=== PATIENT | male | born 1940 | race Caucasian/White ===

== ENCOUNTER 2016-12-14 15:34 | Inpatient (IN) | payer BC, OTHER ==
[~2016-12-14] VITALS: Ht 170.2 cm; Wt 107.0 kg
[~2016-12-14 15:34] MED LIST changes: -ADVIN10050 INH; -ALBINS/ INH; -ALBU18002 INH; -ALL100 PO; -CHOL100010 PO; -CPR500 PO; -DTR2 PO; -FERR324T PO; -FLUT0.15 NAE; -METO25TA3 PO; -METR-163 PO; -MULT-506 PO; -SNG10 PO; -SOLI5TAB2 PO; -VLT50 PO; -ZCR80 PO
[2016-12-14] MEDS ORDERED: SODIUM CHLORIDE 0.9% 1000ML 1,000 ML IV ONE (17:03)
[2016-12-14] MEDS ORDERED: KETOROLAC TROMETHAMINE 30 MG/ML VIAL IV STA (17:03)
--- NOTE | 2016-12-14 17:04 | EMERGENCY ROOM VISIT NOTE ---
History Report prepared by Ezekiel: Mark Hollingsworth Under the Supervision of: Dr. Flynn Salmon M.D. First contact with patient: 16:55 Chief Complaint: REFERRED BY DOCTOR Stated Complaint: PROBLEMS WITH BLADDER-NO CONTROL-SENT BY History of Present Illness The patient is a 75 year old male who presents to the Emergency Room with complaints of persistent chills that started 4 days ago. He associates the chills with loss of control of his bladder and groin pain. He says he has no history of prostate issues. The patient says he went to work last night, and he completely lost control of his bladder. He sees Dr. Cuellar of urology, as the patient has had problems with his bladder before. The patient denies any numbness or tingling in his legs, loss of control of his stools, or any abdominal pain. He has not taken any Tylenol or ibuprofen recently. Source of History: patient Onset: 4 days ago Position: other (global - chills) Timing: other (persistent) Associated Symptoms: + urinary symptoms (loss of control of bladder), No abdominal pain, No numbness (or tingling in legs) Note: Associated symptoms: Groin pain. Denies loss of control of stools. Review of Systems See HPI for pertinent positives & negatives. A total of 10 systems reviewed and were otherwise negative. Past Medical & Surgical Medical Problems: (1) Asthma (2) Bronchitis (3) HTN (hypertension) (4) Kidney disease Surgical Problems: (1) H/O kidney removal Family History Cancer Diabetes mellitus Heart disease Hypertension Kidney disease Social History Smoking Status: Never Smoker Smokeless Tobacco Use: No Alcohol Use: none Marital Status: Housing Status: lives with family Occupation Status: retired Current/Historical Medications Scheduled Allopurinol (Allopurinol), 100 MG PO QAM Cholecalciferol (Vitamin D), 1,000 UNIT PO QAM Diclofenac Sod (Diclofenac Sodium Dr), 50 MG PO BID Ferrous Gluconate (Iron Supplement), Unknown Dose PO QAM Fluticasone Prop/Salmeterol (Advair Diskus 100-50 Mcg/Dose), 1 PUFF INH DAILY Fluticasone Propionate (Nasal) (Flonase Allergy Relief), 1 SPRAY LASHELL BID Metoprolol Succ (Toprol Xl) (Toprol-Xl), 25 MG PO QAM Montelukast Sod (Montelukast Sodium), 10 MG PO QAM Multivitamin (Multivitamin), 1 TAB PO QAM Simvastatin (Simvastatin), 80 MG PO QAM Solifenacin Succinate (Vesicare), 5 MG PO QAM Allergies Coded Allergies: Iodinated Diagnostic Agents (Unverified Allergy, Unknown, UNKNOWN, 12/14/16 ) Iodine (Verified Allergy, Unknown, 12/14/16) Physical Exam Vital Signs Date Time Temp Pulse Resp B/P Pulse Ox O2 Delivery O2 Flow Rate FiO2 12/14/16 18:37 37.3 90 20 172/71 95 Room Air 12/14/16 17:13 95 Room Air 12/14/16 15:54 37.3 90 20 180/76 95 Room Air Physical Exam GENERAL: Patient is a healthy-appearing well-nourished HEAD: Normocephalic atraumatic EYES: Ocular movements intact pupils equal and react to light OROPHARYNX mucous membranes are moist no exudates present no erythema or edema present NECK: Supple no nuchal rigidity CHEST: Good equal expansion LUNGS: Clear and equal to auscultation CARDIAC: Normal S1 and S2 ABDOMEN: Soft nontender no guarding BACK: No CVA tenderness EXTREMITIES: No pain upon palpation normal muscle strength in all groups no clubbing cyanosis or edema NEURO: Patient is following commands is answering questions appropriately. Alert and oriented x3 Cranial Nerves 2-12 grossly intact Medical Decision & Procedures ER Provider Diagnostic Interpretation: X-ray results as stated below per my interpretation and radiologist interpretation. Other radiology results as stated below per my review and radiologist interpretation: CHEST ONE VIEW PORTABLE HISTORY: Sepsis COMPARISON: Chest 06/28/2015. FINDINGS: The heart is top normal in size. This remains unchanged. No pneumothorax. No pleural effusions. The lungs are clear. Left retrocardiac lobular density may be due to a small diaphragmatic hernia or eventration of the diaphragm. IMPRESSION: 1. No acute process within the chest. 2. Small left retrocardiac lobular density favors a small diaphragmatic hernia or eventration of the left hemidiaphragm. This will be assessed on the same day abdomen and pelvis CT. Electronically signed by: Abrahan Das M.D. 12/14/2016 5:37 PM Dictated Date/Time: 12/14/2016 5:35 PM ABDOMEN AND PELVIS CT WITHOUT CONTRAST CT DOSE: 1045.69 mGycm HISTORY: Lower abdominal pain. suspect prostatitis TECHNIQUE: Multiaxial CT images of the abdomen and pelvis were performed without contrast. COMPARISON STUDY: None. FINDINGS: Small fat-containing left-sided Bochdalek hernia. No fractures within the visualized osseous structures. Near complete fatty atrophy of the right lateral abdominal wall musculature. There are few surgical clips within the right lateral abdominal wall. Small to moderate fat-containing left inguinal hernia. The unenhanced liver, adrenal glands, gallbladder, and pancreas are unremarkable. The right kidney is surgically absent. A residual right ureter is identified. Multiple left peripelvic renal cysts. No left-sided hydronephrosis. No retroperitoneal lymphadenopathy. Moderate bladder wall thickening. The prostate gland is normal in size. Moderate to large amount of stool within the rectum. The rectal wall is mildly thickened for the degree of distention. Suboptimal evaluation for bowel pathology due to the lack of intravenous and oral contrast. However, there is no evidence for bowel obstruction. Submucosal fat deposition within the proximal colon. This is likely chronic. IMPRESSION: 1. Moderate bladder wall thickening. Recommend correlation with urinalysis to assess for a cystitis. 2. The prostate gland is normal in size. 3. Mild rectal wall thickening for the degree of distention. There is a moderate to large amount of well-formed stool within the rectum. There is no associated perirectal inflammatory change. Therefore, this could represent an early acute or chronic proctitis. Follow-up colonoscopy can be performed for further evaluation. 4. Small to moderate fat-containing left inguinal hernia. 5. No evidence for bowel obstruction. 6. The right kidney is surgically absent. Electronically signed by: Abrahan Das M.D. 12/14/2016 7:02 PM Dictated Date/Time: 12/14/2016 6:54 PM Laboratory Results 12/14/16 17:30 Red Blood Count 4.52, Mean Corpuscular Volume 86.7, Mean Corpuscular Hemoglobin 30.5, Mean Corpuscular Hemoglobin Concent 35.2, Mean Platelet Volume 10.8, Neutrophils (%) (Auto) 85.4, Lymphocytes (%) (Auto) 6.0, Monocytes (%) (Auto) 8.0, Eosinophils (%) (Auto) 0.1, Basophils (%) (Auto) 0.2, Neutrophils # (Auto) 13.64, Lymphocytes # (Auto) 0.96, Monocytes # (Auto) 1.27, Eosinophils # (Auto) 0.02, Basophils # (Auto) 0.03 12/14/16 17:30 Test 12/14/16 17:30 12/14/16 17:49 12/14/16 19:00 White Blood Count 15.96 K/uL (4.8-10.8) Red Blood Count 4.52 M/uL (4.7-6.1) Hemoglobin 13.8 g/dL (14.0-18.0) Hematocrit 39.2 % (42-52) Mean Corpuscular Volume 86.7 fL (80-100) Mean Corpuscular Hemoglobin 30.5 pg (25-34) Mean Corpuscular Hemoglobin Concent 35.2 g/dl (32-36) Platelet Count 242 K/uL (130-400) Mean Platelet Volume 10.8 fL (7.4-10.4) Neutrophils (%) (Auto) 85.4 % Lymphocytes (%) (Auto) 6.0 % Monocytes (%) (Auto) 8.0 % Eosinophils (%) (Auto) 0.1 % Basophils (%) (Auto) 0.2 % Neutrophils # (Auto) 13.64 K/uL (1.4-6.5) Lymphocytes # (Auto) 0.96 K/uL (1.2-3.4) Monocytes # (Auto) 1.27 K/uL (0.11-0.59) Eosinophils # (Auto) 0.02 K/uL (0-0.5) Basophils # (Auto) 0.03 K/uL (0-0.2) RDW Standard Deviation 40.9 fL (36.4-46.3) RDW Coefficient of Variation 12.8 % (11.5-14.5) Immature Granulocyte % (Auto) 0.3 % Immature Granulocyte # (Auto) 0.04 K/uL (0.00-0.02) Prothrombin Time 11.3 SECONDS (9.0-12.0) Prothromb Time International Ratio 1.1 (0.9-1.1) Activated Partial Thromboplast Time 32.0 SECONDS (21.0-31.0) Partial Thromboplastin Ratio 1.2 Anion Gap 11.0 mmol/L (3-11) Est Creatinine Clear Calc Drug Dose 59.0 ml/min Estimated GFR () 62.7 Estimated GFR (Non- 54.1 BUN/Creatinine Ratio 13.1 (10-20) Calcium Level 8.8 mg/dl (8.5-10.1) Total Bilirubin 1.6 mg/dl (0.2-1) Aspartate Amino Transf (AST/SGOT) 16 U/L (15-37) Alanine Aminotransferase (ALT/SGPT) 24 U/L (12-78) Alkaline Phosphatase 92 U/L (45-117) Total Protein 7.2 gm/dl (6.4-8.2) Albumin 3.6 gm/dl (3.4-5.0) Globulin 3.6 gm/dl (2.5-4.0) Albumin/Globulin Ratio 1.0 (0.9-2) Bedside Lactic Acid Venous 0.82 mmol/L (0.90-1.70) Urine Color YELLOW Urine Appearance CLEAR (CLEAR) Urine pH 5.0 (4.5-7.5) Urine Specific [place] 1.019 (1.000-1.030) Urine Protein 2+ (NEG) Urine Glucose (UA) NEG (NEG) Urine Ketones 2+ (NEG) Urine Occult Blood 3+ (NEG) Urine Nitrite POS (NEG) Urine Bilirubin NEG (NEG) Urine Urobilinogen NEG (NEG) Urine Leukocyte Esterase SMALL (NEG) Labs reviewed by ED physician. Medications Administered Medications (Trade) Dose Ordered Sig/Ava Route Start Time Stop Time Status Last Admin Dose Admin Sodium Chloride (Nss 1000ml) 1,000 ml @ 999 mls/hr Q1H1M ONCE IV 12/14/16 17:03 12/14/16 18:03 DC 12/14/16 17:52 999 MLS/HR Ketorolac Tromethamine (Toradol Inj) 30 mg NOW STAT IV 12/14/16 17:03 12/14/16 17:06 DC 12/14/16 17:53 30 MG Ciprofloxacin/ Dextrose (Cipro / D5w) 400 mg NOW STAT IV 12/14/16 17:33 12/14/16 17:34 DC 12/14/16 17:53 400 MG ECG Indication: other (chills) Rate (beats per minute): 88 Rhythm: normal sinus Findings: no acute ischemic change, no ectopy, other (normal EKG) ED Course 1656: Past medical records reviewed. The patient was evaluated in room B10. A complete history and physical examination was performed. 1702: Ordered Toradol Inj 30 mg IV, NSS 1000 ml @ 999 mls/hr IV. 1732: Ordered Cipro/D5w 400 mg IV. 1924: I reevaluated the patient and he is resting comfortably. The patient verbally expressed understanding and agreement of the treatment plan. The patient will be evaluated for further treatment. 1999: I discussed the patient with Dr. Cherry fitzgeraldist - he will evaluate the patient for further treatment. Medical Decision Differential diagnosis: Etiologies such as appendicitis, diverticulitis, PUD, biliary pathology, UTI, pancreatitis, obstruction, mesenteric ischemia, aortic pathology, infections, inflammatory bowel disease, renal colic, as well as others were entertained. This is a 75-year-old male who presents emergency Department with rigors. The patient reports he is incontinent of urine. For this reason a Chance catheter was placed. The patient has no other neurologic findings including leg weakness , saddle anesthesia or loss of bowel. Based on these findings and believe the patient's most likely suffering from prostatitis. His urine is consistent with an infection. For this reason blood cultures were taken. The patient does have an elevation in his white blood count 15. The patient was started on IV Rocephin as well as Cipro. I did discuss these findings with the patient. The patient was admitted to the hospitalist service. Consults Time Called: 1899 Consulting Physician: Dr. Cherry franks Returned Call: 1999 I discussed the patient with Dr. Cherry franks - he will evaluate the patient for further treatment. Impression Primary Impression: Prostatitis Scribe Attestation The scribe's documentation has been prepared under my direction and personally reviewed by me in its entirety. I confirm that the note above accurately reflects all work, treatment, procedures, and medical decision making performed by me. Departure Information Dispostion Being Evaluated By Hospitalist Referrals Jason Cuellar MD, Urology (PCP) Patient Instructions My [facility] Problem Qualifiers Primary Impression: Prostatitis Prostatitis type: acute Qualified Codes: N41.0 - Acute prostatitis
[2016-12-14] MEDS ORDERED: SNG10 PO (17:13)
[2016-12-14] MEDS ORDERED: CHOL100010 PO (17:13)
[2016-12-14] MEDS ORDERED: METO25TA3 PO (17:13)
[2016-12-14] MEDS ORDERED: FLUT0.15 NAE (17:13)
[2016-12-14] MEDS ORDERED: ZCR80 PO (17:13)
[2016-12-14] MEDS ORDERED: ADVIN10050 INH (17:13)
[2016-12-14] MEDS ORDERED: MULT-506 PO (17:13)
[2016-12-14] MEDS ORDERED: FERR324T PO (17:13)
[2016-12-14] MEDS ORDERED: ALL100 PO (17:14)
[2016-12-14] MEDS ORDERED: VLT50 PO (17:14)
[2016-12-14] MEDS ORDERED: SOLI5TAB2 PO (17:14)
[2016-12-14] MEDS ORDERED: CIPROFLOXACIN 400MG / 200ML D5W IV STA (17:33)
--- NOTE | 2016-12-14 17:38 | DIAGNOSTIC IMAGING REPORT ---
CHEST ONE VIEW PORTABLE HISTORY: Sepsis COMPARISON: Chest 06/28/2015. FINDINGS: The heart is top normal in size. This remains unchanged. No pneumothorax. No pleural effusions. The lungs are clear. Left retrocardiac lobular density may be due to a small diaphragmatic hernia or eventration of the diaphragm. IMPRESSION: 1. No acute process within the chest. 2. Small left retrocardiac lobular density favors a small diaphragmatic hernia or eventration of the left hemidiaphragm. This will be assessed on the same day abdomen and pelvis CT. Electronically signed by: Abrahan Das M.D. 12/14/2016 5:37 PM Dictated Date/Time: 12/14/2016 5:35 PM
[2016-12-14 18:33] LABS: BASO % 0.2 %; BASO ABS # 0.03 K/uL (0-0.2); COMPLETE YES; EOS % 0.1 %; HEMATOCRIT 39.2 % (42-52); IG% 0.3 %; LYMPH ABS # 0.96 K/uL (1.2-3.4); MEAN CELL VOLUME 86.7 fL (80-100); MEAN CORPUSCULAR HEMOGLOBIN 30.5 pg (25-34); MEAN CORPUSCULAR HGB CONC 35.2 g/dl (32-36); MEAN PLATELET VOLUME 10.8 fL (7.4-10.4); NEUT % 85.4 %; PLATELET COUNT 242 K/uL (130-400); RED BLOOD COUNT 4.52 M/uL (4.7-6.1); WHITE BLOOD COUNT 15.96 K/uL (4.8-10.8)
[2016-12-14 18:42] LABS: INR 1.1 (0.9-1.1); PARTIAL THROMBOPLASTIN RATIO 1.2; PROTHROMBIN TIME (PATIENT) 11.3 SECONDS (9.0-12.0)
[2016-12-14 18:50] LABS: BUN/CREATININE RATIO 13.1 (10-20); CALCIUM 8.8 mg/dl (8.5-10.1); CREATININE 1.3 mg/dl (0.60-1.40); POTASSIUM 3.9 mmol/L (3.5-5.1)
--- NOTE | 2016-12-14 19:04 | DIAGNOSTIC IMAGING REPORT ---
ABDOMEN AND PELVIS CT WITHOUT CONTRAST CT DOSE: 1045.69 mGycm HISTORY: Lower abdominal pain. suspect prostatitis TECHNIQUE: Multiaxial CT images of the abdomen and pelvis were performed without contrast. COMPARISON STUDY: None. FINDINGS: Small fat-containing left-sided Bochdalek hernia. No fractures within the visualized osseous structures. Near complete fatty atrophy of the right lateral abdominal wall musculature. There are few surgical clips within the right lateral abdominal wall. Small to moderate fat-containing left inguinal hernia. The unenhanced liver, adrenal glands, gallbladder, and pancreas are unremarkable. The right kidney is surgically absent. A residual right ureter is identified. Multiple left peripelvic renal cysts. No left-sided hydronephrosis. No retroperitoneal lymphadenopathy. Moderate bladder wall thickening. The prostate gland is normal in size. Moderate to large amount of stool within the rectum. The rectal wall is mildly thickened for the degree of distention. Suboptimal evaluation for bowel pathology due to the lack of intravenous and oral contrast. However, there is no evidence for bowel obstruction. Submucosal fat deposition within the proximal colon. This is likely chronic. IMPRESSION: 1. Moderate bladder wall thickening. Recommend correlation with urinalysis to assess for a cystitis. 2. The prostate gland is normal in size. 3. Mild rectal wall thickening for the degree of distention. There is a moderate to large amount of well-formed stool within the rectum. There is no associated perirectal inflammatory change. Therefore, this could represent an early acute or chronic proctitis. Follow-up colonoscopy can be performed for further evaluation. 4. Small to moderate fat-containing left inguinal hernia. 5. No evidence for bowel obstruction. 6. The right kidney is surgically absent. Electronically signed by: Abrahan Das M.D. 12/14/2016 7:02 PM Dictated Date/Time: 12/14/2016 6:54 PM
[2016-12-14 19:31] LABS: URINE APPEARANCE CLEAR (CLEAR); URINE BILIRUBIN NEG (NEG); URINE COLOR YELLOW; URINE EPITHELIAL CELL AUTO 0-5 /lpf (0-5); URINE NITRITE POS (NEG); URINE SPECIFIC GRAVITY 1.019 (1.000-1.030); UROBILINOGEN NEG (NEG); ZZURINE CULT IF INDIC CATH YES
[2016-12-14 19:35] LABS: MANUAL MICROSCOPIC REQUIRED? NO; REVIEW REQ? YES
[2016-12-14] MEDS ORDERED: CEFTRIAXONE SOD INJ 1 GM ADDVIAL IV STA (19:51)
[2016-12-14] MEDS ORDERED: ACETAMINOPHEN 500 MG TAB PO STA (20:01)
[2016-12-14] MEDS ORDERED: ZOLPIDEM TARTRATE 5 MG TAB PO PRN (21:45)
[2016-12-14 21:46] VITALS: BP 115/64; PULSE 77; TEMP 36.9; O2SAT 95
--- NOTE | 2016-12-14 21:46 | History and Physical ---
History & Physical Date & Time of Service: Dec 14, 2016 at 21:37 Chief Complaint: Problems With Bladder-No Control-Sent By Primary Care Physician: Pato Castle M.D. History of Present Illness Source: patient, family, spouse The patient is a 75-year-old male who presents emergency department with complaint of chills, sweats loss of control of bladder function, and lower pelvic pain that began about 4 days prior to arrival. He follows with Dr. Cuellar, from urology, due to history of right nephrectomy, but knows of no direct prostate issues, but has been treated for bladder spasm initially with Hytrin and presently with Vesicare. He does report discomfort when he urinates , and he has not noted any blood in his urine. Past Medical/Surgical History Medical Problems: (1) Asthma Status: Chronic (2) Bronchitis Status: Resolved (3) HTN (hypertension) Status: Chronic (4) Kidney disease Status: Chronic Surgical Problems: (1) H/O kidney removal Status: Resolved Family History Cancer Diabetes mellitus Heart disease Hypertension Kidney disease Social History Smoking Status: Never Smoker Smokeless Tobacco Use: No Alcohol Use: none Drug Use: none Marital Status: Housing status: lives with family Occupational Status: retired Immunizations History of Tetanus Vaccine?: 2003 History of Pneumococcal: No History of Hepatitis B Vaccine: No Multi-Drug Resistant Organisms History of MDRO: No Allergies Coded Allergies: Iodinated Diagnostic Agents (Unverified Allergy, Unknown, UNKNOWN, 12/14/16 ) Iodine (Verified Allergy, Unknown, 12/14/16) Home Medications Scheduled Allopurinol (Allopurinol), 100 MG PO QAM Cholecalciferol (Vitamin D), 1,000 UNIT PO QAM Diclofenac Sod (Diclofenac Sodium Dr), 50 MG PO BID Ferrous Gluconate (Iron Supplement), Unknown Dose PO QAM Fluticasone Prop/Salmeterol (Advair Diskus 100-50 Mcg/Dose), 1 PUFF INH DAILY Fluticasone Propionate (Nasal) (Flonase Allergy Relief), 1 SPRAY LASHELL BID Metoprolol Succ (Toprol Xl) (Toprol-Xl), 25 MG PO QAM Montelukast Sod (Montelukast Sodium), 10 MG PO QAM Multivitamin (Multivitamin), 1 TAB PO QAM Simvastatin (Simvastatin), 80 MG PO QAM Solifenacin Succinate (Vesicare), 5 MG PO QAM Review of Systems The patient denies chest pain, palpitations, shortness of breath, cough, lower extremity swelling, vision change, hearing change, sore throat, weight change, fatigue, nausea, vomiting, abdominal pain, blood in urine or stool, lightheadedness, dizziness, memory loss, rash, abnormal bruising or bleeding, imbalance, focal or generalized weakness, numbness or tingling in arms or legs, arthralgias or myalgias, back or neck pain, night sweats, or allergy symptoms. The review of systems is otherwise negative other than for that already noted above, and at least 10 systems have been reviewed. Physical Exam Vital Signs Date Time Temp Pulse Resp B/P Pulse Ox O2 Delivery O2 Flow Rate FiO2 12/14/16 21:25 75 18 130/58 95 12/14/16 20:38 79 18 170/70 95 Room Air 12/14/16 18:37 37.3 90 20 172/71 95 Room Air 12/14/16 17:13 95 Room Air 12/14/16 15:54 37.3 90 20 180/76 95 Room Air The patient is awake, well-developed and adequately nourished, alert and oriented 3, normocephalic and atraumatic, lying in bed and in no acute distress. HEENT--PERRL, EOMI, mucous membranes moist, and oropharynx normal. Neck--supple, no JVD or bruits, thyroid normal, trachea midline, no adenopathy. Heart--normal S1 and S2, no extra beats, no murmurs, rubs or gallops. Lungs--clear bilaterally with good air movement, no respiratory distress, no accessory muscle use. Abdomen--normal bowel sounds and soft, nontender and nondistended, no hernias or masses, no organomegaly, and obese. Extremities--no cyanosis, clubbing or edema. There are good distal pulses b/l. Dermatologic--normal skin turgor, normal color, warm and dry, no abnormal lymph nodes, no rash. Neurologic--cranial nerves II through XII grossly intact, motor and sensory examination normal. Rheumatologic--normal range of motion, nontender, muscles and joints. Psychiatric--normal affect. Diagnostics Laboratory Results Results Past 24 Hours Test 12/14/16 17:30 12/14/16 17:49 12/14/16 19:00 Range/Units White Blood Count 15.96 4.8-10.8 K/uL Red Blood Count 4.52 4.7-6.1 M/uL Hemoglobin 13.8 14.0-18.0 g/dL Hematocrit 39.2 42-52 % Mean Corpuscular Volume 86.7 80-100 fL Mean Corpuscular Hemoglobin 30.5 25-34 pg Mean Corpuscular Hemoglobin Concent 35.2 32-36 g/dl Platelet Count 242 130-400 K/uL Mean Platelet Volume 10.8 7.4-10.4 fL Neutrophils (%) (Auto) 85.4 % Lymphocytes (%) (Auto) 6.0 % Monocytes (%) (Auto) 8.0 % Eosinophils (%) (Auto) 0.1 % Basophils (%) (Auto) 0.2 % Neutrophils # (Auto) 13.64 1.4-6.5 K/uL Lymphocytes # (Auto) 0.96 1.2-3.4 K/uL Monocytes # (Auto) 1.27 0.11-0.59 K/uL Eosinophils # (Auto) 0.02 0-0.5 K/uL Basophils # (Auto) 0.03 0-0.2 K/uL RDW Standard Deviation 40.9 36.4-46.3 fL RDW Coefficient of Variation 12.8 11.5-14.5 % Immature Granulocyte % (Auto) 0.3 % Immature Granulocyte # (Auto) 0.04 0.00-0.02 K/uL Prothrombin Time 11.3 9.0-12.0 SECONDS Prothromb Time International Ratio 1.1 0.9-1.1 Activated Partial Thromboplast Time 32.0 21.0-31.0 SECONDS Partial Thromboplastin Ratio 1.2 Sodium Level 135 136-145 mmol/L Potassium Level 3.9 3.5-5.1 mmol/L Chloride Level 100 98-107 mmol/L Carbon Dioxide Level 24 21-32 mmol/L Anion Gap 11.0 3-11 mmol/L Blood Urea Nitrogen 17 7-18 mg/dl Creatinine 1.30 0.60-1.40 mg/dl Est Creatinine Clear Calc Drug Dose 59.0 ml/min Estimated GFR () 62.7 Estimated GFR (Non- 54.1 BUN/Creatinine Ratio 13.1 10-20 Random Glucose 107 70-99 mg/dl Calcium Level 8.8 8.5-10.1 mg/dl Total Bilirubin 1.6 0.2-1 mg/dl Aspartate Amino Transf (AST/SGOT) 16 15-37 U/L Alanine Aminotransferase (ALT/SGPT) 24 12-78 U/L Alkaline Phosphatase 92 45-117 U/L Total Protein 7.2 6.4-8.2 gm/dl Albumin 3.6 3.4-5.0 gm/dl Globulin 3.6 2.5-4.0 gm/dl Albumin/Globulin Ratio 1.0 0.9-2 Bedside Lactic Acid Venous 0.82 0.90-1.70 mmol/L Urine Color YELLOW Urine Appearance CLEAR CLEAR Urine pH 5.0 4.5-7.5 Urine Specific [place] 1.019 1.000-1.030 Urine Protein 2+ NEG Urine Glucose (UA) NEG NEG Urine Ketones 2+ NEG Urine Occult Blood 3+ NEG Urine Nitrite POS NEG Urine Bilirubin NEG NEG Urine Urobilinogen NEG NEG Urine Leukocyte Esterase SMALL NEG Urine WBC (Auto) >30 0-5 /hpf Urine RBC (Auto) 10-30 0-4 /hpf Urine Hyaline Casts (Auto) 1-5 0-5 /lpf Urine Epithelial Cells (Auto) 0-5 0-5 /lpf Urine Bacteria (Auto) 4+ NEG Microbiology Results 12/14/16 Blood Culture, Received Pending 12/14/16 Blood Culture, Received Pending 12/14/16 Urine Culture, Received Pending Diagnostic Radiology Patient Name: NANCY MILLER Unit Number: [id number] Dictated: 12/14/161734 Transcribed: 12/14/161734 Voice Assist Printed Date/Time: [~ rep prt dt]/[~ rep prt tm] [~ rep ct labl] - [~ rep ct ivnm] [facility] [place] [address] Dictated: 12/14/161734 Transcribed: 12/14/161734 [facility] Printed Date/Time: [~ rep prt dt]/[~ rep prt tm] [~ rep ct labl] - [~ rep ct ivnm] [~ rep ct add3]] CHEST ONE VIEW PORTABLE HISTORY: Sepsis COMPARISON: Chest 06/28/2015. FINDINGS: The heart is top normal in size. This remains unchanged. No pneumothorax. No pleural effusions. The lungs are clear. Left retrocardiac lobular density may be due to a small diaphragmatic hernia or eventration of the diaphragm. IMPRESSION: 1. No acute process within the chest. 2. Small left retrocardiac lobular density favors a small diaphragmatic hernia or eventration of the left hemidiaphragm. This will be assessed on the same day abdomen and pelvis CT. Electronically signed by: Abrahan Das M.D. 12/14/2016 5:37 PM Dictated Date/Time: 12/14/2016 5:35 PM The status of this report is Signed. Draft = Not yet reviewed or approved by Radiologist. Signed = Reviewed and approved by Radiologist. <AttendingPhy></AttendingPhy> <FamilyPhy>Jason Cuellar MD, Urology</ FamilyPhy> <PrimaryPhy>Pato Castle M.D.</PrimaryPhy> <UnitNumber> [id number]</UnitNumber> <VisitNumber>[id number]</VisitNumber> <PatientName> NANCY MILLER</PatientName> <DateOfBirth>1940</DateOfBirth> <Location> C.EDB</Location> <ServiceDate>12/14/16</ServiceDate> <MNE>ESINDI</MNE> < OrderingPhy>Flynn Salmon MD</OrderingPhy> <OrderingPhyMNE>f rep ord dr nichols< /OrderingPhyMNE> <DictatingPhyMNE>f rep dict dr nichols</DictatingPhyMNE> <CCListMNE >f rep ct simone</CCListMNE> <AdmittingPhyMNE>f pt admit dr nichols</AdmittingPhyMNE> < AttendingPhyMNE>f pt attend dr nichols</AttendingPhyMNE> <ConsultingPhyMNE>f pt consult dr nichols</ConsultingPhyMNE> <FamilyPhyMNE>f pt fam dr nichols</FamilyPhyMNE> <OtherPhyMNE>f pt other dr nichols</OtherPhyMNE> < PrimaryPhyMNE>f pt prim care dr nichols</PrimaryPhyMNE> <ReferringPhyMNE>f pt referring dr nichols</ReferringPhyMNE> Patient Name: NANCY MILLER Unit Number: [id number] Dictated: 12/14/161853 Transcribed: 12/14/161853 [facility] Printed Date/Time: [~ rep prt dt]/[~ rep prt tm] [~ rep ct labl] - [~ rep ct ivnm] [facility] Radiology Department [place], [place] [id number] Dictated: 12/14/161853 Transcribed: 12/14/161853 [facility] Printed Date/Time: [~ rep prt dt]/[~ rep prt tm] [~ rep ct labl] - [~ rep ct ivnm] [~ rep ct add3]] ABDOMEN AND PELVIS CT WITHOUT CONTRAST CT DOSE: 1045.69 mGycm HISTORY: Lower abdominal pain. suspect prostatitis TECHNIQUE: Multiaxial CT images of the abdomen and pelvis were performed without contrast. COMPARISON STUDY: None. FINDINGS: Small fat-containing left-sided Bochdalek hernia. No fractures within the visualized osseous structures. Near complete fatty atrophy of the right lateral abdominal wall musculature. There are few surgical clips within the right lateral abdominal wall. Small to moderate fat-containing left inguinal hernia. The unenhanced liver, adrenal glands, gallbladder, and pancreas are unremarkable. The right kidney is surgically absent. A residual right ureter is identified. Multiple left peripelvic renal cysts. No left-sided hydronephrosis. No retroperitoneal lymphadenopathy. Moderate bladder wall thickening. The prostate gland is normal in size. Moderate to large amount of stool within the rectum. The rectal wall is mildly thickened for the degree of distention. Suboptimal evaluation for bowel pathology due to the lack of intravenous and oral contrast. However, there is no evidence for bowel obstruction. Submucosal fat deposition within the proximal colon. This is likely chronic. IMPRESSION: 1. Moderate bladder wall thickening. Recommend correlation with urinalysis to assess for a cystitis. 2. The prostate gland is normal in size. 3. Mild rectal wall thickening for the degree of distention. There is a moderate to large amount of well-formed stool within the rectum. There is no associated perirectal inflammatory change. Therefore, this could represent an early acute or chronic proctitis. Follow-up colonoscopy can be performed for further evaluation. 4. Small to moderate fat-containing left inguinal hernia. 5. No evidence for bowel obstruction. 6. The right kidney is surgically absent. Electronically signed by: Abrahan Das M.D. 12/14/2016 7:02 PM Dictated Date/Time: 12/14/2016 6:54 PM The status of this report is Signed. Draft = Not yet reviewed or approved by Radiologist. Signed = Reviewed and approved by Radiologist. <AttendingPhy></AttendingPhy> <FamilyPhy>Jasno Cuellar MD, Urology</ FamilyPhy> <PrimaryPhy>Pato Castle M.D.</PrimaryPhy> <UnitNumber> [id number]</UnitNumber> <VisitNumber>[id number]</VisitNumber> <PatientName> NANCY MILLER</PatientName> <DateOfBirth>1940</DateOfBirth> <Location> C.EDB</Location> <ServiceDate>12/14/16</ServiceDate> <MNE>ESINDI</MNE> < OrderingPhy>Flynn Salmon MD</OrderingPhy> <OrderingPhyMNE>f rep ord dr nichols< /OrderingPhyMNE> <DictatingPhyMNE>f rep dict dr nichols</DictatingPhyMNE> <CCListMNE >f rep ct simone</CCListMNE> <AdmittingPhyMNE>f pt admit dr nichols</AdmittingPhyMNE> < AttendingPhyMNE>f pt attend dr nichols</AttendingPhyMNE> <ConsultingPhyMNE>f pt consult dr nichols</ConsultingPhyMNE> <FamilyPhyMNE>f pt fam dr nichols</FamilyPhyMNE> <OtherPhyMNE>f pt other dr nichols</OtherPhyMNE> < PrimaryPhyMNE>f pt prim care dr nichols</PrimaryPhyMNE> <ReferringPhyMNE>f pt referring dr nichols</ReferringPhyMNE> EKG EKG shows normal sinus rhythm at 88 bpm, there are no acute ST-T changes. There is no significant change found when compared to EKG of 04/26/2011. Impression Assessment and Plan Prostatitis/SIRS--the patient be admitted to the medical surgical floor. He'll be placed on ceftriaxone 1 g IV daily. Follow urine culture and sensitivity results. Continue Vesicare 5 mg by mouth every morning. He reports having uncontrollable urination when he is been on Hytrin in the past. We'll consult his urologist Dr. Jason Cuellar, and he can determine if Flomax is an acceptable option. He looks to be able to adequately drink liquids on his own, we'll therefore not placed on IV fluids at this time. Gout--continue allopurinol 100 mg by mouth every morning. Asthma--continue Advair discus 100/50, 1 inhalation daily and montelukast sodium 10 mg by mouth every morning. Hypertension--continue metoprolol succinate 25 mg by mouth every morning. General Allergy--continue Flonase allergy relief 1 spray each nostril twice a day. Hypercholesterolemia--continue simvastatin 80 mg by mouth every morning. Nutraceuticals--continue vitamin D 1000 international units by mouth every morning, ferrous gluconate daily, multivitamin daily. Level of Care Med/Surg Advanced Directives Existing Advance Directive: No Existing Living Will: No Existing Power of Four Slide Machine Setter: No Resuscitation Status FULL RESUSCITATION VTE Prophylaxis VTE Risk Assessment Done? Y/N: Yes Risk Level: Moderate Given or contraindicated: SCD's Social Service Consult None Apply
[2016-12-14 22:04] VITALS: BP 115/64; PULSE 77; TEMP 36.9; O2SAT 95; Ht 170.2 cm; Wt 107.0 kg
[2016-12-15] MEDS ORDERED: VESICARE 5 MG PO SCH (08:00)
[2016-12-15] MEDS ORDERED: BISACODYL 10 MG SUPP PR PRN (08:15)
[2016-12-15 08:23] VITALS: BP 142/82; PULSE 81; TEMP 37.1; O2SAT 94
[2016-12-15] MEDS: FLUTICASONE/SALMETEROL 100/50 (ADVAIR) 14 PUFF/1 INHALER INH SCH (08:29)
[2016-12-15] MEDS: ACETAMINOPHEN 325 MG TAB PO PRN ×2 (08:34→20:59)
[2016-12-15] MEDS: FLUTICASONE PROPIONATE NA SPR 16 GM BTL NAE SCH ×2 (08:35→20:52)
[2016-12-15] MEDS: MONTELUKAST SOD 10 MG TAB PO SCH (08:36)
[2016-12-15] MEDS: MULTIVITAMIN TAB PO SCH (08:36)
[2016-12-15] MEDS: SIMVASTATIN 80 MG TAB PO SCH (08:37)
[2016-12-15] MEDS: ALLOPURINOL 100 MG TAB PO SCH (08:37)
[2016-12-15] MEDS: METOPROLOL SUCC 25MG EXT REL TAB PO SCH (08:37)
[2016-12-15] MEDS: CHOLECALCIFEROL 1000 INTER.UNIT TAB PO SCH (08:37)
[2016-12-15] MEDS: POLYETHYLENE (MIRALAX) 17 GM PACK PO SCH (11:24)
--- NOTE | 2016-12-15 13:22 | Progress Note ---
Subjective Date of Service: Dec 15, 2016. Subjective pt feels much better but still has urgency and almost incontinence, no further back pain Problem List Medical Problems: (1) Asthma Status: Chronic (2) Prostatitis Status: Acute Review of Systems Constitutional: No chills, No fever, No weakness Respiratory: No cough, No shortness of breath Cardiac: No chest pain, No edema Abdomen: No diarrhea, No nausea, No pain, No vomiting Musculoskeletal: No joint pain, No muscle pain Male : + problem reported (urgency), + urinary frequency Objective Vital Signs Date Time Temp Pulse Resp B/P Pulse Ox O2 Delivery O2 Flow Rate FiO2 12/15/16 00:00 Room Air 12/14/16 22:04 36.9 77 20 115/64 95 Room Air 12/14/16 21:46 36.9 77 20 115/64 95 Room Air 12/14/16 21:25 75 18 130/58 95 12/14/16 20:38 79 18 170/70 95 Room Air 12/14/16 18:37 37.3 90 20 172/71 95 Room Air 12/14/16 17:13 95 Room Air 12/14/16 15:54 37.3 90 20 180/76 95 Room Air Physical Exam General Appearance: WD/WN, + mild distress Neck: supple, no JVD Respiratory/Chest: chest non-tender, lungs clear, normal breath sounds Cardiovascular: regular rate, rhythm, no murmur Abdomen: normal bowel sounds, non tender, soft Neurologic/Psychiatric: alert, oriented x 3 Laboratory Results Last 24 Hours Test 12/14/16 17:30 12/14/16 17:49 12/14/16 19:00 White Blood Count 15.96 K/uL Red Blood Count 4.52 M/uL Hemoglobin 13.8 g/dL Hematocrit 39.2 % Mean Corpuscular Volume 86.7 fL Mean Corpuscular Hemoglobin 30.5 pg Mean Corpuscular Hemoglobin Concent 35.2 g/dl Platelet Count 242 K/uL Mean Platelet Volume 10.8 fL Neutrophils (%) (Auto) 85.4 % Lymphocytes (%) (Auto) 6.0 % Monocytes (%) (Auto) 8.0 % Eosinophils (%) (Auto) 0.1 % Basophils (%) (Auto) 0.2 % Neutrophils # (Auto) 13.64 K/uL Lymphocytes # (Auto) 0.96 K/uL Monocytes # (Auto) 1.27 K/uL Eosinophils # (Auto) 0.02 K/uL Basophils # (Auto) 0.03 K/uL RDW Standard Deviation 40.9 fL RDW Coefficient of Variation 12.8 % Immature Granulocyte % (Auto) 0.3 % Immature Granulocyte # (Auto) 0.04 K/uL Prothrombin Time 11.3 SECONDS Prothromb Time International Ratio 1.1 Activated Partial Thromboplast Time 32.0 SECONDS Partial Thromboplastin Ratio 1.2 Sodium Level 135 mmol/L Potassium Level 3.9 mmol/L Chloride Level 100 mmol/L Carbon Dioxide Level 24 mmol/L Anion Gap 11.0 mmol/L Blood Urea Nitrogen 17 mg/dl Creatinine 1.30 mg/dl Est Creatinine Clear Calc Drug Dose 59.0 ml/min Estimated GFR () 62.7 Estimated GFR (Non- 54.1 BUN/Creatinine Ratio 13.1 Random Glucose 107 mg/dl Calcium Level 8.8 mg/dl Total Bilirubin 1.6 mg/dl Aspartate Amino Transf (AST/SGOT) 16 U/L Alanine Aminotransferase (ALT/SGPT) 24 U/L Alkaline Phosphatase 92 U/L Total Protein 7.2 gm/dl Albumin 3.6 gm/dl Globulin 3.6 gm/dl Albumin/Globulin Ratio 1.0 Bedside Lactic Acid Venous 0.82 mmol/L Urine Color YELLOW Urine Appearance CLEAR Urine pH 5.0 Urine Specific [place] 1.019 Urine Protein 2+ Urine Glucose (UA) NEG Urine Ketones 2+ Urine Occult Blood 3+ Urine Nitrite POS Urine Bilirubin NEG Urine Urobilinogen NEG Urine Leukocyte Esterase SMALL Urine WBC (Auto) >30 /hpf Urine RBC (Auto) 10-30 /hpf Urine Hyaline Casts (Auto) 1-5 /lpf Urine Epithelial Cells (Auto) 0-5 /lpf Urine Bacteria (Auto) 4+ Assessment and Plan Prostatitis/SIRS-- ceftriaxone 1 g IV daily, Pending urine culture and sensitivity results, CT suggests cystitis and proctitis Sepsis from ecoli uti poa, since has solitary kidney and did have some back pain , will await sensitivities and treat as complex uti with appropriate antibiotic for one week Constipation seen on CT, use miralax. possible suppository. BPH Vesicare 5 mg Gout- allopurinol 100 mg Asthma--stable, Advair discus 100/50, and montelukast sodium 10 mg Hypertension--stable metoprolol succinate 25 mg Hypercholesterolemia--simvastatin 80 mg
[2016-12-15 15:47] VITALS: BP 159/79; PULSE 74; TEMP 36.5; O2SAT 98
[2016-12-15] MEDS: CEFTRIAXONE SOD INJ 1 GM in DEXTROSE 5% ADD-VANTAGE 50ML 50 ML IV SCH (18:08)
[2016-12-15 23:17] VITALS: BP 145/90; PULSE 79; TEMP 37.4; O2SAT 95
[2016-12-16] MEDS ORDERED: CPR500 PO (07:58)
--- NOTE | 2016-12-16 08:00 | Discharge Instructions ---
Discharge Instructions Admission Reason for Admission: Prostatitis, Sirs Discharge Discharge Diagnosis / Problem: complicated uti poa, solitary kidney Discharge Goals Goal(s): Diagnostic testing, Therapeutic intervention Activity Recommendations Activity Limitations: resume your previous activity . Current Hospital Diet Patient's current hospital diet: Regular Diet Discharge Diet Recommended Diet: Regular Diet Pending Studies Studies pending at discharge: yes (second urine culture) List of pending studies: second urine culture, Dr Flores outpt culture did show e coli Medical Emergencies . Who to Call and When: Medical Emergencies: If at any time you feel your situation is an emergency, please call 911 immediately. . Non-Emergent Contact Non-Emergency issues call your: Primary Care Provider (Dr llanos this week) . . "Provider Documentation" section prepared by Isacc Law. VTE Core Measure Inpt VTE Proph given/why not?: SCD's
[2016-12-16 08:12] VITALS: BP 156/97; PULSE 81; TEMP 36.8; O2SAT 90
[2016-12-16] MEDS: ENOXAPARIN 40 MG/0.4 ML SYR SQ SCH (08:30)
[2016-12-16] MEDS: FLUTICASONE PROPIONATE NA SPR 16 GM BTL NAE SCH ×2 (08:33→20:25)
[2016-12-16] MEDS: FLUTICASONE/SALMETEROL 100/50 (ADVAIR) 14 PUFF/1 INHALER INH SCH (08:33)
[2016-12-16] MEDS: POLYETHYLENE (MIRALAX) 17 GM PACK PO SCH (08:34)
[2016-12-16] MEDS: MULTIVITAMIN TAB PO SCH (08:34)
[2016-12-16] MEDS: MONTELUKAST SOD 10 MG TAB PO SCH (08:35)
[2016-12-16] MEDS: METOPROLOL SUCC 25MG EXT REL TAB PO SCH (08:35)
[2016-12-16] MEDS: VESICARE 5MG TABLET PO SCH (08:36)
[2016-12-16] MEDS: CHOLECALCIFEROL 1000 INTER.UNIT TAB PO SCH (08:36)
[2016-12-16] MEDS: ALLOPURINOL 100 MG TAB PO SCH (08:36)
[2016-12-16] MEDS: SIMVASTATIN 80 MG TAB PO SCH (08:37)
--- NOTE | 2016-12-16 11:21 | Progress Note ---
Subjective Date of Service: Dec 16, 2016. Subjective this pt has improved urination but now constipation and RLQ pain( supposedly had an appendectomy and right nephrectomy in the past) no rebound or acute abdomen but distended and guarding Problem List Medical Problems: (1) Asthma Status: Chronic (2) Prostatitis Status: Acute Review of Systems Constitutional: No chills, No fever Respiratory: No cough, No shortness of breath Cardiac: No chest pain, No edema Abdomen: No nausea, No pain, No vomiting Male : No dysuria, No incontinence, No urinary frequency Psychiatric: No anhedonism, No depression symptoms Objective Vital Signs Date Time Temp Pulse Resp B/P Pulse Ox O2 Delivery O2 Flow Rate FiO2 12/16/16 08:12 36.8 81 18 156/97 90 Room Air 12/16/16 00:05 Room Air 12/15/16 23:17 37.4 79 18 145/90 95 Room Air 12/15/16 20:05 Room Air 12/15/16 16:00 Room Air 12/15/16 15:47 36.5 74 18 159/79 98 Room Air Physical Exam General Appearance: WD/WN, + moderate distress Neck: supple, no JVD Respiratory/Chest: chest non-tender, lungs clear, normal breath sounds Cardiovascular: regular rate, rhythm, no murmur Abdomen: normal bowel sounds, soft, + distended, + tenderness Extremities: normal range of motion, no pedal edema, no calf tenderness Neurologic/Psychiatric: alert, oriented x 3 Assessment and Plan Prostatitis/SIRS-- ceftriaxone 1 g IV daily, Pending urine culture and sensitivity results, CT suggests cystitis and proctitis, Ecoli is confirmed on outpt uti Sepsis from ecoli uti poa, since has solitary kidney and did have some back pain , will await sensitivities and treat as complex uti with appropriate antibiotic for one week Constipation seen on CT, use miralax. possible suppository. BPH Vesicare 5 mg Gout- allopurinol 100 mg Asthma--stable, Advair discus 100/50, and montelukast sodium 10 mg Hypertension--stable metoprolol succinate 25 mg Hypercholesterolemia--simvastatin 80 mg
--- NOTE | 2016-12-16 13:52 | DIAGNOSTIC IMAGING REPORT ---
ABDOMEN AND PELVIS CT WITH ORAL CONTRAST CT DOSE: 1301.01 mGy.cm HISTORY: Right lower quadrant abdominal pain. TECHNIQUE: Multiaxial CT images of the abdomen and pelvis were performed following the use of oral contrast. COMPARISON STUDY: Abdomen and pelvis CT 12/14/2016. FINDINGS: Small fat-containing left-sided Bochdalek hernia. No fractures within the visualized osseous structures. Near complete fatty atrophy of the right lateral abdominal wall musculature. There are few surgical clips within the right lateral abdominal wall. Small to moderate fat-containing left inguinal hernia. The unenhanced liver, adrenal glands, gallbladder, and pancreas are unremarkable. The right kidney is surgically absent. A residual right ureter is identified. Multiple left peripelvic renal cysts. No left-sided hydronephrosis. No retroperitoneal lymphadenopathy. Mild bladder wall thickening. The prostate gland is normal in size. Moderate to large amount of stool within the rectum. The rectal wall is mildly thickened for the degree of distention. There is no evidence for bowel obstruction. Submucosal fat deposition within the proximal colon. This is likely chronic. The appendix is not identified and is likely absent. IMPRESSION: 1. Mild bladder wall thickening which has improved. The bladder is mildly distended.. 2. Otherwise, no significant change compared to the prior study. 3. Mild rectal wall thickening for the degree of distention. There is a moderate to large amount of well-formed stool within the rectum. There is no associated perirectal inflammatory change. 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 Follow-up colonoscopy can be performed for further evaluation. 4. Small to moderate fat-containing left inguinal hernia. 5. No evidence for bowel obstruction. 6. The right kidney is surgically absent. Electronically signed by: Abrahan Das M.D. 12/16/2016 1:50 PM Dictated Date/Time: 12/16/2016 1:42 PM
[2016-12-16 15:43] VITALS: BP 147/68; PULSE 73; TEMP 36.5; O2SAT 96
[2016-12-16] MEDS ORDERED: BISACODYL 10 MG SUPP PR PRN (16:00)
[2016-12-16] MEDS ORDERED: SOAP SUDS ENEMA PR PRN (16:00)
[2016-12-16] MEDS ORDERED: BISACODYL 10 MG SUPP PR STA (16:01)
[2016-12-16] MEDS: CEFTRIAXONE SOD INJ 1 GM in DEXTROSE 5% ADD-VANTAGE 50ML 50 ML IV SCH (18:33)
[2016-12-16] MEDS: ACETAMINOPHEN 325 MG TAB PO PRN (20:27)
[2016-12-16 23:34] VITALS: BP 137/69; PULSE 82; TEMP 36.7; O2SAT 97
[2016-12-17 07:55] VITALS: BP 151/73; PULSE 73; TEMP 37; O2SAT 90
[2016-12-17] MEDS: ENOXAPARIN 40 MG/0.4 ML SYR SQ SCH (08:00)
[2016-12-17] MEDS: FLUTICASONE/SALMETEROL 100/50 (ADVAIR) 14 PUFF/1 INHALER INH SCH (08:02)
[2016-12-17] MEDS: FLUTICASONE PROPIONATE NA SPR 16 GM BTL NAE SCH (08:02)
[2016-12-17] MEDS: ACETAMINOPHEN 325 MG TAB PO PRN ×2 (08:02→12:28)
[2016-12-17] MEDS: METOPROLOL SUCC 25MG EXT REL TAB PO SCH (08:03)
[2016-12-17] MEDS: MULTIVITAMIN TAB PO SCH (08:03)
[2016-12-17] MEDS: CHOLECALCIFEROL 1000 INTER.UNIT TAB PO SCH (08:03)
[2016-12-17] MEDS: MONTELUKAST SOD 10 MG TAB PO SCH (08:03)
[2016-12-17] MEDS: VESICARE 5MG TABLET PO SCH (08:04)
[2016-12-17] MEDS: SIMVASTATIN 80 MG TAB PO SCH (08:04)
[2016-12-17] MEDS: ALLOPURINOL 100 MG TAB PO SCH (08:04)
[2016-12-17] MEDS: POLYETHYLENE (MIRALAX) 17 GM PACK PO SCH (08:06)
[2016-12-17 10:00] LABS: BASO % 0.5 %; BASO ABS # 0.03 K/uL (0-0.2); COMPLETE YES; EOS % 3.7 %; HEMATOCRIT 37.3 % (42-52); IG% 0.8 %; LYMPH % 25.1 %; LYMPH ABS # 1.63 K/uL (1.2-3.4); MEAN CELL VOLUME 85.6 fL (80-100); MEAN CORPUSCULAR HEMOGLOBIN 30.7 pg (25-34); MEAN CORPUSCULAR HGB CONC 35.9 g/dl (32-36); MEAN PLATELET VOLUME 10.4 fL (7.4-10.4); MONO % 10.5 %; NEUT % 59.4 %; PLATELET COUNT 257 K/uL (130-400); RED BLOOD COUNT 4.36 M/uL (4.7-6.1)
[2016-12-17 10:29] LABS: BUN/CREATININE RATIO 12.8 (10-20); CALCIUM 9.1 mg/dl (8.5-10.1); CREATININE 1.3 mg/dl (0.60-1.40); POTASSIUM 3.6 mmol/L (3.5-5.1)
--- NOTE | 2016-12-17 15:09 | DIAGNOSTIC IMAGING REPORT ---
TESTICULAR ULTRASOUND HISTORY: Right-sided testicular pain. eval for epididymitis, testicular masses, etc COMPARISON: None. FINDINGS: Right testis: 3.2 x 2.2 x 1.5 cm. There are no intratesticular masses. Normal color flow. No significant hydrocele. There is a 2 mm scrotal calcification. There is a 3 mm cyst within the epididymal head. Left testis: 3.0 x 2.4 x 1.4 cm. There are no intratesticular masses. Normal color flow. No significant hydrocele. There is a small fat-containing reducible left inguinal hernia. A 4 mm cyst within the left epididymal head. Small left-sided varicocele. IMPRESSION: 1. Normal bilateral testes. 2. Small bilateral epididymal head cysts. 3. Small left-sided varicocele. 4. Small fat-containing reducible left inguinal hernia. Electronically signed by: Abrahan Das M.D. 12/17/2016 3:07 PM Dictated Date/Time: 12/17/2016 3:05 PM
[2016-12-17] MEDS ORDERED: METR-163 PO (15:20)
[2016-12-17] MEDS ORDERED: CPR500 PO (15:20)
--- NOTE | 2016-12-17 15:31 | Discharge Instructions ---
Discharge Instructions Admission Reason for Admission: Prostatitis, Sirs (Brenda Dolan PA-C) Discharge Discharge Diagnosis / Problem: Complicated urinary tract infection, epididymitis (Brenda Dolan PA-C) Discharge Goals Goal(s): Decrease discomfort, Improve function, Diagnostic testing, Therapeutic intervention (Brenda Dolan PA-C) Activity Recommendations Activity Limitations: resume your previous activity . (Brenda Dolan PA-C) Instructions / Follow-Up Instructions / Follow-Up You were admitted to the hospital with a complicated urinary tract infection. The infection was caused by E. coli, and you were treated with an IV antibiotic called Rocephin, which did help to improve your symptoms. Your blood cultures were negative for any infection. Upon discharge, you were found to have epididymitis, an infection of your epididymis, which is a duct that runs behind your testicle. You will be treated for this infection with 2 weeks of oral antibiotics, which will also cover your urinary tract infection. Medications: You have been started on two new antibiotics. Please take ciprofloxacin (Cipro ) 500 mg by mouth twice a day for 14 days. Please also take metronidazole ( Flagyl) 500 mg by mouth three times a day for 14 days. DO NOT drink alcohol while taking metronidazole and for 3 days after you stop taking metronidazole as this may result in adverse reactions such as vomiting. You may resume your other home medications as previously prescribed. Follow-up: You have been scheduled for a follow-up appointment with Dr. Cuellar on December 28, 2016 at 10:00 am. Please follow up with your primary care provider in 1 week regarding your hospital stay. You will also need a follow-up colonoscopy in the near future. (Brenda Dolan PA-C) Current Hospital Diet Patient's current hospital diet: Regular Diet (Brenda Dolan PA-C) Discharge Diet Recommended Diet: Regular Diet (Brenda Dolan PA-C) Pending Studies Studies pending at discharge: no (Brenda Dolan PA-C) Medical Emergencies . Who to Call and When: Medical Emergencies: If at any time you feel your situation is an emergency, please call 911 immediately. . (Brenda Dolan PA-C) Non-Emergent Contact Non-Emergency issues call your: Primary Care Provider, Urologist Call Non-Emergent contact if: you have a fever, your pain is worsening, your pain is concerning you, you have any medication questions . (Brenda Dolan PA-C) Past History Medical & Surgical History: (1) UTI (urinary tract infection) (2) Epididymitis (3) SIRS (systemic inflammatory response syndrome) (Brenda Dolan PA-C) . "Provider Documentation" section prepared by Brenda Dloan. (Brenda Dolan PA-C) Attending Attestation: Pt seen/examined with FLYNN Dolan on the day of discharge. I agree with her discharge instructions as outlined. Marcio Clay MD (Marcio Clay MD) VTE Core Measure Inpt VTE Proph given/why not?: SCD's (Brenda Dolan PA-C)
--- NOTE | 2016-12-17 15:48 | Discharge Summary ---
Discharge Summary Admission Date: Dec 14, 2016 at 20:41 Discharge Date: Dec 17, 2016 Discharge Disposition: Home Principal Diagnosis: UTI, epididymitis Problems/Secondary Diagnoses: (1) Asthma Status: Chronic Immunizations: History of Tetanus Vaccine?: 2003 History of Pneumococcal: No History of Hepatitis B Vaccine: No Procedures: Patient Name: NANCY MILLER Unit Number: [id number] Dictated: 12/17/161504 Transcribed: 12/17/161504 PA Printed Date/Time: [~ rep prt dt]/[~ rep prt tm] [~ rep ct labl] - [~ rep ct ivnm] [facility] [place] [address] Dictated: 12/17/161504 Transcribed: 12/17/16 150 PAJ Printed Date/Time: [~ rep prt dt]/[~ rep prt tm] [~ rep ct labl] - [~ rep ct ivnm] Patient: NANCY MILLER Address1: [address] [place] [address] Rec: [id number] Address2: Acct ID: [id number] [facility] Zip: [place] [address] Date: 1940 Sex: M Room/Bed: [facility] Ref Phy: Jason Cuellar MD, Urology SC: [id number] Att Phy: Marcio Clay MD Report #: [id number] Ashley Phy: Pato Castle M.D. Test: TEST Admit Phy: Akhil Carey M.D. Personnel Specialist: JESICA Interpreting Phy: Abrahan Das MD Diagnosis: PROSTATITIS, SIRS Ordering Phy: Marcio Clay MD Service Date: 12/17/16 Admit Date: 12/14/1700/27/17 MNE: [id number] CONF: DICTATED BY: Abrahan Das M.D.]] CC: Pato Castle M.D. Miller, Howard I., MD, Urology Marcio Clay MD Endcc: [~ rep ct add3]] TESTICULAR ULTRASOUND HISTORY: Right-sided testicular pain. eval for epididymitis, testicular masses, etc COMPARISON: None. FINDINGS: Right testis: 3.2 x 2.2 x 1.5 cm. There are no intratesticular masses. Normal color flow. No significant hydrocele. There is a 2 mm scrotal calcification. There is a 3 mm cyst within the epididymal head. Left testis: 3.0 x 2.4 x 1.4 cm. There are no intratesticular masses. Normal color flow. No significant hydrocele. There is a small fat-containing reducible left inguinal hernia. A 4 mm cyst within the left epididymal head. Small left-sided varicocele. IMPRESSION: 1. Normal bilateral testes. 2. Small bilateral epididymal head cysts. 3. Small left-sided varicocele. 4. Small fat-containing reducible left inguinal hernia. Electronically signed by: Abrahan Das M.D. 12/17/2016 3:07 PM Dictated Date/Time: 12/17/2016 3:05 PM The status of this report is Signed. Draft = Not yet reviewed or approved by Radiologist. Signed = Reviewed and approved by Radiologist. <AttendingPhy>Marcio Clay MD</AttendingPhy> <FamilyPhy>Jason Cuellar MD, Urology</FamilyPhy> <PrimaryPhy>Pato Castle M.D.</PrimaryPhy> < UnitNumber>[id number]</UnitNumber> <VisitNumber>[id number]</VisitNumber> < PatientName>JAYDE MILLERURMAN Donnie</PatientName> <DateOfBirth>1940</DateOfBirth> <Location>[id number]</Location> <ServiceDate>12/14/16</ServiceDate> <MNE>ESINDI</MNE > <OrderingPhy>Marcio Clay MD</OrderingPhy> <OrderingPhyMNE>f rep ord dr nichols</OrderingPhyMNE> <DictatingPhyMNE>f rep dict dr nichols</DictatingPhyMNE> < CCListMNE>f rep ct mne</CCListMNE> <AdmittingPhyMNE>f pt admit dr nichols</ AdmittingPhyMNE> <AttendingPhyMNE>f pt attend dr nichols</AttendingPhyMNE> <ConsultingPhyMNE>f pt consult dr nichols</ConsultingPhyMNE> <FamilyPhyMNE>f pt fam dr nichols</FamilyPhyMNE> <OtherPhyMNE>f pt other dr nichols</OtherPhyMNE> < PrimaryPhyMNE>f pt prim care dr nichols</PrimaryPhyMNE> <ReferringPhyMNE>f pt referring dr nichols</ReferringPhyMNE> (Brenda Dolan, PASandra) Problems/Secondary Diagnoses: question of proctitis hyperlipidemia asthma HTN BPH solitary kidney status / h/o right-sided nephrectomy Procedures: CT abd/pelvis - IMPRESSION: 1. Mild bladder wall thickening which has improved. The bladder is mildly distended.. 2. Otherwise, no significant change compared to the prior study. 3. Mild rectal wall thickening for the degree of distention. There is a moderate to large amount of well-formed stool within the rectum. There is no associated perirectal inflammatory change. 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 Follow-up colonoscopy can be performed for further evaluation. 4. Small to moderate fat-containing left inguinal hernia. 5. No evidence for bowel obstruction. 6. The right kidney is surgically absent. (Marcio Clay MD) Medication Reconciliation New Medications: Ciprofloxacin (Ciprofloxacin HCl) 500 Mg Tab 500 MG PO BID for 14 Days, #28 TABS Take 1 tablet by mouth twice a day for 2 weeks. Metronidazole (Flagyl) 500 Mg Tab 500 MG PO TID for 14 Days, #42 TAB Take 1 tablet by mouth three times a day for 2 weeks. Continued Medications: Allopurinol (Allopurinol) 100 Mg Tab 100 MG PO QAM, #90 Cholecalciferol (Vitamin D) 1,000 Unit Tab 1000 UNIT PO QAM Diclofenac Sod (Diclofenac Sodium Dr) 50 Mg Tabec 50 MG PO BID, #180 Ferrous Gluconate (Iron Supplement) Unknown Strength Tab Unknown Dose PO QAM, TAB Fluticasone Prop/Salmeterol (Advair Diskus 100-50 Mcg/Dose) 14 Puff/1 Inhaler Aerp 1 PUFF INH DAILY Fluticasone Propionate (Nasal) (Flonase Allergy Relief) 50 Mcg/Act Spr 1 [place]LL BID Metoprolol Succ (Toprol Xl) (Toprol-Xl) 25 Mg Tabcr 25 MG PO QAM, #30 TAB Montelukast Sod (Montelukast Sodium) 10 Mg Tab 10 MG PO QAM Multivitamin (Multivitamin) Tab 1 TAB PO QAM, TAB Simvastatin (Simvastatin) 80 Mg Tab 80 MG PO QAM Solifenacin Succinate (Vesicare) 5 Mg Tab 5 MG PO QAM, #90 Discharge Exam Patient reports feeling well. He complains of a mild 1/10 aching pain in his lower abdomen across both lower quadrants. He does note some very slight dysuria but states that this has improved since arrival. He denies any urinary incontinence. He denies constipation. The patient denies fevers, chills, sweats, chest pain, palpitations, claudication, cough, wheezing, shortness of breath, nausea, vomiting, hematuria, urinary retention, paralysis, weakness, numbness and tingling. Review of Systems: Constitutional: No chills, No fever, No sweats Eyes: No diplopia, No eye pain, No worsening of vision ENT: No hearing loss, No sore throat, No trouble swallowing Respiratory: No cough, No shortness of breath, No wheezing Cardiovascular: No chest pain, No claudication, No palpitations Abdomen: No constipation, No nausea, No pain, No vomiting Musculoskeletal: + joint pain (mild back pain), No calf pain, No swelling Genitourinary - Male: + dysuria (mild), No hematuria, No urinary incontinence, No urinary retention Neurologic: No numbness/tingling, No paralysis, No weakness Integumentary: No color change, No itch, No rash Physical Exam: General Appearance: WD/WN, no apparent distress, + obese Eyes: normal inspection, PERRL, EOMI ENT: normal ENT inspection, hearing grossly normal, pharynx normal Neck: supple, no JVD, trachea midline Respiratory/Chest: lungs clear, normal breath sounds, no respiratory distress Cardiovascular: regular rate, rhythm, no gallop, + systolic murmur Abdomen / GI: normal bowel sounds, soft, + tenderness (RLQ and LLQ TTP) Extremities: normal inspection, no calf tenderness, no pedal edema Neurologic/Psychiatric: alert, normal mood/affect, oriented x 3 Skin: normal color, warm/dry, no rash (Dolan, Brenda ., PA-C) Hospital Course 75 y/o male with a history of asthma, BPH, gout, HTN, HLD, and solitary kidney who presents with chills, sweats, urinary incontinence, and lower pelvic pain that began about 4 days prior to arrival. Complicated UTI/SIRS--solitary kidney and presentation with back pain -Admitted to med/surg -Started on Rocephin 1 gm IV qd, total of 4 days abx while inpatient. D/C'd at discharge -Outpatient urine culture positive for cross-sensitive E. coli -Inpatient urine culture no growth -Blood cultures NGTD x 2 -Abd/ pelvis CT suggest cystitis, possible acute vs chronic proctitis. Repeat CT showed improvement of inflammation. Recommend f/u colonoscopy, which pt was in process of scheduling prior to arrival anyway Epididymitis -Testicular ultrasound shows normal testes, small bilateral epididymal head cysts, small left varicocele, small left reducible inguinal hernia -Cipro 500 mg PO BID and Flagyl 500 mg PO TID x 14 days each, will cover UTI as well -Pt scheduled for urology follow up appointment with Dr. Cuellar on 12/28/16 BPH--stable. No longer complains of incontinence -Continue Vesicare 5 mg PO qd Gout -Continue allopurinol 100 mg PO qd Asthma--stable -Continue Advair discus 100/50 1 puff inh qd and montelukast sodium 10 mg PO qd Hypertension--stable -Continue metoprolol succinate 25 mg PO qd Hypercholesterolemia -Continue simvastatin 80 mg PO qd DVT prophylaxis -Enoxaparin 40 mg SC q24h -RAQUEL johnson and SCDs Code Status -Level I, FULL RESUSCITATION STATUS Dispo -Medically stable for discharge, will continue with PO abx x 2 weeks, f/u as above Total Time Spent: Greater than 30 minutes This includes examination of the patient, discharge planning, medication reconciliation, and communication with other providers. (Brenda Dolan ., PA-C) Attending Attestation: Pt seen/examined, chart reviewed, and care plan d/w FLYNN Dolan on the day of discharge. I agree with the collins components of her discharge summary. 75yo male admitted for symptoms suggestive of UTI as well as lower pelvic pain. Imaging of the abd/pelvis demonstrated bladder wall thickening as well as ? of proctitis. Urine culture ultimately grew e. coli. He improved clinically with appropriate antibiotics and blood cx's remained negative while hospitalized. Digital rectal exam showed an enlarged prostate but no clinical signs of prostatitis. He had mild rectal discomfort with NEGRO but there was no gross blood or mucous. Scrotal exam revealed clinical right-sided epididymitis. He will d/c home on 14-day course of cipro/flagyl to treat his UTI, suspected epididymitis, and question of proctitis. Outpatient follow-up with Dr. Cuellar from urology was advised as well as colonoscopy within the next few weeks in light of the possible proctitis. Discharge exam - gen - NAD heart - RRR, s1, s2 lungs - CTA b/l abd - soft, NT, ND, BS+ ext - no edema Marcio Clay MD (Marcio Clay MD) Discharge Instructions Please refer to the electronic Patient Visit Report (Discharge Instructions) for additional information. (Brenda Dolan ., PA-C) Additional Copies To Pato Castle M.D.; Jason Cuellar MD, Urology
[2016-12-17 16:09] VITALS: BP 155/83; PULSE 68; TEMP 36.5; O2SAT 92
[2016-12-17 16:21] VITALS: BP 155/83; PULSE 68; TEMP 36.5; O2SAT 92
[2017-01-14] MEDS ORDERED: ALBINS/ INH (12:15)
[2017-01-14] MEDS ORDERED: DTR2 PO (12:15)
[2017-01-14] MEDS ORDERED: ALBU18002 INH (12:15)
== END 2016-12-17 16:47 | disposition home or self-care (01) | DRG 872 ==
LOC: ENRESERVTM → ENRESERVDT → C.EDB 15:36 → C.MS4W 20:41
PROVIDERS: ADMIT Hospitalist; ATTEND Internal Medicine
DX: A41.51 Sepsis due to Escherichia coli [E. coli] (principal); N41.0 Acute prostatitis; N30.00 Acute cystitis without hematuria; I12.9 Hypertensive chronic kidney disease with stage 1 through stage 4 chronic kidney disease, or unspecified chronic kidney disease; J45.909 Unspecified asthma, uncomplicated; N45.1 Epididymitis; N18.9 Chronic kidney disease, unspecified; M10.9 Gout, unspecified; E78.00 Pure hypercholesterolemia, unspecified; E78.5 Hyperlipidemia, unspecified; Z90.5 Acquired absence of kidney; N39.46 Mixed incontinence; N40.1 Benign prostatic hyperplasia with lower urinary tract symptoms; K62.89 Other specified diseases of anus and rectum; K59.00 Constipation, unspecified; T78.49XD Other allergy, subsequent encounter; B96.20 Unspecified Escherichia coli [E. coli] as the cause of diseases classified elsewhere; Z79.899 Other long term (current) drug therapy; Z79.51 Long term (current) use of inhaled steroids; X58.XXXD Exposure to other specified factors, subsequent encounter

== ENCOUNTER → 2016-12-14 | Outpatient (CLI) | payer BC ==
[~2016-12-14] MED LIST: ADVIN10/60; ADVIN10050 INH; ALBINS/ INH; ALBU18002 INH; ALL100 PO; CHOL100010 PO; CPR500 PO; DTR2 PO; EZET10TA63 PO; FERR324T PO; FLNIN NAE; FLUT0.15 NAE; METO25TA3 PO; METR-163 PO; MULT-506 PO; OXYC1TAB3 PO; SNG10; SNG10 PO; SOLI5TAB2 PO; TPRSRUNK; VLT50 PO; ZCR80 PO; ZCRUNK; [UNRECOGNIZED DRUG - OTHER]
== END | disposition home or self-care (01) ==
LOC: C.LAB1850 14:29
PROVIDERS: ATTEND Urology
DX: N39.46 Mixed incontinence (principal)

== ENCOUNTER → 2016-12-21 | Outpatient (CLI) | payer BC, OTHER ==
[~2016-12-21] MED LIST changes: -ADVIN10/60; +ADVIN10050 INH; +ALBINS/ INH; +ALBU18002 INH; +ALL100 PO; +CHOL100010 PO; +CPR500 PO; +DTR2 PO; -EZET10TA63 PO; +FERR324T PO; -FLNIN NAE; +FLUT0.15 NAE; +METO25TA3 PO; +METR-163 PO; +MULT-506 PO; -OXYC1TAB3 PO; -SNG10; +SNG10 PO; +SOLI5TAB2 PO; -TPRSRUNK; +VLT50 PO; +ZCR80 PO; -ZCRUNK; -[UNRECOGNIZED DRUG - OTHER]
--- NOTE | 2016-12-21 10:22 | DIAGNOSTIC IMAGING REPORT ---
KUB CLINICAL HISTORY: N39.46 Urge and stress incontinenceRAD COMPARISON STUDY: 02/13/2016 FINDINGS: There is no pathologic bowel dilatation. There are no calcification suspicious for urinary tract calculi. There are degenerative changes present within the spine. IMPRESSION: 1. No evidence of pathologic bowel dilatation 2. No calculi identified. Electronically signed by: Moose Ramos M.D. 12/21/2016 10:21 AM Dictated Date/Time: 12/21/2016 10:20 AM
[2016-12-21 10:55] LABS: BASO % 0.8 %; BASO ABS # 0.06 K/uL (0-0.2); COMPLETE YES; EOS % 4.6 %; HEMATOCRIT 41.9 % (42-52); IG% 1.8 %; LYMPH % 27.7 %; MEAN CELL VOLUME 86.9 fL (80-100); MEAN CORPUSCULAR HEMOGLOBIN 30.1 pg (25-34); MEAN CORPUSCULAR HGB CONC 34.6 g/dl (32-36); MONO % 11.1 %; PLATELET COUNT 354 K/uL (130-400); RED BLOOD COUNT 4.82 M/uL (4.7-6.1); WHITE BLOOD COUNT 7.22 K/uL (4.8-10.8)
[2016-12-21 11:08] LABS: ALT/SGPT 68 U/L (12-78); AST/SGOT 52 U/L (15-37); BLOOD UREA NITROGEN 16 mg/dl (7-18); BUN/CREATININE RATIO 12.1 (10-20); CALCIUM 9.2 mg/dl (8.5-10.1); CARBON DIOXIDE 26 mmol/L (21-32); CHLORIDE 105 mmol/L (98-107); GLUCOSE 105 mg/dl (70-99); POTASSIUM 4.3 mmol/L (3.5-5.1); SODIUM 140 mmol/L (136-145); URIC ACID 6.4 mg/dl (2.6-7.2)
[2016-12-21 11:20] LABS: ALB/GLOB RATIO 0.9 (0.9-2); ALKALINE PHOSPHATASE 114 U/L (45-117); CHOLESTEROL 130 mg/dl (0-200); CHOLESTEROL/HDL RATIO 2.9; HDL CHOLESTEROL 45 mg/dl; LDL CHOLESTEROL CALCULATED 57 mg/dl; TRIGLYCERIDES 138 mg/dl (0-150); VERY LOW DENSITY LIPOPROT CALC 28 mg/dl
[2016-12-21 11:22] LABS: ESTIMATED AVERAGE GLUCOSE 114 mg/dl; HA1C FLAG Normal (Normal)
== END | disposition home or self-care (01) ==
LOC: C.LAB 09:14
PROVIDERS: ATTEND Internal Medicine
DX: E55.9 Vitamin D deficiency, unspecified (principal); R73.01 Impaired fasting glucose; E78.00 Pure hypercholesterolemia, unspecified; M10.9 Gout, unspecified; N39.46 Mixed incontinence; N40.0 Benign prostatic hyperplasia without lower urinary tract symptoms; N20.0 Calculus of kidney

== ENCOUNTER → 2017-01-29 | Day surgery (SDC) | payer BC ==
[2017-01-14 12:15] VITALS: Ht 170.2 cm; Wt 104.5 kg
[~2017-01-29] VITALS: Ht 170.2 cm; Wt 104.5 kg
[~2017-01-29] MED LIST changes: -CPR500 PO; +LIDOCAINE HCL 2% 2 ML VIAL (20MG/ML) ONE; -METR-163 PO; +PROPOFOL IV EMULSION 10 MG/ML 20 ML VIAL IV ONE; +SODIUM CHLORIDE 0.9% 500ML 500 ML IV ONE; -SOLI5TAB2 PO
[2017-01-29 09:43] VITALS: TEMP 36.6
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
--- NOTE | 2017-01-29 11:02 | GI REPORT ---
Procedure Date: 01/29/2017 10:22 AM Procedure: Colonoscopy Indications: High risk colon cancer surveillance: Personal history of colonic polyps Medicines: Monitored Anesthesia Care Complications: No immediate complications. Estimated Blood Loss: Estimated blood loss: none. Procedure: Pre-Anesthesia Assessment: - Prior to the procedure, a History and Physical was performed, and patient medications and allergies were reviewed. The patient's tolerance of previous anesthesia was also reviewed. The risks and benefits of the procedure and the sedation options and risks were discussed with the patient. All questions were answered, and informed consent was obtained. Prior Anticoagulants: The patient has taken no previous anticoagulant or antiplatelet agents. ASA Grade Assessment: III - A patient with severe systemic disease. After reviewing the risks and benefits, the patient was deemed in satisfactory condition to undergo the procedure. After I obtained informed consent, the scope was passed under direct vision. Throughout the procedure, the patient's blood pressure, pulse, and oxygen saturations were monitored continuously. The scope was introduced through the anus and advanced to the terminal ileum. The colonoscopy was performed without difficulty. The patient tolerated the procedure well. The quality of the bowel preparation was good. The ileocecal valve and the rectum were photographed. Findings: A 5 mm polyp was found in the sigmoid colon. The polyp was sessile. The polyp was removed with a hot snare. Resection and retrieval were complete. Impression: - One 5 mm polyp in the sigmoid colon, removed with a hot snare. Resected and retrieved. Recommendation: - Resume previous diet. - Continue present medications. - Repeat colonoscopy for surveillance based on pathology results. - Return to primary care physician as previously scheduled. Darian Alejandro, DO 01/29/2017 11:01:57 AM This report has been signed electronically. Note Initiated On: 01/29/2017 10:22 AM I attest to the content of the Intraoperative Record and orders documented therein, exceptions below
--- NOTE | 2017-01-29 11:03 | Discharge Instructions ---
Endoscopy Patient Instructions Date / Procedure(s) Performed Jan 29, 2017. Colonoscopy Allergy Information Coded Allergies: Iodinated Diagnostic Agents (Verified Allergy, Unknown, HIVES, 01/29/17) [place] (Unverified Allergy, Unknown, HIVES, 01/29/17) Discharge Date / Findings Jan 29, 2017. Colon polyp Medication Instructions OK to resume all medications today as prescribed Reported Home Medications Medications Dose Route/Sig Max Daily Dose Days Date Category Proair Respiclick (Albuterol Sulfate) 108 Mcg/Act Aer 1-2 Puffs INH Q4H PRN 01/14/17 Reported Proventil 0.083% 2.5MG/3ML (Albuterol Sulf) 2.5 Mg/3 Ml Nebu 2.5 Mg INH QID PRN 01/14/17 Reported Detrol (Tolterodine Tartrate) 2 Mg Tab 1 Tab PO BID 01/14/17 Reported Allopurinol 100 Mg Tab 100 Mg PO QAM 12/14/[address] (Diclofenac Sod) 50 Mg Tabec 50 Mg PO BID 12/14/16 Reported Iron Supplement (Ferrous Gluconate) Unknown Strength Tab Unknown Dose PO QAM 12/14/16 Reported Vitamin D (Cholecalciferol) 1,000 Unit Tab 4 Tab PO QAM 12/14/16 Reported Multivitamin (Multivitamins) Tab 1 Tab PO QAM 12/14/16 Reported Simvastatin 80 Mg Tab 80 Mg PO QAM 12/14/16 Reported Flonase Allergy Relief (Fluticasone Propionate (Nasal)) 50 Mcg/Act Spr 1 [place] LASHELL BID 12/14/16 Reported Toprol-Xl (Metoprolol Succinate) 25 Mg Tabcr 25 Mg PO QAM 12/14/16 Reported Advair Diskus 100-50 Mcg/Dose (Fluticasone Prop/Salmeterol) 14 Puff/1 Inhaler Aerp 1 Puff INH QAM 12/14/16 Reported Montelukast Sodium (Montelukast Sod) 10 Mg Tab 10 Mg PO QAM 12/14/16 Reported Provider Instructions Activity Restrictions - No exercising or heavy lifting for 24 hours. - Do not drink alcohol the day of the procedure. - Do not drive a car or operate machinery until the day after the procedure. - Do not make any important decisions or sign important papers in 24 hours after the procedure. Following Day: - Return to full activity which may include returning to work/school. Diet Start your diet with liquids and light foods (jello, soup, juice, toast). Then eat your usual diet if not nauseated. Treatment For Common After Affects For mild abdominal pain, bloating, or excessive gas: - Rest - Eat lightly - Lie on right side Follow-Up Information Follow-up with DR PEACE as scheduled Anesthesia Information What You Should Know You have had a procedure that required some medicine to reduce anxiety and discomfort. This treatment is called moderate sedation. After receiving the treatment, you may be sleepy, but you will be able to breathe on your own. The effects of the treatment may last for several hours. Follow these instructions along with Activity/Diet recommendations noted above: * Do NOT do anything where dizziness or clumsiness would be dangerous. * Rest quietly at home today, then you can be up and about tomorrow. * Have a responsible person stay with you the rest of today. * You may have had an I.V. today. If so, you may take the dressing off later today. Recommendations Call your doctor if: * Trouble breathing * Continuous vomiting for more than 24 hours * Temperature above 101 degrees * Severe abdominal pain or bloating * Pain not relieved by pain medicine ordered * There is increased drainage or redness from any incision * A large amount of rectal bleeding greater than 2-3 tablespoons. (If you had a polyp/s removed or have hemorrhoids, a small amount of blood - from the rectum is to be expected.) * You have any unanswered questions or concerns. IN THE EVENT OF A SERIOUS EMERGENCY, GO TO THE NEAREST EMERGENCY ROOM Your discharge instructions were prepared by provider Darian Alejandro. Patient Instructions Signature Page Osmany Shaw Patient (or Guardian) Signature/Date: I have read and understand the instructions given to me by my caregivers. Caregiver/RN/Doctor Signature/Date: The above-named patient and/or guardian has received patient instructions on this date. + Original Patient Signature Page (only) stays with chart. Please make copy for patient.
[2017-01-29 11:30] VITALS: BP 147/63; PULSE 64; O2SAT 95
--- NOTE | 2017-01-29 11:31 | Anesthesiology Progress Note ---
Anesthesia Post Op Note Date & Time Jan 29, 2017 at 11:31 Vital Signs Pain Intensity: 0 Vital Signs Past 12 Hours Date Time Temp Pulse Resp B/P Pulse Ox O2 Delivery O2 Flow Rate FiO2 01/29/17 11:16 67 20 128/66 95 Room Air 01/29/17 11:00 67 20 132/63 95 Room Air 01/29/17 09:43 36.6 94 20 164/76 95 Room Air Notes Mental Status: alert / awake / arousable, participated in evaluation Pt Amnestic to Procedure: Yes Nausea / Vomiting: adequately controlled Pain: adequately controlled Airway Patency, RR, SpO2: stable & adequate BP & HR: stable & adequate Hydration State: stable & adequate Anesthetic Complications: no major complications apparent
== END | disposition home or self-care (01) ==
LOC: C.GI 09:05
PROVIDERS: ATTEND Internal Medicine
DX: Z12.11 Encounter for screening for malignant neoplasm of colon (principal); Z86.010 Personal history of colon polyps; D12.5 Benign neoplasm of sigmoid colon; Z98.890 Other specified postprocedural states; Z87.891 Personal history of nicotine dependence; Z91.041 Radiographic dye allergy status

== ENCOUNTER → 2017-02-19 | Outpatient (CLI) | payer BC ==
[~2017-02-19] MED LIST changes: -LIDOCAINE HCL 2% 2 ML VIAL (20MG/ML) ONE; -PROPOFOL IV EMULSION 10 MG/ML 20 ML VIAL IV ONE; -SODIUM CHLORIDE 0.9% 500ML 500 ML IV ONE
--- NOTE | 2017-02-19 10:10 | DIAGNOSTIC IMAGING REPORT ---
KUB HISTORY: N40.0 Enlarged prostate without lower urinary tract symptoms (maya COMPARISON: None. FINDINGS: The bowel gas pattern is unremarkable. There are no dilated loops of small bowel to suggest an obstruction. No renal calculi. No ureteral calculi. No pneumoperitoneum or pneumatosis. IMPRESSION: No renal or ureteral stones. Electronically signed by: Abrahan Das M.D. 02/19/2017 10:09 AM Dictated Date/Time: 02/19/2017 10:08 AM
[2017-02-19 10:45] LABS: % FREE PSA 9.4 %; FREE PSA 0.53 ng/ml; PROSTATE SPECIFIC ANTIGEN 5.63 ng/ml (0.000-4.000)
== END | disposition home or self-care (01) ==
LOC: C.LAB 09:12
PROVIDERS: ATTEND Urology
DX: N20.0 Calculus of kidney (principal); N40.0 Benign prostatic hyperplasia without lower urinary tract symptoms; N39.46 Mixed incontinence; R97.20 Elevated prostate specific antigen [PSA]

== ENCOUNTER → 2017-03-08 | Outpatient (CLI) | payer BC | END | disposition home or self-care (01) | LOC: C.LABSPEC 14:36 | PROVIDERS: ATTEND Urology | DX: N39.46 Mixed incontinence (principal); N39.0 Urinary tract infection, site not specified ==

== ENCOUNTER → 2017-04-30 | Outpatient (CLI) | payer BC ==
--- NOTE | 2017-04-30 18:28 | DIAGNOSTIC IMAGING REPORT ---
CHEST 2 VIEWS ROUTINE CLINICAL HISTORY: Cough COMPARISON STUDY: 12/14/2016 FINDINGS: The cardiac and mediastinal contours are normal. There is no evidence of focal pulmonary consolidation. There is no evidence of failure. No pleural effusions are visualized.[ Degenerative changes are present within the dorsal spine IMPRESSION: No active disease in the chest. Electronically signed by: Moose Ramos M.D. 04/30/2017 6:27 PM Dictated Date/Time: 04/30/2017 6:26 PM
== END | disposition home or self-care (01) ==
LOC: C.LAB 17:12
PROVIDERS: ATTEND Urology
DX: R97.20 Elevated prostate specific antigen [PSA] (principal); R05 Cough

== ENCOUNTER → 2017-10-02 | Outpatient (CLI) | payer BC | END | disposition home or self-care (01) | LOC: C.PATHSPEC 18:09 | PROVIDERS: ATTEND Urology | DX: R97.20 Elevated prostate specific antigen [PSA] (principal); C61 Malignant neoplasm of prostate ==

== ENCOUNTER → 2017-10-21 | Outpatient (CLI) | payer BC ==
--- NOTE | 2017-10-21 14:47 | DIAGNOSTIC IMAGING REPORT ---
BONE SCAN WHOLE BODY CLINICAL HISTORY: Prostate cancer. COMPARISON STUDY: CT of the abdomen and pelvis December 16, 2016. TECHNIQUE: 25.3 mCi of technetium 90 9M MDP was injected IV at 11:15 AM on October 21, 2017. 3 hours following injection, whole body imaging was performed in the anterior and posterior projections. FINDINGS: The right kidney is surgically absent. There is expected uptake within the left kidney and soft tissues. The patient was unable to void and therefore there is extensive radiotracer within the bladder which compromises visualization of portions of the pelvis. Uptake within the shoulders, thoracolumbar spine, wrists and both feet is likely degenerative. No suspicious radiotracer uptake is likely identified. IMPRESSION: 1. No evidence of skeletal metastatic disease. 2. Slight obscuration of the pelvis given extensive radiotracer uptake within the bladder given patient's inability to void. Electronically signed by: Rishabh Sebastian M.D. 10/21/2017 2:46 PM Dictated Date/Time: 10/21/2017 2:43 PM
== END | disposition home or self-care (01) ==
LOC: C.NUCL 11:04
PROVIDERS: ATTEND Urology
DX: C61 Malignant neoplasm of prostate (principal)

== ENCOUNTER → 2017-12-13 | Outpatient (CLI) | payer BC ==
[~2017-12-13] MED LIST changes: +GADAVIST IV PRN; +HYZ/50125 PO
--- NOTE | 2017-12-13 14:12 | DIAGNOSTIC IMAGING REPORT ---
PROSTATE MRI COMBO CLINICAL HISTORY: 76 years-old Male presenting with PROSTATE CA. COMPARISON STUDY: Abdominal CT dated 12/16/2016. TECHNIQUE: Multisequence, multiplanar MR imaging of the prostate was performed before and after the administration of intravenous contrast. Additional postprocessing was performed on a separate [employer] workstation by the radiologist for 3-D volumetric segmentation of the prostate and contouring of region(s) of interest (ANDRE) for targeting. IV contrast: 10.6 cc of Gadavist. FINDINGS: Prostate: The prostate is diminutive and markedly heterogeneous in signal intensity. The gland measures 3.9 cm in transverse diameter (DynaCAD prostate boundary segmentation volume 19 cc). Mild changes of benign prostatic hyperplasia. Precontrast T1 weighted imaging demonstrates no evidence of intrinsic T1 hyperintensity to suggest hemorrhage. Seminal vesicles normal. There is spacer material present between the prostate and the rectum with approximately 1.4 cm of separation. Suspicious lesion(s) described below: Lesion (Haxiu.comaCAD ANDRE) 1: Location: Right transition zone at the mid gland to apex. The lesion does not extend across the midline. Size: 14 mm (as measured on ADC for PZ lesion and T2WI for TZ lesion) T2W: Irregular hypointense No evidence of extraprostatic extension. DWI: 4. Focal markedly hypointense on ADC and markedly hyperintense on high b-value DWI. DCE: Negative. No early enhancement. PI-RADS: 5. Clinically significant cancer is highly likely to present. Biopsy-proven cancer. Bladder: The bladder is decompressed. The bladder wall is thickened and trabeculated consistent with chronic obstruction. Bowel: Visualized portion of the rectum normal. Peritoneum: There are bilateral fat-containing inguinal hernias, left larger than right. No free fluid is identified in the pelvis. Lymph nodes: No lymphadenopathy in the visualized portion of the pelvis. Vasculature: Iliac vessels patent. Abdominal wall: Normal. Osseous structures: Normal bone marrow signal intensity. IMPRESSION: 1. There is a 14 mm lesion in the Right transition zone at the mid gland to apex. PI-RADS: 5. Clinically significant cancer is highly likely to present. This lesion has been segmented for targeted biopsy. 2. Benign prostatic hyperplasia. 3. Spacer material is present between the prostate gland and rectum with approximately 1.4 cm separation. Electronically signed by: Yovani Meyer M.D. 12/13/2017 2:10 PM Dictated Date/Time: 12/13/2017 1:51 PM
== END | disposition home or self-care (01) ==
LOC: C.MRIBC 11:47
PROVIDERS: ATTEND Radiology Radiation Oncology
DX: C61 Malignant neoplasm of prostate (principal); N40.0 Benign prostatic hyperplasia without lower urinary tract symptoms

== ENCOUNTER → 2018-02-04 | Outpatient (CLI) | payer BC ==
[~2018-02-04] MED LIST changes: -GADAVIST IV PRN
[2018-02-04 12:56] LABS: ALBUMIN 3.5 gm/dl (3.4-5.0); ALT/SGPT 43 U/L (12-78); AST/SGOT 26 U/L (15-37); BLOOD UREA NITROGEN 23 mg/dl (7-18); CALCIUM 8.9 mg/dl (8.5-10.1); CARBON DIOXIDE 27 mmol/L (21-32); GLUCOSE 114 mg/dl (70-99); POTASSIUM 4.3 mmol/L (3.5-5.1); SODIUM 137 mmol/L (136-145)
[2018-02-04 13:06] LABS: ALKALINE PHOSPHATASE 124 U/L (45-117); TOTAL PROTEIN 6.6 gm/dl (6.4-8.2)
[2018-02-04 13:15] LABS: HEMOGLOBIN A1C 5.7 % (4.5-5.6)
== END | disposition home or self-care (01) ==
LOC: C.LABBFT 08:12
PROVIDERS: ATTEND Internal Medicine
DX: R73.01 Impaired fasting glucose (principal); E55.9 Vitamin D deficiency, unspecified; R53.83 Other fatigue

== ENCOUNTER → 2018-03-21 | Outpatient (CLI) | payer BC ==
[~2018-03-21] MED LIST changes: +METO100T44 PO
[2018-03-21 10:11] VITALS: BP 124/74; PULSE 66; TEMP 36.4; O2SAT 94
--- NOTE | 2018-03-21 10:59 | Radiation Oncology Follow-Up ---
Radiation Oncology Follow-Up Date of Visit March 21, 2018. Reason For Visit One-month follow-up in cancer survivorship care plan Radiation Completion Date finished 02-14-2018 Diagnosis (1) Prostate cancer Status: Acute Onset Date: 10/02/2017 Location: Right lobe of the prostate Histology Subtype: Adenocarcinoma Stage: ll Permanent Comment: Rising PSA, pretreatment PSA 5.63 Status post ultrasound-guided biopsies 10/02/2017 Adenocarcinoma of the prostate Hung 3+3, 3+4 and 4+3 Prostate volume 23.3 Prostate density 0.241 Hormone suppression, Lupron 30 mg IM given January 03, 2018. Completed hormonal suppression Status post completion of radiation therapy February 14, 2018. He received 7000 cGy utilizing hypo-fractionation. Last Edited By: Mela Hernández on Feb 24, 2018 11:38 History of Present Illness Mr. Shaw is without a family history of prostate cancer. He does have 2 brothers and 2 sons and will discuss with them their increased risk following his diagnosis. He has had urinary symptoms for several years and has been treated with Vesicare first for 3 years or more. More recently because of insurance changes this medication was changed to Detrol. He continues however to have urgency and episodes of leakage. His AUA score is 7.. He has been followed with screening prostate-specific antigens. In January 2012 the prostate- specific antigen was 2.3. In 2012 prostate-specific antigen was 2.5. In January 2015 prostate-specific antigen was 4.25. January 2016 prostate-specific antigen was 4.5. February 2017 prostate-specific antigen was 5.63. The patient digital rectal exam revealed no induration or nodularity. However because of the rise in prostate-specific antigen Dr. Cuellar ordered a genpath test to evaluate the probability of aggressive prostate cancer. His 4K score was 32%. This places him in the high risk category indicating a 68% probability that the patient will not have aggressive disease but a 32% mobility that he will. Given these risk factors Dr. Cuellar recommended proceeding with a ultrasound-guided prostate biopsy. The patient agreed. On 10/02/2017 patient underwent biopsies of the prostate. A total of 14 biopsies were taken. Biopsies from the right mid-gland was positive for adenocarcinoma Hung grade 3+3 involving 7% of the core tissue sample with no perineural invasion seen. 2 biopsies from the right apex was positive for adenocarcinoma [place] grade 3+4 with no perineural invasion seen. The [place] pattern 4 represents 20% of the tumor. One biopsy from the right anterior was positive for adenocarcinoma [place] grade 4+3 with no perineural invasion seen. The Hung pattern 4 represented 55% of the cancer and [place] pattern 3 represents 45%. Therefore total of 4 of 14 biopsies were positive on the right side. One biopsy was positive with [place] grade 3+3, to biopsies were positive for Hung grade 3+4 and one biopsy was positive with Hung grade 4+ 3. Patient underwent staging procedures including a bone scan on 10/21/2017 which shows no evidence of metastatic disease. Previous CAT scan of the abdomen and pelvis performed on 12/14/2016 showed no evidence of enlarged adenopathy. There was moderate bladder wall thickening and mild rectal wall thickening. There was no evidence of pelvic lymph node enlargement or bony metastatic disease. Patient is scheduled to see a urologic surgeon for discussion of the role of robotic radical prostatectomy in November. We were asked to see the patient to review and discuss with him the role of radiation. Options were reviewed and ultimately he made the decision to undergo hormone suppression. He was given a 30 mg injection of Lupron on January 03, 2018. This will be a single injection. He then had placement of gold fiducial markers and Space OAR on December 11, 2017. He completed radiation therapy February 14, 2018. He received 7000 cGy utilizing hypo-fractionation. Interim History He has been doing well over the past month. He denies any urinary changes. He gave an AUA score of 3. At the end of treatment he gave an AUA score of 4. He does have some urgency and mild incontinence. He has been on Detrol for an extended period of time. He feels that this is manageable. He completed and expanded prostate cancer index composite for clinical practice and gave a score of 2 of 12 and urinary incontinence symptoms. He gave a score of 0 of 12 and urinary irritation symptoms. He gave a score of 0 of 12 in bowel symptoms. He gave a score of 4 of 12 and sexual symptoms. He gave a score of 0 of 12 and hormonal vitality symptoms. His total was 6 of 60. He was given 1 Lupron injection prior to treatment. He has no complaints of fatigue. Allergies Coded Allergies: Iodinated Diagnostic Agents (Verified Allergy, Unknown, HIVES, 01/29/17) Fishs Eddy (Unverified Allergy, Unknown, HIVES, 01/29/17) Home Medications Scheduled Albuterol Sulf (Proventil 0.083% 2.5MG/3ML), 2.5 MG INH QID Allopurinol (Allopurinol), 100 MG PO QAM Cholecalciferol (Vitamin D), 4 TAB PO QAM Diclofenac Sod (Diclofenac Sodium Dr), 50 MG PO BID Ferrous Gluconate (Iron Supplement), Unknown Dose PO QAM Fluticasone Prop/Salmeterol (Advair Diskus 100-50 Mcg/Dose), 1 PUFF INH QAM Fluticasone Propionate (Nasal) (Flonase Allergy Relief), 2 SPRAY LASHELL DAILY Hctz/Losartan (Hyzaar 12.5MG/50MG), 1 TAB PO HS Metoprolol Succ (Toprol Xl) (Toprol-Xl ), 100 MG PO DAILY Montelukast Sod (Montelukast Sodium), 10 MG PO QAM Multivitamin (Multivitamin), 1 TAB PO QAM Simvastatin (Simvastatin), 80 MG PO QAM Tolterodine Tartrate (Detrol), 1 TAB PO BID Scheduled PRN Albuterol Sulf (Proventil 0.083% 2.5MG/3ML), 2.5 MG INH QID PRN for Shortness of Breath Albuterol Sulfate (Proair Respiclick), 1-2 PUFFS INH Q4H PRN for Shortness of Breath Review of Systems Gastrointestinal: Symptoms: WNL GI Comments: occ constipation Oral: Symptoms: No Problems Other Oral Symptoms: occ dry mouth Respiratory: Symptoms: WNL Urinary: Symptoms: Nocturia Comments: occ urgency , occ nocturia and occ dribbling Skin: Symptoms: No Problems Additional Notes: He completed a distress management report and answer "no" to all questions. Physical Exam Vital Signs Date Time Temp Pulse Resp B/P (MAP) Pulse Ox O2 Delivery O2 Flow Rate FiO2 03/21/18 10:11 36.4 66 20 124/74 94 Fatigue: None General Appearance: no apparent distress Eyes: normal inspection, EOMI ENT: normal ENT inspection, hearing grossly normal Respiratory/Chest: lungs clear, no respiratory distress, no accessory muscle use Cardiovascular: regular rate, rhythm, no gallop, no murmur Abdomen: non tender, soft, no organomegaly Extremities: no pedal edema Neurologic/Psychiatric: no motor/sensory deficits, alert, normal mood/affect Skin: warm/dry Pain Management Patient Reports Pain: No Side: Bilateral Patient Preferred Pain Scale: 0 - 10 Initial Pain Intensity: 0.0 Pain Management Plan He denies pain therefore requires no pain management. Laboratory Laboratory Results: pending Pathology Pathology Results: were reviewed, and pertinent findings noted in HPI Imaging Imaging Studies: were reviewed, and pertinent findings noted in HPI Assessment & Plan Plan: PSA was drawn today. He will be notified as the results. He has a recheck appointment Dr. Cuellar on March 25, 2018. He will continue follow-up with his primary care physician. He continues on Detrol for the urinary urgency. Today we completed a cancer survivorship care plan. A copy of the document was given to the patient. He was given a survivorship booklet. We asked him to return to our office in 6 months. He may call if he has any questions or concerns in the interim. Total Time In Follow-Up I spent 20 minutes speaking to the patient in performing examination. I spent 20 minutes reviewing information, preparing the survivorship document, and completing this note. Copy To Pato Castle M.D.; Jason Cuellar MD, Urology
== END | disposition home or self-care (01) ==
LOC: C.ONC 10:07
PROVIDERS: ATTEND Physician Assistant Medical
DX: Z08 Encounter for follow-up examination after completed treatment for malignant neoplasm (principal); Z92.3 Personal history of irradiation; Z85.46 Personal history of malignant neoplasm of prostate

== ENCOUNTER → 2018-06-11 | Outpatient (CLI) | payer BC ==
[~2018-06-11] MED LIST changes: -METO25TA3 PO
--- NOTE | 2018-06-11 19:12 | DIAGNOSTIC IMAGING REPORT ---
LUMBAR SPINE 5 VIEWS HISTORY: M54.42 Acute midline low back pain with left-sided sciatica With COMPARISON: Lumbar spine 09/05/2011. FINDINGS: There is no fracture. Mild to moderate facet degenerative changes at the lumbar spine. Bilateral L5 spondylolysis. There are endplate osteophytes seen throughout the lumbar spine. Mild disc space narrowing at L3-L4 and L4-L5 which has progressed. Mild anterior wedging at T11 and T12, unchanged. This is likely chronic. IMPRESSION: 1. No acute fractures within the lumbar spine. 2. Mild disc space narrowing at L3-L4 and L4-L5 which has progressed. 4. 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 4. Bilateral L5 spondylolysis. Electronically signed by: Abrahan Das M.D. 06/11/2018 7:11 PM Dictated Date/Time: 06/11/2018 6:43 PM
== END | disposition home or self-care (01) ==
LOC: C.RAD 18:14
PROVIDERS: ATTEND Internal Medicine
DX: M85.88 Other specified disorders of bone density and structure, other site (principal); M47.896 Other spondylosis, lumbar region

== ENCOUNTER → 2018-06-25 | Outpatient (CLI) | payer BC ==
--- NOTE | 2018-06-25 14:50 | DIAGNOSTIC IMAGING REPORT ---
MRI OF THE LUMBAR SPINE WITHOUT CONTRAST CLINICAL HISTORY: Acute low back pain with left-sided sciatica. COMPARISON STUDY: Lumbar spine radiographs June 11, 2018 TECHNIQUE: Utilizing a 1.5 Marleen magnet and dedicated coil, multiplanar, multiecho imaging of the lumbar spine was performed without IV contrast. FINDINGS: For purposes of numbering on this exam, the L5-S1 disc space is assigned to axial image 23 of 25. Alignment of the lumbar spine is anatomic. No marrow replacement is noted. Discogenic changes are most pronounced at the L3-L4 level. There is moderate disc space narrowing at this level. Conus terminates at the L1 level. Paravertebral soft tissues are unremarkable. Left-sided parapelvic cysts are noted. The right kidney is not visualized. L1-2: The central canal and neural foramen are patent. L2-3: There is facet arthrosis and ligamentous hypertrophy. The central canal and right neural foramen are patent. There is mild narrowing of the left neural foramen. L3-4: There is moderate disc space narrowing. Note is made of mild disc bulge with a 7 mm central T1 and T2 hypointense focus posterior to the superior plate of L4 which likely reflects gas within a central/right paracentral disc protrusion. This finding, injected with ligamentous hypertrophy and facet arthrosis result in moderate narrowing of the central canal and lateral recesses with mild narrowing of both neural foramen. L4-5: There is mild disc space narrowing with ligamentous hypertrophy and facet arthrosis. There is mild to moderate narrowing of the central canal and lateral recesses with moderate narrowing of the left neural foramen. There is mild narrowing of the right neural foramen. L5-S1: The central canal and neural foramen are patent. IMPRESSION: 1. Moderate multilevel degenerative disc disease and facet arthrosis with mild to moderate central canal stenosis at L3-L4 due to a disc bulge, small central/right paracentral disc protrusion which likely contains gas, ligamentous hypertrophy and facet arthrosis. 2. Mild central canal stenosis at L4-L5. 3. Moderate multilevel neural foraminal stenosis, as detailed above, most pronounced at the left L4-L5 neural foramen.. Electronically signed by: Rishabh Sebastian M.D. 06/25/2018 2:48 PM Dictated Date/Time: 06/25/2018 2:27 PM
== END | disposition home or self-care (01) ==
LOC: C.MRIBC 13:39
PROVIDERS: ATTEND Internal Medicine
DX: M54.17 Radiculopathy, lumbosacral region (principal); M54.42 Lumbago with sciatica, left side

== ENCOUNTER → 2018-06-25 | Outpatient (CLI) | payer BC | END | disposition home or self-care (01) | LOC: C.LABSPEC 17:08 | PROVIDERS: ATTEND Urology | DX: N40.1 Benign prostatic hyperplasia with lower urinary tract symptoms (principal); C61 Malignant neoplasm of prostate; N39.46 Mixed incontinence; N39.0 Urinary tract infection, site not specified ==

== ENCOUNTER 2018-12-18 12:33 | Inpatient (IN) ==
[2018-12-18] MEDS ORDERED: ASPIRIN CHEW 324 MG PO STA (12:49)
[2018-12-18 13:04] LABS: Basophils # (auto) 0.02 K/uL (0-0.2); Basophils % (auto) 0.3 %; Eosinophils % (auto) 5.1 %; Hematocrit (blood only) 40.3 % (42-52); Immature Granulocytes # (auto) 0.02 K/uL (0.00-0.02); Immature Granulocytes % (auto) 0.3 %; Lymphocytes # (auto) 1.48 K/uL (1.2-3.4); Mean Corpuscular Hgb Conc 34.7 g/dL (32-36); Mean Corpuscular Volume 86.7 fL (80-100); Monocytes # (auto) 0.67 K/uL (0.11-0.59); Monocytes % (auto) 11.3 %; Neutrophils # (auto) 3.42 K/uL (1.4-6.5); Platelet Count 223 K/uL (130-400); RDW Coefficient of Variation 13.3 % (11.5-14.5); RDW Standard Deviation 42.2 fL (36.4-46.3); Red Blood Count 4.65 M/uL (4.7-6.1); White Blood Count 5.91 K/uL (4.8-10.8)
--- NOTE | 2018-12-18 13:07 | Emergency Department Note ---
Entered by Marycruz Mercado acting as a scribe for Andrew Carmona MD History of Present Illness General Chief complaint: Chest Pain Stated complaint: CHEST AND LEFT SHOULDER PAIN Time Seen by Provider: 12/18/18 12:41 Source: patient History of Present Illness Onset (ago): hour(s) (Prior to arrival) Location: chest (Chest pain) Radiation: extremity (Right shoulder) Severity: similar to prior episodes Pain Consistency: + other (Sudden) Maximum Pain Intensity: 5 Quality: + other (Squeezing) Relieved By: not by medication (TUMs) Exacerbated By: + other (Lying flat) Associated symptoms: + chest pain; no fever/chills, no loss of appetite, no nausea/vomiting and no shortness of breath Treatments prior to arrival: other (TUMs) The patient is a 77 year old male who presents to the Emergency Room with complaints of 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 The patient reports that he has chest pain that is radiating to his right shoulder. He describes his chest pain as a squeezing sensation. He states that lying flat worsens his pain. She notes that he took 2 TUMS SHEET ROCKER that did not relieve his symptoms. The patient reports that he felt fine when he woke up this morning and had a normal breakfast. He states that he has had these symptoms once before and that his diagnosis was muscle related. He denies abdominal pain, shortness of breath, nausea, vomiting , fever, chills and trauma. He denies any abnormal cardiac or pulmonary history. Home Medications Home Medications Medication Instructions Recorded Confirmed Type albuterol sulfate 2.5 mg INHALATION Q4H PRN 12/18/18 12/18/18 History albuterol sulfate [ProAir HFA] 1 - 2 puff INHALATION Q4H PRN 12/18/18 12/18/18 History allopurinol 100 mg PO QAM 12/18/18 12/18/18 History diclofenac sodium 100 mg PO BID 12/18/18 12/18/18 History ferrous gluconate 324 mg PO QAM 12/18/18 12/18/18 History fluticasone-salmeterol [Advair 1 inh INHALATION BID 12/18/18 12/18/18 History Diskus] losartan 100 mg PO QAM 12/18/18 12/18/18 History metoprolol succinate 25 mg PO QAM 12/18/18 12/18/18 History montelukast 10 mg PO QAM 12/18/18 12/18/18 History multivitamin [Multiple Vitamins] 1 tab PO QAM 12/18/18 12/18/18 History simvastatin 80 mg PO HS 12/18/18 12/18/18 History tolterodine 2 mg PO QAM 12/18/18 12/18/18 History Allergies Allergy/AdvReac Type Severity Reaction Status Date / Time Iodinated Contrast- Oral and Allergy Unknown HIVES Verified 12/18/18 14:31 IV Dye strawberry Allergy Unknown HIVES Unverified 12/18/18 14:31 Past Med/Surg History Medical History Asthma HTN (hypertension) (Chronic) Kidney disease (Chronic) Prostate cancer (Acute 10/02/17) "Rising PSA, pretreatment PSA 5.63 Status post ultrasound-guided biopsies 10/02/2017 Adenocarcinoma of the prostate Hung 3+3, 3+4 and 4+3 Prostate volume 23.3 Prostate density 0.241 Hormone suppression, Lupron 30 mg IM given January 03, 2018. Completed hormonal suppression Status post completion of radiation therapy February 14, 2018. He received 7000 cGy utilizing hypo-fractionation." On 10/31/17 10:38 Mela Hernández wrote "Rising PSA, pretreatment PSA 5.63 Status post ultrasound-guided biopsies 10/02/2017 Adenocarcinoma of the prostate Hung 3+3, 3+4 and 4+3 Prostate volume 23.3 Prostate density 0.241 " SIRS (systemic inflammatory response syndrome) Surgical History History of nephrectomy Family History Other Diabetes Heart disease High blood pressure Lung disease Social History Current Living Situation: Spouse Other Information That Helps Us Care for You: No Feels Safe at Home: Yes Smoking Status: Former smoker Tobacco Type: cigarettes Do You Dip or Chew Tobacco: No Second Hand Exposure: No Tobacco Cessation Education Requested by Patient: No Hx Alcohol Use: No Hx Substance Use: No Beliefs That Will Affect Care: None Preferred Language: Amharic Communication Ability: Effective Clinical Education Academic Coordinator Required: No Review of Systems See HPI for pertinent positives & negatives. and A total of 10 systems reviewed and were otherwise negative Physical Exam Vital Signs Vital Signs - 24 hr 12/18/18 12:37 12/18/18 12:54 12/18/18 13:00 Temperature 36.5 C Temperature Source Oral Sepsis Recent Fever Within 48 Hours No Sepsis New/Unexplained Change in Mental Status No Sepsis Action Taken by Nursing No Action Required Pulse Rate 75 75 Pulse Rate [Apical] 76 Pulse Rhythm Regular Pulse Rhythm [Apical] Pulse Strength [Apical] Respiratory Rate 22 22 18 Respiratory Effort / Characteristics Respiratory Depth Normal Normal Respiratory Pattern Blood Pressure 192/84 H Blood Pressure [Left Arm] Blood Pressure [Right Arm] 172/107 H Blood Pressure Mean 120 Blood Pressure Mean [Left Arm] Blood Pressure Mean [Right Arm] 128 Blood Pressure Position Sitting Blood Pressure Position [Left Arm] Pulse Oximetry 96 96 98 Oxygen Delivery Method Room Air Room Air Room Air 12/18/18 15:28 12/18/18 15:31 12/18/18 15:46 Temperature Temperature Source Sepsis Recent Fever Within 48 Hours Sepsis New/Unexplained Change in Mental Status Sepsis Action Taken by Nursing Pulse Rate Pulse Rate [Apical] 76 74 68 Pulse Rhythm Pulse Rhythm [Apical] Pulse Strength [Apical] Respiratory Rate 17 19 17 Respiratory Effort / Characteristics Respiratory Depth Respiratory Pattern Blood Pressure Blood Pressure [Left Arm] Blood Pressure [Right Arm] 162/68 H 163/75 H 125/63 Blood Pressure Mean Blood Pressure Mean [Left Arm] Blood Pressure Mean [Right Arm] 99 104 83 Blood Pressure Position Blood Pressure Position [Left Arm] Pulse Oximetry 98 99 94 Oxygen Delivery Method Room Air Room Air 12/18/18 16:44 12/18/18 16:46 12/18/18 17:46 Temperature 36.3 C L Temperature Source Oral Sepsis Recent Fever Within 48 Hours Sepsis New/Unexplained Change in Mental Status Sepsis Action Taken by Nursing Pulse Rate Pulse Rate [Apical] 62 64 Pulse Rhythm Pulse Rhythm [Apical] Pulse Strength [Apical] Normal Respiratory Rate 18 20 Respiratory Effort / Characteristics Non-Labored Spontaneous Respiratory Depth Normal Respiratory Pattern Blood Pressure Blood Pressure [Left Arm] 150/81 H Blood Pressure [Right Arm] 127/64 Blood Pressure Mean Blood Pressure Mean [Left Arm] 104 Blood Pressure Mean [Right Arm] 85 Blood Pressure Position Blood Pressure Position [Left Arm] Lying Pulse Oximetry 96 97 Oxygen Delivery Method Room Air Room Air Room Air 12/18/18 18:18 Temperature Temperature Source Oral Sepsis Recent Fever Within 48 Hours Sepsis New/Unexplained Change in Mental Status Sepsis Action Taken by Nursing Pulse Rate 63 Pulse Rate [Apical] 62 Pulse Rhythm Pulse Rhythm [Apical] Regular Pulse Strength [Apical] Normal Respiratory Rate 16 Respiratory Effort / Characteristics Non-Labored Spontaneous Respiratory Depth Normal Respiratory Pattern Regular Blood Pressure Blood Pressure [Left Arm] 134/72 Blood Pressure [Right Arm] Blood Pressure Mean Blood Pressure Mean [Left Arm] 92 Blood Pressure Mean [Right Arm] Blood Pressure Position Blood Pressure Position [Left Arm] Lying Pulse Oximetry 97 Oxygen Delivery Method Room Air General: Non-ill appearing older male in no acute distress, , complaining of pain along left sternal boarder. HEENT: Normal cephalic atraumatic. Pupils are equal round and reactive to light. Extraocular movements are intact. Oropharynx is pink with moist mucous membranes. No swelling of the mouth lips or tongue. Neck: Supple with a midline trachea. No meningeal signs or stiffness, no JVD or bruits. No Stridor. Chest: Clear to auscultation bilaterally. No wheezes or rhonchi. No increased work of breathing. Exquisitely tender and reproducible pain along left sternal boarder. Heart: regular rate and rhythm. Abdomen: Soft nontender, nondistended without rebound guarding or rigidity. Extremities: No cyanosis clubbing or edema. No calf tenderness or assymetry Spine/Back. Non tender to palpation. No CVA tenderness Skin: Good turgor without rashes. Neurologic exam: Cranial nerves two through 12 are intact. Motor and sensation are intact and symmetrical throughout. Course 1243: Past medical records reviewed. The patient was evaluated in room C11B, and a complete history and physical examination were performed. 1320: I reevaluated the patient at this time who states that his chest is still painful but that he is feeling better. 1419: I reevaluated the patient at this time and ordered another EKG, Morphine and Zofran. 1500: I reevaluated the patient at this time who is resting comfortably and feels better although his chest pain is still reproducible. 1512: I reviewed the patient's case with Dr. Rolle [facility] [place] who will come evaluate the patient. He recommended Nitroglycerin because he saw that the patients blood pressure was elevated but the patients blood pressure is normal at this time. 1537: I reevaluated the patient at this time who received 2 Nitroglycerin but is not sure if this helped his chest pain. 1538: I will order Nitropaste and another EKG. 1555: I reevaluated the patient at this time who has Nitropaste on and appears comfortable. The patient reports that his pain is between a 0-1 out of 10. I am still waiting on cardiology. 1606: I spoke with Dr. Rolle who is at the patients bedside right now. 1622: I spoke with Dr. Rolle after he evaluated the patient at bedside and decided to admit the patient as I had originally planned. 1655: I reviewed the patient's case with Dr. Jaison Romero [facility] hospitalist She will evaluate the patient for further management. Administered Medications Discontinued Medications Aspirin (Aspirin) 324 mg PO NOW STA Stop: 12/18/18 12:50 Last Admin: 12/18/18 12:57 Dose: 324 mg Morphine Sulfate (Morphine Sulfate) 2 mg IV NOW STA Stop: 12/18/18 13:25 Last Admin: 12/18/18 13:29 Dose: 2 mg Nitroglycerin (Nitrostat) 0.4 mg SL NOW STA Stop: 12/18/18 15:22 Last Admin: 12/18/18 15:28 Dose: 0.4 mg Nitroglycerin (Nitro-Bid 2%) 1 inch EXT NOW ONE Stop: 12/18/18 15:38 Last Admin: 12/18/18 15:45 Dose: 1 inch Ondansetron HCl (Zofran) 4 mg IV NOW STA Stop: 12/18/18 13:25 Last Admin: 12/18/18 13:29 Dose: 4 mg Medical Decision Making Differential Diagnosis Differential Diagnosis includes: acute coronary syndrome, arrhythmia, costochondritis, aortic disease and electrolyte or metabolic abnormality among others. Medical Records Attestation: I reviewed the patient's medical records. Home Medications Current Medication List: was personally reviewed by me Laboratory Data Attestation: I reviewed the patient's lab results. Result diagrams: 12/18/18 12:54 12/18/18 12:54 Lab Results 12/18/18 12/18/18 12/18/18 Range/Units 12:54 12:54 13:05 WBC 5.91 (4.8-10.8) K/uL RBC 4.65 L (4.7-6.1) M/uL Hgb 14.0 (14.0-18.0) g/dL Hct 40.3 L (42-52) % MCV 86.7 (80-100) fL MCH 30.1 (25-34) pg MCHC 34.7 (32-36) g/dL RDW Std Deviation 42.2 (36.4-46.3) fL RDW Coeff of Karolyn 13.3 (11.5-14.5) % Plt Count 223 (130-400) K/uL MPV 10.0 (7.4-10.4) fL Immature Gran % (Auto) 0.3 % Neut % (Auto) 58.0 % Lymph % (Auto) 25.0 % Irwin % (Auto) 11.3 % Eos % (Auto) 5.1 % Baso % (Auto) 0.3 % Immature Gran # (Auto) 0.02 (0.00-0.02) K/uL Neut # (Auto) 3.42 (1.4-6.5) K/uL Lymph # (Auto) 1.48 (1.2-3.4) K/uL Irwin # (Auto) 0.67 H (0.11-0.59) K/uL Eos # (Auto) 0.30 (0-0.5) K/uL Baso # (Auto) 0.02 (0-0.2) K/uL Sodium 137 (136-145) mmol/L Potassium 4.0 (3.5-5.1) mmol/L Chloride 103 (98-107) mmol/L Carbon Dioxide 27 (21-32) mmol/L Anion Gap 6.0 (3-11) BUN 18 (7-18) mg/dl Creatinine 1.11 (0.6-1.4) mg/dl Est Cr Clr Drug Dosing 66.0 ml/min Est GFR ( Amer) 74.9 Est GFR (Non-Af Amer) 64.6 BUN/Creatinine Ratio 16.3 (10-20) Glucose 104 H (70-99) mg/dl Calcium 9.8 (8.5-10.1) mg/dl Total Bilirubin 0.4 (0.2-1) mg/dl AST 20 (15-37) U/L ALT 31 (12-78) U/L Alkaline Phosphatase 119 H (45-117) U/L POC Troponin I 0.03 (0-0.045) ng/ml Total Protein 7.3 (6.4-8.2) gm/dl Albumin 3.7 (3.4-5.0) gm/dl Globulin 3.6 (2.5-4.0) gm/dl Albumin/Globulin Ratio 1.0 (0.9-2) Lipase 171 (73-393) U/L 12/18/18 Range/Units 14:52 WBC (4.8-10.8) K/uL RBC (4.7-6.1) M/uL Hgb (14.0-18.0) g/dL Hct (42-52) % MCV (80-100) fL MCH (25-34) pg MCHC (32-36) g/dL RDW Std Deviation (36.4-46.3) fL RDW Coeff of Karolyn (11.5-14.5) % Plt Count (130-400) K/uL MPV (7.4-10.4) fL Immature Gran % (Auto) % Neut % (Auto) % Lymph % (Auto) % Irwin % (Auto) % Eos % (Auto) % Baso % (Auto) % Immature Gran # (Auto) (0.00-0.02) K/uL Neut # (Auto) (1.4-6.5) K/uL Lymph # (Auto) (1.2-3.4) K/uL Irwin # (Auto) (0.11-0.59) K/uL Eos # (Auto) (0-0.5) K/uL Baso # (Auto) (0-0.2) K/uL Sodium (136-145) mmol/L Potassium (3.5-5.1) mmol/L Chloride (98-107) mmol/L Carbon Dioxide (21-32) mmol/L Anion Gap (3-11) BUN (7-18) mg/dl Creatinine (0.6-1.4) mg/dl Est Cr Clr Drug Dosing ml/min Est GFR ( Amer) Est GFR (Non-Af Amer) BUN/Creatinine Ratio (10-20) Glucose (70-99) mg/dl Calcium (8.5-10.1) mg/dl Total Bilirubin (0.2-1) mg/dl AST (15-37) U/L ALT (12-78) U/L Alkaline Phosphatase (45-117) U/L POC Troponin I 0.26 H (0-0.045) ng/ml Total Protein (6.4-8.2) gm/dl Albumin (3.4-5.0) gm/dl Globulin (2.5-4.0) gm/dl Albumin/Globulin Ratio (0.9-2) Lipase (73-393) U/L Imaging Data Radiologist's Impression: Radiology results as stated below per my review and the radiologist's interpretation: XR chest 1V portable HISTORY: Atypical Chest Pain COMPARISON: Chest 12/14/2016. FINDINGS: There are low lung volumes. The lungs are clear. Cardiac silhouette is normal in size. No pleural effusions. No pneumothorax. IMPRESSION: No acute process. Electronically signed by: Abrahan Das M.D. 12/18/2018 1:13 PM ECG Data Attestation: I personally reviewed and interpreted this ECG as follows: Indication: chest pain Rate (beats per minute): 80 Rhythm: normal sinus Findings: + PVC (Occaionally); no acute ischemic change Comparison ECG Date: from (12/14/16) Change: no significant change Additional Comments: Per my interpretation: Repeat EKG #1: Shows T wave inversion in Lead and biphasic nonspecific in AVF. Repeat EKG #2: Inferior leads have T wave inversion, biphasic changes laterally. Blood Pressure Blood Pressure Findings: Elevated blood pressure Blood Pressure Disposition: further management by hospitalist [facility] Narrative This patient comes in as described above. He was placed in room C 11 is complained of chest pain which started around 1030 it is exquisitely reproducible. It seems to hurt worse when he lays flat. His initial EKG does not suggest acute coronary syndrome or arrhythmia. He was given aspirin that would help both noncardiac pain in case this is musculoskeletal as well as cardiac pain. Chest x-ray multiple blood testing was obtained. He was reassessed frequently. he was additionally given morphine 2 mg IV and Zofran 4 mgs IV and is doing much better his pain is definitely reproducible. EKG does not suggest acute coronary syndrome or arrhythmia. Initial troponin was negative. Chest x-ray was unremarkable. His blood pressure is moderately elevated initially but but could be situational. He has nothing to suggest aortic pathology. He has no acute electrolyte or metabolic abnormalities. I did repeat the EKG and also repeated the troponin. On the follow-up EKG, he does have some T wave inversions inferiorly and his troponin was bumped at 0.24. His symptoms have gotten significant better however and he has some vague chest pain less than 2. I did give him nitroglycerin sublingual x2 and this may have helped a little bit and also put an inch of nitroglycerin paste on him as well as consulting cardiology. He did have a third EKG which laterally now his T waves look biphasic. Dr. Rolle saw the patient and in the meantime I also discussed it with Dr. Hilario the cardiac interventionalist. They have decided to take him to the Radiology Technician for further treatment and evaluation given his EKG changes elevation troponin and ongoing symptoms. Impression & Plan Unstable angina, Elevated troponin, Acute electrocardiogram changes Critical Care Time Due to the patient's unstable angina and need for multiple reassessments and interventions, I have personally spent greater than 45 minutes of critical care time in the direct management of this patient. This includes bedside care, interpretation of diagnostic studies, and testing, discussion with consultants, patient, and family members, and other required patient management activities. This 45 minutes is in excess of all separately billable procedures. He had 3 EKGs and multiple medications including nitroglycerin, IV morphine, nitroglycerin paste. Additionally I consulted and talked to 2 separate child care giver about this patient given the concern for his ongoing chest pain. Critical Care Time: Yes Total Critical Care Time: 45 Discharge Plan Visit Data Chief Complaint: Chest Pain Stated Complaint: CHEST AND LEFT SHOULDER PAIN ED Provider: Andrew Carmona Discharge Problem: Unstable angina, Elevated troponin, Acute electrocardiogram changes Patient Disposition: Being Evaluated by Hospitalist Discharge Instructions Interventions: ED Discharge Assessment Last Done: 12/18/18 16:44 The scribe's documentation has been prepared under my direction and personally reviewed by me in its entirety. I confirm that the note above accurately reflects all work, treatment, procedures, and medical decision making performed by me.
--- NOTE | 2018-12-18 13:15 | XRay Report ---
XR chest 1V portable HISTORY: Atypical Chest Pain COMPARISON: Chest 12/14/2016. FINDINGS: There are low lung volumes. The lungs are clear. Cardiac silhouette is normal in size. No p leural effusions. No pneumothorax. IMPRESSION: No acute process. Electronically signed by: Abrahan Das M.D. 12/18/2018 1:13 PM
[2018-12-18 13:20] LABS: Albumin Level 3.7 gm/dl (3.4-5.0); BUN Creatinine Ratio 16.3 (10-20); Calcium 9.8 mg/dl (8.5-10.1); Est GFR (African American) 74.9; Est GFR (Non-African American) 64.6
[2018-12-18 13:23] LABS: Bilirubin,Total 0.4 mg/dl (0.2-1); Globulin 3.6 gm/dl (2.5-4.0); Total Protein 7.3 gm/dl (6.4-8.2)
[2018-12-18] MEDS ORDERED: MoRPHine SULFATE 2 MG/ML CARP IV STA (13:24)
[2018-12-18] MEDS ORDERED: ONDANSETRON INJ 2 MG/ML 2 ML VIAL IV STA (13:24)
[2018-12-18] MEDS ORDERED: NITROGLYCERIN SL 0.4 MG/TAB TAB SL STA (15:21)
[2018-12-18] MEDS ORDERED: NITROGLYCERIN 2% OINTMENT 30GM TUBE EXT ONE (15:37)
--- NOTE | 2018-12-18 16:35 | Pre Anesthesia Assessment ---
Date of Service December 18, 2018 Pre Sedation Assessment Vital Signs Temp Pulse Pulse Resp BP BP Pulse Ox 12/18/18 15:46 68 17 125/63 94 12/18/18 15:31 74 19 163/75 H 99 12/18/18 15:28 76 17 162/68 H 98 12/18/18 13:00 76 18 172/107 H 98 12/18/18 12:54 75 22 96 12/18/18 12:37 36.5 C 75 22 192/84 H 96 Cardiovascular + regular rate Respiratory + respiratory effort normal Pre-Sedation Airway Assessment Smoking Status: Former smoker Hx Sleep Apnea: No Hx Difficult Intubation: No Short, Thick Neck: No Thyromental Distance: > or= 3.5 Finger Breadths Oral Cavity: + WNL Mallampati Class: III ASA: ASA3 Procedure Planning Contraindications for Sedation: none Current Medications Reviewed: Yes Notes The planned sedation has been discussed with the patient. Informed Consent was obtained. I have identified the patient, determined the appropriateness of sedation and have assessed the patient immediately prior to the procedure. All medicine(s) and interventions are by my order.
[2018-12-18] MEDS ORDERED: NITROGLYCERIN/D5W 100MCG/ML 20ML SYR ONE (16:36)
[2018-12-18] MEDS ORDERED: MIDAZOLAM HCL 1 MG/ML 2ML VIAL ONE (16:36)
[2018-12-18] MEDS ORDERED: HEPARIN (PORCINE) 1000 UNIT/ML 10 ML (CATH LAB USE ONLY) ONE (16:36)
[2018-12-18] MEDS ORDERED: NiCARDipine HCL INJ 2.5 MG/ML 10 ML AMP ONE (16:36)
[2018-12-18] MEDS ORDERED: fentaNYL citrate 100 MCG/2 ML VIAL ONE (16:36)
[2018-12-18] MEDS ORDERED: FAMOTIDINE 20 MG in SYRINGE 3 ML IV ONE (16:37)
[2018-12-18] MEDS ORDERED: DiphenhydrAMINE HCL 50 MG/ML VIAL IV ONE (16:37)
[2018-12-18] MEDS ORDERED: methylPREDNISolone 125 MG/2 ML VIAL IV STA (16:38)
[2018-12-18] MEDS ORDERED: FUROSEMIDE 40 MG/4 ML VIAL IV STA (16:47)
[2018-12-18] MEDS ORDERED: raNITIdine HCl 25 MG/ML VIAL ONE (16:49)
[2018-12-18] MEDS ORDERED: methylPREDNISolone 125 MG/2 ML VIAL ONE (16:49)
[2018-12-18] MEDS ORDERED: DiphenhydrAMINE HCL 50 MG/ML VIAL ONE (16:50)
[2018-12-18] MEDS ORDERED: FAMOTIDINE 20MG/5ML IV PUSH IV STA (16:52)
--- NOTE | 2018-12-18 17:23 | Cardiac Catheterization ---
Cardiac Cath Procedure: Brief Procedure Date December 18, 2018 Pre-Procedure Diagnosis Pre-Procedure Diagnosis: Non STEMI AUC Score AUC Score: 8 Post-Procedure Diagnosis Post-Procedure Diagnosis: Severe CAD Procedure(s) Performed Procedure(s) Performed: Coronary Angiography Janitorial Services Supervisor Pato Rolle MD Final Inspector Shuttle(s) none Estimated Blood Loss Estimated Blood Loss: 5cc Medication(s) Medication(s): Diphenhydramine, Fentanyl, Heparin, Nicardipine, Nitroglycerin and Versed Medication(s): solu-medrol, zantac Preliminary Findings Severe CAD without acute lesion. Recommendations Recommendations: CABG Specimens Specimens: None Procedural Complication(s) None Disposition PCU
[2018-12-18] MEDS ORDERED: ALBUTEROL 0.083% NEBU SOLN 3 ML VIAL INH PRN (18:23)
[2018-12-18] MEDS ORDERED: ALBUTEROL HFA 8 GM INHALER INH PRN (18:23)
--- NOTE | 2018-12-18 18:25 | History & Physical Report ---
Date of Service December 18, 2018 Assessment & Plan (1) Chest pain: Completely reproducible and felt unlikely cardiac CXR neg (2) Elevated troponin: cath 12/18 given elevated trop and EKG changes Dr. Rolle states there is severe CAD and pt will require CABG. This can be done as an elective procedure. Recs for overnight monitoring given cath and level of CAD. Planning ECHO in AM. (3) HTN (hypertension): continue home meds (4) Prostate cancer: states h/o radiation and he is in remission (5) Asthma: continue home meds (6) DVT prophylaxis: SCDs History of Present Illness Primary Care Provider: Pato Castle MD 77 y/o M who was admitted on 12/18 s/p cath with Dr. Rolle. Pt c/o L sided chest pain that started around 10:45a. He had a similar pain about 2 weeks ago , but it resolved spontaneously until this AM. He states he was having a normal morning until this happened. No issues with his usual ADL. Pt denies fever, SOB, abd pain, n/v/c/d, LE pain or swelling. Pt has prior hx of L sided shoulder surgery x2. Dr. Rolle states there is severe CAD and pt will require CABG. This can be done as an elective procedure. Recs for overnight monitoring given cath and level of CAD. It is felt that pt's chest pain is MSK in nature given its reproducibility. Planning ECHO in AM. Post cath pt states he is feeling better. No further chest pain. Allergies Allergy/AdvReac Type Severity Reaction Status Date / Time Iodinated Contrast- Oral and Allergy Unknown HIVES Verified 12/18/18 14:31 IV Dye strawberry Allergy Unknown HIVES Unverified 12/18/18 14:31 Home Medications Home Medications Medication Instructions Recorded Confirmed Type albuterol sulfate 2.5 mg INHALATION Q4H PRN 12/18/18 12/18/18 History albuterol sulfate [ProAir HFA] 1 - 2 puff INHALATION Q4H PRN 12/18/18 12/18/18 History allopurinol 100 mg PO QAM 12/18/18 12/18/18 History diclofenac sodium 100 mg PO BID 12/18/18 12/18/18 History ferrous gluconate 324 mg PO QAM 12/18/18 12/18/18 History fluticasone-salmeterol [Advair 1 inh INHALATION BID 12/18/18 12/18/18 History Diskus] losartan 100 mg PO QAM 12/18/18 12/18/18 History metoprolol succinate 25 mg PO QAM 12/18/18 12/18/18 History montelukast 10 mg PO QAM 12/18/18 12/18/18 History multivitamin [Multiple Vitamins] 1 tab PO QAM 12/18/18 12/18/18 History simvastatin 80 mg PO HS 12/18/18 12/18/18 History tolterodine 2 mg PO QAM 12/18/18 12/18/18 History Past Med/Surg History Medical History Asthma HTN (hypertension) (Chronic) Kidney disease (Chronic) Prostate cancer (Acute 10/02/17) "Rising PSA, pretreatment PSA 5.63 Status post ultrasound-guided biopsies 10/02/2017 Adenocarcinoma of the prostate [place] 3+3, 3+4 and 4+3 Prostate volume 23.3 Prostate density 0.241 Hormone suppression, Lupron 30 mg IM given January 03, 2018. Completed hormonal suppression Status post completion of radiation therapy February 14, 2018. He received 7000 cGy utilizing hypo-fractionation." On 10/31/17 10:38 Mela Hernández wrote "Rising PSA, pretreatment PSA 5.63 Status post ultrasound-guided biopsies 10/02/2017 Adenocarcinoma of the prostate [place] 3+3, 3+4 and 4+3 Prostate volume 23.3 Prostate density 0.241 " SIRS (systemic inflammatory response syndrome) Surgical History History of nephrectomy Family History Other Diabetes Heart disease High blood pressure Lung disease Social History Current Living Situation: Spouse Other Information That Helps Us Care for You: No Feels Safe at Home: Yes Smoking Status: Former smoker Tobacco Type: cigarettes Do You Dip or Chew Tobacco: No Second Hand Exposure: No Tobacco Cessation Education Requested by Patient: No Hx Alcohol Use: No Hx Substance Use: No Beliefs That Will Affect Care: None Preferred Language: Maori Communication Ability: Effective Automobile Detailer Required: No Review of Systems Pertinent positives and negatives reviewed in HPI--all others negative Physical Exam 2 Vital Signs (Past 24 Hours): Last Vital Signs Temp 36.3 C L 12/18/18 17:46 Pulse 64 12/18/18 17:46 Resp 20 12/18/18 17:46 BP 150/81 H 12/18/18 17:46 Pulse Ox 97 12/18/18 17:46 Constitutional: WD/WN, vitals as above Eyes: normal visual jorge by confrontation and + anicteric sclerae Neck: normal visual inspection and trachea midline Respiratory: normal respiratory effort, lungs clear to auscultation Cardiovascular: Rate/Rhythm: regular rate and regular rhythm Gastrointestinal (Abdomen): Inspection/Auscultation: abdomen not distended Percussion/Palpation: abdomen soft; abdomen nontender Musculoskeletal: Head/Neck/Chest: normocephalic, head atraumatic and + abnormal palpation of chest wall (very sharp and severe TTP) negative for edema, peripheral pulses intact Skin: no rashes, warm and dry Neurologic: awake; not confused Speech / Cognition: normal speech Psychiatric: A+Ox3, euthymic affect Results & Data Diagnostic Findings CXR neg ECG Additional Comments: T wave changes noted Code Status & VTE Plan VTE Prophylaxis Plan VTE Prophylaxis will be ordered: Yes
[2018-12-18] MEDS: SODIUM CHLORIDE 0.9% 1000ML 1,000 ML IV SCH (20:18)
[2018-12-18] MEDS: FLUTICASONE/SALMETEROL 250/50 (ADVAIR) 14 PUFF/1 INHALER INH SCH (20:19)
[2018-12-18] MEDS: DICLOFENAC SODIUM 25 MG TABDR PO SCH (20:20)
--- NOTE | 2018-12-18 20:44 | Cardiology Consultation ---
Date of Consultation December 18, 2018 Assessment & Plan (1) Chest pain: The patient symptoms of chest pain are quite atypical. The symptoms appear to be fairly long-standing, lasting several hours at this point. He also has very reproducible symptoms and often describes the pain as "sharp". However, he also has some objective findings which are not normal. He does have some transient T wave abnormalities and abnormal cardiac biomarkers. He did describe some of his symptoms this morning as "heartburn". It is possible that he has both an acute coronary syndrome as well as discomfort in the chest and shoulder area due to musculoskeletal and noncardiac causes. I think given his age and other risk factors for coronary disease as well as the objective findings would be prudent to proceed with coronary angiography in order to exclude an evolving acute coronary syndrome. I did describe the risks benefits and alternatives to the patient and his . We will proceed immediately. He does have a reported allergy of contrast, and he will be premedicated. History of Present Illness Reason for Consultation: Chest pain Requesting Physician: Mathew Attending Physician: Pato Rolle MD History of Present Illness Patient is a 77-year-old gentleman without a known history of cardiac disease who is been experiencing symptoms of left chest discomfort. The patient states that he had an episode of left upper pectoral discomfort approximately 2 weeks ago. This is fairly transient in nature and resolved without any particular intervention. However, this morning the patient developed left upper chest and left shoulder discomfort with minimal activity. The symptom involved a sharp sensation in that area. It was slightly worse with deep inspiration and changes in position. It was not associated with significant breathing difficulty. He did not have diaphoresis or nausea. The symptoms persisted and he eventually sought medical attention at [facility] after contacting his primary care physician. In the emergency room he was noted to have reproducible symptoms with palpation in that area. However, EKG changes and an abnormal troponin were also noted. Patient states that application of nitroglycerin relieved to some of his symptoms. He also reported some symptoms of "indigestion" earlier today and did try some antacid and an attempt to relieve his symptoms. In general he is an active individual who is able for mild activity without limiting dyspnea or symptoms of chest discomfort. Not report any symptoms of orthopnea or paroxysmal nocturnal dyspnea. Is not been aware of any palpitations recently he denied any dizziness, lightheadedness or recent syncope. Allergies Allergy/AdvReac Type Severity Reaction Status Date / Time Iodinated Contrast- Oral and Allergy Unknown HIVES Verified 12/18/18 14:31 IV Dye strawberry Allergy Unknown HIVES Unverified 12/18/18 14:31 Home Medications Home Medications Medication Instructions Recorded Confirmed Type albuterol sulfate 2.5 mg INHALATION Q4H PRN 12/18/18 12/18/18 History albuterol sulfate [ProAir HFA] 1 - 2 puff INHALATION Q4H PRN 12/18/18 12/18/18 History allopurinol 100 mg PO QAM 12/18/18 12/18/18 History diclofenac sodium 100 mg PO BID 12/18/18 12/18/18 History ferrous gluconate 324 mg PO QAM 12/18/18 12/18/18 History fluticasone-salmeterol [Advair 1 inh INHALATION BID 12/18/18 12/18/18 History Diskus] losartan 100 mg PO QAM 12/18/18 12/18/18 History metoprolol succinate 25 mg PO QAM 12/18/18 12/18/18 History montelukast 10 mg PO QAM 12/18/18 12/18/18 History multivitamin [Multiple Vitamins] 1 tab PO QAM 12/18/18 12/18/18 History simvastatin 80 mg PO HS 12/18/18 12/18/18 History trospium 60 mg PO DAILY 12/18/18 12/18/18 History Patient History Medical History Asthma HTN (hypertension) (Chronic) Kidney disease (Chronic) Prostate cancer (Acute 10/02/17) "Rising PSA, pretreatment PSA 5.63 Status post ultrasound-guided biopsies 10/02/2017 Adenocarcinoma of the prostate [place] 3+3, 3+4 and 4+3 Prostate volume 23.3 Prostate density 0.241 Hormone suppression, Lupron 30 mg IM given January 03, 2018. Completed hormonal suppression Status post completion of radiation therapy February 14, 2018. He received 7000 cGy utilizing hypo-fractionation." On 10/31/17 10:38 Mela Hernández wrote "Rising PSA, pretreatment PSA 5.63 Status post ultrasound-guided biopsies 10/02/2017 Adenocarcinoma of the prostate [place] 3+3, 3+4 and 4+3 Prostate volume 23.3 Prostate density 0.241 " SIRS (systemic inflammatory response syndrome) Surgical History History of nephrectomy Family History Other Diabetes Heart disease High blood pressure Lung disease Social History Current Living Situation: Spouse Other Information That Helps Us Care for You: No Feels Safe at Home: Yes Smoking Status: Former smoker Tobacco Type: cigarettes Do You Dip or Chew Tobacco: No Second Hand Exposure: No Tobacco Cessation Education Requested by Patient: No Hx Alcohol Use: No Hx Substance Use: No Beliefs That Will Affect Care: None Preferred Language: Andorran Communication Ability: Effective Corrections Counselor Required: No Review of Systems Complete. Pertinent positives known history of present illness. No recent constitutional symptoms such as fevers or chills. No change in diet. No lower extremity edema. Physical Exam 2 Vital Signs (Past 24 Hours): Last Vital Signs Temp 36.7 C 12/18/18 19:53 Pulse 61 12/18/18 19:53 Resp 18 12/18/18 19:53 BP 116/72 12/18/18 19:53 Pulse Ox 96 12/18/18 19:53 Physical Exam: The patient is alert and oriented. Mood and affect appeared normal. He answered all questions appropriately. HEENT: Pupils are equal and reactive to light and accommodation. Extraocular movements are intact. The sclerae are anicteric. Neuro: Cranial nerves intact Neck: Patient's neck is supple. He has palpable carotid pulses bilaterally without bruits on auscultation. There is no evidence of jugular venous distention. The thyroid is not enlarged. Lungs: Clear to auscultation bilaterally. He has good air movement without use of accessory muscles. No rales wheezes or rhonchi. Chest: He does have reproducible pain in the left pectoral/axillary area. Cardiac: Heart demonstrates a regular rate and rhythm. Normal S1 and S2. No murmurs on examination. Pulses: The patient has palpable radial pulses bilaterally that are equal in intensity Extremities: There was no evidence of hypoperfusion. There is no cyanosis or clubbing. There is no edema. Skin: I did not appreciate any rashes on examination today. Atrial fibrillation Results & Data Laboratory Results Chest x-ray obtained at the time of admission did not reveal any acute cardiopulmonary process. Abnormal Lab Results 12/18/18 12/18/18 12/18/18 12:54 12:54 13:05 WBC 5.91 RBC 4.65 L Hgb 14.0 Hct 40.3 L MCV 86.7 MCH 30.1 MCHC 34.7 RDW Std Deviation 42.2 RDW Coeff of Karolyn 13.3 Plt Count 223 MPV 10.0 Immature Gran % (Auto) 0.3 Neut % (Auto) 58.0 Lymph % (Auto) 25.0 [place] % (Auto) 11.3 Eos % (Auto) 5.1 Baso % (Auto) 0.3 Immature Gran # (Auto) 0.02 Neut # (Auto) 3.42 Lymph # (Auto) 1.48 [place] # (Auto) 0.67 H Eos # (Auto) 0.30 Baso # (Auto) 0.02 Sodium 137 Potassium 4.0 Chloride 103 Carbon Dioxide 27 Anion Gap 6.0 BUN 18 Creatinine 1.11 Est Cr Clr Drug Dosing 66.0 Est GFR ( Amer) 74.9 Est GFR (Non-Af Amer) 64.6 BUN/Creatinine Ratio 16.3 Glucose 104 H Calcium 9.8 Total Bilirubin 0.4 AST 20 ALT 31 Alkaline Phosphatase 119 H POC Troponin I 0.03 Total Protein 7.3 Albumin 3.7 Globulin 3.6 Albumin/Globulin Ratio 1.0 Lipase 171 12/18/18 14:52 WBC RBC Hgb Hct MCV MCH MCHC RDW Std Deviation RDW Coeff of Karolyn Plt Count MPV Immature Gran % (Auto) Neut % (Auto) Lymph % (Auto) [place] % (Auto) Eos % (Auto) Baso % (Auto) Immature Gran # (Auto) Neut # (Auto) Lymph # (Auto) [place] # (Auto) Eos # (Auto) Baso # (Auto) Sodium Potassium Chloride Carbon Dioxide Anion Gap BUN Creatinine Est Cr Clr Drug Dosing Est GFR ( Amer) Est GFR (Non-Af Amer) BUN/Creatinine Ratio Glucose Calcium Total Bilirubin AST ALT Alkaline Phosphatase POC Troponin I 0.26 H Total Protein Albumin Globulin Albumin/Globulin Ratio Lipase ECG Additional Comments: Serial EKGs were obtained. These all demonstrated sinus rhythm with occasional PVCs. There were some minor T wave changes in serial EKGs.
[2018-12-18] MEDS ORDERED: SIMVASTATIN 80 MG TAB PO SCH (21:00)
[2018-12-19] MEDS ORDERED: PERFLUTREN LIPID MICROSPHERE (DEFINITY) IV ONE (06:42)
[2018-12-19] MEDS: FLUTICASONE/SALMETEROL 250/50 (ADVAIR) 14 PUFF/1 INHALER INH SCH (08:28)
[2018-12-19] MEDS: DICLOFENAC SODIUM 25 MG TABDR PO SCH (08:29)
[2018-12-19] MEDS ORDERED: ALLOPURINOL 100 MG TAB PO SCH (09:00)
[2018-12-19] MEDS ORDERED: MONTELUKAST SODIUM 10 MG TABLET PO SCH (09:00)
[2018-12-19] MEDS ORDERED: LOSARTAN POTASSIUM 50 MG TAB PO SCH (09:00)
[2018-12-19] MEDS ORDERED: FERROUS GLUCONATE 324 MG TAB PO SCH (09:00)
[2018-12-19] MEDS ORDERED: MULTIVITAMIN TAB PO SCH (09:00)
[2018-12-19] MEDS ORDERED: ASPIRIN 81 MG ECTAB PO SCH (09:00)
[2018-12-19] MEDS ORDERED: METOPROLOL SUCC 25MG EXT REL TAB PO SCH (09:00)
[2018-12-19] MEDS: SODIUM CHLORIDE 0.9% 1000ML 1,000 ML IV SCH (09:55)
--- NOTE | 2018-12-19 10:53 | Cardiology Progress Note ---
Date of Service December 19, 2018 Assessment & Plan (1) Chest pain: His chest pain was not related to an acute coronary syndrome. This was not related to coronary artery disease. This was likely musculoskeletal in nature and is nearly resolved. (2) Coronary artery disease: Patient does have severe coronary artery disease. He is not appear to be overtly symptomatic. The symptoms he experienced yesterday were not related to an acute coronary syndrome although he was discovered to have significant multivessel disease at the time of angiography. He has preserved LV systolic function and would appear to be a low risk candidate for surgical revascularization. I asked him to refrain from significant exertion. We discussed a referral for a surgical evaluation. He prefers ago to [place] and I will make these arrangements. At the time of discharge she should begin taking a daily baby aspirin. He should continue on his beta-lisa, ARB and high-dose simvastatin. Present on Admission?: Yes Subjective This morning the patient is feeling much better. He still has some mild tenderness in his left upper chest area but the discomfort he had yesterday is much improved in nearly gone. Physical Exam 2 Vital Signs (Past 24 Hours): Last Vital Signs Temp 36.4 C L 12/19/18 07:08 Pulse 76 12/19/18 07:08 Resp 17 12/19/18 07:08 BP 152/69 H 12/19/18 07:08 Pulse Ox 91 12/19/18 07:08 Physical Exam: The patient is alert and oriented. Mood and affect appeared normal. He answered all questions appropriately. HEENT: Pupils are equal and reactive to light and accommodation. Extraocular movements are intact. The sclerae are anicteric. Neuro: Cranial nerves intact Lungs: Clear to auscultation bilaterally. He has good air movement without use of accessory muscles. No rales wheezes or rhonchi. Cardiac: Heart demonstrates a regular rate and rhythm. Normal S1 and S2. No murmurs on examination. Pulses: The patient has palpable radial pulses bilaterally that are equal in intensity. Good perfusion of the right hand. Extremities: There was no evidence of hypoperfusion. There is no cyanosis or clubbing. There is no edema. Skin: I did not appreciate any rashes on examination today. Results & Data Diagnostic Findings Cardiac catheterization performed yesterday revealed significant obstructive coronary disease involving the right coronary artery, distal left main and ostial LAD. Echocardiogram performed today revealed preserved LV systolic function without significant valvular heart disease.
[2018-12-19 11:49] VITALS: PULSE 72
[2018-12-19 15:21] VITALS: TEMP 98.1; O2SAT 95
[2018-12-19 15:39] VITALS: BP 145/72
--- NOTE | 2018-12-23 12:41 | Cardiac Catheterization ---
Date of Service December 18, 2018 Cardiac Cath Report Cardiac Cath Report Procedure performed: Cardiac catheterization, selective coronary angiography Staff packerhead machine operator: Pato Rolle MD Indication: The patient is a 78-year-old gentleman without a known history of cardiac disease who presented to [facility] Emergency room with symptoms of unrelenting chest discomfort, minor EKG changes and mild elevation in his cardiac biomarkers. Procedure in detail: The patient was informed of the risks benefits and alternatives to the intended procedure, he understood such and wished to proceed. He was taken to the cardiac catheterization suite in a fasting state. Conscious sedation was administered per protocol and the patient was monitored electrocardiographically throughout today's procedure. The right wrist area was prepped and draped in usual sterile fashion. This area was anesthetized using subcutaneous administration of a lidocaine solution. The right radial artery was then accessed using Seldinger technique, and a arterial sheath was placed at this site over a guidewire. The sheath was used to facilitate passage of the cardiac catheter for coronary angiography and left heart catheterization. Coronary angiogram was then obtained in multiple orthogonal views prior to removal of the catheter. At the conclusion of the procedure the sheath was removed and hemostasis was achieved at the access site using manual pressure. The patient tolerated procedure well, there were no immediate complications. Equipment used: 5 [place] tiger 4 Findings: Opening aortic pressure: 132/65 mm Hg Closing aortic pressure: 67956 mm Hg Coronary angiography: Left main left main was normal in size and caliber with some tapering at its distal portion estimated at 40-50%. It did bifurcate into the left anterior descending and left circumflex artery. Left anterior descending: Left anterior descending artery was a large transapical vessel which produced 1 large diagonal branch. There was a proximally 70% stenosis at its ostium. There was a 60 70% stenosis at the ostium of the large diagonal branch Left circumflex artery: Left circumflex artery was a non dominant vessel. It produced a large 1st OM branch a medium 2nd and 3rd OM branch. There were only luminal irregularities in this distribution. Right coronary artery: The right coronary artery was a dominant vessel. There is approximately 60-70% lesion in its midportion and an 80% lesion in the midportion of the posterior lateral branch. Impression: Multivessel coronary disease involving the distal left main, ostial left anterior descending and right coronary arteries No evidence of acute coronary syndrome Plan: Referred for surgical revascularization
--- NOTE | 2019-01-05 10:24 | Discharge Summary ---
Date of Service January 05, 2019 Admission HPI 77 y/o M who was admitted on 12/18 s/p cath with Dr. Rolle. Pt c/o L sided chest pain that started around 10:45a. He had a similar pain about 2 weeks ago , but it resolved spontaneously until this AM. He states he was having a normal morning until this happened. No issues with his usual ADL. Pt denies fever, SOB, abd pain, n/v/c/d, LE pain or swelling. Pt has prior hx of L sided shoulder surgery x2. Dr. Rolle states there is severe CAD and pt will require CABG. This can be done as an elective procedure. Recs for overnight monitoring given cath and level of CAD. It is felt that pt's chest pain is MSK in nature given its reproducibility. Planning ECHO in AM. Post cath pt states he is feeling better. No further chest pain. Admission Exam Per Admitting Provider He had reproducible symptoms with palpation of the left upper chest and shoulder. Principal Diagnosis Principal Diagnosis Noncardiac chest pain Severe coronary artery disease Discharge Exam Access site in the right wrist without hematoma. Good perfusion of the right extremity. ENMT Mallampati Class: III Respiratory normal respiratory effort Cardiovascular Rate/Rhythm: regular rate Discharge Data Allergies Allergy/AdvReac Type Severity Reaction Status Date / Time Iodinated Contrast- Oral and Allergy Unknown HIVES Verified 12/18/18 14:31 IV Dye strawberry Allergy Unknown HIVES Unverified 12/18/18 14:31 Procedures Performed Operation Date: 12/18/18 16:20 Actual Procedures s Cineradiography w/Routine Exam(Not Applicable) - Obdulio Rolle MD p Cath, Coronaries ONLY (no LV) - Obdulio Rolle MD Ordered Studies 12/18/18 16:27 CL Cath Imgs for PACS use only Stat Hospital Course (1) Chest pain: Based on development of mildly abnormal cardiac biomarkers and dynamic EKG changes, the patient underwent urgent catheterization which did not reveal any evidence of an acute coronary syndrome. His chest pain was not related to an acute coronary syndrome. This was not related to coronary artery disease. This was likely musculoskeletal in nature and is nearly resolved. (2) Coronary artery disease: Patient does have severe coronary artery disease. He is not appear to be overtly symptomatic. The symptoms he experienced yesterday were not related to an acute coronary syndrome although he was discovered to have significant multivessel disease at the time of angiography. He has preserved LV systolic function and would appear to be a low risk candidate for surgical revascularization. I asked him to refrain from significant exertion. We discussed a referral for a surgical evaluation. He prefers ago to [place] and I will make these arrangements. At the time of discharge she should begin taking a daily baby aspirin. He should continue on his beta-lisa, ARB and high-dose simvastatin. Total Time Total Time Spent Total Time Spent (In Minutes): 10 Discharge Plan Discharge Items Patient Disposition: Home - Self-Care Reason For Visit: ABNORMAL EKG POST CATH Discharge Diagnosis: Non-cardiac chest pain Discharge Goals: Decrease discomfort Activity: As commented below Activity Comment: Refrain from strenuous activity. Resume normal mild activity Lifting: No more than 5 pounds Lifting Comment: Refrain from vigorous use of the right wrist for 5 days Bathing: No limitations Exercise/Sports: None Driving/Machine Use: Resume 1 day after discharge Non-emergency contact: Primary Care Provider Call non-emergency contact if: you have any medication questions Follow-up/Referrals: Obdulio Castle MD [Primary Care Provider] - Diet: Heart Healthy Add Provider Instructions: You will be contacted directly regarding an appointment in [place] for evaluation with the CT surgeons Prescriptions: New aspirin [Ecotrin Low Strength] 81 mg Tablet,Delayed Release (Dr/Ec) 81 mg PO QAM Qty: 0 RF: 0 Continue multivitamin [Multiple Vitamins] Tablet 1 tab PO QAM RF: 0 fluticasone-salmeterol [Advair Diskus] 250-50 mcg/dose Blister With Device 1 inh INHALATION BID RF: 0 simvastatin 80 mg tablet 80 mg PO HS RF: 0 allopurinol 100 mg tablet 100 mg PO QAM RF: 0 montelukast 10 mg tablet 10 mg PO QAM RF: 0 diclofenac sodium 50 mg tablet,delayed release (DR/EC) 100 mg PO BID RF: 0 metoprolol succinate 25 mg tablet extended release 24 hr 25 mg PO QAM RF: 0 albuterol sulfate 90 mcg/actuation HFA aerosol inhaler 1 - 2 puff Inhalation Q4H PRN (Reason: Shortness Of Breath Or Wheezing) RF: 0 ferrous gluconate 324 mg (38 mg iron) Tablet 324 mg PO QAM RF: 0 losartan 100 mg tablet 100 mg PO QAM RF: 0 albuterol sulfate 2.5 mg /3 mL (0.083 %) Solution For Nebulization 2.5 mg INHALATION Q4H PRN (Reason: Shortness Of Breath Or Wheezing) RF: 0 trospium 60 mg capsule,extended release 24hr 60 mg PO DAILY RF: 0 Stand-Alone Forms: Call Back Authorization, [facility] Discharge Orders: Discharge Order (Routine); Ordered 12/19/18 Ordered By: Obdulio Rolle Admission Data Admit Date/Time: 12/18/18 17:10 Attending Provider: Obdulio Rolle Admit Provider: Obdulio Rolle Primary Care Provider: bOdulio Castle Service: Telemetry Other Interventions: Discharge Summary Assessment (RN) Last Done: 12/19/18 15:36 DC Date/Time DO NOT enter until pt leaves facility: 12/19/18 16:15
== END 2018-12-19 16:15 | disposition home or self-care (01) | DRG 287 ==
LOC: ED 12:33 → CC 16:54 → 2S 16:55
PROC: CLB.CCO (2018-12-18 16:20)
DX: Z79.899 Other long term (current) drug therapy; Z79.51 Long term (current) use of inhaled steroids; J45.909 Unspecified asthma, uncomplicated; Z87.891 Personal history of nicotine dependence; I10 Essential (primary) hypertension; Z82.49 Family history of ischemic heart disease and other diseases of the circulatory system; M25.511 Pain in right shoulder; Z91.018 Allergy to other foods; R07.89 Other chest pain; Z91.041 Radiographic dye allergy status; I25.10 Atherosclerotic heart disease of native coronary artery without angina pectoris; Z79.1 Long term (current) use of non-steroidal anti-inflammatories (NSAID); R74.8 Abnormal levels of other serum enzymes

== ENCOUNTER 2022-06-13 13:56 | Inpatient (IN) ==
[2022-06-13] MEDS ORDERED: SODIUM CHLORIDE 0.9% 500 ML IV ONE (14:42)
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
[2022-06-13 15:26] LABS: Basophils # (auto) 0.05 K/uL (0-0.2); Basophils % (auto) 0.8 %; Eosinophils # (auto) 0.63 K/uL (0-0.50); Eosinophils % (auto) 9.5 %; Hematocrit (blood only) 40.4 % (40.1-51.0); Immature Granulocytes # (auto) 0.04 K/uL (0.00-0.02); Immature Granulocytes % (auto) 0.6 %; Lymphocytes # (auto) 1.62 K/uL (1.2-3.4); Lymphocytes % (auto) 24.5 %; Mean Corpuscular Hemoglobin 27.7 pg (25.0-34.0); Mean Corpuscular Hgb Conc 32.2 g/dL (32.0-36.0); Mean Corpuscular Volume 86.1 fL (80.0-100.0); Monocytes # (auto) 0.77 K/uL (0.24-0.82); Monocytes % (auto) 11.6 %; Neutrophils # (auto) 3.51 K/uL (1.4-6.5); Platelet Count 352 K/uL (130-400); RDW Coefficient of Variation 14.1 % (11.5-14.5); RDW Standard Deviation 44.1 fL (36.4-46.3); Red Blood Count 4.69 M/uL (4.63-6.08); White Blood Count 6.62 K/ul (4.8-10.8)
--- NOTE | 2022-06-13 15:34 | CT Scan Report ---
CT OF THE ABDOMEN AND PELVIS WITHOUT CONTRAST CLINICAL HISTORY: Elevated liver function tests. COMPARISON STUDY: CT of the abdomen and pelvis December 16, 2016. TECHNIQUE: Axial images of the abdomen and pelvis were obtained without IV contrast. Images were revi ewed in the axial, sagittal, and coronal planes. Automated exposure control was utilized for the adan dy. A dose lowering technique was utilized adhering to the principles of ALARA. FINDINGS: Emphysema is noted within the lower lungs. There is a small hiatal hernia. Median sternotom y wires are partially imaged. Evaluation of the abdomen and pelvis is suboptimal on this unenhanced exam. No pneumatosis, free air or portal venous gas is present. There has been interval development of marked dilatation of the comm on bile duct since CT of December 16, 2016. Common bile duct measures 1.9 cm in caliber. There is also intrahepatic biliary ductal dilatation. No hepatic lesions are identified on this unenhanced exam. T here is minimal stranding within the marty hepatis. Gallbladder is mildly distended. There may be min imal stranding adjacent to the gallbladder is well. There is no pancreatic ductal dilatation. No radi opaque calculi are identified within the gallbladder or common bile duct. Common bile duct is dilated to the level of the ampulla. No abdominal or pelvic lymphadenopathy is present. There is no evidence for a bowel obstruction. Large amount of stool within the colon and rectum is noted. Right kidney is surgically absent. No abnormality is identified within the right nephrectomy bed. Left-sided parapel abigail cysts are noted. Punctate left renal calculus is present. There are no left ureteral calculi. Tank dder wall thickening is similar to prior exam. Fat-containing left inguinal hernia is present. No acu te fracture or suspicious lesion is identified within visualized skeletal structures. There may be fi ducial markers within the prostate. IMPRESSION: 1. Interval development of a marked biliary ductal dilatation. Common bile duct dilated to the level of the ampulla. Minimal adjacent stranding. Differential considerations include an ampullary/distal c ommon bile duct mass or obstructing calculus. GI consultation is recommended for consideration for ER CP. 2. Mild gallbladder distention with trace adjacent stranding. 3. Large amount of stool within the colon and rectum. No bowel obstruction. 4. No abnormality within the right nephrectomy bed. ACT 112: Negative or not required by law. Electronically signed by: Rishabh Sebastian M.D. 06/13/2022 3:33 PM
[2022-06-13 15:35] LABS: Appearance Urine Turbid (Clear); Bacteria Urine Automated 4+ (Negative); Blood Urine 1+ (Negative); Color Urine Dark Yellow; Epithelial Cell Urine Auto >30 /lpf (0-5); Glucose Urine UA Negative (Negative); Ketones Urine Negative (Negative); Leukocyte Esterase Urine 3+ (Negative); Nitrite Urine Negative (Negative); Protein Urine 1+ (Negative); Specific Gravity Urine 1.013 (1.000-1.030); Urobilinogen Urine Negative (Negative); WBC Urine Automated >30 /hpf (0-5); pH Urine 5.5 (4.5-7.5)
[2022-06-13 15:40] LABS: Bilirubin Urine 1+ (Negative)
[2022-06-13 15:43] LABS: Albumin Globulin Ratio 0.9 (0.9-2); Albumin Level 3.6 gm/dl (3.4-5.0); BUN Creatinine Ratio 13.8 (10-20); Bilirubin,Total 2.4 mg/dl (0.2-1.0); Calcium 9.5 mg/dl (8.5-10.1); Creatinine Clr Calc Pharmacy 53.2 ml/min; Est GFR (African American) 64.3 ml/min; Est GFR (Non-African American) 55.5 ml/min; Globulin 4.1 gm/dl (2.5-4.0); Potassium 4.1 mmol/L (3.5-5.1); Total Protein 7.7 gm/dl (6.0-8.3)
[2022-06-13 15:49] LABS: Renal Epithelial Cells Urine 0-5 /lpf (0-5)
[2022-06-13] MEDS ORDERED: AMPICILLIN/SULBACTAM SOD 3,000 MG in 0.9 % SODIUM CHLORIDE 100 ML IV STA (16:37)
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
[2022-06-13] MEDS ORDERED: ALBUTEROL HFA 8 GM INHALER INH PRN (21:09)
[2022-06-13] MEDS ORDERED: ONDANSETRON INJ 2 MG/ML 2 ML VIAL IV PRN (21:09)
[2022-06-13] MEDS ORDERED: ACETAMINOPHEN 325 MG TAB PO PRN (21:09)
[2022-06-13] MEDS: FLUTICASONE PROPIONATE NA SPR 16 GM BTL NAE SCH (22:27)
[2022-06-13] MEDS: AMPICILLIN/SULBACTAM SOD 3,000 MG in 0.9 % SODIUM CHLORIDE 100 ML IV SCH (22:29)
[2022-06-14] MEDS: AMPICILLIN/SULBACTAM SOD 3,000 MG in 0.9 % SODIUM CHLORIDE 100 ML IV SCH ×3 (05:00→17:12)
[2022-06-14 07:37] LABS: Hematocrit (blood only) 37.1 % (40.1-51.0); Hemoglobin 12.2 g/dl (14.0-18.0); Mean Corpuscular Hemoglobin 28.4 pg (25.0-34.0); Mean Corpuscular Hgb Conc 32.9 g/dL (32.0-36.0); Mean Corpuscular Volume 86.5 fL (80.0-100.0); Mean Platelet Volume 10.5 fL (9.4-12.4); Platelet Count 227 K/uL (130-400); RDW Standard Deviation 44.2 fL (36.4-46.3); Red Blood Count 4.29 M/uL (4.63-6.08); White Blood Count 6.25 K/ul (4.8-10.8)
[2022-06-14] MEDS ORDERED: PNEUMOCOCCAL Polysaccharide Vaccine 25mcg/0.5mL vial/Syr IM ONE (08:00)
[2022-06-14 08:01] LABS: Albumin Globulin Ratio 0.9 (0.9-2); Albumin Level 3.1 gm/dl (3.4-5.0); BUN Creatinine Ratio 16.5 (10-20); Creatinine Clr Calc Pharmacy 71.6 ml/min; Est GFR (African American) 92.6 ml/min; Est GFR (Non-African American) 79.9 ml/min; Globulin 3.6 gm/dl (2.5-4.0); Potassium 4.3 mmol/L (3.5-5.1); Total Protein 6.7 gm/dl (6.0-8.3)
[2022-06-14] MEDS: TAMSULOSIN HCL 0.4 MG CAP PO SCH (08:04)
[2022-06-14] MEDS: ATORVASTATIN 40 MG TAB PO SCH (08:04)
[2022-06-14] MEDS: MONTELUKAST SODIUM 10 MG TABLET PO SCH (08:04)
[2022-06-14] MEDS: allopurinoL 100 MG TAB PO SCH (08:04)
[2022-06-14] MEDS: ATENOLOL 25 MG TABLET PO SCH (08:04)
[2022-06-14] MEDS: FLUTICASONE/VILANTEROL 100/25MCG 14 PUFFS/INHALER INH SCH (08:05)
[2022-06-14] MEDS: FLUTICASONE PROPIONATE NA SPR 16 GM BTL NAE SCH ×2 (08:05→21:36)
[2022-06-14] MEDS: LACTATED RINGER'S 1,000 ML IV SCH ×3 (09:40→21:15)
--- NOTE | 2022-06-14 09:40 | Magnetic Resonance Report ---
MR MRCP HISTORY: Severe bile duct dilatation. Biliary stricture TECHNIQUE: MRCP the abdomen was performed without contrast according to standard departmental protoco l. COMPARISON STUDY: Abdomen and pelvis CT 06/13/2022. FINDINGS: There are poststernotomy changes. The lung bases appear clear. Prior right nephrectomy. Lef t peripelvic renal cysts are again noted. No left-sided hydronephrosis. The adrenal glands and spleen are unremarkable. No retroperitoneal lymphadenopathy. The visualized loops of bowel show no wall thi ckening or obstruction. Normal caliber abdominal aorta. No gallstones or gallbladder wall thickening. Mild gallbladder distention, unchanged. Motion artifact results in suboptimal evaluation of the bili davina system. There is severe intra and extrahepatic bile duct dilatation with the common bile duct [place] suring up to 2.2 cm in diameter. This remains unchanged. The distended common bile duct extends to th e ampulla. No obstructing stones identified. Possible 13 mm lesion at the ampulla best seen on image 117 of series 602. The main pancreatic duct is also slightly distended at 4 mm. IMPRESSION: 1. Severe intra and extrahepatic bile duct dilatation again noted to the level of the ampulla where t here is suggestion of a 13 mm filling defect/lesion. ERCP recommended to assess for an ampullary mass . 2. Mildly distended gallbladder. No gallstones. 3. Prior right nephrectomy. ACT 112: Positive. There are findings on this exam that require communication between the performing entity and the patient following Patient Test Result Information Act ([place] Act 112) guidelines. Electronically signed by: Abrahan Das M.D. 06/14/2022 9:38 AM
[2022-06-14] MEDS: POLYETHYLENE (MIRALAX) 17 GM PACK PO SCH (10:35)
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
[2022-06-14 13:39] LABS: INR 1.1 (0.9-1.1); Prothrombin Time 11.3 Seconds (9.0-12.0)
--- NOTE | 2022-06-14 17:56 | Electrocardiogram Report ---
Test Reason : Blood Pressure : / mmHG Vent. 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
--- NOTE | 2022-06-14 18:00 | Hospitalist Progress Note ---
Date of Service June 14, 2022 Assessment & Plan (1) Biliary stricture: Plan: CT a/p notes CBD and intrahepatic dilation with ampullary/distal common bile duct mass as a consideration. - MRCP - Start Unasyn for any concern for cholangitis - GI consulted - Has seen [facility] in the past, but [facility] referral made given likely need for ERCP. - Trend LFTs - Clear liquids today, then NPO @ midnight for likely ERCP on 06/15 -will consult gen surgery for possible cholescystecotmy. switched to zosyn on 06/15 (2) Elevated liver enzymes: Plan: AST/ALT/Tbili/alk phos elevated to 186/192/2.02/1458. Clear cholestatic pattern. - Acute hepatitis panel; however, this seems quite unlikely given overall clinical picture. - GGT & fractionate bilirubin - Trend LFTs - GI consulted - ERCP in AM. (3) UTI (urinary tract infection): Plan: Possible UTI, though UA is clearly contaminated. Has chronic incontinence which is unchanged. No dysuria. - Follow urine culture. Prior from 06/01/2022 grew Alpha Strep. -zosyn as above (4) Coronary artery disease: Plan: 3v CABG in 2019. Follows with Dr. Rolle. No anginal concerns at this time. - Hold ASA for procedure. - Continue beta-lisa with reduction - Continue statin (5) HTN (hypertension): Plan: BP in the ER was 120/75. Likely running lower due to dehydration. - Lower atenolol to 25 mg PO daily (from home 75 mg) - Monitor (6) History of nephrectomy: Plan: Right nephrectomy in 1963 for reported kidney damage from kidney stones. - Baseline Cr ~1.2. CrCl estimated at 53, but with one kidney, this is probably an overestimate. (https://cjasn.asnjournals.org/content/497) - Carefully dose medications (7) Aortic valve sclerosis: Plan: Notable murmur. - No inpatient needs (8) Asthma: Plan: No shortness of breath or wheezing today. - Continue home maintenance inhaler (or formulary), montelukast, Flonase - Albuterol PRN (9) Prostate cancer: Plan: Diagnosed in 09/2017 on biopsy. [place] grade 3 + 3 and 4 + 3. Underwent hormone suppression and radiation therapy in 2018. - Continue home tamsulosin and trospium (10) Obstructive sleep apnea of adult: Plan: - Hospital CPAP at 10 cmH20 (11) DVT prophylaxis: Plan: SCDs - Hold heparin until after evaluated for ERCP Admission and Anticipated Discharge Date Admission Date: June 13, 2022 Subjective 81 yo male reports no new complaints. Review of Systems Review of Systems: All systems reviewed & are unremarkable except as noted in HPI & below Physical Exam Constitutional: WD/WN, vitals as above Eyes: EOM intact bilaterally; no conjunctival abnormality ENMT: external ear and nose normal, oropharynx normal Neck: trachea midline, no thyromegaly normal visual inspection Respiratory: normal respiratory effort, lungs clear to auscultation no respiratory distress Cardiovascular: RRR, no murmur, no edema Gastrointestinal (Abdomen): Inspection/Auscultation: abdomen normal to inspection; abdomen not distended Percussion/Palpation: + abdomen tender (RUQ, moderate) and abdomen soft; no guarding and abdomen not rigid Musculoskeletal: no cyanosis or clubbing, extremities motor strength 5/5 Skin: no rashes, warm and dry + jaundice (Mild) Neurologic: moves all extremities and awake Psychiatric: Orientation: alert, oriented to person and cooperative Results & Data Results & Data ([facility]) Vital Signs (Past 12 Hours) Vital Signs Pulse Resp BP Pulse Ox O2 Del Method 06/14/22 16:40 59 L 18 143/61 H 97 Room Air 06/14/22 13:22 68 18 135/62 95 Room Air 06/14/22 07:35 61 20 179/72 H 94 CPAP PG Care Time/CCT Total # of Minutes Spent Total Time Spent with Patient: Total time spent is greater than 50% in coordination of care (as documented) at patient's floor/unit and/or counseling patient: Coding Level of Care Code 16725 Subseq Hosp Care Lvl 3 Diagnoses Biliary stricture K83.1 Elevated liver enzymes R74.8 UTI (urinary tract infection) N39.0 Coronary artery disease I25.10 HTN (hypertension) I10 History of nephrectomy Z90.5 Aortic valve sclerosis I35.8 Asthma J45.909 Prostate cancer C61 Obstructive sleep apnea of adult G47.33 DVT prophylaxis Z29.9 Time Spent (min) 35
[2022-06-14] MEDS ORDERED: PIPERACILLIN/TAZOBACTAM 3.375 GM in DEXTROSE 5% 100 ML IV ONE (19:00)
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
[2022-06-14] MEDS ORDERED: SENNA 8.6 MG TAB PO SCH (21:00)
[2022-06-14] MEDS ORDERED: Nursing to Pharmacy Communication SCH (21:00)
[2022-06-15] MEDS: PIPERACILLIN/TAZOBACTAM 3.375 GM in DEXTROSE 5% 100 ML IV SCH ×3 (00:33→17:11)
[2022-06-15 06:18] LABS: Hematocrit (blood only) 34.6 % (40.1-51.0); Hemoglobin 11.4 g/dl (14.0-18.0); Mean Corpuscular Hemoglobin 28.3 pg (25.0-34.0); Mean Corpuscular Hgb Conc 32.9 g/dL (32.0-36.0); Mean Corpuscular Volume 85.9 fL (80.0-100.0); Platelet Count 301 K/uL (130-400); RDW Standard Deviation 43.9 fL (36.4-46.3); Red Blood Count 4.03 M/uL (4.63-6.08); White Blood Count 6.14 K/ul (4.8-10.8)
[2022-06-15 06:51] LABS: Albumin Globulin Ratio 0.8 (0.9-2); Albumin Level 2.8 gm/dl (3.4-5.0); BUN Creatinine Ratio 15.6 (10-20); Bilirubin,Total 1.3 mg/dl (0.2-1.0); Calcium 8.5 mg/dl (8.5-10.1); Creatinine Clr Calc Pharmacy 68.1 ml/min; Est GFR (African American) 86.8 ml/min; Est GFR (Non-African American) 74.9 ml/min; Globulin 3.4 gm/dl (2.5-4.0); Potassium 3.9 mmol/L (3.5-5.1); Total Protein 6.2 gm/dl (6.0-8.3)
[2022-06-15] MEDS: LACTATED RINGER'S 1,000 ML IV SCH ×2 (07:38→17:12)
[2022-06-15] MEDS ORDERED: INDOMETHACIN 50 MG SUPP PR ONE ×2 (09:00→14:01)
--- NOTE | 2022-06-15 09:39 | Gastroenterology Progress Note ---
Date of Service June 15, 2022 Assessment & Plan (1) Fever: (2) Transaminitis: (3) Dilation of biliary tract: (4) Dilation of pancreatic duct: Plan: Patient is a 81 years old male w PMHx of prostate ca, R nephrectomy, CABG x 3, presented with several weeks worth of fever, chills, fatigue, low appetite, weight loss and abdominal pain symptoms. Noted to have elevated LFTs and lipase, abdominal imaging studies with CT abdomen and pelvis, MRCP showed signs of biliary ductal dilations as well as pancreatic ductal dilatations. Suggestion of a 13 mm filling defect or lesion within the level of the ampulla. Gallbladder in place without any gallstones noted. Differential diagnoses include choledocholithiasis, biliary lesion. - LR @ 100ml/hr - Bowel regimen for constipation: Miralax 17g daily + Senna 17.6mg qHS - Continue IV antibx coverage - Monitor LFTs - NPO for EUS/ERCP today by Dr. Norman in OR Admission and Anticipated Discharge Date Admission Date: June 13, 2022 Supervising Physician Co-Signing Physician Notes I performed a history and physical examination of the patient today, including s pecifically on physical exam - soft abdomen. I have discussed the patient's management with the advanced practitioner. Please refer to the nurse practitioner's note for the documented findings and plan of care. EUS/ERCP Patient was explained in detail regarding risks, benefits, limitations and alternatives of the above endoscopic procedure. Risks of intravenous sedation used for procedure were also explained. Risks include, but not limited to perforation, bleeding, infection, respiratory distress, cardiac arrest and . Patient is also aware about the possibility of missed lesion. Patient's questions were answered. The patient verbalized understanding the information and agreed to undergo the procedure. Subjective Pt doing well, no acute events overnight. He denies n/v, abd pain. LFTs w some improvement Review of Systems Review of Systems: All systems reviewed & are unremarkable except as noted in HPI & below Physical Exam Constitutional: WD/WN, vitals as above well groomed, cooperative and comfortable Eyes: PERRL, conjunctivae normal, anicteric sclerae ENMT: external ear and nose normal, oropharynx normal Respiratory: normal respiratory effort, lungs clear to auscultation Cardiovascular: RRR, no murmur, no edema Gastrointestinal (Abdomen): normal bowel sounds, soft, nontender, no hepatosplenomegaly Skin: no rashes, warm and dry no jaundice Psychiatric: A+Ox3, euthymic affect Lymphatic: no lymphedema Results & Data ([facility]) Vital Signs (Past 12 Hours) Vital Signs Temp Pulse Pulse Pulse Resp BP Pulse Ox 06/15/22 08:29 36.7 C 61 16 153/60 H 95 06/14/22 23:06 60 24 97 06/14/22 23:00 36.8 C 61 17 148/77 H 97 O2 Del Method FiO2 06/15/22 08:29 Room Air 06/14/22 23:06 21 06/14/22 23:00 Room Air
[2022-06-15] MEDS: ATENOLOL 25 MG TABLET PO SCH (10:00)
[2022-06-15] MEDS: POLYETHYLENE (MIRALAX) 17 GM PACK PO SCH (10:00)
[2022-06-15] MEDS: ATORVASTATIN 40 MG TAB PO SCH (10:01)
[2022-06-15] MEDS: allopurinoL 100 MG TAB PO SCH (10:01)
[2022-06-15] MEDS: TAMSULOSIN HCL 0.4 MG CAP PO SCH (10:01)
[2022-06-15] MEDS: MONTELUKAST SODIUM 10 MG TABLET PO SCH (10:01)
[2022-06-15] MEDS: FLUTICASONE PROPIONATE NA SPR 16 GM BTL NAE SCH (10:02)
[2022-06-15] MEDS: FLUTICASONE/VILANTEROL 100/25MCG 14 PUFFS/INHALER INH SCH (10:02)
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
[2022-06-15] MEDS ORDERED: ONDANSETRON INJ 2 MG/ML 2 ML VIAL IV PRN (14:05)
[2022-06-15] MEDS ORDERED: ePHEDrine sulfate 50 MG/ML AMP IV PRN (14:05)
[2022-06-15] MEDS ORDERED: ATROPINE SULFATE 0.1 MG/ML 10ML SYR IV PRN (14:05)
[2022-06-15] MEDS ORDERED: fentaNYL citrate 100 MCG/2 ML VIAL IV PRN (14:05)
[2022-06-15] MEDS ORDERED: GLYCOPYRROLATE 0.2 MG/ML VIAL ONE (14:33)
[2022-06-15] MEDS ORDERED: LIDOCAINE 2% MPF LOCAL 5 ML VIAL INFIL ONE (14:33)
[2022-06-15] MEDS ORDERED: ONDANSETRON INJ 2 MG/ML 2 ML VIAL ONE (14:33)
[2022-06-15] MEDS ORDERED: PROPOFOL IV EMULSION 10 MG/ML 20 ML VIAL IV ONE (14:33)
[2022-06-15] MEDS ORDERED: fentaNYL citrate 100 MCG/2 ML VIAL ONE (15:12)
--- NOTE | 2022-06-15 15:36 | Operative Report ---
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 Any exceptions are noted below.
--- NOTE | 2022-06-15 15:50 | GI REPORT ---
Patient Name: Osmany Shaw Procedure Date: 06/15/2022 1:28 PM Date of : 1940 Admit Type: Inpatient Age: 81 Gender: Male Attending MD: Neftaly Norman MD Procedure: Upper GI endoscopy Providers: Neftaly Norman MD Referring MD: Josh Mckenzie M.d. Indications: Abnormal CT of the GI tract Medicines: General Anesthesia Complications: No immediate complications. Estimated Blood Loss: Estimated blood loss: none. Procedure: Pre-Anesthesia Assessment: - Prior to the procedure, a History and Physical was performed, and patient medications, allergies and sensitivities were reviewed. The patient's tolerance of previous anesthesia was reviewed. - The risks and benefits of the procedure and the sedation options and risks were discussed with the patient. All questions were answered and informed consent was obtained. - Patient identification and proposed procedure were verified prior to the procedure by the physician and the nurse. The procedure was verified in the procedure room. - Pre-procedure physical examination revealed no contraindications to sedation. After obtaining informed consent, the endoscope was passed under direct vision. Throughout the procedure, the patient's blood pressure, pulse, and oxygen saturations were monitored continuously. The Endoscope was introduced through the mouth, and advanced to the second part of duodenum. The upper GI endoscopy was accomplished without difficulty. The patient tolerated the procedure well. Findings: The examined esophagus was normal. The entire examined stomach was normal. The duodenal bulb and second portion of the duodenum were normal. Impression: - Normal esophagus. - Normal stomach. - Normal duodenal bulb and second portion of the duodenum. Recommendation: - Perform an upper endoscopic ultrasound (UEUS). Neftaly Norman MD 06/15/2022 3:49:52 PM This report has been signed electronically. Note Initiated On: 06/15/2022 1:28 PM Number of Addenda: 0 I attest to the content of the Intraoperative Record and orders documented therein, exceptions below {[id number]}
--- NOTE | 2022-06-15 15:57 | Fluoroscopy Report ---
[place] ERCP biliary ductal HISTORY: 81 years-old Male W/EUS endoscopic ultrasound with ERCP COMPARISON: CT abdomen pelvis 06/13/2022 TECHNIQUE: 8 spot fluoroscopic images of the abdominal right upper quadrant were obtained utilizing 2 41.8 seconds of fluoroscopy time FINDINGS: Endoscope is noted within the duodenum. Cannulation of the common bile duct with retrograde injection of contrast into the biliary tree. Intrahepatic and extrahepatic biliary ductal dilation is redemons trated. Contrast also noted within the cystic duct and partially contracted gallbladder. Subsequent i mages demonstrate deployment of a common bile duct stent which appears to be in satisfactory position ing. There is marked narrowing at the distal common bile duct/ampulla. IMPRESSION: Fluoroscopic assistance as above. ACT 112: Negative or not required by law. The above report was generated using voice recognition software. It may contain grammatical, syntax o r spelling errors. Electronically signed by: Rafal Amezquita M.D. 06/15/2022 3:56 PM
[2022-06-15 16:26] VITALS: O2SAT 93
[2022-06-15 16:32] VITALS: TEMP 97.9
--- NOTE | 2022-06-15 16:34 | Anesthesiology Progress Note ---
Date of Service June 15, 2022 Anesthesia Post Procedure Vital Signs Vital Signs: Temp Pulse Pulse Pulse Resp BP BP 06/15/22 16:30 97.9 F 60 19 165/63 H 06/15/22 16:20 61 17 159/67 H 06/15/22 16:10 61 18 153/72 H 06/15/22 16:00 61 18 150/65 H 06/15/22 15:51 97.3 F L 65 18 143/72 H 06/15/22 13:52 98.4 F 65 20 176/82 H 06/15/22 11:59 97.9 F 66 16 154/78 H 06/15/22 08:29 98.1 F 61 16 153/60 H 06/14/22 23:06 60 24 06/14/22 23:00 98.2 F 61 17 148/77 H 06/14/22 20:20 97.9 F 67 18 174/71 H 06/14/22 16:40 59 L 18 143/61 H Pulse Ox O2 Del Method O2 Flow Rate FiO2 06/15/22 16:30 93 Room Air 06/15/22 16:20 93 Room Air 06/15/22 16:10 94 Room Air 06/15/22 16:00 97 Oxymask 5 06/15/22 15:51 97 Oxymask 5 06/15/22 13:52 97 Room Air 06/15/22 11:59 94 Room Air 06/15/22 08:29 95 Room Air 06/14/22 23:06 97 21 06/14/22 23:00 97 Room Air 06/14/22 20:20 96 Room Air 06/14/22 16:40 97 Room Air Transfer of Care Handoff Completed per policy Notes Mental Status: alert / awake / arousable and participated in evaluation Patient Amnestic to Procedure: Yes Nausea / Vomiting: adequately controlled Pain: adequately controlled Airway Patency, RR, SpO2: stable & adequate BP & HR: stable & adequate Hydration State: stable & adequate Anesthetic Complications: no major complications apparent and Pt Satisfied with anesthetic care
[2022-06-15 17:28] VITALS: BP 173/73; PULSE 63
--- NOTE | 2022-06-15 17:36 | GI REPORT ---
Patient Name: Osmany Shaw Procedure Date: 06/15/2022 1:28 PM Date of : 1940 Admit Type: Inpatient Age: 81 Gender: Male Attending MD: Neftaly Norman MD Procedure: ERCP Providers: Neftaly Norman MD Referring MD: Josh Mckenzie M.d. Indications: Elevated liver enzymes, Periampullary Mass Medicines: General Anesthesia Complications: No immediate complications. Estimated Blood Loss: Estimated blood loss: none. Procedure: Pre-Anesthesia Assessment: - Prior to the procedure, a History and Physical was performed, and patient medications, allergies and sensitivities were reviewed. The patient's tolerance of previous anesthesia was reviewed. - The risks and benefits of the procedure and the sedation options and risks were discussed with the patient. All questions were answered and informed consent was obtained. - Patient identification and proposed procedure were verified prior to the procedure by the physician and the nurse. The procedure was verified in the procedure room. - Pre-procedure physical examination revealed no contraindications to sedation. After obtaining informed consent, the scope was passed under direct vision. Throughout the procedure, the patient's blood pressure, pulse, and oxygen saturations were monitored continuously. The Duodenoscope was introduced through the mouth, and advanced to the duodenum and used to inject contrast into the bile duct. The ERCP was accomplished without difficulty. The patient tolerated the procedure well. Findings: The roll contour grinder film was normal. The esophagus was successfully intubated under direct vision. The scope was advanced to a normal major papilla in the descending duodenum without detailed examination of the pharynx, larynx and associated structures, and upper GI tract. The upper GI tract was grossly normal. The major papilla was bulging. A 0.025 inch x 270 cm angled Visiglide wire was passed into the biliary tree. The Fusion OMNI sphincterotome was passed over the guidewire and the bile duct was then deeply cannulated. Contrast was injected. I personally interpreted the bile duct images. Ductal flow of contrast was adequate. Image quality was adequate. Contrast extended to the main bile duct. Opacification of the entire biliary tree was successful. The maximum diameter of the ducts was 20 mm. The biliary orifice was stenotic. This appeared malignant. Biliary sphincterotomy was made with a monofilament traction (standard) sphincterotome using ERBE electrocautery. There was no post-sphincterotomy bleeding. The biliary tree was swept with a 12 mm balloon starting at the bifurcation. Sludge was swept from the duct. One 10 Fr by 4 cm plastic biliary stent with a single external pigtail and a single internal pigtail was placed into the common bile duct. Bile flowed through the stent. The stent was in good position. One 7 Fr by 9 cm plastic biliary stent with a single external flap and a single internal flap was placed into the common bile duct. Bile flowed through the stent. The stent was in good position. 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 - A biliary sphincterotomy was performed. - Two plastic biliary stents were placed into the common bile duct. Recommendation: - Return patient to hospital tate for ongoing care. - I will refer the patient to Surgical Oncology as OP. - Recall GI if needed. Neftaly Norman MD 06/15/2022 5:36:13 PM This report has been signed electronically. Note Initiated On: 06/15/2022 1:28 PM Number of Addenda: 0 I attest to the content of the Intraoperative Record and orders documented therein, exceptions below {[id number]}
--- NOTE | 2022-06-15 17:43 | GI REPORT ---
Patient Name: Osmany Shaw Procedure Date: 06/15/2022 1:29 PM Date of : 1940 Admit Type: Inpatient Age: 81 Gender: Male Attending MD: Neftaly Norman MD Procedure: Upper EUS Providers: Neftaly Norman MD Referring MD: Josh Mckenzie M.d. Indications: Common bile duct dilation (etiology unknown) seen on CT scan, Elevated liver enzymes Medicines: General Anesthesia Complications: No immediate complications. Estimated Blood Loss: Estimated blood loss: none. Procedure: Pre-Anesthesia Assessment: - Prior to the procedure, a History and Physical was performed, and patient medications, allergies and sensitivities were reviewed. The patient's tolerance of previous anesthesia was reviewed. - The risks and benefits of the procedure and the sedation options and risks were discussed with the patient. All questions were answered and informed consent was obtained. - Patient identification and proposed procedure were verified prior to the procedure by the physician and the nurse. The procedure was verified in the procedure room. - Pre-procedure physical examination revealed no contraindications to sedation. After obtaining informed consent, the endoscope was passed under direct vision. Throughout the procedure, the patient's blood pressure, pulse, and oxygen saturations were monitored continuously. The Endosonoscope was introduced through the mouth, and advanced to the second part of duodenum. The upper EUS was accomplished without difficulty. The patient tolerated the procedure well. Findings: ENDOSONOGRAPHIC FINDING: : A round intramural (subepithelial) lesion was found in the ampulla. The lesion was hypoechoic. The outer margins were well defined. There was sonographic evidence suggesting invasion into the bile duct. An intact interface was seen between the mass and the adjacent structures suggesting a lack of invasion. Fine needle aspiration for cytology was performed. Color Doppler imaging was utilized prior to needle puncture to confirm a lack of significant vascular structures within the needle path. Five passes were made with the 25 gauge needle using a transduodenal approach. A stylet was used. A taker off was present and performed a preliminary cytologic examination. The cellularity of the specimen was adequate. Final cytology results are pending. Verification of patient identification for the specimen was done by the physician and nurse using the patient's name and date. There was dilation in the common bile duct which measured up to 15 mm. Moderate hyperechoic material consistent with sludge was visualized endosonographically in the common bile duct. Moderate hyperechoic material consistent with sludge was visualized endosonographically in the gallbladder. There was no sign of significant endosonographic abnormality in the entire pancreas. The pancreatic duct measured up to 3 mm in diameter. There was no sign of significant endosonographic abnormality in the visualized portion of the liver. Homogeneous parenchyma was identified. There was no sign of significant endosonographic abnormality in the visualized portion of the left adrenal gland. There was no sign of significant endosonographic abnormality involving the celiac trunk. Impression: - An intramural (subepithelial) lesion was found in the ampulla. Fine needle aspiration performed. - There was dilation in the common bile duct which measured up to 15 mm. - Hyperechoic material consistent with sludge was visualized endosonographically in the common bile duct. - Hyperechoic material consistent with sludge was visualized endosonographically in the gallbladder. - There was no sign of significant pathology in the entire pancreas. - There was no evidence of significant pathology in the visualized portion of the liver. - Endosonographic images of the left adrenal gland were unremarkable. - The celiac trunk was endosonographically normal. Recommendation: - Await cytology results. - Perform an ERCP today. Neftaly Norman MD 06/15/2022 5:43:07 PM This report has been signed electronically. Note Initiated On: 06/15/2022 1:29 PM Number of Addenda: 0 I attest to the content of the Intraoperative Record and orders documented therein, exceptions below {[id number]}
--- NOTE | 2022-06-17 10:03 | Discharge Summary ---
Date of Service June 16, 2022 Admission HPI Per Admitting Provider 81yo M w/ hx of prostate cancer, CAD s/p 3vCABG in 2019, GREGORY who presents with elevated liver enzymes and 3 weeks of fatigue. He has been having fevers & chills for about 3 weeks. The highest temperature was 102 at home which he treated with Tylenol. In addition to that, he has just been very tired and had no energy or appetite. He reports he has lost nearly 20 lbs in the last 3 weeks. In addition to this, he reports darker urine for the last several days as well as constipation and hard stools which he reports looks like he is not digesting things appropriately. He has long-standing incontinence from his prostate cancer. Denies headache, vision changes, chest pain, abdominal pain, shortness of breath, dysuria, LE edema. Principal Diagnosis BILIARY STRUCTURE Discharge Exam Constitutional WD/WN, vitals as above Eyes EOM intact bilaterally; no conjunctival abnormality ENMT external ear and nose normal, oropharynx normal Neck trachea midline, no thyromegaly normal visual inspection Respiratory normal respiratory effort, lungs clear to auscultation no respiratory distress Cardiovascular RRR, no murmur, no edema Gastrointestinal (Abdomen) Inspection/Auscultation: abdomen normal to inspection; abdomen not distended Percussion/Palpation: abdomen soft; no guarding and abdomen not rigid Musculoskeletal no cyanosis or clubbing, extremities motor strength 5/5 Skin no rashes, warm and dry Neurologic moves all extremities and awake Psychiatric Orientation: alert, oriented to person and cooperative Discharge Data Allergies Allergy/AdvReac Type Severity Reaction Status Date / Time house dust Allergy Unknown Unknown Verified 06/13/22 17:03 Iodinated Contrast Media Allergy Unknown HIVES Verified 06/13/22 17:03 pollen extracts Allergy Unknown Unknown Verified 06/13/22 17:03 strawberry Allergy Unknown HIVES Verified 06/13/22 17:03 Consultations 06/13/22 16:13 ED Decision to Admit Stat 06/13/22 21:09 Consult Gastroenterology Routine 06/14/22 17:54 Consult General Surgery Routine Procedures Performed Operation Date: 06/15/22 07:00 Actual Procedures p Esophagogastroduodenoscopy - Neftaly Norman MD p Endoscopic Ultrasonography Upper - Neftaly Norman MD s Endoscopic Retrograde Cholangiopancreato - Neftaly Norman MD Ordered Studies 06/13/22 14:35 CT abd pelvis wo con Stat 06/13/22 16:37 MR MRCP Urgent 06/15/22 [place] ERCP biliary ductal Routine 06/15/22 13:24 US upper EUS PACS images Routine Hospital Course (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 - MRCP - Start Unasyn for any concern for cholangitis - GI consulted - [facility]. -ERCP completed: concern over cholangiocarcinoma. GI will set up followup. Will discharge on augment for 5 additional days of antibiotics. Patient had been aferbile throughout hopsital stay with normal WBC. Though had fever at home. (2) Elevated liver enzymes: AST/ALT/Tbili/alk phos elevated to 186/192/2.02/1458. Clear cholestatic pattern. - Acute hepatitis panel; however, this seems quite unlikely given overall clinical picture. (3) UTI (urinary tract infection): Possible UTI, though UA is clearly contaminated. Has chronic incontinence which is unchanged. No dysuria. - Follow urine culture. Prior from 06/01/2022 grew Alpha Strep. -zosyn as above will dc on augmentin. (4) Coronary artery disease: 3v CABG in 2019. Follows with Dr[address] Rolle. No anginal concerns at this time. - Hold ASA for procedure. - Continue beta-lisa with reduction - Continue statin (5) HTN (hypertension): BP in the ER was 120/75. Likely running lower due to dehydration. - Lower atenolol to 25 mg PO initially. but will resume at discharge, (6) History of nephrectomy: Right nephrectomy in 1964 for reported kidney damage from kidney stones. - Baseline Cr ~1.2. CrCl estimated at 53, but with one kidney, this is probably an overestimate. (https://cjasn.asnjournals.org/content/03/20/497) - Carefully dose medications (7) Aortic valve sclerosis: Notable murmur. - No inpatient needs (8) Asthma: No shortness of breath or wheezing today. - Continue home maintenance inhaler (or formulary), montelukast, Flonase - Albuterol PRN (9) Prostate cancer: Diagnosed in 09/2017 on biopsy. Fluker grade 3 + 3 and 4 + 3. Underwent hormone suppression and radiation therapy in 2018. - Continue home tamsulosin and trospium (10) Obstructive sleep apnea of adult: - Hospital CPAP at 10 cmH20 (11) DVT prophylaxis: SCDs - Hold heparin until after evaluated for ERCP Total Time Total Time Spent Total Time Spent (In Minutes): 35 Discharge Plan Discharge Items Patient Disposition: Home - Self-Care Reason For Visit: ELEVATED LIVER ENZYMES Discharge Diagnosis: Elevated Liver enzymes Activity: Resume your previous activity Non-emergency contact: Primary Care Provider Call non-emergency contact if: you have any medication questions Follow-up/Referrals: Pato Castle MD [Primary Care Provider] - Diet: Low Fat Addtl Attending Provider Instructions: You came in with weakness, fever and was found to have a blockage in your biliary duct. Imaging showed a possible lesion that could be causing the blockage. We consulted Gastroenterology and a procedure was completed to open that tube up. Thankfully you did not have any fevers. or signs of sepsis while you were here. The Respooler Dr. Norman will help organize followup to get treatment of the possible lesion. You will get more information on followup over the course of the next few days. Will recommend to continue antibiotics for 5 more days. Low-fat foods to choose from: Dairy and dairy-like products Low-fat (1%) or fat-free (skim) yogurt, cottage cheese, or milk [place] or light cream cheese or fat-free cream cheese Fat-free [place] cheese or other types of fat-free cheeses Fish, meat, poultry, and other protein Egg whites or egg substitutes Crab, white fish, shrimp, and light tuna (packed in water) Chicken and turkey breast (without skin), or ground turkey breast The [place] [employer] recommends a healthy eating pattern that limits or doesn't include processed and red meats, but if you choose to eat them, choose lean cuts (look for "loin" in the name), or extra-lean ground beef. Braise, roast, or cook them without adding fats. Beans, peas, and lentils, cooked (or canned) without added fats or fatty meats (grains or cereal in your daily food intake make this add up to a complete protein) Veggie burgers Grains, cereals, and pastas Hot (oatmeal or grits) and cold cereals (except granola types) Rice or noodles (watch out for fat in sauces you may add). Choose whole grain versions like brown rice Whole grain bagels, levi bread, or [place] muffins Low-fat crackers and breads Soft tortillas corn or whole wheat Fruits and vegetables Fruits, including fresh, frozen, or canned (in their own juice) Vegetables, including fresh, frozen, or canned (choose lower-sodium varieties) Other foods Broth type soups with a vegetable base Sauces, pudding, or shakes made with skim milk Salsa Mustard These foods supply half the fat (or less) than the regular version of the food, but most of their calories still come from fat. They should be used in small amounts by people on low-fat diets: Light margarine and mayonnaise Reduced-calorie or fat-free salad dressings Non-stick cooking spray Pending Studies at Discharge: No Stand-Alone Forms: My [facility], Smoking Cessation Medications and DC Order Prescriptions: New amoxicillin-pot clavulanate [Augmentin] 500-125 mg tablet 1 tab PO BID Qty: 10 0RF Continued azelastine 137 mcg (0.1 %) aerosol,spray 1 spray intranasal DAILY Rx Instructions: administer into each nostril aspirin [Ecotrin Low Strength] 81 mg tablet,delayed release (DR/EC) 81 mg PO QAM Qty: 90 3RF (DME) CPAP Machine [facility] See Rx Instructions .MEDSUPPLY Qty: 1 0RF Rx Instructions: CPAP with 10 cm H20 pressure and F&P Vitera mask. G47.33 cholecalciferol (vitamin D3) 25 mcg (1,000 unit) capsule 25 mcg PO DAILY montelukast 10 mg tablet 10 mg PO QAM Qty: 90 3RF allopurinol 100 mg tablet 100 mg PO QAM Qty: 90 3RF fluticasone propionate [Allergy Relief (fluticasone)] 50 mcg/actuation spray,suspension 2 spray intranasal BID Qty: 48 1RF Rx Instructions: administer into each nostril tamsulosin 0.4 mg capsule 0.4 mg PO DAILY Qty: 90 3RF albuterol sulfate [Ventolin HFA] 90 mcg/actuation HFA aerosol inhaler 2 puff INH Q4H PRN (Reason: shortness of breath) Qty: 8.5 3RF fluticasone propion-salmeterol 100-50 mcg/dose blister with device 1 inh inhalation BID Qty: 60 5RF atorvastatin 80 mg tablet 40 mg PO DAILY Qty: 45 1RF trospium 60 mg capsule,extended release 24hr 60 mg PO DAILY Qty: 90 3RF meloxicam 7.5 mg tablet 7.5 mg PO DAILY atenolol 50 mg tablet 50 mg PO DAILY Discharge Orders: Discharge Order (Routine); Ordered 06/15/22 Ordered By: Josh Woodard Admission Data Admit Date/Time: 06/13/22 16:36 Attending Provider: Josh Woodard Admit Provider: Godwin Cuellar Primary Care Provider: Pato Castle Other Providers: Godwin Cuellar ; Miguel Randall ; Alvaro Conn ; Mio Mota ; Cesar Cordova ; Wisam Yun Jr ; Mark Geiger ; Phu Vazquez ; Alice Rogel ; Danial Carpenter ; Darren Slo Other Interventions: Discharge Summary Assessment (RN) Last Done: 06/15/22 18:24 Coding Level of Care Code D/C DAY MANAGEMENT >30 MINS Diagnoses Biliary stricture K83.1 Elevated liver enzymes R74.8 UTI (urinary tract infection) N39.0 Coronary artery disease I25.10 HTN (hypertension) I10 History of nephrectomy Z90.5 Aortic valve sclerosis I35.8 Asthma J45.909 Prostate cancer C61 Obstructive sleep apnea of adult G47.33 DVT prophylaxis Z29.9
== END 2022-06-15 19:06 | disposition home or self-care (01) | DRG 445 ==
LOC: ED 13:56 → SUATTDRO 16:36 → EDINP 16:36 → 4S1 19:57 → EDINP 22:42 → 2N 06-14 20:30
DX: Z91.041 Radiographic dye allergy status; R74.01 Elevation of levels of liver transaminase levels; I10 Essential (primary) hypertension; R94.5 Abnormal results of liver function studies; I25.810 Atherosclerosis of coronary artery bypass graft(s) without angina pectoris; J45.909 Unspecified asthma, uncomplicated; N39.0 Urinary tract infection, site not specified; R32 Unspecified urinary incontinence; G47.33 Obstructive sleep apnea (adult) (pediatric); K83.1 Obstruction of bile duct; Z90.5 Acquired absence of kidney; C61 Malignant neoplasm of prostate; K80.50 Calculus of bile duct without cholangitis or cholecystitis without obstruction; K86.89 Other specified diseases of pancreas

== ENCOUNTER 2024-07-25 15:46 | Inpatient (IN) ==
--- NOTE | 2024-07-25 16:28 | XRay Report ---
XR chest 1V portable HISTORY: 83 years-old Male Chest pain, nonspecific COMPARISON: 05/13/2024 TECHNIQUE: AP view of the chest FINDINGS: Cardiac silhouette is enlarged. Median sternotomy with mediastinal surgical clips. No pneumothorax. P ulmonary vascular congestion with trace pleural effusions. Prior resection of the distal left clavicl e. The bones appear intact. IMPRESSION: 1. Cardiomegaly with pulmonary vascular congestion. 2. Trace pleural effusions. ACT 112: Negative or not required by law. The above report was generated using voice recognition software. It may contain grammatical, syntax o r spelling errors. Electronically signed by: Rafal Amezquita M.D. 07/25/2024 4:26 PM
[2024-07-25 16:31] LABS: Basophils # (auto) 0.06 K/uL (0.00-0.20); Basophils % (auto) 0.9 %; Eosinophils # (auto) 0.21 K/uL (0.00-0.50); Hematocrit (blood only) 28.5 % (42.0-52.0); Hemoglobin 9.1 g/dl (14.0-18.0); Immature Granulocytes # (auto) 0.05 K/uL (0.01-0.20); Immature Granulocytes % (auto) 0.7 %; Lymphocytes # (auto) 0.89 K/uL (1.20-3.40); Lymphocytes % (auto) 12.7 %; Mean Corpuscular Hemoglobin 29.3 pg (25.0-34.0); Mean Corpuscular Hgb Conc 31.9 g/dL (32.0-36.0); Mean Corpuscular Volume 91.6 fL (80.0-100.0); Mean Platelet Volume 10.6 fL (9.4-12.4); Monocytes # (auto) 0.44 K/uL (0.11-0.59); Monocytes % (auto) 6.3 %; Neutrophils # (auto) 5.34 K/uL (1.40-6.50); Neutrophils % (auto) 76.4 %; Platelet Count 313 K/uL (130-400); RDW Coefficient of Variation 17.2 % (11.5-14.5); RDW Standard Deviation 58.1 fL (36.4-46.3); Red Blood Count 3.11 M/uL (4.70-6.10); White Blood Count 6.99 K/ul (4.8-10.8)
[2024-07-25] MEDS: methylPREDNISolone 125 MG/2 ML VIAL IV ONE (16:51)
[2024-07-25] MEDS: diphenhydrAMINE 50 MG/ML VIAL IV ONE (16:51)
[2024-07-25 16:54] LABS: Albumin Level 2.7 gm/dl (3.4-5.0); BUN Creatinine Ratio 14.2 (10-20); Bilirubin,Total 0.4 mg/dl (0.2-1.0); Calcium 7.5 mg/dl (8.6-10.3); Creatinine Clr Calc Pharmacy 31.5 ml/min; Est GFR (African American) 41.1 ml/min; Est GFR (Non-African American) 35.5 ml/min; Globulin 2.8 gm/dl (2.5-4.0); Potassium 4.2 mmol/L (3.5-5.1); Total Protein 5.5 gm/dl (6.0-8.3)
--- NOTE | 2024-07-25 16:55 | Emergency Department Note ---
Impression & Plan Chest pain, Bradycardia, Nausea ED Provider Note NAME: NANCY MLILER AGE: 83 SEX: M : 1940 ARRIVES VIA: Walk-In INFORMANT: Patient, ED PROVIDER(S): Joesph Galo MD CHIEF COMPLAINT: Chest pain HPI: This is a an 83-year-old male present for chest pain. Patient notes that earlier today he began having chest pressure, centrally. He notes he has had nausea as well. He notes this feels like a person sitting on his chest. He notes no shortness of breath or pleurisy. This never happened before. Patient does have a history of a CABG and CAD. Otherwise he notes no leg swelling or pain. Notes no fevers, chills. ROS: See above HPI for pertinent positives & negatives. A total of 10 systems reviewed and were otherwise negative. PAST MEDICAL HISTORY: See Below PAST SURGICAL HISTORY: See Below FAMILY HISTORY: See Below SOCIAL HISTORY: See Below HOME MEDICATIONS: See Below ALLERGIES: See Below VITALS: See Below PHYSICAL EXAMINATION: General: resting comfortably in no acute distress, eyes closed Head: Normocephalic and atraumatic Eyes: Normal inspection, extraocular muscles intact Ear, nose, throat: Normal external exam Neck: Normal range of motion Respiratory: lungs clear to auscultation bilaterally Cardiovascular: Regular rate/rhythm, no murmur GI: soft, nontender, no guarding or rebound Extremities: nontender, moves all extremities Neuro: The patient awake and alert, appropriately conversive, no focal deficits, symmetric faces Skin: Warm, dry, and intact MEDICAL DECISION MAKING: This is an 83-year-old male presenting for chest pain. Consider ACS, high degree heart block, dissection, PE, cardiac syncope -Patient is bradycardic, mildly hypotensive and having chest pain here. Crash cart put in the room and pads placed. -I performed a rhythm strip on the patient with the EKG leads on. This revealed sinus bradycardia without high-grade heart block. No signs of acute STEMI -Patient has no hypoxia making PE unlikely. However with his chest pain, nauseousness and vomiting, consider dissection patient does admit to chest and back pain. -I reviewed the CTA of the chest and abdomen I do not see an acute dissection. Do not see a PE. Upon my independent interpretation -Official radiology read reveals no dissection or PE as well that showed nonspecific proctocolitis -Blood was reviewed showing a anemia to 9.1, low in his previous baseline. Otherwise his creatinine is 1.76. Electrolytes within normal limits. His BNP is elevated at 965. Troponin is initially negative at 6. -Overall he appears improved after fluid resuscitation however he still has chest pressure. Due to his significant bradycardia, borderline hypotension and previous history of CABG and CAD, will admit for further cardiac workup. -Patient also has history of severe stenosis on his last echo that I am able to see here upon record review from earlier this year. -This could be related -Discussed with Dr. Castro, hospitalist who request cardiology's discussion -Discussed with Dr. Lawson, cardiology who states patient should be admitted to the hospital for further cardiac workup -Dr. Castro accepts to her service Differential diagnosis: See above ER treatment provided: See below Independent History obtained from: Diagnostics interpreted by me: ECG: ECG independently interpreted by me with sinus bradycardia rate of 40, normal axis, normal WA, normal QRS, normal QTc, no ST segment elevations consistent with STEMI criteria Cardiac Monitoring: An order was placed for continuous cardiac monitoring. The monitor shows a rate of 32 with sinus bradycardia rhythm. Laboratory studies: As stated above and show below. Imaging studies: See below. Critical Care Note: I have personally spent 45 minutes of critical care time in the direct management of this patient. This includes bedside care, interpretation of diagnostic studies, and testing, discussion with consultants, patient, and family members, and other required patient management activities. This45 minutes is in excess of all separately billable procedures. Past Med/Surg History Problem List (Updated 07/25/24 @ 21:25 by Joesph Galo MD) Nausea (Acute) Bradycardia (Acute) Chest pain (Acute) Bradycardia History of lumbosacral spine surgery Chronic low back pain Lumbosacral spondylosis Prostate cancer Asthma flares with weather changes. Last use rescue inhaler 12/10/23 due to weather. No further issues. 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 Macular degeneration injections for upcoming 12/12/23. Gastrointestinal complaint hx EGD blocked bile duct/stent Sep 2023. History of gout Fatigue easily fatigue, little energy for the last year -- currently anemic (per patient). History of COVID-19 06/2022: moderate cold symptoms. no current issues. Anemia Hyperlipidemia Pancreatic cancer dx 06/2022. whipple procedure in 08/2022 at [facility]. no chemo/no radiation needed. Atrial fibrillation controlled with medication. no cardioversion in the past. Urinary incontinence History of prostate cancer (~09/2017) treated with radiation treatments. no surgery. no current issues. Carotid artery plaque Obstructive sleep apnea of adult cpap at night Coronary artery disease of bypass graft of [place] heart with stable angina pectoris Three-vessel coronary bypass grafting March 26, 2019 HTN (hypertension) Surgical History History of esophagogastroduodenoscopy (EGD) History of cardiac cath prior to open heart sx. History of cholecystectomy History of ERCP 05/2022 History of Whipple procedure (~08/2022) done at [facility] Hx of colonoscopy Hx of hand surgery repair of laceration on left hand due to saw accident Hx of rotator cuff surgery Right X 1, Left X2 [place] [facility] [place] Rolle. History of nephrectomy Right 1963 - damage from kidney stones Family History Sister Breast cancer Father Coronary heart disease Congestive heart disease COPD (chronic obstructive pulmonary disease) Mother Pancreas cancer Brother Colorectal cancer Pancreas cancer Sister Coronary heart disease Stroke Sister Hypertension Other Diabetes Heart disease Lung disease No family history of adverse response to anesthesia Denies family history of Prostate cancer Social History Smoking Status: Former smoker Tobacco Type: Cigarettes, Pipe and Cigars Second Hand Exposure: No; Do You Dip or Chew Tobacco: No; Hx Alcohol Use: Yes (hx when young/none for yrs) Hx Substance Use: No Preferred Language: Italian Communication Ability: Effective Visual Impairment: No Limitations Hearing Ability: Hard of Hearing Install And Repair Technician Required: No Beliefs That Will Affect Care: None and Mandaen Mandaen Beliefs: Free Denominational marital status: Current Living Situation: Spouse 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 Safe at Home: Yes Childhood Exposure to Second-Hand Smoke: Yes Diet: regular caffeine: No during the past year weight has: decreased > 10 lbs Dental Care, Regularly: No Physical Activity Frequency: Daily Seatbelt Use: always Sunscreen Use: Yes Do you think of yourself as: straight/heterosexual Gender Identity: Male Assistive Devices: CPAP and Other Allergies Allergies Allergy/AdvReac Type Severity Reaction Status Date / Time house dust Allergy Unknown SNEEZING, Verified 07/23/24 09:15 CONGESTION Iodinated Contrast Media Allergy Unknown HIVES Verified 07/23/24 09:15 pollen extracts Allergy Unknown SNEEZING, Verified 07/23/24 09:15 CONGESTION red dye Allergy Unknown Hives Verified 07/23/24 09:15 Home Meds Home Medications Medication Instructions Recorded Confirmed cholecalciferol (vitamin D3) 25 25 mcg PO QAM 12/28/21 07/23/24 mcg (1,000 unit) capsule mecobalamin (vitamin B12) 500 mcg 500 mcg PO QAM 09/13/23 07/23/24 chewable tablet atorvastatin 80 mg tablet 80 mg PO HS 10/08/23 07/25/24 fluticasone 100 mcg-salmeterol 50 1 inh inhalation BID 10/08/23 07/25/24 mcg/dose blistr powdr for inhalation (Advair Diskus) epoetin ebony 40,000 unit/mL 40,000 unit subcut UD 04/28/24 07/25/24 injection solution (Procrit) Previous Rx's Medication Instructions Recorded aspirin 81 mg tablet,delayed 81 mg PO QAM #90 tabs 11/07/20 release (Ecotrin Low Strength) albuterol sulfate 90 mcg/actuation 2 puff inhalation Q4H PRN 09/06/21 aerosol inhaler (Ventolin HFA) shortness of breath #8.5 grams allopurinol 100 mg tablet 100 mg PO QAM #90 tabs 11/12/23 montelukast 10 mg tablet 10 mg PO QAM #90 tabs 11/12/23 olmesartan 5 mg tablet 5 mg PO QAM #90 tabs 02/25/24 solifenacin 5 mg tablet (Vesicare) 5 mg PO DAILY #90 tabs 03/25/24 tamsulosin 0.4 mg capsule 0.4 mg PO DAILY #90 caps 03/25/24 atenolol 50 mg tablet 25 mg (1/2 x 50 mg) PO QAM #90 tabs 04/14/24 fluticasone propionate 50 2 spray intranasal UD PRN 05/26/24 mcg/actuation nasal Congestion #16 grams spray,suspension (Allergy Relief (fluticasone)) Results & Data (ED) Vital Signs Vital Signs - 24 hr 07/25/24 15:48 07/25/24 15:56 07/25/24 16:00 Temperature 36.8 C Temperature Source Temporal Artery Scan Pulse Rate 39 L 32 L 40 L Pulse Rate from SpO2 Sensor Respiratory Rate 22 18 Respiratory Effort / Characteristics Non-Labored Spontaneous Respiratory Depth Normal Respiratory Pattern Regular Blood Pressure 138/49 L Blood Pressure Mean 78 Blood Pressure Position Sitting Pulse Oximetry 100 99 Oxygen Delivery Method Room Air Room Air Sepsis Recent Fever Within 48 Hours No Sepsis New/Unexplained Change in Mental Status N/A Sepsis Action Taken by Nursing No Action Required 07/25/24 16:00 07/25/24 16:02 07/25/24 16:02 Temperature Temperature Source Pulse Rate 40 L Pulse Rate from SpO2 Sensor 41 L Respiratory Rate 17 Respiratory Effort / Characteristics Respiratory Depth Respiratory Pattern Blood Pressure 148/82 H 148/82 H Blood Pressure Mean 106 106 Blood Pressure Position Pulse Oximetry 100 Oxygen Delivery Method Sepsis Recent Fever Within 48 Hours Sepsis New/Unexplained Change in Mental Status Sepsis Action Taken by Nursing 07/25/24 16:03 07/25/24 16:05 07/25/24 16:05 Temperature Temperature Source Pulse Rate 35 L Pulse Rate from SpO2 Sensor 37 L Respiratory Rate 18 Respiratory Effort / Characteristics Respiratory Depth Respiratory Pattern Blood Pressure 165/51 H 165/51 H Blood Pressure Mean 78 78 Blood Pressure Position Pulse Oximetry 100 Oxygen Delivery Method Room Air Sepsis Recent Fever Within 48 Hours Sepsis New/Unexplained Change in Mental Status Sepsis Action Taken by Nursing 07/25/24 16:05 07/25/24 16:06 07/25/24 16:12 Temperature Temperature Source Pulse Rate 35 L 32 L Pulse Rate from SpO2 Sensor 37 L 32 L Respiratory Rate 19 13 Respiratory Effort / Characteristics Respiratory Depth Respiratory Pattern Blood Pressure 165/51 H Blood Pressure Mean 78 Blood Pressure Position Pulse Oximetry 100 100 Oxygen Delivery Method Sepsis Recent Fever Within 48 Hours Sepsis New/Unexplained Change in Mental Status Sepsis Action Taken by Nursing 07/25/24 16:15 07/25/24 16:17 07/25/24 16:27 Temperature Temperature Source Pulse Rate 32 L Pulse Rate from SpO2 Sensor 33 L Respiratory Rate 18 Respiratory Effort / Characteristics Respiratory Depth Respiratory Pattern Blood Pressure 125/50 L 119/50 L Blood Pressure Mean 84 73 Blood Pressure Position Pulse Oximetry 100 Oxygen Delivery Method Room Air Room Air Sepsis Recent Fever Within 48 Hours Sepsis New/Unexplained Change in Mental Status Sepsis Action Taken by Nursing 07/25/24 16:36 07/25/24 16:40 07/25/24 16:40 Temperature Temperature Source Pulse Rate Pulse Rate from SpO2 Sensor Respiratory Rate Respiratory Effort / Characteristics Respiratory Depth Respiratory Pattern Blood Pressure 119/50 L 118/46 L 118/46 L Blood Pressure Mean 65 84 84 Blood Pressure Position Pulse Oximetry Oxygen Delivery Method Sepsis Recent Fever Within 48 Hours Sepsis New/Unexplained Change in Mental Status Sepsis Action Taken by Nursing 07/25/24 16:46 07/25/24 16:46 07/25/24 16:48 Temperature Temperature Source Pulse Rate 32 L 33 L Pulse Rate from SpO2 Sensor 33 L Respiratory Rate 18 16 Respiratory Effort / Characteristics Respiratory Depth Respiratory Pattern Blood Pressure 117/49 L 117/49 L Blood Pressure Mean 89 89 Blood Pressure Position Pulse Oximetry 100 100 Oxygen Delivery Method Room Air Sepsis Recent Fever Within 48 Hours Sepsis New/Unexplained Change in Mental Status Sepsis Action Taken by Nursing 07/25/24 17:07 07/25/24 17:09 07/25/24 17:10 Temperature Temperature Source Pulse Rate 56 L Pulse Rate from SpO2 Sensor 57 L Respiratory Rate 25 H Respiratory Effort / Characteristics Respiratory Depth Respiratory Pattern Blood Pressure 145/56 H 156/63 H Blood Pressure Mean 105 100 Blood Pressure Position Pulse Oximetry 98 Oxygen Delivery Method Sepsis Recent Fever Within 48 Hours Sepsis New/Unexplained Change in Mental Status Sepsis Action Taken by Nursing 07/25/24 17:15 07/25/24 17:16 07/25/24 17:16 Temperature Temperature Source Pulse Rate 50 L Pulse Rate from SpO2 Sensor 50 L Respiratory Rate 20 Respiratory Effort / Characteristics Respiratory Depth Respiratory Pattern Blood Pressure 144/53 H 144/53 H Blood Pressure Mean 67 67 Blood Pressure Position Pulse Oximetry 84 L Oxygen Delivery Method Sepsis Recent Fever Within 48 Hours Sepsis New/Unexplained Change in Mental Status Sepsis Action Taken by Nursing 07/25/24 17:18 07/25/24 17:20 07/25/24 17:20 Temperature Temperature Source Pulse Rate 52 L Pulse Rate from SpO2 Sensor 52 L Respiratory Rate 20 Respiratory Effort / Characteristics Respiratory Depth Respiratory Pattern Blood Pressure 138/84 138/84 Blood Pressure Mean 111 111 Blood Pressure Position Pulse Oximetry 99 Oxygen Delivery Method Sepsis Recent Fever Within 48 Hours Sepsis New/Unexplained Change in Mental Status Sepsis Action Taken by Nursing 07/25/24 17:21 07/25/24 17:25 07/25/24 17:30 Temperature Temperature Source Pulse Rate 53 L 57 L Pulse Rate from SpO2 Sensor 54 L 58 L Respiratory Rate 20 25 H Respiratory Effort / Characteristics Respiratory Depth Respiratory Pattern Blood Pressure 154/55 H 144/63 H Blood Pressure Mean 106 90 Blood Pressure Position Pulse Oximetry 99 95 Oxygen Delivery Method Sepsis Recent Fever Within 48 Hours Sepsis New/Unexplained Change in Mental Status Sepsis Action Taken by Nursing 07/25/24 17:45 07/25/24 17:50 07/25/24 17:50 Temperature Temperature Source Pulse Rate 56 L Pulse Rate from SpO2 Sensor Respiratory Rate Respiratory Effort / Characteristics Respiratory Depth Respiratory Pattern Blood Pressure 157/68 H 146/68 H 146/68 H Blood Pressure Mean 116 102 102 Blood Pressure Position Pulse Oximetry 97 Oxygen Delivery Method Room Air Sepsis Recent Fever Within 48 Hours Sepsis New/Unexplained Change in Mental Status Sepsis Action Taken by Nursing 07/25/24 17:50 07/25/24 17:54 07/25/24 17:55 Temperature Temperature Source Pulse Rate 59 L Pulse Rate from SpO2 Sensor 55 L Respiratory Rate 23 Respiratory Effort / Characteristics Respiratory Depth Respiratory Pattern Blood Pressure 146/68 H 155/63 H Blood Pressure Mean 102 88 Blood Pressure Position Pulse Oximetry 99 Oxygen Delivery Method Sepsis Recent Fever Within 48 Hours Sepsis New/Unexplained Change in Mental Status Sepsis Action Taken by Nursing 07/25/24 17:55 07/25/24 17:57 07/25/24 18:00 Temperature Temperature Source Pulse Rate 53 L Pulse Rate from SpO2 Sensor Respiratory Rate 18 Respiratory Effort / Characteristics Respiratory Depth Respiratory Pattern Blood Pressure 155/63 H 162/75 H Blood Pressure Mean 88 115 Blood Pressure Position Pulse Oximetry 98 Oxygen Delivery Method Sepsis Recent Fever Within 48 Hours Sepsis New/Unexplained Change in Mental Status Sepsis Action Taken by Nursing 07/25/24 18:05 07/25/24 18:11 07/25/24 18:12 Temperature Temperature Source Pulse Rate 50 L Pulse Rate from SpO2 Sensor 46 L Respiratory Rate 19 Respiratory Effort / Characteristics Respiratory Depth Respiratory Pattern Blood Pressure 150/79 H 156/58 H Blood Pressure Mean 121 70 Blood Pressure Position Pulse Oximetry 98 Oxygen Delivery Method Sepsis Recent Fever Within 48 Hours Sepsis New/Unexplained Change in Mental Status Sepsis Action Taken by Nursing 07/25/24 18:15 07/25/24 18:15 07/25/24 18:15 Temperature Temperature Source Pulse Rate Pulse Rate from SpO2 Sensor Respiratory Rate Respiratory Effort / Characteristics Respiratory Depth Respiratory Pattern Blood Pressure 154/69 H 154/69 H 154/69 H Blood Pressure Mean 107 107 107 Blood Pressure Position Pulse Oximetry Oxygen Delivery Method Sepsis Recent Fever Within 48 Hours Sepsis New/Unexplained Change in Mental Status Sepsis Action Taken by Nursing 07/25/24 18:21 07/25/24 18:25 07/25/24 18:30 Temperature Temperature Source Pulse Rate Pulse Rate from SpO2 Sensor Respiratory Rate Respiratory Effort / Characteristics Respiratory Depth Respiratory Pattern Blood Pressure 158/58 H 156/60 H 167/69 H Blood Pressure Mean 73 116 106 Blood Pressure Position Pulse Oximetry Oxygen Delivery Method Sepsis Recent Fever Within 48 Hours Sepsis New/Unexplained Change in Mental Status Sepsis Action Taken by Nursing 07/25/24 18:42 07/25/24 18:57 07/25/24 19:00 Temperature Temperature Source Pulse Rate 54 L 45 L Pulse Rate from SpO2 Sensor 47 L 44 L Respiratory Rate 18 19 Respiratory Effort / Characteristics Respiratory Depth Respiratory Pattern Blood Pressure 152/67 H Blood Pressure Mean 111 Blood Pressure Position Pulse Oximetry 98 98 Oxygen Delivery Method Sepsis Recent Fever Within 48 Hours Sepsis New/Unexplained Change in Mental Status Sepsis Action Taken by Nursing 07/25/24 19:00 07/25/24 19:03 07/25/24 19:15 Temperature Temperature Source Pulse Rate 46 L Pulse Rate from SpO2 Sensor 45 L Respiratory Rate 19 Respiratory Effort / Characteristics Respiratory Depth Respiratory Pattern Blood Pressure 152/67 H 147/65 H Blood Pressure Mean 111 98 Blood Pressure Position Pulse Oximetry 98 Oxygen Delivery Method Sepsis Recent Fever Within 48 Hours Sepsis New/Unexplained Change in Mental Status Sepsis Action Taken by Nursing 07/25/24 19:30 07/25/24 19:30 07/25/24 19:30 Temperature Temperature Source Pulse Rate Pulse Rate from SpO2 Sensor Respiratory Rate Respiratory Effort / Characteristics Respiratory Depth Respiratory Pattern Blood Pressure 141/60 H 141/60 H 141/60 H Blood Pressure Mean 88 88 88 Blood Pressure Position Pulse Oximetry Oxygen Delivery Method Sepsis Recent Fever Within 48 Hours Sepsis New/Unexplained Change in Mental Status Sepsis Action Taken by Nursing 07/25/24 19:30 07/25/24 19:45 07/25/24 19:58 Temperature Temperature Source Pulse Rate 55 L 47 L Pulse Rate from SpO2 Sensor Respiratory Rate Respiratory Effort / Characteristics Respiratory Depth Respiratory Pattern Blood Pressure 141/60 H 158/64 H Blood Pressure Mean 88 119 Blood Pressure Position Pulse Oximetry 99 Oxygen Delivery Method Sepsis Recent Fever Within 48 Hours Sepsis New/Unexplained Change in Mental Status Sepsis Action Taken by Nursing 07/25/24 20:16 07/25/24 20:30 Temperature Temperature Source Pulse Rate 50 L 52 L Pulse Rate from SpO2 Sensor 52 L Respiratory Rate 18 20 Respiratory Effort / Characteristics Respiratory Depth Respiratory Pattern Blood Pressure 143/62 H 154/56 H Blood Pressure Mean 96 88 Blood Pressure Position Pulse Oximetry 99 98 Oxygen Delivery Method Room Air Room Air Sepsis Recent Fever Within 48 Hours Sepsis New/Unexplained Change in Mental Status Sepsis Action Taken by Nursing Laboratory Data 07/25/24 16:09 07/25/24 16:09 Lab Results 07/25/24 07/25/24 Range/Units 16:09 19:42 WBC 6.99 (4.8-10.8) K/ul RBC 3.11 L (4.70-6.10) M/uL Hgb 9.1 L (14.0-18.0) g/dl Hct 28.5 L (42.0-52.0) % MCV 91.6 (80.0-100.0) fL MCH 29.3 (25.0-34.0) pg MCHC 31.9 L (32.0-36.0) g/dL RDW Std Deviation 58.1 H (36.4-46.3) fL RDW Coeff of Karolyn 17.2 H (11.5-14.5) % Plt Count 313 (130-400) K/uL MPV 10.6 (9.4-12.4) fL Immature Gran % (Auto) 0.7 % Neut % (Auto) 76.4 % Lymph % (Auto) 12.7 % [place] % (Auto) 6.3 % Eos % (Auto) 3.0 % Baso % (Auto) 0.9 % Neut # (Auto) 5.34 (1.40-6.50) K/uL Lymph # (Auto) 0.89 L (1.20-3.40) K/uL [place] # (Auto) 0.44 (0.11-0.59) K/uL Eos # (Auto) 0.21 (0.00-0.50) K/uL Baso # (Auto) 0.06 (0.00-0.20) K/uL Immature Gran # (Auto) 0.05 (0.01-0.20) K/uL Sodium 139 (136-145) mmol/L Potassium 4.2 (3.5-5.1) mmol/L Chloride 115 H (98-107) mmol/L Carbon Dioxide 19 L (21-32) mmol/L Anion Gap 5 (3-11) BUN 25 H (6-23) mg/dl Creatinine 1.76 H (0.6-1.4) mg/dl Est Cr Clr Drug Dosing 31.5 ml/min Est GFR ( Amer) 41.1 ml/min Est GFR (Non-Af Amer) 35.5 ml/min BUN/Creatinine Ratio 14.2 (10-20) Glucose 149 H (70-99(Fasting)) mg/dl Calcium 7.5 L (8.6-10.3) mg/dl Total Bilirubin 0.4 (0.2-1.0) mg/dl AST 25 (13-39) U/L ALT 32 (7-52) U/L Alkaline Phosphatase 140 H (34-104) U/L Troponin I High Sens 6.1 9.2 (0-20) pg/ml B-Natriuretic Peptide 965 H (0-100) pg/ml Total Protein 5.5 L (6.0-8.3) gm/dl Albumin 2.7 L (3.4-5.0) gm/dl Globulin 2.8 (2.5-4.0) gm/dl Albumin/Globulin Ratio 1.0 (0.9-2) Lipase 3 L (11-82) U/L Administered Medications Discontinued Medications Diphenhydramine HCl (Diphenhydramine 50 Mg/Ml Vial) 50 mg IV ONE ONE Stop: 07/25/24 16:30 Last Admin: 07/25/24 16:51 Dose: 50 mg Documented By: GILDA Ioversol (Optiray 320 125ml) 119 ml IV ONCE ONE Stop: 07/25/24 17:06 Last Admin: 07/25/24 17:06 Dose: 119 ml Documented By: YASHIRA Methylprednisolone (Methylprednisolone 125 Mg/2 Ml Vial) 40 mg IV NOW ONE Stop: 07/25/24 16:30 Last Admin: 07/25/24 16:51 Dose: 40 mg Documented By: GILDA Imaging Data Radiologist's Impression: Chest X-Ray 07/25/24 15:56 XR chest 1V portable HISTORY: 83 years-old Male Chest pain, nonspecific COMPARISON: 05/13/2024 TECHNIQUE: AP view of the chest FINDINGS: Cardiac silhouette is enlarged. Median sternotomy with mediastinal surgical clips. No pneumothorax. Pulmonary vascular congestion with trace pleural effusions. Prior resection of the distal left clavicle. The bones appear intact. IMPRESSION: 1. Cardiomegaly with pulmonary vascular congestion. 2. Trace pleural effusions. ACT 112: Negative or not required by law. The above report was generated using voice recognition software. It may contain grammatical, syntax or spelling errors. Electronically signed by: Rafal Amezquita M.D. 07/25/2024 4:26 PM Chest CTA 07/25/24 16:29 CT angio chest dissec wo/w con, CT angio abd pelvis wo/w con CT DOSE: 3106.16 mGy.cm HISTORY: 83 years-old Male with Dissection, chest pain, htn. Acute chest pain with hypertension. Prior Whipple procedure. TECHNIQUE: Multiple CTA images of the chest, abdomen and pelvis were obtained with and without the intravenous administration of 119 ml Optiray. Coronal and sagittal MIPS were obtained from the axial data set and were submitted for review. All measurements were obtained according to NASCET criteria. A dose lowering technique was utilized adhering to the principles of ALARA. COMPARISON: CT abdomen and pelvis 02/04/2023, chest CT 07/01/2015. FINDINGS: CTA CHEST: Mild cardiomegaly. Decreased attenuation the cardiac blood pole suggestive of anemia. Prominent left greater than right gynecomastia. Sternotomy with CABG. Moderate to extensive [place] coronary artery calcifications. Atherosclerosis of the aorta without aneurysm, dissection or intramural hematoma. No central pulmonary emboli identified. Suboptimal evaluation of the segmental and subsegmental branches secondary to contrast bolus timing and respiratory motion. CT CHEST: Subcentimeter thyroid nodules. Borderline enlarged mediastinal and hilar lymph nodes measuring up to 12 mm in the right hilum favored to be reactive. Trace pleural effusions. No pneumothorax. Bronchial wall thickening. Bilateral atelectasis with air trapping and possible mild pulmonary edema. No suspicious pulmonary nodules or masses. The central airways are patent. Mild generalized body wall edema. Degenerative changes of the shoulders and spine. CTA ABDOMEN/PELVIS: Extensive atherosclerosis of the abdominal aorta and branch vessels. No abdominal aortic aneurysm or dissection. Patent iliac and imaged femoral arteries. Branches of the celiac trunk are patent. 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 Moderate stenosis at the origin of the left renal artery. Approximately 60% stenosis at the origin of the inferior mesenteric artery. CT ABDOMEN/PELVIS: No free air. Generalized body wall edema. Unremarkable spleen with anterior benign-appearing calcification. Moderate generalized pancreatic atrophy. Unremarkable adrenal glands. Cholecystectomy with pneumobilia. Hepatic steatosis. No hepatic mass identified. Mild nonspecific perinephric stranding of the left kidney. Mild inflammatory stranding adjacent to the renal pelvis on the left. Prostamegaly with brachytherapy seeds. Bladder wall thickening and spiculation with partial distention. Bkqmw-ie-fwlvhcxe fat filled left inguinal hernia. No pathologically enlarged lymph nodes. Right nephrectomy. 5 mm nodular focus within the right nephrectomy bed on image 128, unchanged. Distal esophageal wall thickening with small hiatal hernia. Prior Whipple procedure.r umbilical hernia with diastases of 4 cm contains a nonobstructed loop of small bowel, mesenteric fat and small amount of fluid. Circumferential wall thickening of the rectosigmoid. Moderate colonic fecal retention. Prior appendectomy. No acute fracture or destructive bone lesion. Chronic appearing left-sided L3 far as detected. IMPRESSION: 1. Atherosclerosis without aneurysm, dissection or arterial occlusion identified. 2. No pulmonary emboli identified. 3. Moderate stenosis at the origin of the left renal artery. 4. Findings suggestive of a nonspecific proctocolitis. 5. Umbilical hernia contains a nonobstructed loop of ileum. 6. Probable mild pulmonary edema with trace pleural effusions. 7. Additional findings as above. ACT 112: Negative or not required by law. The above report was generated using voice recognition software. It may contain grammatical, syntax or spelling errors. Electronically signed by: Rafal Amezquita M.D. 07/25/2024 5:46 PM Abdomen/Pelvis CTA 07/25/24 16:42 CT angio chest dissec wo/w con, CT angio abd pelvis wo/w con CT DOSE: 3106.16 mGy.cm HISTORY: 83 years-old Male with Dissection, chest pain, htn. Acute chest pain with hypertension. Prior Whipple procedure. TECHNIQUE: Multiple CTA images of the chest, abdomen and pelvis were obtained with and without the intravenous administration of 119 ml Optiray. Coronal and sagittal MIPS were obtained from the axial data set and were submitted for review. All measurements were obtained according to NASCET criteria. A dose lowering technique was utilized adhering to the principles of ALARA. COMPARISON: CT abdomen and pelvis 02/04/2023, chest CT 07/01/2015. FINDINGS: CTA CHEST: Mild cardiomegaly. Decreased attenuation the cardiac blood pole suggestive of anemia. Prominent left greater than right gynecomastia. Sternotomy with CABG. Moderate to extensive [place] coronary artery calcifications. Atherosclerosis of the aorta without aneurysm, dissection or intramural hematoma. No central pulmonary emboli identified. Suboptimal evaluation of the segmental and subsegmental branches secondary to contrast bolus timing and respiratory motion. CT CHEST: Subcentimeter thyroid nodules. Borderline enlarged mediastinal and hilar lymph nodes measuring up to 12 mm in the right hilum favored to be reactive. Trace pleural effusions. No pneumothorax. Bronchial wall thickening. Bilateral atelectasis with air trapping and possible mild pulmonary edema. No suspicious pulmonary nodules or masses. The central airways are patent. Mild generalized body wall edema. Degenerative changes of the shoulders and spine. CTA ABDOMEN/PELVIS: Extensive atherosclerosis of the abdominal aorta and branch vessels. No abdominal aortic aneurysm or dissection. Patent iliac and imaged femoral arteries. Branches of the celiac trunk are patent. 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 Moderate stenosis at the origin of the left renal artery. Approximately 60% stenosis at the origin of the inferior mesenteric artery. CT ABDOMEN/PELVIS: No free air. Generalized body wall edema. Unremarkable spleen with anterior benign-appearing calcification. Moderate generalized pancreatic atrophy. Unremarkable adrenal glands. Cholecystectomy with pneumobilia. Hepatic steatosis. No hepatic mass identified. Mild nonspecific perinephric stranding of the left kidney. Mild inflammatory stranding adjacent to the renal pelvis on the left. Prostamegaly with brachytherapy seeds. Bladder wall thickening and spiculation with partial distention. Iaaep-wq-qeiklzvo fat filled left inguinal hernia. No pathologically enlarged lymph nodes. Right nephrectomy. 5 mm nodular focus within the right nephrectomy bed on image 128, unchanged. Distal esophageal wall thickening with small hiatal hernia. Prior Whipple procedure.r umbilical hernia with diastases of 4 cm contains a nonobstructed loop of small bowel, mesenteric fat and small amount of fluid. Circumferential wall thickening of the rectosigmoid. Moderate colonic fecal retention. Prior appendectomy. No acute fracture or destructive bone lesion. Chronic appearing left-sided L3 far as detected. IMPRESSION: 1. Atherosclerosis without aneurysm, dissection or arterial occlusion identified. 2. No pulmonary emboli identified. 3. Moderate stenosis at the origin of the left renal artery. 4. Findings suggestive of a nonspecific proctocolitis. 5. Umbilical hernia contains a nonobstructed loop of ileum. 6. Probable mild pulmonary edema with trace pleural effusions. 7. Additional findings as above. ACT 112: Negative or not required by law. The above report was generated using voice recognition software. It may contain grammatical, syntax or spelling errors. Electronically signed by: Rafal Amezquita M.D. 07/25/2024 5:46 PM Discharge Plan Visit Data Chief Complaint: Chest Pain Stated Complaint: CHEST TIGHTNESS,NAUSEA ED Provider: Joesph Galo Discharge Problem: Chest pain, Bradycardia, Nausea Forms Stand Alone Forms: [facility] [employer] Prescriptions Prescriptions: No Action aspirin [Ecotrin Low Strength] 81 mg tablet,delayed release (DR/EC) 81 mg PO QAM Qty: 90 3RF cholecalciferol (vitamin D3) 25 mcg (1,000 unit) capsule 25 mcg PO QAM allopurinol 100 mg tablet 100 mg PO QAM Qty: 90 3RF montelukast 10 mg tablet 10 mg PO QAM Qty: 90 3RF olmesartan 5 mg tablet 5 mg PO QAM Qty: 90 3RF albuterol sulfate [Ventolin HFA] 90 mcg/actuation HFA aerosol inhaler 2 puff INH Q4H PRN (Reason: shortness of breath) Qty: 8.5 3RF tamsulosin 0.4 mg capsule 0.4 mg PO DAILY Qty: 90 3RF solifenacin [Vesicare] 5 mg tablet 5 mg PO DAILY Qty: 90 3RF mecobalamin (vitamin B12) 500 mcg tablet,chewable 500 mcg PO QAM fluticasone propionate [Allergy Relief (fluticasone)] 50 mcg/actuation spray,suspension 2 spray intranasal UD PRN (Reason: Congestion) Qty: 16 3RF Rx Instructions: administer into each nostril Procrit 40,000 unit/mL solution 40,000 unit subcut UD atenolol 50 mg tablet 25 mg PO QAM Qty: 90 3RF atorvastatin 80 mg tablet 80 mg PO HS fluticasone propion-salmeterol [Advair Diskus] 100-50 mcg/dose blister with device 1 inh inhalation BID Referrals Referrals: Pato Castle MD [Primary Care Provider] -
[2024-07-25 17:00] LABS: Troponin I High Sensitivity 6.1 pg/ml (0-20)
[2024-07-25] MEDS: OPTIRAY 320 125ml IV ONE (17:06)
--- NOTE | 2024-07-25 17:49 | CT Scan Report ---
CT angio chest dissec wo/w con, CT angio abd pelvis wo/w con CT DOSE: 3106.16 mGy.cm HISTORY: 83 years-old Male with Dissection, chest pain, htn. Acute chest pain with hypertension. Pr ior Whipple procedure. TECHNIQUE: Multiple CTA images of the chest, abdomen and pelvis were obtained with and without the in travenous administration of 119 ml Optiray. Coronal and sagittal MIPS were obtained from the axial d sarai set and were submitted for review. All measurements were obtained according to NASCET criteria. A dose lowering technique was utilized adhering to the principles of ALARA. COMPARISON: CT abdomen and pelvis 02/04/2023, chest CT 07/01/2015. FINDINGS: CTA CHEST: Mild cardiomegaly. Decreased attenuation the cardiac blood pole suggestive of anemia. Prominent left greater than right gynecomastia. Sternotomy with CABG. Moderate to extensive [place] coronary artery c alcifications. Atherosclerosis of the aorta without aneurysm, dissection or intramural hematoma. No c entral pulmonary emboli identified. Suboptimal evaluation of the segmental and subsegmental branches secondary to contrast bolus timing and respiratory motion. CT CHEST: Subcentimeter thyroid nodules. Borderline enlarged mediastinal and hilar lymph nodes measuring up to 12 mm in the right hilum favored to be reactive. Trace pleural effusions. No pneumothorax. Bronchial wall thickening. Bilateral atelectasis with air trapping and possible mild pulmonary edema. No suspic ious pulmonary nodules or masses. The central airways are patent. Mild generalized body wall edema. D egenerative changes of the shoulders and spine. CTA ABDOMEN/PELVIS: Extensive atherosclerosis of the abdominal aorta and branch vessels. No abdominal aortic aneurysm or dissection. Patent iliac and imaged femoral arteries. Branches of the celiac trunk are patent. 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 Moderate stenosis at the or igin of the left renal artery. Approximately 60% stenosis at the origin of the inferior mesenteric ar jax. CT ABDOMEN/PELVIS: No free air. Generalized body wall edema. Unremarkable spleen with anterior benign-appearing calcific ation. Moderate generalized pancreatic atrophy. Unremarkable adrenal glands. Cholecystectomy with pne umobilia. Hepatic steatosis. No hepatic mass identified. Mild nonspecific perinephric stranding of th e left kidney. Mild inflammatory stranding adjacent to the renal pelvis on the left. Prostamegaly wit h brachytherapy seeds. Bladder wall thickening and spiculation with partial distention. Civpo-jb-kgze rate fat filled left inguinal hernia. No pathologically enlarged lymph nodes. Right nephrectomy. 5 mm nodular focus within the right nephrectomy bed on image 128, unchanged. Distal esophageal wall thickening with small hiatal hernia. Prior Whipple procedure.r umbilical herni a with diastases of 4 cm contains a nonobstructed loop of small bowel, mesenteric fat and small amoun t of fluid. Circumferential wall thickening of the rectosigmoid. Moderate colonic fecal retention. Pr ior appendectomy. No acute fracture or destructive bone lesion. Chronic appearing left-sided L3 far a s detected. IMPRESSION: 1. Atherosclerosis without aneurysm, dissection or arterial occlusion identified. 2. No pulmonary emboli identified. 3. Moderate stenosis at the origin of the left renal artery. 4. Findings suggestive of a nonspecific proctocolitis. 5. Umbilical hernia contains a nonobstructed loop of ileum. 6. Probable mild pulmonary edema with trace pleural effusions. 7. Additional findings as above. ACT 112: Negative or not required by law. The above report was generated using voice recognition software. It may contain grammatical, syntax o r spelling errors. Electronically signed by: Rafal Amezquita M.D. 07/25/2024 5:46 PM
--- NOTE | 2024-07-25 19:54 | History & Physical Report ---
Date of Service July 25, 2024 Assessment & Plan (1) Bradycardia: Plan: 83yo male with history of CAD s/p CABG x 3V in 2019, severe (RAJ=0.8cm2) presenting with acute onset chest pain as well as bradycardia. Patient endorses developing bilateral LE edema as well. No SOB. Appears to be sinus bradycardia He is on Atenolol 25mg po daily - last taken this AM 07/25/24 around 08:00 HR has improved with IVF - HR 52 presently. Blood pressure has been mildly elevated - likely compensatory. Patient is showing some evidence of developing heart failure including bilateral LE edema, effusions and pulmonary edema noted on CXR. -Admit to PCU -Trend troponin x 3 sets -Check Mg and PO4 -Check TSH and Cortisol random -Check Lyme with reflex -Check 2D echo -Hold Atenolol and Olmesartan -Cardiology consultation appreciated -Will administer Atropine if patient develops worsening or symptomatic bradycardia (2) Aortic stenosis: Plan: Severe per most recent echo in March 2024 -Maintain euvolemia -Repeat echo pending -Holding Atenolol and Olmesartan -Cardiology consultation appreciated (3) Coronary artery disease: Plan: Patient presenting with chest pain as above -Continue ASA -Continue Atorvastatin 80mg po daily -Hold Atenolol and Olmesartan Plan Gout - chronic, stable -Continue Allopurinol COPD - chronic, stable, no cough, SOB or wheeze -Continue Advair -Albuterol PRN -Continue Singulair History of Present Illness Chief Complaint: chest discomfort Primary Care Provider: Pato Castle MD Osmany Shaw is an 83yo male with history of CAD s/p CABG x 3V at [facility] in 2019, severe per echo 04/16/24 (RAJ=0.8cm2, aortic mean pressure gradient=32.8mmHg) as well as Gout, HTN, HLP and GREGORY presenting from home with chest discomfort. Patient was in [place] today. He has been in his usual state of health until this afternoon around lunch time when he developed substernal chest discomfort. The discomfort was located on the left side, squeezing pressure, 8/10 in severity. He had an episode of loose stools, non-bloody/non-mucoid. He was driving home and developed some nausea and dry heaves which prompted him to present to the ER. He has ongoing chest discomfort but nausea has resolved. Patient also reports bilateral LE edema which he noticed today. Generalized weakness. He denies SOB, dizziness or syncope. No weight gain. In the ER patient has been bradycardic with HR in the 30's to 40's. His blood pressure has been elevated. ER Course: Benadryl 50mg IV Solumedrol 40mg IV Allergies Allergy/AdvReac Type Severity Reaction Status Date / Time house dust Allergy Unknown SNEEZING, Verified 07/23/24 09:15 CONGESTION Iodinated Contrast Media Allergy Unknown HIVES Verified 07/23/24 09:15 pollen extracts Allergy Unknown SNEEZING, Verified 07/23/24 09:15 CONGESTION red dye Allergy Unknown Hives Verified 07/23/24 09:15 Home Medications Medication Instructions Recorded Confirmed Type aspirin 81 mg tablet,delayed 81 mg PO QAM #90 tabs 11/07/20 07/25/24 Rx release (Ecotrin Low Strength) albuterol sulfate 90 mcg/actuation 2 puff inhalation Q4H PRN 09/06/21 07/25/24 Rx aerosol inhaler (Ventolin HFA) shortness of breath #8.5 grams cholecalciferol (vitamin D3) 25 25 mcg PO QAM 12/28/21 07/23/24 History mcg (1,000 unit) capsule mecobalamin (vitamin B12) 500 mcg 500 mcg PO QAM 09/13/23 07/23/24 History chewable tablet atorvastatin 80 mg tablet 80 mg PO HS 10/08/23 07/25/24 History fluticasone 100 mcg-salmeterol 50 1 inh inhalation BID 10/08/23 07/25/24 History mcg/dose blistr powdr for inhalation (Advair Diskus) allopurinol 100 mg tablet 100 mg PO QAM #90 tabs 11/12/23 07/25/24 Rx montelukast 10 mg tablet 10 mg PO QAM #90 tabs 11/12/23 07/25/24 Rx olmesartan 5 mg tablet 5 mg PO QAM #90 tabs 02/25/24 07/25/24 Rx solifenacin 5 mg tablet (Vesicare) 5 mg PO DAILY #90 tabs 03/25/24 07/25/24 Rx tamsulosin 0.4 mg capsule 0.4 mg PO DAILY #90 caps 03/25/24 07/25/24 Rx atenolol 50 mg tablet 25 mg (1/2 x 50 mg) PO QAM #90 tabs 04/14/24 07/25/24 Rx epoetin ebony 40,000 unit/mL 40,000 unit subcut UD 04/28/24 07/25/24 History injection solution (Procrit) fluticasone propionate 50 2 spray intranasal UD PRN 05/26/24 07/25/24 Rx mcg/actuation nasal Congestion #16 grams spray,suspension (Allergy Relief (fluticasone)) Past Med/Surg History Problem List (Updated 07/25/24 @ 20:42 by Shahnaz Castro DO) Bradycardia History of lumbosacral spine surgery Chronic low back pain Lumbosacral spondylosis Prostate cancer Asthma flares with weather changes. Last use rescue inhaler 12/10/23 due to weather. No further issues. 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 Macular degeneration injections for upcoming 12/12/23. Gastrointestinal complaint hx EGD blocked bile duct/stent Sep 2023. History of gout Fatigue easily fatigue, little energy for the last year -- currently anemic (per patient). History of COVID-19 06/2022: moderate cold symptoms. no current issues. Anemia Hyperlipidemia Pancreatic cancer dx 06/2022. whipple procedure in 08/2022 at [facility]. no chemo/no radiation needed. Atrial fibrillation controlled with medication. no cardioversion in the past. Urinary incontinence History of prostate cancer (~09/2017) treated with radiation treatments. no surgery. no current issues. Carotid artery plaque Obstructive sleep apnea of adult cpap at night Coronary artery disease of bypass graft of telida heart with stable angina pectoris Three-vessel coronary bypass grafting March 26, 2019 HTN (hypertension) Surgical History History of esophagogastroduodenoscopy (EGD) History of cardiac cath prior to open heart sx. History of cholecystectomy History of ERCP 05/2022 History of Whipple procedure (~08/2022) done at [facility] Hx of colonoscopy Hx of hand surgery repair of laceration on left hand due to saw accident Hx of rotator cuff surgery Right X 1, Left X2 Hx of CABG X 3 vessels at [facility] ~[address] Rolle. History of nephrectomy Right 1963 - damage from kidney stones Family History Sister Breast cancer Father Coronary heart disease Congestive heart disease COPD (chronic obstructive pulmonary disease) Mother Pancreas cancer Brother Colorectal cancer Pancreas cancer Sister Coronary heart disease Stroke Sister Hypertension Other Diabetes Heart disease Lung disease No family history of adverse response to anesthesia Denies family history of Prostate cancer Social History Smoking Status: Former smoker Tobacco Type: Cigarettes, Pipe and Cigars Second Hand Exposure: No; Do You Dip or Chew Tobacco: No; Hx Alcohol Use: Yes (hx when young/none for yrs) Hx Substance Use: No Preferred Language: Erit[place]an Communication Ability: Effective Visual Impairment: No Limitations Hearing Ability: Hard of Hearing Physician Neonatology Required: No Beliefs That Will Affect Care: None and Restorationist Restorationist Beliefs: Free Mandaen marital status: Current Living Situation: Spouse 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 Safe at Home: Yes Childhood Exposure to Second-Hand Smoke: Yes Diet: regular caffeine: No during the past year weight has: decreased > 10 lbs Dental Care, Regularly: No Physical Activity Frequency: Daily Seatbelt Use: always Sunscreen Use: Yes Do you think of yourself as: straight/heterosexual Gender Identity: Male Assistive Devices: CPAP and Other Review of Systems Review of Systems: All systems reviewed & are unremarkable except as noted in HPI & below Physical Exam Physical Exam: General: patient resting comfortably, NAD, non-toxic in appearance, AA&O x 4 Skin: warm, dry, intact, no rashes or lesions, appears somewhat pale HEENT: NC/AT, PERRL, EOMI, anicteric sclera, conjunctiva without injection, external ear normal to inspection and nontender, nares patent, moist mucus membranes, dentition intact, no oropharyngeal lesions, neck supple, trachea midline, no LAD, no thyromegaly, no JVD Heart: +S1/S2, regular, bradycardic, 4/6 MARIO at left 2nd ICS with radiation across the precordium and to bilateral carotids Lungs: equal air entry bilaterally, crackles present in bilateral lung bases, no rhonchi or wheeze Abd: +BS, soft, ND, tender to palpation in mid-abdomen, no masses/organomegaly/ascites Ext: warm, 2+ pulses in UE/LE bilaterally, no clubbing/cyanosis, 2+ edema of bilateral LE Neuro: nonfocal, patient AA&O x 4, speech intact, no facial droop, moving all extremities on command with equal strength 5/5 Results & Data Results & Data Vital Signs (Past 12 Hours) Vital Signs Temp Pulse Resp BP Pulse Ox O2 Del Method 07/25/24 18:30 167/69 H 07/25/24 18:25 156/60 H 07/25/24 18:21 158/58 H 07/25/24 18:15 154/69 H 07/25/24 18:15 154/69 H 07/25/24 18:15 154/69 H 07/25/24 18:12 50 L 19 98 07/25/24 18:11 156/58 H 07/25/24 18:05 150/79 H 07/25/24 18:00 53 L 18 162/75 H 07/25/24 17:57 98 07/25/24 17:55 155/63 H 07/25/24 17:55 155/63 H 07/25/24 17:54 59 L 23 99 07/25/24 17:50 146/68 H 07/25/24 17:50 146/68 H 07/25/24 17:50 146/68 H 07/25/24 17:45 56 L 157/68 H 97 Room Air 07/25/24 17:30 57 L 25 H 144/63 H 95 07/25/24 17:25 154/55 H 07/25/24 17:21 53 L 20 99 07/25/24 17:20 138/84 07/25/24 17:20 138/84 07/25/24 17:18 52 L 20 99 07/25/24 17:16 144/53 H 07/25/24 17:16 144/53 H 07/25/24 17:15 50 L 20 84 L 07/25/24 17:10 156/63 H 07/25/24 17:09 56 L 25 H 98 07/25/24 17:07 145/56 H 07/25/24 16:48 33 L 16 100 07/25/24 16:46 117/49 L 07/25/24 16:46 32 L 18 117/49 L 100 Room Air 07/25/24 16:40 118/46 L 07/25/24 16:40 118/46 L 07/25/24 16:36 119/50 L 07/25/24 16:27 32 L 18 119/50 L 100 Room Air 07/25/24 16:17 125/50 L 07/25/24 16:15 Room Air 07/25/24 16:12 32 L 13 100 07/25/24 16:06 35 L 19 100 07/25/24 16:05 165/51 H 07/25/24 16:05 165/51 H 07/25/24 16:05 165/51 H 07/25/24 16:03 35 L 18 100 Room Air 07/25/24 16:02 148/82 H 07/25/24 16:02 148/82 H 07/25/24 16:00 40 L 17 100 07/25/24 16:00 40 L 07/25/24 15:56 32 L 18 99 Room Air 07/25/24 15:48 36.8 C 39 L 22 138/49 L 100 Room Air Laboratory Results Laboratory Results WBC 6.99 K/ul (4.8-10.8) 07/25/24 16:09 RBC 3.11 M/uL (4.70-6.10) L 07/25/24 16:09 Hgb 9.1 g/dl (14.0-18.0) L 07/25/24 16:09 Hct 28.5 % (42.0-52.0) L 07/25/24 16:09 MCV 91.6 fL (80.0-100.0) 07/25/24 16:09 MCH 29.3 pg (25.0-34.0) 07/25/24 16:09 MCHC 31.9 g/dL (32.0-36.0) L 07/25/24 16:09 RDW Std Deviation 58.1 fL (36.4-46.3) H 07/25/24 16:09 RDW Coeff of Karolyn 17.2 % (11.5-14.5) H 07/25/24 16:09 Plt Count 313 K/uL (130-400) 07/25/24 16:09 MPV 10.6 fL (9.4-12.4) 07/25/24 16:09 Immature Gran % (Auto) 0.7 % 07/25/24 16:09 Neut % (Auto) 76.4 % 07/25/24 16:09 Lymph % (Auto) 12.7 % 07/25/24 16:09 [place] % (Auto) 6.3 % 07/25/24 16:09 Eos % (Auto) 3.0 % 07/25/24 16:09 Baso % (Auto) 0.9 % 07/25/24 16:09 Neut # (Auto) 5.34 K/uL (1.40-6.50) 07/25/24 16:09 Lymph # (Auto) 0.89 K/uL (1.20-3.40) L 07/25/24 16:09 [place] # (Auto) 0.44 K/uL (0.11-0.59) 07/25/24 16:09 Eos # (Auto) 0.21 K/uL (0.00-0.50) 07/25/24 16:09 Baso # (Auto) 0.06 K/uL (0.00-0.20) 07/25/24 16:09 Immature Gran # (Auto) 0.05 K/uL (0.01-0.20) 07/25/24 16:09 Sodium 139 mmol/L (136-145) 07/25/24 16:09 Potassium 4.2 mmol/L (3.5-5.1) 07/25/24 16:09 Chloride 115 mmol/L (98-107) H 07/25/24 16:09 Carbon Dioxide 19 mmol/L (21-32) L 07/25/24 16:09 Anion Gap 5 (3-11) 07/25/24 16:09 BUN 25 mg/dl (6-23) H 07/25/24 16:09 Creatinine 1.76 mg/dl (0.6-1.4) H 07/25/24 16:09 Est Cr Clr Drug Dosing 31.5 ml/min 07/25/24 16:09 Est GFR ( Amer) 41.1 ml/min 07/25/24 16:09 Est GFR (Non-Af Amer) 35.5 ml/min 07/25/24 16:09 BUN/Creatinine Ratio 14.2 (10-20) 07/25/24 16:09 Glucose 149 mg/dl (70-99(Fasting)) H 07/25/24 16:09 Calcium 7.5 mg/dl (8.6-10.3) L 07/25/24 16:09 Total Bilirubin 0.4 mg/dl (0.2-1.0) 07/25/24 16:09 AST 25 U/L (13-39) 07/25/24 16:09 ALT 32 U/L (7-52) 07/25/24 16:09 Alkaline Phosphatase 140 U/L (34-104) H 07/25/24 16:09 Troponin I High Sens 9.2 pg/ml (0-20) 07/25/24 19:42 B-Natriuretic Peptide 965 pg/ml (0-100) H 07/25/24 16:09 Total Protein 5.5 gm/dl (6.0-8.3) L 07/25/24 16:09 Albumin 2.7 gm/dl (3.4-5.0) L 07/25/24 16:09 Globulin 2.8 gm/dl (2.5-4.0) 07/25/24 16:09 Albumin/Globulin Ratio 1.0 (0.9-2) 07/25/24 16:09 Lipase 3 U/L (11-82) L 07/25/24 16:09 Impressions Chest X-Ray 07/25/24 15:56 XR chest 1V portable HISTORY: 83 years-old Male Chest pain, nonspecific COMPARISON: 05/13/2024 TECHNIQUE: AP view of the chest FINDINGS: Cardiac silhouette is enlarged. Median sternotomy with mediastinal surgical clips. No pneumothorax. Pulmonary vascular congestion with trace pleural effusions. Prior resection of the distal left clavicle. The bones appear intact. IMPRESSION: 1. Cardiomegaly with pulmonary vascular congestion. 2. Trace pleural effusions. ACT 112: Negative or not required by law. The above report was generated using voice recognition software. It may contain grammatical, syntax or spelling errors. Electronically signed by: Rafal Amezquita M.D. 07/25/2024 4:26 PM Chest CTA 07/25/24 16:29 CT angio chest dissec wo/w con, CT angio abd pelvis wo/w con CT DOSE: 3106.16 mGy.cm HISTORY: 83 years-old Male with Dissection, chest pain, htn. Acute chest pain with hypertension. Prior Whipple procedure. TECHNIQUE: Multiple CTA images of the chest, abdomen and pelvis were obtained with and without the intravenous administration of 119 ml Optiray. Coronal and sagittal MIPS were obtained from the axial data set and were submitted for review. All measurements were obtained according to NASCET criteria. A dose lowering technique was utilized adhering to the principles of ALARA. COMPARISON: CT abdomen and pelvis 02/04/2023, chest CT 07/01/2015. FINDINGS: CTA CHEST: Mild cardiomegaly. Decreased attenuation the cardiac blood pole suggestive of anemia. Prominent left greater than right gynecomastia. Sternotomy with CABG. Moderate to extensive telida coronary artery calcifications. Atherosclerosis of the aorta without aneurysm, dissection or intramural hematoma. No central pulmonary emboli identified. Suboptimal evaluation of the segmental and subsegmental branches secondary to contrast bolus timing and respiratory motion. CT CHEST: Subcentimeter thyroid nodules. Borderline enlarged mediastinal and hilar lymph nodes measuring up to 12 mm in the right hilum favored to be reactive. Trace pleural effusions. No pneumothorax. Bronchial wall thickening. Bilateral atelectasis with air trapping and possible mild pulmonary edema. No suspicious pulmonary nodules or masses. The central airways are patent. Mild generalized body wall edema. Degenerative changes of the shoulders and spine. CTA ABDOMEN/PELVIS: Extensive atherosclerosis of the abdominal aorta and branch vessels. No abdominal aortic aneurysm or dissection. Patent iliac and imaged femoral arteries. Branches of the celiac trunk are patent. 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 Moderate stenosis at the origin of the left renal artery. Approximately 60% stenosis at the origin of the inferior mesenteric artery. CT ABDOMEN/PELVIS: No free air. Generalized body wall edema. Unremarkable spleen with anterior benign-appearing calcification. Moderate generalized pancreatic atrophy. Unremarkable adrenal glands. Cholecystectomy with pneumobilia. Hepatic steatosis. No hepatic mass identified. Mild nonspecific perinephric stranding of the left kidney. Mild inflammatory stranding adjacent to the renal pelvis on the left. Prostamegaly with brachytherapy seeds. Bladder wall thickening and spiculation with partial distention. Ckzjy-or-uijnsgel fat filled left inguinal hernia. No pathologically enlarged lymph nodes. Right nephrectomy. 5 mm nodular focus within the right nephrectomy bed on image 128, unchanged. Distal esophageal wall thickening with small hiatal hernia. Prior Whipple procedure.r umbilical hernia with diastases of 4 cm contains a nonobstructed loop of small bowel, mesenteric fat and small amount of fluid. Circumferential w all thickening of the rectosigmoid. Moderate colonic fecal retention. Prior appendectomy. No acute fracture or destructive bone lesion. Chronic appearing left-sided L3 far as detected. IMPRESSION: 1. Atherosclerosis without aneurysm, dissection or arterial occlusion identified. 2. No pulmonary emboli identified. 3. Moderate stenosis at the origin of the left renal artery. 4. Findings suggestive of a nonspecific proctocolitis. 5. Umbilical hernia contains a nonobstructed loop of ileum. 6. Probable mild pulmonary edema with trace pleural effusions. 7. Additional findings as above. ACT 112: Negative or not required by law. The above report was generated using voice recognition software. It may contain grammatical, syntax or spelling errors. Electronically signed by: Rafal Amezquita M.D. 07/25/2024 5:46 PM Abdomen/Pelvis CTA 07/25/24 16:42 CT angio chest dissec wo/w con, CT angio abd pelvis wo/w con CT DOSE: 3106.16 mGy.cm HISTORY: 83 years-old Male with Dissection, chest pain, htn. Acute chest pain with hypertension. Prior Whipple procedure. TECHNIQUE: Multiple CTA images of the chest, abdomen and pelvis were obtained with and without the intravenous administration of 119 ml Optiray. Coronal and sagittal MIPS were obtained from the axial data set and were submitted for review. All measurements were obtained according to NASCET criteria. A dose lowering technique was utilized adhering to the principles of ALARA. COMPARISON: CT abdomen and pelvis 02/04/2023, chest CT 07/01/2015. FINDINGS: CTA CHEST: Mild cardiomegaly. Decreased attenuation the cardiac blood pole suggestive of anemia. Prominent left greater than right gynecomastia. Sternotomy with CABG. Moderate to extensive telida coronary artery calcifications. Atherosclerosis of the aorta without aneurysm, dissection or intramural hematoma. No central pulmonary emboli identified. Suboptimal evaluation of the segmental and subsegmental branches secondary to contrast bolus timing and respiratory motion. CT CHEST: Subcentimeter thyroid nodules. Borderline enlarged mediastinal and hilar lymph nodes measuring up to 12 mm in the right hilum favored to be reactive. Trace pleural effusions. No pneumothorax. Bronchial wall thickening. Bilateral atelectasis with air trapping and possible mild pulmonary edema. No suspicious pulmonary nodules or masses. The central airways are patent. Mild generalized body wall edema. Degenerative changes of the shoulders and spine. CTA ABDOMEN/PELVIS: Extensive atherosclerosis of the abdominal aorta and branch vessels. No abdominal aortic aneurysm or dissection. Patent iliac and imaged femoral arteries. Branches of the celiac trunk are patent. 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 Moderate stenosis at the origin of the left renal artery. Approximately 60% stenosis at the origin of the inferior mesenteric artery. CT ABDOMEN/PELVIS: No free air. Generalized body wall edema. Unremarkable spleen with anterior benign-appearing calcification. Moderate generalized pancreatic atrophy. Unremarkable adrenal glands. Cholecystectomy with pneumobilia. Hepatic steatosis. No hepatic mass identified. Mild nonspecific perinephric stranding of the left kidney. Mild inflammatory stranding adjacent to the renal pelvis on the left. Prostamegaly with brachytherapy seeds. Bladder wall thickening and spiculation with partial distention. Eafat-zf-mhvipilj fat filled left inguinal hernia. No pathologically enlarged lymph nodes. Right nephrectomy. 5 mm nodular focus within the right nephrectomy bed on image 128, unchanged. Distal esophageal wall thickening with small hiatal hernia. Prior Whipple procedure.r umbilical hernia with diastases of 4 cm contains a nonobstructed loop of small bowel, mesenteric fat and small amount of fluid. Circumferential wall thickening of the rectosigmoid. Moderate colonic fecal retention. Prior appendectomy. No acute fracture or destructive bone lesion. Chronic appearing left-sided L3 far as detected. IMPRESSION: 1. Atherosclerosis without aneurysm, dissection or arterial occlusion identified. 2. No pulmonary emboli identified. 3. Moderate stenosis at the origin of the left renal artery. 4. Findings suggestive of a nonspecific proctocolitis. 5. Umbilical hernia contains a nonobstructed loop of ileum. 6. Probable mild pulmonary edema with trace pleural effusions. 7. Additional findings as above. ACT 112: Negative or not required by law. The above report was generated using voice recognition software. It may contain grammatical, syntax or spelling errors. Electronically signed by: Rafal Amezquita M.D. 07/25/2024 5:46 PM ECG Additional Comments: EKG with sinus bradycardia HR=40, no acute ischemic changes PG Care Time/CCT Total # of Minutes Spent Total Time Spent with Patient: Total time spent is greater than 50% in coordination of care (as documented) at patient's floor/unit and/or counseling patient: Coding Level of Care Code 41154 INT INP/OBS CARE 3/75MIN Diagnoses Bradycardia R00.1 Nonrheumatic aortic valve stenosis I35.0 Cardiac valve disease etiology: nonrheumatic Coronary artery disease involving telida coronary artery of telida heart without angina pectoris I25.10 Coronary Disease-Associated Artery/Lesion type: telida artery [place] vs. transplanted heart: telida heart Associated angina: without angina (2) Aortic stenosis Cardiac valve disease etiology: nonrheumatic Qualified Code(s): I35.0 - Nonrheumatic aortic (valve) stenosis (3) Coronary artery disease Coronary Disease-Associated Artery/Lesion type: telida artery [place] vs. transplanted heart: telida heart Associated angina: without angina Qualified Code(s): I25.10 - Atherosclerotic heart disease of telida coronary artery without angina pectoris
[2024-07-25 20:30] LABS: Troponin I High Sensitivity 9.2 pg/ml (0-20)
[2024-07-25] MEDS ORDERED: ACETAMINOPHEN 325 MG TAB PO PRN (22:48)
[2024-07-25] MEDS ORDERED: ALBUTEROL HFA 8 GM INHALER INH PRN (22:48)
[2024-07-25 23:07] LABS: Magnesium 1.4 mg/dl (1.7-2.4); Phosphorus 3.6 mg/dl (2.5-4.9)
[2024-07-25] MEDS: ATORVASTATIN 40 MG TAB PO SCH (23:15)
[2024-07-25 23:23] LABS: Thyroid Stimulating Hormone 2.701 uIu/ml (0.300-4.500)
[2024-07-26] MEDS: FLUTICASONE/VILANTEROL 100/25MCG 14 PUFFS/INHALER INH SCH (00:14)
[2024-07-26 07:24] LABS: Hematocrit (blood only) 25.9 % (42.0-52.0); Hemoglobin 8.5 g/dl (14.0-18.0); Mean Corpuscular Hemoglobin 29.7 pg (25.0-34.0); Mean Corpuscular Hgb Conc 32.8 g/dL (32.0-36.0); Mean Corpuscular Volume 90.6 fL (80.0-100.0); Mean Platelet Volume 10.6 fL (9.4-12.4); Platelet Count 257 K/uL (130-400); RDW Coefficient of Variation 17.1 % (11.5-14.5); RDW Standard Deviation 56.7 fL (36.4-46.3); Red Blood Count 2.86 M/uL (4.70-6.10); White Blood Count 5.67 K/ul (4.8-10.8)
[2024-07-26 07:40] LABS: Albumin Level 2.4 gm/dl (3.4-5.0); BUN Creatinine Ratio 14.8 (10-20); Bilirubin Direct 0.1 mg/dl (0-0.2); Bilirubin,Total 0.4 mg/dl (0.2-1.0); Calcium 8.1 mg/dl (8.6-10.3); Creatinine Clr Calc Pharmacy 31.5 ml/min; Est GFR (African American) 41.1 ml/min; Est GFR (Non-African American) 35.5 ml/min; Potassium 4.1 mmol/L (3.5-5.1); Total Protein 4.7 gm/dl (6.0-8.3)
[2024-07-26 07:46] LABS: Troponin I High Sensitivity 9.7 pg/ml (0-20)
[2024-07-26] MEDS: allopurinoL 100 MG TAB PO SCH (08:01)
[2024-07-26] MEDS: ASPIRIN 81 MG ECTAB PO SCH (08:01)
[2024-07-26] MEDS: MONTELUKAST SODIUM 10 MG TABLET PO SCH (08:01)
--- NOTE | 2024-07-26 08:58 | Cardiology Consultation ---
Date of Consultation July 26, 2024 Assessment & Plan (1) Aortic stenosis: (2) Bradycardia: (3) Chest pain: (4) Coronary artery disease: (5) Hx of CABG: (6) Iron deficiency anemia: (7) Acute heart failure with preserved ejection fraction (HFpEF): Plan ASSESSMENT/PLAN: 1. Aortic stenosis: Severe on recent outpatient echo however current echo Doppler studies likely underestimates severity as previous echo had more extensive Doppler evaluation. Exam also suggests severe aortic stenosis. With decreased exercise tolerance, and evidence of mild hypervolemia/CHF, would recommend consideration for aortic valve replacement. We discussed natural history. May be a TAVR candidate given prior sternotomy. If renal function remains stable, consider coronary angiography while hospitalized to help facilitate AVR evaluation as an outpatient. He is adamant that he is not allergic to IV dye, only red dye, but seems to get pretreated generally. 2. Chest pain: Reproducible on exam. Seems to be musculoskeletal. Prolonged pain with negative high-sensitivity troponins with pain that has been present yesterday through today. 3. Heart failure with preserved EF: He appears to be mildly hypervolemic and has had outpatient dyspnea on exertion/edema. Strict I's and O's. Low-sodium diet, less than 2000 mg daily. Daily weights. Recommend SGLT2 inhibitor. Will start Jardiance now. Can add low-dose diuretic if necessary. Would be cautious with significant diuresis currently in the setting of severe aortic stenosis and sinus bradycardia. 4. Sinus bradycardia: He reports that his heart rate at home is typically higher than what we are seeing here. May be contributing to his overall decreased exercise tolerance in conjunction with anemia, severe aortic stenosis. If he undergoes coronary angiography, higher probability of conduction abnormalities. Consider pacemaker. Agree with discontinuation of low-dose atenolol. Will discuss with his primary reactor operator and air cargo agent, Dr. Rolle. 5. CAD s/p CABG x 3: Bypass graft details are not known at the time of this note. [facility] records available for review do not mention details of the surgery. No angina. Continue antiplatelet therapy. Continue high intensity statin therapy. 6. Iron deficiency anemia: Hemoglobin was 13.1 on 05/13/2024 but now 8.5. Further investigation of anemia as per primary hospitalist service. 7. Postoperative atrial fibrillation: His only known A-fib per discussion today is postop from CABG. Stroke risk reduction anticoagulation therapy not indicated at this time. 8. Disposition: Cardiology will continue to follow. Dr. Zarate will be covering this week. Please call with questions or concerns. Patient will be signed out to on-call covering team. Patient care communicated with Dr. Demarco of the primary hospitalist service. Highly complex medical issues. Thank you for allowing me to participate in the care of your patient. Please call for any other questions or concerns. Sincerely, Hossein Lawson M.D. History of Present Illness Reason for Consultation: "hypotension, bradycardia" Requesting Physician: Shahnaz Castro DO Attending Physician: Cathy Demarco MD History of Present Illness Mr. Shaw is a very pleasant 83-year-old gentleman with a history significant for severe aortic stenosis, CAD s/p CABG x 3 ([facility] 2019 - details unknown), postoperative atrial fibrillation from CABG, hypertension, dyslipidemia, and sleep apnea. He also has a history of pancreatic cancer s/p Whipple procedure, prostate cancer, and right nephrectomy. He has received iron infusion for anemia. His primary reactor operator is Dr. Rolle. He was hospitalized on 07/25/2024 with chest discomfort. He has a history of musculoskeletal chest discomfort. He was last seen in the cardiology office on 05/28/2024 and was noted to have severe aortic stenosis but was asymptomatic. On the day of presentation, he felt a pressure and pinching sensation on his left chest, different than prior chest pain. There was no radiation, or associated shortness of breath. Chest discomfort did not change with exertion. It has been constant throughout the day yesterday and has persisted throughout his entire hospital stay here. Fortunately, the severity has improved. While at [facility], he noted dyspnea on exertion while walking in and before eating, developed the chest discomfort. He has been feeling lightheaded at times which is new. He also developed nausea and dry heaving prehospital. He has been feeling weak in general. Exercise tolerance has been declining. He has chronic lower extremity edema involving the left leg since vein harvest for his CABG but more recently, he has developed bilateral lower extremity edema. While here, he continues to have chest discomfort. He reports that he has been having frequent bowel movements but not diarrhea. Urine output increased and he is feeling better. He was noted to have elevated BNP in the ER and received IV fluids. He denies melena, hematochezia, hematuria. He denies syncope or near syncope. He denies palpitations. Review of systems: As above. Family history: Father had CAD. Social history: Quit smoking in his 40s. Denies alcohol or drug abuse. Lives at home with his . Has a biologic son and an adopted daughter who lives next-door. His and daughter were present at the bedside. Allergies Allergy/AdvReac Type Severity Reaction Status Date / Time house dust Allergy Unknown SNEEZING, Verified 07/23/24 09:15 CONGESTION Iodinated Contrast Media Allergy Unknown HIVES Verified 07/23/24 09:15 pollen extracts Allergy Unknown SNEEZING, Verified 07/23/24 09:15 CONGESTION red dye Allergy Unknown Hives Verified 07/23/24 09:15 Home Medications Medication Instructions Recorded Confirmed Type aspirin 81 mg tablet,delayed 81 mg PO QAM #90 tabs 11/07/20 07/25/24 Rx release (Ecotrin Low Strength) albuterol sulfate 90 mcg/actuation 2 puff inhalation Q4H PRN 09/06/21 07/25/24 Rx aerosol inhaler (Ventolin HFA) shortness of breath #8.5 grams cholecalciferol (vitamin D3) 25 25 mcg PO QAM 12/28/21 07/25/24 History mcg (1,000 unit) capsule mecobalamin (vitamin B12) 500 mcg 500 mcg PO QAM 09/13/23 07/25/24 History chewable tablet atorvastatin 80 mg tablet 80 mg PO HS 10/08/23 07/25/24 History fluticasone 100 mcg-salmeterol 50 1 inh inhalation BID 10/08/23 07/25/24 History mcg/dose blistr powdr for inhalation (Advair Diskus) allopurinol 100 mg tablet 100 mg PO QAM #90 tabs 11/12/23 07/25/24 Rx montelukast 10 mg tablet 10 mg PO QAM #90 tabs 11/12/23 07/25/24 Rx olmesartan 5 mg tablet 5 mg PO QAM #90 tabs 02/25/24 07/25/24 Rx solifenacin 5 mg tablet (Vesicare) 5 mg PO DAILY #90 tabs 03/25/24 07/25/24 Rx tamsulosin 0.4 mg capsule 0.4 mg PO DAILY #90 caps 03/25/24 07/25/24 Rx atenolol 50 mg tablet 25 mg (1/2 x 50 mg) PO QAM #90 tabs 04/14/24 07/25/24 Rx epoetin ebony 40,000 unit/mL 40,000 unit subcut UD 04/28/24 07/25/24 History injection solution (Procrit) fluticasone propionate 50 2 spray intranasal UD PRN 05/26/24 07/25/24 Rx mcg/actuation nasal Congestion #16 grams spray,suspension (Allergy Relief (fluticasone)) Problem List (Updated 07/26/24 @ 15:10 by Romulo Lawson MD) Acute heart failure with preserved ejection fraction (HFpEF) Nausea (Acute) Bradycardia (Acute) Chest pain (Acute) Bradycardia History of lumbosacral spine surgery Chronic low back pain Lumbosacral spondylosis Prostate cancer Asthma flares with weather changes. Last use rescue inhaler 12/10/23 due to weather. No further issues. 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 Macular degeneration injections for upcoming 12/12/23. Gastrointestinal complaint hx EGD blocked bile duct/stent Sep 2023. History of gout Fatigue easily fatigue, little energy for the last year -- currently anemic (per patient). History of COVID-19 06/2022: moderate cold symptoms. no current issues. Anemia Hyperlipidemia Pancreatic cancer dx 06/2022. whipple procedure in 08/2022 at [facility]. no chemo/no radiation needed. Atrial fibrillation controlled with medication. no cardioversion in the past. Urinary incontinence History of prostate cancer (~09/2017) treated with radiation treatments. no surgery. no current issues. Carotid artery plaque Obstructive sleep apnea of adult cpap at night Coronary artery disease of bypass graft of [place] heart with stable angina pectoris Three-vessel coronary bypass grafting March 26, 2019 HTN (hypertension) Surgical History History of esophagogastroduodenoscopy (EGD) History of cardiac cath prior to open heart sx. History of cholecystectomy History of ERCP 05/2022 History of Whipple procedure (~08/2022) done at [facility] Hx of colonoscopy Hx of hand surgery repair of laceration on left hand due to saw accident Hx of rotator cuff surgery Right X 1, Left X2 Hx of CABG X [address] [facility] ~[address] Rolle. History of nephrectomy Right 1963 - damage from kidney stones Family History Sister Breast cancer Father Coronary heart disease Congestive heart disease COPD (chronic obstructive pulmonary disease) Mother Pancreas cancer Brother Colorectal cancer Pancreas cancer Sister Coronary heart disease Stroke Sister Hypertension Other Diabetes Heart disease Lung disease No family history of adverse response to anesthesia Denies family history of Prostate cancer Social History Smoking Status: Former smoker Tobacco Type: Cigarettes, Pipe and Cigars Second Hand Exposure: No; Do You Dip or Chew Tobacco: No; Hx Alcohol Use: No Hx Substance Use: No Preferred Language: Danish Communication Ability: Effective Visual Impairment: No Limitations Hearing Ability: Hard of Hearing Cook [place] Required: No Beliefs That Will Affect Care: None marital status: Current Living Situation: Spouse current occupational status: employed and 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 Alert. HEENT: Anicteric sclera. Neck: No JVD. Bilateral bruits vs radiation of cardiac murmur. Normal carotid upstrokes bilaterally. Cardiac: Regular and bradycardic. Normal S1. Soft S2. 3/6 late peaking systolic ejection murmur heard best at right upper sternal border. No rubs or gallops. Pulmonary: Clear to auscultation bilaterally without wheezes, rales, or rhonchi. Abdomen: Soft, nontender, nondistended, with normoactive bowel sounds. No bruits noted. Extremities: 2+ radial pulses bilaterally. 2+ posterior tibialis pulses bilaterally. 1+ bilateral lower extremity edema; L > R. No cyanosis. Psychiatric: Affect appears appropriate. Chest: Tender to palpation left upper chest, reproducing his chest discomfort described in HPI. Results & Data Vital Signs (Past 12 Hours) Vital Signs Temp Pulse Pulse Resp BP Pulse Ox Pulse Ox 07/26/24 07:38 36.8 C 49 L 18 123/67 98 07/26/24 07:00 07/26/24 06:00 54 L 07/26/24 03:08 36.4 C L 52 L 18 111/56 L 97 07/26/24 01:30 38 L 07/25/24 23:54 40 L 07/25/24 22:48 41 L 07/25/24 22:48 99 07/25/24 22:40 07/25/24 22:40 36.4 C L 43 L 16 135/50 L 99 07/25/24 22:09 O2 Del Method O2 Del Method 07/26/24 07:38 Room Air 07/26/24 07:00 Room Air 07/26/24 06:00 07/26/24 03:08 Room Air 07/26/24 01:30 07/25/24 23:54 07/25/24 22:48 07/25/24 22:48 Room Air 07/25/24 22:40 Room Air 07/25/24 22:40 Room Air 07/25/24 22:09 Room Air Intake & Output 07/24/24 07/25/24 07/26/24 07/27/24 06:59 06:59 06:59 06:59 Output Total 400 / 400 Balance -400 / -400 Weight 169 lb 1.513 oz Laboratory Results Laboratory Results - last 24 hr 07/25/24 07/25/24 07/26/24 16:09 19:42 06:56 WBC 6.99 5.67 RBC 3.11 L 2.86 L Hgb 9.1 L 8.5 L Hct 28.5 L 25.9 L MCV 91.6 90.6 MCH 29.3 29.7 MCHC 31.9 L 32.8 RDW Std Deviation 58.1 H 56.7 H RDW Coeff of Karolyn 17.2 H 17.1 H Plt Count 313 257 MPV 10.6 10.6 Immature Gran % (Auto) 0.7 Neut % (Auto) 76.4 Lymph % (Auto) 12.7 [place] % (Auto) 6.3 Eos % (Auto) 3.0 Baso % (Auto) 0.9 Neut # (Auto) 5.34 Lymph # (Auto) 0.89 L [place] # (Auto) 0.44 Eos # (Auto) 0.21 Baso # (Auto) 0.06 Immature Gran # (Auto) 0.05 Sodium 139 142 Potassium 4.2 4.1 Chloride 115 H 119 H Carbon Dioxide 19 L 21 Anion Gap 5 2 L BUN 25 H 26 H Creatinine 1.76 H 1.76 H Est Cr Clr Drug Dosing 31.5 31.5 Est GFR ( Amer) 41.1 41.1 Est GFR (Non-Af Amer) 35.5 35.5 BUN/Creatinine Ratio 14.2 14.8 Glucose 149 H 99 Calcium 7.5 L 8.1 L Phosphorus 3.6 Magnesium 1.4 L Total Bilirubin 0.4 0.4 Direct Bilirubin 0.1 AST 25 28 ALT 32 34 Alkaline Phosphatase 140 H 146 H Troponin I High Sens 6.1 9.2 9.7 B-Natriuretic Peptide 965 H Total Protein 5.5 L 4.7 L Albumin 2.7 L 2.4 L Globulin 2.8 Albumin/Globulin Ratio 1.0 Lipase 3 L TSH 2.701 Random Cortisol 18.00 Lyme Disease Screen Negative Diagnostic Findings Labs reviewed and notable for normal potassium, abnormal but stable renal function, normal TSH, hypoalbuminemia, normal high-sensitivity troponin x 3, elevated BNP, normal transaminase levels, anemia with hemoglobin 8.5 however it was 13.1 on 05/13/2024. ECG personally reviewed 07/25/2024 at 1556: Sinus bradycardia 48 bpm. History and physical report reviewed. Echo 04/16/2024: Reported as normal LV systolic function. EF 55 to 60%. Mild LVH. Moderate left atrial dilation. Severe aortic stenosis (RAJ 0.8; MG 33; DI 0.24; PV 4.1). Mild MR. CTA chest/abdomen/pelvis 07/25/2024: No aortic dissection or aneurysm. No PE. Moderate stenosis at the origin of left renal artery. Findings suggestive of nonspecific proctocolitis. Umbilical hernia with nonobstructed loop of ileum. Probable mild pulmonary edema. Findings per radiology. ECHO 07/26/24: 1. Normal left ventricular size and systolic function. EF 65-70%. No regional wall motion abnormalities. No left ventricular hypertrophy. 2. Moderate left atrial dilation. 3. Visually, aortic valve appears to be severely stenotic, but Doppler studies suggest moderate aortic stenosis. 4. Trace aortic regurgitation. 5. Normal estimated right ventricular systolic pressure. 6. Compared to prior study on 04/16/2024, previous study Doppler evaluation was more extensive and suggests severe aortic stenosis. Current study Doppler eval uation likely underestimates severity of aortic stenosis. Medications Administered Current Inpatient Medications Acetaminophen (Acetaminophen 325 Mg Tab) 650 mg PO Q4H PRN PRN Reason: Pain or Fever Stop: 08/24/24 22:47 Albuterol (Albuterol Hfa 8 Gm Inhaler) 2 puffs INH Q4H PRN PRN Reason: shortness of breath Stop: 08/24/24 22:47 Allopurinol (Allopurinol 100 Mg Tab) 100 mg PO QAM [facility] Stop: 08/25/24 08:59 Last Admin: 07/26/24 08:01 Dose: 100 mg Aspirin (Aspirin 81 Mg Ectab) 81 mg PO QAM [facility] Stop: 08/25/24 08:59 Last Admin: 07/26/24 08:01 Dose: 81 mg Atorvastatin Calcium (Atorvastatin 40 Mg Tab) 80 mg PO [facility] Stop: 08/24/24 22:47 Last Admin: 07/25/24 23:15 Dose: 80 mg Fluticasone Propionate (Fluticasone Propionate Na Spr 16 Gm Btl) 2 sprays NA DAILY PRN PRN Reason: Congestion Stop: 08/24/24 22:47 Fluticasone/Vilanterol (Fluticasone/Vilanterol 100/25mcg 14 Puffs/Inhaler) 1 puffs [facility] Stop: 08/24/24 23:29 Last Admin: 07/26/24 00:14 Dose: 1 puffs Montelukast Sodium (Montelukast Sodium 10 Mg Tablet) 10 mg PO QAM [facility] Stop: 08/25/24 08:59 Last Admin: 07/26/24 08:01 Dose: 10 mg PG Care Time/CCT Total # of Minutes Spent Total Time Spent with Patient: Total time spent is greater than 50% in coordination of care (as documented) at patient's floor/unit and/or counseling patient: Coding Level of Care Code 18564 INT INP/OBS CARE 3/75MIN Diagnoses Nonrheumatic aortic valve stenosis I35.0 Cardiac valve disease etiology: nonrheumatic Bradycardia R00.1 Chest pain R07.9 Coronary artery disease involving [place] coronary artery of [place] heart without angina pectoris I25.10 Coronary Disease-Associated Artery/Lesion type: [place] artery [place] vs. transplanted heart: [place] heart Associated angina: without angina Hx of CABG Z95.1 Iron deficiency anemia D50.9 Acute heart failure with preserved ejection fraction (HFpEF) I50.31 (1) Aortic stenosis Cardiac valve disease etiology: nonrheumatic Qualified Code(s): I35.0 - Nonrheumatic aortic (valve) stenosis (4) Coronary artery disease Coronary Disease-Associated Artery/Lesion type: [place] artery [place] vs. transplanted heart: [place] heart Associated angina: without angina Qualified Code(s): I25.10 - Atherosclerotic heart disease of [place] coronary artery without angina pectoris
--- NOTE | 2024-07-26 14:05 | Hospitalist Progress Note ---
Date of Service July 26, 2024 Assessment & Plan (1) Bradycardia: Plan: 83yo male with history of CAD s/p CABG x 3V in 2019, severe (RAJ=0.8cm2) presenting with acute onset chest pain as well as bradycardia. Patient endorses developing bilateral LE edema as well. No SOB. TSH negative Lyme negative 2D echo reviewed Magnesium low. Replete. Troponins negative Atenolol held Cardiology involved Bradycardia could be contributing to exercise intolerance Pacemaker is being considered On-call scientific informatics analyst will discuss with primary scientific informatics analyst and EP scientific informatics analyst N.p.o. postmidnight (2) Aortic stenosis: Plan: Severe Associated with some mild CHF/hypervolemia Cardiology recommends aortic valve replacement, likely TAVR Patient may have a coronary angiography during this hospitalization to facilitate AVR outpatient N.p.o. postmidnight (3) Coronary artery disease: Plan: Patient presenting with chest pain as above -Continue ASA -Continue Atorvastatin 80mg po daily -Hold Atenolol and Olmesartan N.p.o. postmidnight for likely cardiac catheterization tomorrow in preparation for AVR in future Cardiology recommends further evaluation of anemia. Ordered stool guaiac to evaluate for GI losses (4) Acute heart failure with preserved ejection fraction (HFpEF): Plan: Patient is slightly overloaded with elevated BNP. Patient complains of dyspnea on exertion and has edema. However no orthopnea or PND Continue low-salt diet and fluid restriction Cardiology starting Jardiance now Will hold off on Lasix given severe aortic stenosis and bradycardia. But may consider if he becomes more symptomatic Plan Gout - chronic, stable -Continue Allopurinol COPD - chronic, stable, no cough, SOB or wheeze -Continue Advair -Albuterol PRN -Continue Singulair Communicated with scientific informatics analyst. Admission and Anticipated Discharge Date Admission Date: July 25, 2024 Subjective Patient denies chest pain or shortness of breath. He denies orthopnea or PND. Review of Systems Review of Systems: All systems reviewed & are unremarkable except as noted in Subjective Physical Exam Physical Exam: General: Awake, conversant Heart: S1, S2/slow rate regular rhythm, 2/6 systolic murmur best heard in the right second intercostal space Lungs: Clear to auscultation bilaterally. Normal effort Abdomen: Soft/nontender/nondistended. No hepatosplenomegaly Extremities: No clubbing/cyanosis. 1+ pitting bilateral edema Behavior: Appropriate, cooperative Results & Data Results & Data Vital Signs (Past 12 Hours) Vital Signs Temp Pulse Pulse Resp BP Pulse Ox O2 Del Method 07/26/24 11:39 36.4 C L 48 L 18 118/56 L 97 Room Air 07/26/24 07:38 36.8 C 49 L 18 123/67 98 Room Air 07/26/24 07:00 Room Air 07/26/24 06:00 54 L 07/26/24 03:08 36.4 C L 52 L 18 111/56 L 97 Room Air Laboratory Results Abnormal lab results 07/25/24 07/25/24 07/26/24 Range/Units 16:09 19:42 06:56 RBC 3.11 L 2.86 L (4.70-6.10) M/uL Hgb 9.1 L 8.5 L (14.0-18.0) g/dl Hct 28.5 L 25.9 L (42.0-52.0) % MCHC 31.9 L (32.0-36.0) g/dL RDW Std Deviation 58.1 H 56.7 H (36.4-46.3) fL RDW Coeff of Karolyn 17.2 H 17.1 H (11.5-14.5) % Lymph # (Auto) 0.89 L (1.20-3.40) K/uL Chloride 115 H 119 H (98-107) mmol/L Carbon Dioxide 19 L (21-32) mmol/L Anion Gap 2 L (3-11) BUN 25 H 26 H (6-23) mg/dl Creatinine 1.76 H 1.76 H (0.6-1.4) mg/dl Glucose 149 H (70-99(Fasting)) mg/dl Calcium 7.5 L 8.1 L (8.6-10.3) mg/dl Magnesium 1.4 L (1.7-2.4) mg/dl Alkaline Phosphatase 140 H 146 H (34-104) U/L B-Natriuretic Peptide 965 H (0-100) pg/ml Total Protein 5.5 L 4.7 L (6.0-8.3) gm/dl Albumin 2.7 L 2.4 L (3.4-5.0) gm/dl Lipase 3 L (11-82) U/L PG Care Time/CCT Total # of Minutes Spent Total Time Spent with Patient: Total time spent is greater than 50% in coordination of care (as documented) at patient's floor/unit and/or counseling patient: Coding Level of Care Code 52201 SUB INP/OBS CARE 2/35MIN Diagnoses Bradycardia R00.1 Nonrheumatic aortic valve stenosis I35.0 Cardiac valve disease etiology: nonrheumatic Coronary artery disease involving [place] coronary artery of [place] heart without angina pectoris I25.10 Associated angina: without angina Coronary Disease-Associated Artery/Lesion type: [place] artery [place] vs. transplanted heart: [place] heart Acute heart failure with preserved ejection fraction (HFpEF) I50.31 (2) Aortic stenosis Cardiac valve disease etiology: nonrheumatic Qualified Code(s): I35.0 - Nonrheumatic aortic (valve) stenosis (3) Coronary artery disease Associated angina: without angina Coronary Disease-Associated Artery/Lesion type: [place] artery [place] vs. transplanted heart: [place] heart Qualified Code(s): I25.10 - Atherosclerotic heart disease of [place] coronary artery without angina pectoris
--- NOTE | 2024-07-26 14:26 | XCELERA ---
[id number] \\[id number]
[2024-07-26] MEDS: MAGNESIUM SULFATE / D5W 1 GM/100 ML BAG IV SCH (16:02)
[2024-07-26] MEDS: EMPAGLIFLOZIN 10 MG TAB PO SCH (16:54)
--- NOTE | 2024-07-26 21:39 | Electrocardiogram Report ---
Test Reason : Blood Pressure : */* mmHG Vent. Rate : 40 BPM Atrial Rate : 40 BPM P-R Int : 162 ms QRS Dur : 82 ms QT Int : 474 ms P-R-T Axes : 61 -7 15 degrees QTcB Int : 386 ms Marked sinus bradycardia Abnormal ECG When compared with ECG of 13-May-2024 10:32, Vent. rate has decreased by 23 bpm Confirmed by Romulo Lawson ([id number]) on 07/26/2024 9:39:02 PM Referred By: Confirmed By: Romulo Lawson
[2024-07-27] MEDS: FLUTICASONE PROPIONATE NA SPR 16 GM BTL PRN (09:22)
--- NOTE | 2024-07-27 10:44 | Cardiology Progress Note ---
Date of Service July 27, 2024 Assessment & Plan (1) Aortic stenosis: Plan: 2. Sinus bradycardia 3. CAD post three-vessel [id number] [facility] [place] 4. Musculoskeletal chest pain 5. HFpEF 6. Anemia 7. Acute on CKDpost right nephrectomy 8. History of pancreatic cancer post Whipple, prostate cancer Brief chest pain this morning again seems noncardiac. He reports feeling at recent baseline with exertional fatigue Remains in sinus bradycardia in the 30s to 40s On exam today well-perfused with no congestion Proceed with coronary angiography via left radial artery as part of possible TAVR. Will pretreat for possible contrast allergy Continue to monitor on telemetry, consideration of pacemaker per Dr. Rolle Continue SGLT2 Continue current aspirin, statin Admission and Anticipated Discharge Date Admission Date: July 25, 2024 Subjective Feeling well this morning. Had brief episode of chest pain while pulling/pushin g himself out of bed. Chest pain resolved quickly without intervention. Telemetry reviewedsustained sinus bradycardia in 40s, as low as high 30s Review of Systems Review of Systems: All systems reviewed & are unremarkable except as noted in Subjective Physical Exam Physical Exam: General: Comfortable HEENT: Sclerae anicteric Lungs: Clear to auscultation bilaterally Cardiac: Regular, bradycardic, no murmurs Vascular: 2+ radial Abdomen: Soft, nontender Extremities: Well perfused, no peripheral edema Neuro: Nonfocal Psych: Alert orient x3, normal affect and mood Results & Data Vital Signs (Past 12 Hours) Vital Signs Temp Pulse Pulse Resp BP BP Pulse Ox 07/27/24 08:27 98.6 F 54 L 18 117/56 L 98 07/27/24 06:00 39 L 07/27/24 04:27 97.7 F 53 L 16 130/67 98 07/26/24 23:53 97.5 F L 51 L 16 97/47 L 96 07/26/24 22:58 52 L 07/26/24 22:48 O2 Del Method O2 Del Method 07/27/24 08:27 Room Air 07/27/24 06:00 07/27/24 04:27 Room Air 07/26/24 23:53 Room Air 07/26/24 22:58 07/26/24 22:48 Room Air PG Care Time/CCT Total # of Minutes Spent Total Time Spent with Patient: Total time spent is greater than 50% in coordination of care (as documented) at patient's floor/unit and/or counseling patient: Coding Level of Care Code 70399 SUB INP/OBS CARE MIN Diagnoses Nonrheumatic aortic valve stenosis I35.0 Cardiac valve disease etiology: nonrheumatic (1) Aortic stenosis Cardiac valve disease etiology: nonrheumatic Qualified Code(s): I35.0 - Nonrheumatic aortic (valve) stenosis
--- NOTE | 2024-07-27 10:45 | Pre Anesthesia Assessment ---
Date of Service July 27, 2024 Pre Sedation Assessment Vital Signs Temp Pulse Pulse Resp BP BP Pulse Ox 07/27/24 08:27 98.6 F 54 L 18 117/56 L 98 07/27/24 06:00 39 L 07/27/24 04:27 97.7 F 53 L 16 130/67 98 07/26/24 23:53 97.5 F L 51 L 16 97/47 L 96 07/26/24 22:58 52 L 07/26/24 22:48 07/26/24 20:11 97.5 F L 50 L 18 130/61 97 07/26/24 20:00 07/26/24 15:40 97.5 F L 60 18 113/61 99 07/26/24 14:00 47 L 07/26/24 11:39 97.5 F L 48 L 18 118/56 L 97 O2 Del Method O2 Del Method 07/27/24 08:27 Room Air 07/27/24 06:00 07/27/24 04:27 Room Air 07/26/24 23:53 Room Air 07/26/24 22:58 07/26/24 22:48 Room Air 07/26/24 20:11 Room Air 07/26/24 20:00 Room Air 07/26/24 15:40 Room Air 07/26/24 14:00 07/26/24 11:39 Room Air Cardiovascular + regular rate Respiratory + respiratory effort normal Pre-Sedation Airway Assessment Smoking Status: Former smoker Hx Sleep Apnea: No Hx Difficult Intubation: No Thyromental Distance: > or= 3.5 Finger Breadths Oral Cavity: + WNL Mallampati Class: III ASA: ASA3 Procedure Planning Contraindications for Sedation: none Current Medications Reviewed: Yes Notes The planned sedation has been discussed with the patient. Informed Consent was obtained. I have identified the patient, determined the appropriateness of sedation and have assessed the patient immediately prior to the procedure. All medicine(s) and interventions are by my order.
[2024-07-27] MEDS: diphenhydrAMINE 50 MG/ML VIAL ONE (11:08)
[2024-07-27] MEDS: FAMOTIDINE 20MG/5ML IV PUSH IV ONE (11:09)
[2024-07-27] MEDS: methylPREDNISolone 125 MG/2 ML VIAL ONE (11:09)
[2024-07-27] MEDS: LIDOCAINE 1% LOCAL 20 ML VIAL ONE (11:29)
[2024-07-27] MEDS: HEPARIN (PORCINE) 1000 UNIT/ML 10 ML (CATH LAB USE ONLY) ONE (11:30)
[2024-07-27] MEDS: MIDAZOLAM HCL 1 MG/ML 2ML VIAL ONE (11:43)
[2024-07-27] MEDS: fentaNYL citrate PF 100 MCG/2 ML VIAL ONE (11:43)
[2024-07-27] MEDS: niCARdipine HCL INJ 2.5 MG/ML 10 ML AMP ONE (11:44)
[2024-07-27] MEDS: IODIXANOL (VISIPAQUE) 320 MG/ML 100ML IV ONE (11:45)
--- NOTE | 2024-07-27 11:49 | Post Anesthesia Assessment ---
Date of Service July 27, 2024 Post Sedation Assessment Vital Signs Temp Pulse Pulse Resp BP BP Pulse Ox 07/27/24 10:51 47 L 14 151/47 H 98 07/27/24 08:27 98.6 F 54 L 18 117/56 L 98 07/27/24 06:00 39 L 07/27/24 04:27 97.7 F 53 L 16 130/67 98 07/26/24 23:53 97.5 F L 51 L 16 97/47 L 96 07/26/24 22:58 52 L 07/26/24 22:48 07/26/24 20:11 97.5 F L 50 L 18 130/61 97 07/26/24 20:00 07/26/24 15:40 97.5 F L 60 18 113/61 99 07/26/24 14:00 47 L O2 Del Method O2 Del Method 07/27/24 10:51 Room Air 07/27/24 08:27 Room Air 07/27/24 06:00 07/27/24 04:27 Room Air 07/26/24 23:53 Room Air 07/26/24 22:58 07/26/24 22:48 Room Air 07/26/24 20:11 Room Air 07/26/24 20:00 Room Air 07/26/24 15:40 Room Air 07/26/24 14:00 Recovery Score Activity: Moves 4 extremities Respiration: Deep Breath/Cough Circulation: +/-20% PreAnes Value Consciousness: Fully Awake Oxygen Saturation: O2 needed for >90% Discharge Sedation Level of Care: Fast Track Phase II Post Sedation Plan On clinical assessment, the patient appears to have tolerated the sedation without complications. Patient is recovering as anticipated. Patient will continue to be monitored by nursing and may be discharged when sedation discharge criteria are met per below protocol. Upon Completions of procedure up to 15 minutes continue every 5 minute vital signs and the P.A.R. score; then discharge to a Phase I or Fast Track to Phase II per the following guidelines: * Discharge Patient to appropriate Phase II area if PAR is 8 or greater or return to pre- procedure baseline. The post - procedure orders will be as directed. * If PAR score is less than 8 or not return to pre-procedure baseline then patient will follow Phase I monitoring till PAR is reached for Phase II. The Phase I may be done in procedure room or may call to secure a Phase I area. * If naloxone or flumazenil are used for reversal, hold in Phase I for continued monitoring from when last reversal dose was given for a minimum of 60 minutes or longer pending the nurse and/or physician discretion of patient condition before discharge to Phase II. Please call the Sedation Physician to re-evaluate and complete post-note for discharge to Phase II area. Do NOT discharge from procedure sedation or Phase 1 until post- sedation evaluation note is complete by procedure /sedation MD Sedation Discharge Instructions to be given to the patient at discharge to home.
--- NOTE | 2024-07-27 12:08 | Cardiac Catheterization ---
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 Cardiac Status Clinical evaluation leading to the procedure CAD Presenation: Sx unlikely to be ischemic Diagnostic Physicians Name: Pato Hilario MD Closure Device Recommendations: Medical Therapy and/or Counseling and Valve Replacement Cardiac Cath Procedure Full Procedure Date July 27, 2024 Pre-Procedure Diagnosis Pre-Procedure Diagnosis: Angina, CAD and Valvular Disease AUC Score AUC Score: 7 Post-Procedure Diagnosis Post-Procedure Diagnosis: Severe CAD Procedure(s) Performed Procedure(s) Performed: Coronary Angiography, Bypass Graft Angiography and Radial Artery Angiography Studio Designer Pato Hilario MD Finance Advisor(s) [place] Estimated Blood Loss Estimated Blood Loss: 10 Medication(s) Medication(s): Fentanyl, Heparin, Lidocaine 1%, Nicardipine, Nitroglycerin and Versed Medication(s): Pretreated with Solu-Medrol, Benadryl, famotidine Summary of Findings Indication: Severe aortic stenosis, chest pain Access: 6 Fr slender left radial artery Catheters: JL 3.5, JR4, MPA Findings: LM -normal caliber, calcified 50 % distal stenosis extending into ostial LAD/circumflex LAD -medium caliber vessel, calcified proximally. 60% ostial stenosis. LAD gives off a large D1 with 60% ostial stenosis. Competitive flow in mid LAD segment. Circumflex -large caliber, 50-60% ostial, 40% distal. Competitive flow in OM 2. Medium OM 3, left PLB without significant disease. RCA -dominant, medium caliber, moderate to severe diffuse mid to distal disease up to 70% at crux. 80% distal disease before takeoff of PDA. 95% ostial RPDA stenosis. LIMALADwidely patent. LAD after anastomosis without significant disease SVGOMwidely patent. OM after anastomosis widely patent. Retrofills remainder of circumflex system. SVGPDAwidely patent. PDA after anastomosis widely patent Arterial Closure: TR band Summary: 1. Widely patent HARRIS to LAD, SVG to OM, SVG to PDA. 2. Severe chronic [place] multivessel coronary artery disease -50% distal left main 55% ostia, 40% distal circumflex Diffuse mid RCA up to 70%. 80% distal RCA. 95% ostial RPDA 60% ostial LAD. 60% ostial large D1 Recommendations: Proceed with TAVR evaluation. Continued ASCVD risk factor modification Hemodynamics Rest Ao:: 141/46/87 Final Ao: 135/43/76 LV: -- Recommendations Recommendations: Medical Therapy and/or Counseling and Valve Replacement Specimens Specimens: None Radiation Exposure (mGy) 1301 Contrast (mls) 65 Anesthesia Moderate 6930-2391 Procedural Complication(s) None Disposition PCU I attest to the content of the Intraoperative Record and any orders documented therein. Any exceptions are noted below. [facility] Card Cath Procedure Codes Cardiac Catheterization Procedure 1: Cardiovascular Cath Procedures: 08385 Coronaries and Grafts/IM (venous & atrial) & RHC Moderate Sedation Procedure 1: Sedation/Anesthesia: 46112 Mod Sedation by the same physician;Init15 Min Child Age 5 & Up PG Care Time/CCT Total # of Minutes Spent Total Time Spent with Patient: Total time spent is greater than 50% in coordination of care (as documented) at patient's floor/unit and/or counseling patient:
--- NOTE | 2024-07-27 15:22 | Hospitalist Progress Note ---
Date of Service July 27, 2024 Assessment & Plan (1) Bradycardia: Plan: 83yo male with history of CAD s/p CABG x 3V in 2019, severe (RAJ=0.8cm2) presenting with acute onset chest pain as well as bradycardia. Patient endorses developing bilateral LE edema as well. No SOB. TSH negative Lyme negative 2D echo reviewed Magnesium low. Replete. Troponins negative Atenolol held Cardiology involved Bradycardia could be contributing to exercise intolerance Pacemaker is being considered. Awaiting evaluation by Dr. Rolle. (2) Aortic stenosis: Plan: Severe Associated with some mild CHF/hypervolemia Cardiology recommends aortic valve replacement, likely TAVR Patient had a cardiac catheterization done today. Results reviewed. Patient may proceed with AVR in near future (3) Coronary artery disease: Plan: Patient presenting with chest pain as above -Continue ASA -Continue Atorvastatin 80mg po daily -Hold Atenolol and Olmesartan Cardiac catheterization completed 07/27. Results reviewed. No active coronary disease needing immediate attention. (4) Acute heart failure with preserved ejection fraction (HFpEF): Plan: Patient is slightly overloaded with elevated BNP. Patient complains of dyspnea on exertion and has edema. However no orthopnea or PND Continue low-salt diet and fluid restriction Cardiology started Jardiance Will hold off on Lasix given severe aortic stenosis and bradycardia. But may consider if he becomes more symptomatic Plan Gout - chronic, stable -Continue Allopurinol COPD - chronic, stable, no cough, SOB or wheeze -Continue Advair -Albuterol PRN -Continue Singulair Full code Admission and Anticipated Discharge Date Admission Date: July 25, 2024 Subjective Patient just had cardiac catheterization done. Cath report reviewed. Review of Systems Review of Systems: All systems reviewed & are unremarkable except as noted in Subjective Physical Exam Physical Exam: General: Awake, conversant Heart: S1, S2/slow rate regular rhythm, 2/6 systolic murmur best heard in the right second intercostal space Lungs: Clear to auscultation bilaterally. Normal effort Abdomen: Soft/nontender/nondistended. No hepatosplenomegaly Extremities: No clubbing/cyanosis. 1+ pitting bilateral edema Behavior: Appropriate, cooperative Results & Data Results & Data Vital Signs (Past 12 Hours) Vital Signs Temp Pulse Pulse Resp BP BP Pulse Ox 07/27/24 12:54 36.3 C L 41 L 18 170/54 H 100 07/27/24 12:39 36.3 C L 41 L 18 173/76 H 100 07/27/24 12:33 36.3 C L 40 L 20 150/50 H 100 07/27/24 12:10 45 L 18 132/44 L 97 07/27/24 11:55 40 L 18 144/89 H 97 07/27/24 10:51 47 L 14 151/47 H 98 07/27/24 08:27 37.0 C 54 L 18 117/56 L 98 07/27/24 06:00 39 L 07/27/24 04:27 36.5 C 53 L 16 130/67 98 O2 Del Method 07/27/24 12:54 Room Air 07/27/24 12:39 Room Air 07/27/24 12:33 Room Air 07/27/24 12:10 Room Air 07/27/24 11:55 Room Air 07/27/24 10:51 Room Air 07/27/24 08:27 Room Air 07/27/24 06:00 07/27/24 04:27 Room Air Laboratory Results Abnormal lab results 07/27/24 Range/Units 07:30 POC Glucose 100 H (70-99) mg/dl PG Care Time/CCT Total # of Minutes Spent Total Time Spent with Patient: Total time spent is greater than 50% in coordination of care (as documented) at patient's floor/unit and/or counseling patient: Coding Level of Care Code 09920 SUB INP/OBS CARE 235MIN Diagnoses Bradycardia R00.1 Nonrheumatic aortic valve stenosis I35.0 Cardiac valve disease etiology: nonrheumatic Coronary artery disease involving crow coronary artery of crow heart without angina pectoris I25.10 Coronary Disease-Associated Artery/Lesion type: crow artery [place] vs. transplanted heart: crow heart Associated angina: without angina Acute heart failure with preserved ejection fraction (HFpEF) I50.31 (2) Aortic stenosis Cardiac valve disease etiology: nonrheumatic Qualified Code(s): I35.0 - Nonrheumatic aortic (valve) stenosis (3) Coronary artery disease Coronary Disease-Associated Artery/Lesion type: [place] artery [place] vs. transplanted heart: crow heart Associated angina: without angina Qualified Code(s): I25.10 - Atherosclerotic heart disease of crow coronary artery without angina pectoris
[2024-07-27] MEDS: NITROGLYCERIN/D5W 100MCG/ML 20ML SYR ONE (17:44)
[2024-07-27] MEDS: SODIUM CHLORIDE 0.9% 1,000 ML IV SCH (17:45)
[2024-07-28 08:49] LABS: Hematocrit (blood only) 24.9 % (42.0-52.0); Hemoglobin 7.9 g/dl (14.0-18.0); Mean Corpuscular Hemoglobin 28.5 pg (25.0-34.0); Mean Corpuscular Hgb Conc 31.7 g/dL (32.0-36.0); Mean Corpuscular Volume 89.9 fL (80.0-100.0); Mean Platelet Volume 11.3 fL (9.4-12.4); Platelet Count 202 K/uL (130-400); RDW Coefficient of Variation 17.2 % (11.5-14.5); RDW Standard Deviation 57.4 fL (36.4-46.3); Red Blood Count 2.77 M/uL (4.70-6.10); White Blood Count 5.02 K/ul (4.8-10.8)
[2024-07-28 09:06] LABS: BUN Creatinine Ratio 15.6 (10-20); Calcium 7.4 mg/dl (8.6-10.3); Creatinine Clr Calc Pharmacy 26.1 ml/min; Est GFR (African American) 32.8 ml/min; Est GFR (Non-African American) 28.3 ml/min; Potassium 4.2 mmol/L (3.5-5.1)
--- NOTE | 2024-07-28 09:40 | Cardiology Progress Note ---
Date of Service July 28, 2024 Assessment & Plan (1) Aortic stenosis: Plan: 2. Sinus bradycardia 3. [id number] [facility] [place] catheterization yesterday. 4. Musculoskeletal chest pain 5. HFpEF. Well compensated currently. 6. Anemia 7. Acute on CKDpost right nephrectomy 8. History of pancreatic cancer post Whipple, prostate cancer At this point it seems reasonable to place referral to [facility] to consider TAVR. I will initiate this process He does have sinus bradycardia. Difficult to determine if he is symptomatic. I think if he is ambulatory around the tate without symptoms he can be discharged with outpatient follow-up. If it seems like his evaluation for TAVR will be quite far into the future, I would likely have him come back for an outpatient pacemaker. Can continue aspirin, atorvastatin and Jardiance at discharge Atenolol discontinued. I advised him to refrain from strenuous activity until he is evaluated for his valve replacement. He should avoid vigorous use of the left hand and wrist for 7 days. No lifting greater than 5 lb. Admission and Anticipated Discharge Date Admission Date: July 25, 2024 Subjective This morning patient claimed he feeling well. Still some mild chest pressure at times, but much improved since admission. He reports being ambulatory around the room to the bathroom and back. He did not report any weakness in his legs, dizziness, shortness of breath or other problems with ambulation. Left hand feels good. No symptoms. Review of Systems Review of Systems: Per HPI Physical Exam Physical Exam: General: Comfortable HEENT: Sclerae anicteric Lungs: Normal respiratory effort Cardiac: Regular rhythm with slow rate. Vascular: 2+ radial. Good perfusion of the left hand. No ecchymosis at the left radial access site. Extremities: Well perfused, no peripheral edema Neuro: Nonfocal Psych: Alert orient x3, normal affect and mood Results & Data Vital Signs (Past 12 Hours) Vital Signs Temp Pulse Pulse Resp BP Pulse Ox O2 Del Method 07/28/24 07:36 36.4 C L 48 L 18 121/64 98 Room Air 07/28/24 06:00 41 L 07/28/24 02:59 36.6 C 49 L 18 139/65 98 Room Air 07/27/24 22:59 39 L 07/27/24 22:51 36.6 C 47 L 18 121/60 96 Room Air Laboratory Results Abnormal Lab Results 07/28/24 08:23 WBC 5.02 RBC 2.77 L Hgb 7.9 L Hct 24.9 L MCV 89.9 MCH 28.5 MCHC 31.7 L RDW Std Deviation 57.4 H RDW Coeff of Karolyn 17.2 H Plt Count 202 MPV 11.3 Sodium 139 Potassium 4.2 Chloride 116 H Carbon Dioxide 20 L Anion Gap 3 BUN 33 H Creatinine 2.12 H Est Cr Clr Drug Dosing 26.1 Est GFR ( Amer) 32.8 Est GFR (Non-Af Amer) 28.3 BUN/Creatinine Ratio 15.6 Glucose 127 H Calcium 7.4 L PG Care Time/CCT Total # of Minutes Spent Total Time Spent with Patient: Total time spent is greater than 50% in coordination of care (as documented) at patient's floor/unit and/or counseling patient: Coding Level of Care Code 61166 SUB INP/OBS CARE 235MIN Diagnoses Nonrheumatic aortic valve stenosis I35.0 Cardiac valve disease etiology: nonrheumatic (1) Aortic stenosis Cardiac valve disease etiology: nonrheumatic Qualified Code(s): I35.0 - Nonrheumatic aortic (valve) stenosis
[2024-07-28] MEDS ORDERED: SODIUM CHLORIDE 0.9% 250 ML IV PRN (10:17)
--- NOTE | 2024-07-28 14:58 | Hospitalist Progress Note ---
Date of Service July 28, 2024 Assessment & Plan (1) Bradycardia: Plan: 83yo male with history of CAD s/p CABG x 3V in 2019, severe (RAJ=0.8cm2) presenting with acute onset chest pain as well as bradycardia. Patient endorses developing bilateral LE edema as well. No SOB. TSH negative Lyme negative 2D echo reviewed Magnesium low. Replete. Troponins negative Atenolol held Cardiology involved Bradycardia could be contributing to exercise intolerance Pacemaker may be considered outpatient Dr. Rolle recommended that the patient ambulate and if he is not symptomatic with ambulation, he is cleared from a cardiology standpoint. (2) Aortic stenosis: Plan: Severe Associated with some mild CHF/hypervolemia Cardiology recommends aortic valve replacement, likely TAVR Patient had a cardiac catheterization done 07/27. Results reviewed. Patient may proceed with AVR in near future (3) Coronary artery disease: Plan: Patient presenting with chest pain as above -Continue ASA -Continue Atorvastatin 80mg po daily -Hold Atenolol and Olmesartan Cardiac catheterization completed 07/27. Results reviewed. No active coronary d isease needing immediate attention. Ordered a unit of blood since hemoglobin down to 7.9 in a patient with severe aortic stenosis and coronary artery disease. Stool guaiac negative. Would like to keep hemoglobin above 8 (4) Acute heart failure with preserved ejection fraction (HFpEF): Plan: Patient is slightly overloaded with elevated BNP. Patient complains of dyspnea on exertion and has edema. However no orthopnea or PND Continue low-salt diet and fluid restriction Cardiology started Jardiance Will hold off on Lasix given severe aortic stenosis and bradycardia. But may consider if he becomes more symptomatic (5) Acute kidney injury superimposed on stage 3b chronic kidney disease: Plan: Patient has solitary left kidney and has CKD stage III with creatinine between 1.7-1.9 has baseline Patient had contrast exposure on 07/27 for the cardiac catheterization Today creatinine is slightly bumped at 2.1. Will monitor creatinine closely Hold olmesartan Hold nephrotoxic medications Plan Gout - chronic, stable -Continue Allopurinol COPD - chronic, stable, no cough, SOB or wheeze -Continue Advair -Albuterol PRN -Continue Singulair Full code Admission and Anticipated Discharge Date Admission Date: July 25, 2024 Subjective Patient feels well overall. Denies chest pain or shortness of breath. Tells me that he has a single kidney. Denies dizziness or lightheadedness. Review of Systems Review of Systems: All systems reviewed & are unremarkable except as noted in Subjective Physical Exam Physical Exam: General: Awake, conversant Heart: S1, S2/slow rate regular rhythm, 2/6 systolic murmur best heard in the right second intercostal space Lungs: Clear to auscultation bilaterally. Normal effort Abdomen: Soft/nontender/nondistended. No hepatosplenomegaly Extremities: No clubbing/cyanosis. 1+ pitting bilateral edema Behavior: Appropriate, cooperative Results & Data Results & Data Vital Signs (Past 12 Hours) Vital Signs Temp Pulse Pulse Resp BP BP BP 07/28/24 14:46 36.4 C L 42 L 18 134/67 07/28/24 14:21 47 L 18 131/57 L 07/28/24 13:21 46 L 18 115/58 L 07/28/24 12:51 36.5 C 47 L 18 109/56 L 07/28/24 12:36 36.5 C 49 L 18 129/60 07/28/24 12:18 36.6 C 49 L 18 126/67 07/28/24 10:41 36.3 C L 58 L 19 128/79 07/28/24 07:36 36.4 C L 48 L 18 121/64 07/28/24 06:00 41 L 07/28/24 02:59 36.6 C 49 L 18 139/65 Pulse Ox O2 Del Method 07/28/24 14:46 98 07/28/24 14:21 99 07/28/24 13:21 97 07/28/24 12:51 99 07/28/24 12:36 99 07/28/24 12:18 98 07/28/24 10:41 99 Room Air 07/28/24 07:36 98 Room Air 07/28/24 06:00 07/28/24 02:59 98 Room Air Laboratory Results Abnormal lab results 07/28/24 07/28/24 Range/Units 08:23 10:28 RBC 2.77 L (4.70-6.10) M/uL Hgb 7.9 L (14.0-18.0) g/dl Hct 24.9 L (42.0-52.0) % MCHC 31.7 L (32.0-36.0) g/dL RDW Std Deviation 57.4 H (36.4-46.3) fL RDW Coeff of Karolyn 17.2 H (11.5-14.5) % Chloride 116 H (98-107) mmol/L Carbon Dioxide 20 L (21-32) mmol/L BUN 33 H (6-23) mg/dl Creatinine 2.12 H (0.6-1.4) mg/dl Glucose 127 H (70-99(Fasting)) mg/dl Calcium 7.4 L (8.6-10.3) mg/dl Crossmatch See Detail PG Care Time/CCT Total # of Minutes Spent Total Time Spent with Patient: Total time spent is greater than 50% in coordination of care (as documented) at patient's floor/unit and/or counseling patient: Coding Level of Care Code 16868 SUB INP/OBS CARE 2/35MIN Diagnoses Bradycardia R00.1 Nonrheumatic aortic valve stenosis I35.0 Cardiac valve disease etiology: nonrheumatic Coronary artery disease involving [place] coronary artery of [place] heart without angina pectoris I25.10 Associated angina: without angina Coronary Disease-Associated Artery/Lesion type: [place] artery [place] vs. transplanted heart: [place] heart Acute heart failure with preserved ejection fraction (HFpEF) I50.31 Acute kidney injury superimposed on stage 3b chronic kidney disease N17.9; N18.32 (2) Aortic stenosis Cardiac valve disease etiology: nonrheumatic Qualified Code(s): I35.0 - Nonrheumatic aortic (valve) stenosis (3) Coronary artery disease Associated angina: without angina Coronary Disease-Associated Artery/Lesion type: [place] artery [place] vs. transplanted heart: [place] heart Qualified Code(s): I25.10 - Atherosclerotic heart disease of [place] coronary artery without angina pectoris
[2024-07-29 06:53] LABS: Hematocrit (blood only) 27.3 % (42.0-52.0); Hemoglobin 8.7 g/dl (14.0-18.0); Mean Corpuscular Hemoglobin 28.1 pg (25.0-34.0); Mean Corpuscular Hgb Conc 31.9 g/dL (32.0-36.0); Mean Corpuscular Volume 88.1 fL (80.0-100.0); Mean Platelet Volume 10.6 fL (9.4-12.4); Platelet Count 236 K/uL (130-400); RDW Coefficient of Variation 18.9 % (11.5-14.5); RDW Standard Deviation 61.2 fL (36.4-46.3); White Blood Count 5.65 K/ul (4.8-10.8)
[2024-07-29 07:00] LABS: BUN Creatinine Ratio 17.5 (10-20); Calcium 7.4 mg/dl (8.6-10.3); Creatinine Clr Calc Pharmacy 28.5 ml/min; Est GFR (African American) 36.6 ml/min; Est GFR (Non-African American) 31.5 ml/min; Potassium 4.6 mmol/L (3.5-5.1)
--- NOTE | 2024-07-29 13:45 | Hospitalist Progress Note ---
Date of Service July 29, 2024 Assessment & Plan (1) Bradycardia: Plan: 83yo male with history of CAD s/p CABG x 3V in 2019, severe (RAJ=0.8cm2) presenting with acute onset chest pain as well as bradycardia. Patient endorses developing bilateral LE edema as well. No SOB. TSH negative Lyme negative 2D echo reviewed Magnesium low. Replete. Troponins negative Atenolol held Cardiology involved Bradycardia could be contributing to exercise intolerance Pacemaker may be considered outpatient Dr. Rolle recommended that the patient ambulate and if he is not symptomatic with ambulation, he is cleared from a cardiology standpoint. Patient has been ambulating without any symptoms. (2) Aortic stenosis: Plan: Severe Associated with some mild CHF/hypervolemia Cardiology recommends aortic valve replacement, likely TAVR Patient had a cardiac catheterization done 07/27. Results reviewed. Patient may proceed with AVR in near future (3) Coronary artery disease: Plan: Patient presenting with chest pain as above -Continue ASA -Continue Atorvastatin 80mg po daily -Hold Atenolol and Olmesartan Cardiac catheterization completed 07/27. Results reviewed. No active coronary disease needing immediate attention. Ordered a unit of blood on 07/28 with improvement in hemoglobin today at 8.7 today. Stool guaiac negative. Would like to keep hemoglobin above 8 (4) Acute heart failure with preserved ejection fraction (HFpEF): Plan: Patient is slightly overloaded with elevated BNP. Patient complains of dyspnea on exertion and has edema. However no orthopnea or PND Continue low-salt diet and fluid restriction Cardiology started Jardiance Will hold off on Lasix given severe aortic stenosis and bradycardia. But may consider if he becomes more symptomatic (5) Acute kidney injury superimposed on stage 3b chronic kidney disease: Plan: Patient has solitary left kidney and has CKD stage III with creatinine between 1.7-1.9 has baseline Patient had contrast exposure on 07/27 for the cardiac catheterization Today creatinine is better from 2.1 down to 1.9 today. Will monitor creatinine closely Hold olmesartan Hold nephrotoxic medications Plan Gout - chronic, stable -Continue Allopurinol COPD - chronic, stable, no cough, SOB or wheeze -Continue Advair -Albuterol PRN -Continue Singulair Full code Likely discharge tomorrow provided creatinine stable PT/OT consulted Admission and Anticipated Discharge Date Admission Date: July 25, 2024 Subjective Patient feels well overall. Denies any chest pain or shortness of breath. He has been walking around in the room in the hallway without any dizziness or lightheadedness. Review of Systems Review of Systems: All systems reviewed & are unremarkable except as noted in Subjective Physical Exam Physical Exam: General: Awake, conversant Heart: S1, S2/slow rate regular rhythm, 2/6 systolic murmur best heard in the right second intercostal space Lungs: Clear to auscultation bilaterally. Normal effort Abdomen: Soft/nontender/nondistended. No hepatosplenomegaly Extremities: No clubbing/cyanosis. 1+ pitting bilateral edema Behavior: Appropriate, cooperative Results & Data Results & Data Vital Signs (Past 12 Hours) Vital Signs Temp Pulse Resp BP Pulse Ox O2 Del Method 07/29/24 10:44 36.5 C 84 19 133/56 L 94 Room Air 07/29/24 07:32 36.5 C 47 L 17 134/63 95 Room Air 07/29/24 02:48 36.7 C 49 L 18 125/60 93 Room Air Laboratory Results Abnormal lab results 07/28/24 07/29/24 Range/Units 10:28 06:05 RBC 3.10 L (4.70-6.10) M/uL Hgb 8.7 L (14.0-18.0) g/dl Hct 27.3 L (42.0-52.0) % MCHC 31.9 L (32.0-36.0) g/dL RDW Std Deviation 61.2 H (36.4-46.3) fL RDW Coeff of Karolyn 18.9 H (11.5-14.5) % Chloride 115 H (98-107) mmol/L Anion Gap 2 L (3-11) BUN 34 H (6-23) mg/dl Creatinine 1.94 H (0.6-1.4) mg/dl Calcium 7.4 L (8.6-10.3) mg/dl Crossmatch See Detail PG Care Time/CCT Total # of Minutes Spent Total Time Spent with Patient: Total time spent is greater than 50% in coordination of care (as documented) at patient's floor/unit and/or counseling patient: Coding Level of Care Code 01826 SUB INP/OBS CARE 2/35MIN Diagnoses Bradycardia R00.1 Nonrheumatic aortic valve stenosis I35.0 Cardiac valve disease etiology: nonrheumatic Coronary artery disease involving tan[place] coronary artery of tanacross heart without angina pectoris I25.10 Coronary Disease-Associated Artery/Lesion type: tanacross artery Teller vs. transplanted heart: tanacross heart Associated angina: without angina Acute heart failure with preserved ejection fraction (HFpEF) I50.31 Acute kidney injury superimposed on stage 3b chronic kidney disease N17.9; N18.32 (2) Aortic stenosis Cardiac valve disease etiology: nonrheumatic Qualified Code(s): I35.0 - Nonrheumatic aortic (valve) stenosis (3) Coronary artery disease Coronary Disease-Associated Artery/Lesion type: tanacross artery Teller vs. transplanted heart: tanacross heart Associated angina: without angina Qualified Code(s): I25.10 - Atherosclerotic heart disease of tan[place] coronary artery without angina pectoris
[2024-07-30 06:46] LABS: BUN Creatinine Ratio 19.8 (10-20); Calcium 7.5 mg/dl (8.6-10.3); Creatinine Clr Calc Pharmacy 33.1 ml/min; Est GFR (African American) 43.8 ml/min; Est GFR (Non-African American) 37.8 ml/min; Potassium 4.2 mmol/L (3.5-5.1)
--- NOTE | 2024-07-30 10:18 | Discharge Summary ---
Date of Service July 30, 2024 Admission HPI Per Admitting Provider Osmany Shaw is an 83yo male with [place] of [place] [facility] [place] severe per echo 04/16/24 (RAJ=0.8cm2, aortic mean pressure gradient=32.8mmHg) as well as Gout, HTN, HLP and GREGORY presenting from home with chest discomfort. Patient was in [place] today. He has been in his usual state of health until this afternoon around lunch time when he developed substernal chest discomfort. The discomfort was located on the left side, squeezing pressure, 8/10 in severity. He had an episode of loose stools, non-bloody/non-mucoid. He was driving home and developed some nausea and dry heaves which prompted him to present to the ER. He has ongoing chest discomfort but nausea has resolved. Patient also reports bilateral LE edema which he noticed today. Generalized weakness. He denies SOB, dizziness or syncope. No weight gain. In the ER patient has been bradycardic with HR in the 30's to 40's. His blood pressure has been elevated. ER Course: Benadryl 50mg IV Solumedrol 40mg IV Admission Exam Per Admitting Provider General: patient resting comfortably, NAD, non-toxic in appearance, AA&O x 4 Skin: warm, dry, intact, no rashes or lesions, appears somewhat pale HEENT: NC/AT, PERRL, EOMI, anicteric sclera, conjunctiva without injection, external ear normal to inspection and nontender, nares patent, moist mucus membranes, dentition intact, no oropharyngeal lesions, neck supple, trachea midline, no LAD, no thyromegaly, no JVD Heart: +S1/S2, regular, bradycardic, 4/6 MARIO at left 2nd ICS with radiation across the precordium and to bilateral carotids Lungs: equal air entry bilaterally, crackles present in bilateral lung bases, no rhonchi or wheeze Abd: +BS, soft, ND, tender to palpation in mid-abdomen, no masses/organomegaly/ascites Ext: warm, 2+ pulses in UE/LE bilaterally, no clubbing/cyanosis, 2+ edema of bilateral LE Neuro: nonfocal, patient AA&O x 4, speech intact, no facial droop, moving all extremities on command with equal strength 5/5 Principal Diagnosis Sinus bradycardia Severe aortic stenosis, to be considered for TAVR in near future Contrast-induced nephropathy, leading to mild KANDI on CKD stage III Single kidney with CKD stage III Anemia Discharge Exam General: Awake, conversant Heart: S1, S2/slow rate regular rhythm, 2/6 systolic murmur best heard in the right second intercostal space Lungs: Clear to auscultation bilaterally. Normal effort Abdomen: Soft/nontender/nondistended. No hepatosplenomegaly Extremities: No clubbing/cyanosis. 1+ pitting bilateral edema Behavior: Appropriate, cooperative Discharge Data Allergies Allergy/AdvReac Type Severity Reaction Status Date / Time house dust Allergy Unknown SNEEZING, Verified 07/23/24 09:15 CONGESTION Iodinated Contrast Media Allergy Unknown HIVES Verified 07/23/24 09:15 pollen extracts Allergy Unknown SNEEZING, Verified 07/23/24 09:15 CONGESTION red dye Allergy Unknown Hives Verified 07/23/24 09:15 Consultations 07/25/24 19:52 ED Decision to Admit Stat 07/25/24 22:48 Consult Cardiology Routine Procedures Performed Operation Date: 07/27/24 10:30 Actual Procedures s Cineradiography w/Routine Exam - Pato Hilario MD p Cath, Left w/Cors Vent Grafts - Pato Hilario MD Ordered Studies 07/25/24 16:29 CT angio chest dissec wo/w con Stat 07/25/24 16:42 CT angio abd pelvis wo/w con Stat 07/27/24 10:22 CL Cath Imgs for PACS use only Routine Hospital Course (1) Bradycardia: 83yo male with history of CAD s/p CABG x 3V in 2019, severe (RAJ=0.8cm2) presenting with acute onset chest pain as well as bradycardia. Patient endorses developing bilateral LE edema as well. No SOB. TSH negative Lyme negative 2D echo reviewed Magnesium low. Replete. Troponins negative Atenolol held Cardiology involved Bradycardia could be contributing to exercise intolerance Pacemaker may be considered outpatient Dr. Rolle recommended that the patient ambulate and if he is not symptomatic with ambulation, he is cleared from a cardiology standpoint. Patient has been ambulating without any symptoms. (2) Aortic stenosis: Severe Associated with some mild CHF/hypervolemia Cardiology recommends aortic valve replacement, likely TAVR Patient had a cardiac catheterization done 9/9. Results reviewed. Patient may proceed with AVR in near future (3) Acute kidney injury superimposed on stage 3b chronic kidney disease: Patient has solitary left kidney and has CKD stage III with creatinine between 1.7-1.9 has baseline Patient had contrast exposure on 07/27 for the cardiac catheterization Creatinine went up to as high as 2.1 due to contrast-induced nephropathy Trended down to 1.6 today Back to baseline Resume home losartan Advised patient to see his protective clothing issuer in 1 week. (4) Coronary artery disease: Patient presenting with chest pain as above -Continue ASA -Continue Atorvastatin 80mg po daily -Hold Atenolol Resumed olmesartan Cardiac catheterization completed 07/27. Results reviewed. No active coronary disease needing immediate attention. Patent grafts Ordered a unit of blood on 07/28 with improvement in hemoglobin at 8.7. Stool guaiac negative. Would like to keep hemoglobin above 8 (5) Acute heart failure with preserved ejection fraction (HFpEF): Patient is slightly overloaded with elevated BNP. Patient complains of dyspnea on exertion and has edema. However no orthopnea or PND Continue low-salt diet and fluid restriction Cardiology started Jardiance Will hold off on Lasix given severe aortic stenosis and bradycardia. But may consider if he becomes more symptomatic Plan Gout - chronic, stable -Continue Allopurinol COPD - chronic, stable, no cough, SOB or wheeze -Continue Advair -Albuterol PRN -Continue Singulair Full code Discharge to home Total Time Total Time Spent Total Time Spent (In Minutes): 35 Discharge Plan Discharge Items Patient Disposition: Home - Self-Care Reason For Visit: HYPOTENSION, BRADYCARDIA Discharge Diagnosis: Sinus bradycardia Severe aortic stenosis, to be considered for TAVR in near future Contrast-induced nephropathy, leading to mild KANDI on CKD stage III Single kidney with CKD stage III Anemia Activity: Resume your previous activity Activity Comment: Avoid strenuous until evaluated for valve replacement Lifting: No more than 5 pounds Exercise/Sports: Wait until after follow-up appointment Non-emergency contact: Primary Care Provider Call non-emergency contact if: you have any medication questions and your symptoms worsen Follow-up/Referrals: Pato Castle MD [Primary Care Provider] - 08/06/24 1:00 pm (Hospital follow up scheduled August 06 at 1:00 with Vianey Eyer, [employer]INE [employer]) Diet: Heart Healthy Addtl Attending Provider Instructions: Advised to follow-up with PCP in 1 week Advised to follow-up with protective clothing issuer in 1 week Advised to note that you are being referred to [facility] interventional cardiology to consider TAVR Advised to note that you may also need a pacemaker Advised to stop taking atenolol Pending Studies at Discharge: No Stand-Alone Forms: [facility] Medications and DC Order Prescriptions: Continued aspirin [Ecotrin Low Strength] 81 mg tablet,delayed release (DR/EC) 81 mg PO QAM Qty: 90 3RF cholecalciferol (vitamin D3) 25 mcg (1,000 unit) capsule 25 mcg PO QAM allopurinol 100 mg tablet 100 mg PO QAM Qty: 90 3RF montelukast 10 mg tablet 10 mg PO QAM Qty: 90 3RF olmesartan 5 mg tablet 5 mg PO QAM Qty: 90 3RF albuterol sulfate [Ventolin HFA] 90 mcg/actuation HFA aerosol inhaler 2 puff INH Q4H PRN (Reason: shortness of breath) Qty: 8.5 3RF tamsulosin 0.4 mg capsule 0.4 mg PO DAILY Qty: 90 3RF solifenacin [Vesicare] 5 mg tablet 5 mg PO DAILY Qty: 90 3RF mecobalamin (vitamin B12) 500 mcg tablet,chewable 500 mcg PO QAM fluticasone propionate [Allergy Relief (fluticasone)] 50 mcg/actuation spray,suspension 2 spray intranasal UD PRN (Reason: Congestion) Qty: 16 3RF Rx Instructions: administer into each nostril Procrit 40,000 unit/mL solution 40,000 unit subcut UD atorvastatin 80 mg tablet 80 mg PO HS fluticasone propion-salmeterol [Advair Diskus] 100-50 mcg/dose blister with device 1 inh inhalation BID Discontinued atenolol 50 mg tablet 25 mg PO QAM Qty: 90 3RF Discharge Orders: Discharge Order (Routine); Ordered 07/30/24 Ordered By: Cathy Huertas/Other Patient Handouts: Symptoms of a Heart Attack, Monitoring Kidney Health, Understanding Bradycardia Admission Data Admit Date/Time: 07/25/24 20:16 Attending Provider: Cathy Demarco Admit Provider: Shahnaz Castro Primary Care Provider: Pato Castle Other Providers: Shahnaz Castro; Romulo Lawson Other Interventions: Discharge Summary Assessment (RN) Last Done: 07/30/24 10:50
[2024-07-30 10:34] VITALS: BP 141/61; RESP 16; TEMP 97.9; O2SAT 98
[2024-07-30 10:49] VITALS: PULSE 45
== END 2024-07-30 12:47 | disposition home or self-care (01) | DRG 286 ==
LOC: ED 15:46 → 2S 20:16 → SUATTDRO 20:16 → 2S 22:09

== ENCOUNTER 2024-08-20 09:02 | Inpatient (IN) ==
--- NOTE | 2024-08-20 10:00 | Emergency Department Note ---
Impression & Plan Norovirus, Sepsis ED Provider Note NAME: NANCY MILLER AGE: 83 SEX: M : 1940 ARRIVES VIA: Walk-In INFORMANT: Patient, ED PROVIDER(S): LETICIA Olivas, Kavita Brasher DO CHIEF COMPLAINT: Fever HISTORY OF PRESENT ILLNESS: This 83-year-old male patient presents to the emergency department via private vehicle for evaluation of chills and fevers since Saturday night. The reports last night he had a fever of 103.5F. She reports she called Dr. Castle, who stated to give the patient Tylenol and repeat the temperature. She reports her repeat temp was 103.1F, with no resolution of the patient's symptoms. The patient states he has been having abdominal pain, and diarrhea for the last few days. He states he is also having some intermittent low back pain, and slight chest discomfort. The patient denies nausea or vomiting. He reports no dysuria. He reports a history of a Whipple procedure. His vital signs are currently stable, he is afebrile on exam. REVIEW OF SYSTEMS: A review of systems was performed with positives and pertinent negatives listed in the history of present illness. All other systems were reviewed and are negative. ALLERGIES: See below MEDICATIONS: See below PMH: See below PHYSICAL EXAM: VITALS: Vitals are noted on the nurse's note and reviewed by myself. Vital signs stable. GENERAL: 83-year-old male, in no acute distress, nondiaphoretic, well-developed well-nourished. SKIN: The skin was without rashes, erythema, edema, or bruising. HEAD: Normocephalic atraumatic. EYES: Pupils equal round and reactive to light and accommodation. Conjunctivae without injection, sclerae without icterus. Extraocular movements intact. NOSE: Patent, turbinates without inflammation or discharge. No sinus tenderness. MOUTH: Mucous membranes moist. Pharynx without erythema or exudate. Uvula midline. Airway patent. Tongue does not deviate. NECK: Supple without nuchal rigidity. No lymphadenopathy. No thyromegaly. Cervical spine is nontender. No JVD. HEART: Regular rate and rhythm without murmurs gallops or rubs. LUNGS: Clear to auscultation bilaterally without wheezes, rales or rhonchi. No retractions or accessory muscle use. ABDOMEN: Positive bowel sounds x 4. Soft, tender to palpation midline of the abdomen, no rebound tenderness or guarding. MUSCULOSKELETAL: No muscle atrophy, erythema, or edema noted. Strength 5/5 throughout. NEURO: Patient was alert and oriented to person place and time. No focal neurological deficits. MEDICAL DECISION MAKING: The patient is a pleasant 83-year-old male who arrives to the emergency department for evaluation of the above-stated complaint. A saline lock was established, a sepsis workup was obtained. CBC shows no leukocytosis, CMP shows hypokalemia of 3.0, creatinine 1.9, magnesium1.2. Initial troponin of 40.8, with repeat 44.6. Procalcitonin 8.96, lactate negative. The patient has a history of a nephrectomy, so caution was used with fluid resuscitation. 1 L of normal saline was provided to meet sepsis protocol, with maintenance fluids of 125 cc/h. 4.5 g of IV Zosyn were provided for broad- spectrum antimicrobial coverage. CT imaging of the abdomen and pelvis was obtained without IV contrast due to elevated creatinine, which shows wall thickening of the rectosigmoid, with adjacent perirectal inflammatory stranding likely representing a nonspecific proctocolitis. There appears to be no sign of obstruction, and a possible 2.5 cm right hepatic lobe lesion which will require follow-up to exclude metastasis. Chest x-ray imaging shows no sign of pneumonia, or other acute cardiopulmonary process. Urinalysis was obtained which showed no sign of infection, stool culture was obtained which was positive for norovirus. Due to the abnormalities in the labs, as well as the patients reported fevers, I believe the patient requires hospital admission for IV abx as well as careful fluid resuscitation. I spoke with case management who facilitated contact with the [facility] hospitalist group for admission. Dr. Bryan agreed to accept the patient under his care. Please refer to his documentation for further patient workup. DIFFERENTIAL DIAGNOSIS: Sepsis, UTI, pneumonia, metabolic, electrolyte abnormalities, cardiac sources, intracerebral event, toxicologic, neurologic, as well as other pathologies. The patient's case was discussed with Dr. Brasher, who agreed with my evaluation and treatment plan. Continuous community board member: Order was placed for continuous community board member. Patient was placed on the community board member. Patient was noted to be in normal sinus rhythm at an initial rate of 89 bpm. The chart was completed utilizing [employer] Speech voice recognition software. Grammatical errors, random word insertions, pronoun errors, and incomplete sentences are an occasional consequence of this system due to software limitations, ambient noise, and hardware issues. Any formal questions or concerns about the content, text, or information contained within the body of this dictation should be directly addressed to the physician for clarification. Past Med/Surg History Problem List (Updated 08/20/24 @ 19:00 by LETICIA Wallis) Sepsis (Acute) Norovirus (Acute) Acute kidney injury superimposed on stage 3b chronic kidney disease Acute heart failure with preserved ejection fraction (HFpEF) Nausea (Acute) Bradycardia (Acute) Chest pain (Acute) Bradycardia History of lumbosacral spine surgery Chronic low back pain Lumbosacral spondylosis Prostate cancer Asthma flares with weather changes. Last use rescue inhaler 12/10/23 due to weather. No further issues. 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 Macular degeneration injections for upcoming 12/12/23. Gastrointestinal complaint hx EGD blocked bile duct/stent Sep 2023. History of gout Fatigue easily fatigue, little energy for the last year -- currently anemic (per patient). History of COVID-19 06/2022: moderate cold symptoms. no current issues. Anemia Hyperlipidemia Pancreatic cancer dx 06/2022. whipple procedure in 08/2022 at [facility]. no chemo/no radiation needed. Atrial fibrillation controlled with medication. no cardioversion in the past. Urinary incontinence History of prostate cancer (~09/2017) treated with radiation treatments. no surgery. no current issues. Carotid artery plaque Obstructive sleep apnea of adult cpap at night Coronary artery disease of bypass graft of [place] heart with stable angina pectoris Three-vessel coronary bypass grafting March 26, 2019 HTN (hypertension) Surgical History History of esophagogastroduodenoscopy (EGD) History of cardiac cath prior to open heart sx. History of cholecystectomy History of ERCP 05/2022 History of Whipple procedure (~08/2022) done at [facility] Hx of colonoscopy Hx of hand surgery repair of laceration on left hand due to saw accident Hx of rotator cuff surgery Right X 1, Left X2 Hx of CABG X 3 vessels at [facility] Rolle. History of nephrectomy Right 1963 - damage from kidney stones Family History Sister Breast cancer Father Coronary heart disease Congestive heart disease COPD (chronic obstructive pulmonary disease) Mother Pancreas cancer Brother Colorectal cancer Pancreas cancer Sister Coronary heart disease Stroke Sister Hypertension Other Diabetes Heart disease Lung disease No family history of adverse response to anesthesia Denies family history of Prostate cancer Social History Smoking Status: Former smoker Tobacco Type: Cigarettes, Pipe and Cigars Second Hand Exposure: No; Do You Dip or Chew Tobacco: No; Hx Alcohol Use: No Hx Substance Use: No Preferred Language: Swazi Communication Ability: Effective Visual Impairment: No Limitations Hearing Ability: Hard of Hearing Fitness Floor Attendant Required: No Beliefs That Will Affect Care: None and Holiness Holiness Beliefs: Free Restorationist marital status: Current Living Situation: Spouse current occupational status: employed and 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 Other Information That Helps Us Care for You: No Feels Safe at Home: Yes Safety Concerns: Feels Safe At This Time Childhood Exposure to Second-Hand Smoke: Yes Diet: regular caffeine: No during the past year weight has: decreased > 10 lbs Dental Care, Regularly: No Physical Activity Frequency: Daily Seatbelt Use: always Sunscreen Use: Yes Do you think of yourself as: straight/heterosexual Gender Identity: Male Assistive Devices: Cane, CPAP and Walker Allergies Allergies Allergy/AdvReac Type Severity Reaction Status Date / Time house dust Allergy Unknown SNEEZING, Verified 08/19/24 10:15 CONGESTION Iodinated Contrast Media Allergy Unknown HIVES Verified 08/19/24 10:15 pollen extracts Allergy Unknown SNEEZING, Verified 08/19/24 10:15 CONGESTION red dye Allergy Unknown Hives Verified 08/19/24 10:15 Home Meds Home Medications Medication Instructions Recorded Confirmed cholecalciferol (vitamin D3) 25 25 mcg PO QAM 12/28/21 08/20/24 mcg (1,000 unit) capsule mecobalamin (vitamin B12) 500 mcg 500 mcg PO QAM 09/13/23 08/20/24 chewable tablet atorvastatin 80 mg tablet 80 mg PO HS 10/08/23 08/20/24 fluticasone 100 mcg-salmeterol 50 1 inh inhalation BID 10/08/23 08/20/24 mcg/dose blistr powdr for inhalation (Advair Diskus) epoetin ebony 40,000 unit/mL 40,000 unit subcut UD 04/28/24 08/20/24 injection solution (Procrit) solifenacin 5 mg tablet (Vesicare) 5 mg PO QAM 08/20/24 08/20/24 tamsulosin 0.4 mg capsule 0.4 mg PO HS 08/20/24 08/20/24 Previous Rx's Medication Instructions Recorded aspirin 81 mg tablet,delayed 81 mg PO QAM #90 tabs 11/07/20 release (Ecotrin Low Strength) albuterol sulfate 90 mcg/actuation 2 puff inhalation Q4H PRN 09/06/21 aerosol inhaler (Ventolin HFA) shortness of breath #8.5 grams allopurinol 100 mg tablet 100 mg PO QAM #90 tabs 11/12/23 montelukast 10 mg tablet 10 mg PO QAM #90 tabs 11/12/23 olmesartan 5 mg tablet 5 mg PO QAM #90 tabs 02/25/24 empagliflozin 10 mg tablet 10 mg PO DAILY #30 tabs 08/06/24 (Jardiance) fluticasone propionate 50 2 spray intranasal UD PRN 08/06/24 mcg/actuation nasal Congestion #16 grams spray,suspension (Allergy Relief (fluticasone)) Results & Data (ED) Vital Signs Vital Signs - 24 hr 08/20/24 09:19 08/20/24 09:44 08/20/24 10:00 Temperature 36.6 C Temperature Source Oral Pulse Rate 97 H 89 85 Pulse Rate [Apical] Pulse Rate from SpO2 Sensor 84 Pulse Rhythm Regular Pulse Strength Normal Respiratory Rate 16 20 Respiratory Effort / Characteristics Non-Labored Spontaneous Respiratory Depth Normal Respiratory Pattern Regular Blood Pressure 74/39 L 99/55 L Blood Pressure [Left Arm] Blood Pressure Mean 50 69 Blood Pressure Mean [Left Arm] Blood Pressure Position Sitting Pulse Oximetry 97 96 Oxygen Delivery Method Room Air Sepsis Recent Fever Within 48 Hours No Sepsis New/Unexplained Change in Mental Status No Sepsis Action Taken by Nursing No Action Required 08/20/24 10:07 08/20/24 10:30 08/20/24 12:01 Temperature 36.0 C L Temperature Source Oral Pulse Rate 89 76 Pulse Rate [Apical] 71 Pulse Rate from SpO2 Sensor 74 Pulse Rhythm Regular Pulse Strength Respiratory Rate 16 19 21 Respiratory Effort / Characteristics Non-Labored Respiratory Depth Normal Respiratory Pattern Regular Blood Pressure 100/48 L Blood Pressure [Left Arm] 110/61 Blood Pressure Mean 64 Blood Pressure Mean [Left Arm] 77 Blood Pressure Position Pulse Oximetry 97 99 100 Oxygen Delivery Method Room Air Room Air Sepsis Recent Fever Within 48 Hours Sepsis New/Unexplained Change in Mental Status Sepsis Action Taken by Nursing 08/20/24 13:25 08/20/24 13:39 08/20/24 13:45 Temperature Temperature Source Pulse Rate 55 L 59 L Pulse Rate [Apical] 58 L Pulse Rate from SpO2 Sensor Pulse Rhythm Pulse Strength Respiratory Rate 18 21 Respiratory Effort / Characteristics Non-Labored Spontaneous Respiratory Depth Normal Respiratory Pattern Regular Blood Pressure 101/55 L Blood Pressure [Left Arm] 102/53 L Blood Pressure Mean 68 Blood Pressure Mean [Left Arm] 69 Blood Pressure Position Pulse Oximetry 100 97 Oxygen Delivery Method Room Air Sepsis Recent Fever Within 48 Hours Sepsis New/Unexplained Change in Mental Status Sepsis Action Taken by Nursing 08/20/24 14:15 08/20/24 14:17 08/20/24 14:32 Temperature Temperature Source Pulse Rate 59 L 62 Pulse Rate [Apical] 66 Pulse Rate from SpO2 Sensor 60 Pulse Rhythm Pulse Strength Respiratory Rate 21 16 15 Respiratory Effort / Characteristics Non-Labored Respiratory Depth Normal Respiratory Pattern Regular Blood Pressure 105/54 L 125/51 L Blood Pressure [Left Arm] 105/54 L Blood Pressure Mean 70 81 Blood Pressure Mean [Left Arm] 71 Blood Pressure Position Pulse Oximetry 97 99 100 Oxygen Delivery Method Room Air Sepsis Recent Fever Within 48 Hours Sepsis New/Unexplained Change in Mental Status Sepsis Action Taken by Nursing 08/20/24 14:45 Temperature Temperature Source Pulse Rate 62 Pulse Rate [Apical] Pulse Rate from SpO2 Sensor Pulse Rhythm Pulse Strength Respiratory Rate 20 Respiratory Effort / Characteristics Respiratory Depth Respiratory Pattern Blood Pressure 125/58 L Blood Pressure [Left Arm] Blood Pressure Mean 87 Blood Pressure Mean [Left Arm] Blood Pressure Position Pulse Oximetry 100 Oxygen Delivery Method Sepsis Recent Fever Within 48 Hours Sepsis New/Unexplained Change in Mental Status Sepsis Action Taken by [facility] Medications Current Medication List: was personally reviewed by me Laboratory Data Attestation: I reviewed the patient's lab results. 08/20/24 09:40 08/20/24 09:40 Lab Results 08/20/24 08/20/24 08/20/24 Range/Units 09:40 10:27 10:30 WBC 9.22 (4.8-10.8) K/ul RBC 3.17 L (4.70-6.10) M/uL Hgb 9.3 L (14.0-18.0) g/dl Hct 27.2 L (42.0-52.0) % MCV 85.8 (80.0-100.0) fL MCH 29.3 (25.0-34.0) pg MCHC 34.2 (32.0-36.0) g/dL RDW Std Deviation 54.3 H (36.4-46.3) fL RDW Coeff of Karolyn 17.2 H (11.5-14.5) % Plt Count 233 (130-400) K/uL MPV 10.6 (9.4-12.4) fL Immature Gran % (Auto) 0.7 % Neut % (Auto) 88.2 % Lymph % (Auto) 4.3 % [place] % (Auto) 6.2 % Eos % (Auto) 0.3 % Baso % (Auto) 0.3 % Neut # (Auto) 8.13 H (1.40-6.50) K/uL Lymph # (Auto) 0.40 L (1.20-3.40) K/uL [place] # (Auto) 0.57 (0.11-0.59) K/uL Eos # (Auto) 0.03 (0.00-0.50) K/uL Baso # (Auto) 0.03 (0.00-0.20) K/uL Immature Gran # (Auto) 0.06 (0.01-0.20) K/uL Sodium 138 (136-145) mmol/L Potassium 3.0 L (3.5-5.1) mmol/L Chloride 113 H (98-107) mmol/L Carbon Dioxide 18 L (21-32) mmol/L Anion Gap 7 (3-11) BUN 22 (6-23) mg/dl Creatinine 1.90 H (0.6-1.4) mg/dl Est Cr Clr Drug Dosing 27.0 ml/min eGFR 35.00 BUN/Creatinine Ratio 11.6 (10-20) Glucose 84 (70-99(Fasting)) mg/dl Lactate 0.9 (0.4-2.0) mmol/L Calcium 7.7 L (8.6-10.3) mg/dl Magnesium 1.2 L (1.7-2.4) mg/dl Total Bilirubin 0.7 (0.2-1.0) mg/dl Direct Bilirubin 0.3 H (0-0.2) mg/dl AST 20 (13-39) U/L ALT 21 (7-52) U/L Alkaline Phosphatase 123 H (34-104) U/L Troponin I High Sens 40.8 H (0-20) pg/ml Total Protein 5.0 L (6.0-8.3) gm/dl Albumin 2.5 L (3.4-5.0) gm/dl Globulin 2.5 (2.5-4.0) gm/dl Albumin/Globulin Ratio 1.0 (0.9-2) Lipase (11-82) U/L Procalcitonin 8.96 H (0-0.5) ng/ml Urine Color Urine Appearance (Clear) Urine pH (4.5-7.5) Ur Specific [place] (1.000-1.030) Urine Protein (Negative) Urine Glucose (UA) (Negative) Urine Ketones (Negative) Urine Blood (Negative) Urine Nitrite (Negative) Urine Bilirubin (Negative) Urine Urobilinogen (Negative) Ur Leukocyte Esterase (Negative) Urine WBC (Auto) (0-5) /hpf Urine RBC (Auto) (0-2) /hpf U Hyaline Cast (Auto) (0-2) /lpf U Epithel Cells (Auto) (0-2) /hpf Urine Bacteria (Auto) (None Seen) Stl C. cayetanensis PCR (NotDetected) Stool Rotavirus A PCR (NotDetected) Stl Adenov F 40/41 PCR (NotDetected) Stool Astrovirus (PCR) (NotDetected) Stool Campylobacter PCR (NotDetected) Stool Cryptosporidium PCR (NotDetected) Stl E.coli Shiga Tox PCR (NotDetected) Stl Enterotoxigenic E PCR (NotDetected) Stool EPEC (PCR) (NotDetected) Stool EAEC (PCR) (NotDetected) Stl E. histolytica PCR (NotDetected) Stool Giardia Lamblia PCR (NotDetected) Stool Salmonella PCR (NotDetected) Stool Sapovirus (PCR) (NotDetected) Stl P. shigelloides PCR (NotDetected) Stl Shigella/EIEC PCR (NotDetected) St Y.enterocolitica PCR (NotDetected) Stool Vibrio (PCR) (NotDetected) Stl Vibrio cholerae PCR (NotDetected) Stl Norovirus GI/GII PCR (NotDetected) Adenovirus (PCR) Not Detected (NotDetected) B. pertussis DNA (PCR) Not Detected (NotDetected) B.parapertussis DNA PCR Not Detected (NotDetected) C. pneumoniae DNA (PCR) Not Detected (NotDetected) Coronavirus OC43 (PCR) Not Detected (NotDetected) Coronavirus HKU1 (PCR) Not Detected (NotDetected) Coronavirus 229E (PCR) Not Detected (NotDetected) SARS-CoV-2 (PCR) Not Detected (NotDetected) Coronavirus NL63 (PCR) Not Detected (NotDetected) Human Metapneumovir PCR Not Detected (NotDetected) Influenza Type A (PCR) Not Detected (NotDetected) Influenza Type B (PCR) Not Detected (NotDetected) M. pneumoniae (PCR) Not Detected (NotDetected) Parainfluenza 1 (PCR) Not Detected (NotDetected) Parainfluenza 2 (PCR) Not Detected (NotDetected) Parainfluenza 3 (PCR) Not Detected (NotDetected) Parainfluenza 4 (PCR) Not Detected (NotDetected) RSV (PCR) Not Detected (NotDetected) Entero/Rhino (PCR) Not Detected (NotDetected) 08/20/24 08/20/24 Range/Units 12:03 13:00 WBC (4.8-10.8) K/ul RBC (4.70-6.10) M/uL Hgb (14.0-18.0) g/dl Hct (42.0-52.0) % MCV (80.0-100.0) fL MCH (25.0-34.0) pg MCHC (32.0-36.0) g/dL RDW Std Deviation (36.4-46.3) fL RDW Coeff of Karolyn (11.5-14.5) % Plt Count (130-400) K/uL MPV (9.4-12.4) fL Immature Gran % (Auto) % Neut % (Auto) % Lymph % (Auto) % [place] % (Auto) % Eos % (Auto) % Baso % (Auto) % Neut # (Auto) (1.40-6.50) K/uL Lymph # (Auto) (1.20-3.40) K/uL [place] # (Auto) (0.11-0.59) K/uL Eos # (Auto) (0.00-0.50) K/uL Baso # (Auto) (0.00-0.20) K/uL Immature Gran # (Auto) (0.01-0.20) K/uL Sodium (136-145) mmol/L Potassium (3.5-5.1) mmol/L Chloride (98-107) mmol/L Carbon Dioxide (21-32) mmol/L Anion Gap (3-11) BUN (6-23) mg/dl Creatinine (0.6-1.4) mg/dl Est Cr Clr Drug Dosing ml/min eGFR BUN/Creatinine Ratio (10-20) Glucose (70-99(Fasting)) mg/dl Lactate (0.4-2.0) mmol/L Calcium (8.6-10.3) mg/dl Magnesium (1.7-2.4) mg/dl Total Bilirubin (0.2-1.0) mg/dl Direct Bilirubin (0-0.2) mg/dl AST (13-39) U/L ALT (7-52) U/L Alkaline Phosphatase (34-104) U/L Troponin I High Sens 44.6 H (0-20) pg/ml Total Protein (6.0-8.3) gm/dl Albumin (3.4-5.0) gm/dl Globulin (2.5-4.0) gm/dl Albumin/Globulin Ratio (0.9-2) Lipase 4 L (11-82) U/L Procalcitonin (0-0.5) ng/ml Urine Color Yellow Urine Appearance Clear (Clear) Urine pH 5.0 (4.5-7.5) Ur Specific [place] 1.010 (1.000-1.030) Urine Protein Negative (Negative) Urine Glucose (UA) Negative (Negative) Urine Ketones Negative (Negative) Urine Blood Negative (Negative) Urine Nitrite Negative (Negative) Urine Bilirubin Negative (Negative) Urine Urobilinogen Negative (Negative) Ur Leukocyte Esterase Trace H (Negative) Urine WBC (Auto) 0-5 (0-5) /hpf Urine RBC (Auto) 0-2 (0-2) /hpf U Hyaline Cast (Auto) 3-5 H (0-2) /lpf U Epithel Cells (Auto) 3-5 H (0-2) /hpf Urine Bacteria (Auto) None Seen (None Seen) Stl C. cayetanensis PCR Not Detected (NotDetected) Stool Rotavirus A PCR Not Detected (NotDetected) Stl Adenov F 40/41 PCR Not Detected (NotDetected) Stool Astrovirus (PCR) Not Detected (NotDetected) Stool Campylobacter PCR Not Detected (NotDetected) Stool Cryptosporidium PCR Not Detected (NotDetected) Stl E.coli Shiga Tox PCR Not Detected (NotDetected) Stl Enterotoxigenic E PCR Not Detected (NotDetected) Stool EPEC (PCR) Not Detected (NotDetected) Stool EAEC (PCR) Not Detected (NotDetected) Stl E. histolytica PCR Not Detected (NotDetected) Stool Giardia Lamblia PCR Not Detected (NotDetected) Stool Salmonella PCR Not Detected (NotDetected) Stool Sapovirus (PCR) Not Detected (NotDetected) Stl P. shigelloides PCR Not Detected (NotDetected) Stl Shigella/EIEC PCR Not Detected (NotDetected) St Y.enterocolitica PCR Not Detected (NotDetected) Stool Vibrio (PCR) Not Detected (NotDetected) Stl Vibrio cholerae PCR Not Detected (NotDetected) Stl Norovirus GI/GII PCR DETECTED A* (NotDetected) Adenovirus (PCR) (NotDetected) B. pertussis DNA (PCR) (NotDetected) B.parapertussis DNA PCR (NotDetected) C. pneumoniae DNA (PCR) (NotDetected) Coronavirus OC43 (PCR) (NotDetected) Coronavirus HKU1 (PCR) (NotDetected) Coronavirus 229E (PCR) (NotDetected) SARS-CoV-2 (PCR) (NotDetected) Coronavirus NL63 (PCR) (NotDetected) Human Metapneumovir PCR (NotDetected) Influenza Type A (PCR) (NotDetected) Influenza Type B (PCR) (NotDetected) M. pneumoniae (PCR) (NotDetected) Parainfluenza 1 (PCR) (NotDetected) Parainfluenza 2 (PCR) (NotDetected) Parainfluenza 3 (PCR) (NotDetected) Parainfluenza 4 (PCR) (NotDetected) RSV (PCR) (NotDetected) Entero/Rhino (PCR) (NotDetected) Administered Medications Lactated Ringer's (Lr) 1,000 mls @ 125 mls/hr IV .Q8H FARIDA Stop: 09/19/24 13:29 Last Admin: 08/20/24 13:59 Dose: 125 mls/hr Documented By: BENJAMIN Discontinued Medications Sodium Chloride (Nss) 1,000 mls @ 999 mls/hr IV .Q1H1M ONE Stop: 08/20/24 11:09 Last Infusion: 08/20/24 11:58 Dose: Infused Documented By: Admin: 08/20/24 10:29 Dose: 999 mls/hr Documented By: MARYCHUY Acetaminophen (Ofirmev) 1,000 mg in 100 mls @ 400 mls/hr IV NOW STA Stop: 08/20/24 10:23 Last Infusion: 08/20/24 10:48 Dose: Infused Documented By: Admin: 08/20/24 10:29 Dose: 400 mls/hr Documented By: MARYCHUY Magnesium Sulfate/Dextrose (Magnesium Sulfate / D5w) 1 gm in 100 mls @ 100 mls/hr IV NOW STA Stop: 08/20/24 11:50 Last Infusion: 08/20/24 13:14 Dose: Infused Documented By: Admin: 08/20/24 12:06 Dose: 100 mls/hr Documented By: BENJAMIN Piperacillin Sod/Tazobactam Sod (Zosyn) 4.5 gm in 100 mls @ 200 mls/hr IV NOW ONE Stop: 08/20/24 11:35 Last Infusion: 08/20/24 13:04 Dose: Infused Documented By: Admin: 08/20/24 12:07 Dose: 200 mls/hr Documented By: BENJAMIN Sodium Chloride (Nss) 1,000 mls @ 125 mls/hr IV .Q8H FARIDA Stop: 09/19/24 11:14 Last Infusion: 08/20/24 14:08 Dose: Infused Documented By: Infusion: 08/20/24 14:07 Dose: 0 mls/hr Documented By: Admin: 08/20/24 12:08 Dose: 125 mls/hr Documented By: BENJAMIN Magnesium Sulfate/Dextrose (Magnesium Sulfate / D5w) 1 gm in 100 mls @ 100 mls/hr IV NOW STA Stop: 08/20/24 14:14 Last Infusion: 08/20/24 15:12 Dose: Infused Documented By: Admin: 08/20/24 13:59 Dose: 100 mls/hr Documented By: BENJAMIN Imaging Data Attestation: I personally reviewed and interpreted this imaging study as follows: Radiologist's Impression: Chest X-Ray 08/20/24 10:08 XR chest 2V PA/lateral HISTORY: 83 years-old Male r/o pnx acute shortness of breath COMPARISON: 07/25/2024 TECHNIQUE: PA and lateral views of the chest FINDINGS: Cardiac silhouette is mildly enlarged. Median sternotomy with CABG. No pneumothorax, pleural effusion or airspace consolidation. The bones appear to be grossly intact. IMPRESSION: No acute process. ACT 112: Negative or not required by law. The above report was generated using voice recognition software. It may contain grammatical, syntax or spelling errors. Electronically signed by: Rafal Amezquita M.D. 08/20/2024 1:06 PM Abdomen/Pelvis CT 08/20/24 10:[address] WITHOUT CONTRAST CT DOSE: 899.81 mGy.cm HISTORY: Acute generalized abdominal pain abd pain, TTP diffuse TECHNIQUE: Multiaxial CT images of the abdomen and pelvis were performed without contrast. A dose lowering technique was utilized adhering to the principles of ALARA. COMPARISON STUDY: 07/25/2024 CTA of the abdomen and pelvis FINDINGS: Median sternotomy. Moderate bibasilar atelectasis. No free air. Generalized body wall edema. Unremarkable spleen with anterior benign-appearing calcification. Moderate generalized pancreatic atrophy with unchanged positioning of the pancreatic stent. There is mild interstitial and peripancreatic edema. Unremarkable adrenal glands. Cholecystectomy with pneumobilia. Hepatic steatosis. Ill-defined 2.5 cm hypodense focus of the right hepatic lobe on image 36 series 2. This was not clearly seen on the prior study. Mild nonspecific perinephric stranding of the left kidney. Mild inflammatory stranding adjacent to the renal pelvis on the left, unchanged. Prostamegaly with brachytherapy seeds. Urinary bladder wall thickening and trabeculation awith partial distention. [id number] fat filled left inguinal hernia. No pathologically enlarged lymph nodes. Right nephrectomy. 5 mm nodular focus within the right nephrectomy bed on image 102, unchanged. Distal esophageal wall thickening with small hiatal hernia. Prior Whipple procedure. Umbilical hernia with diastases of 4 cm contains a nonobstructed loop of small bowel, mesenteric fat and small amount of fluid. Circumferential wall thickening of the rectosigmoid. Moderate colonic fecal retention. Prior appendectomy. No acute fracture or destructive bone lesion. Chronic appearing left- sided L3 far as detected. IMPRESSION: 1. Wall thickening of the rectosigmoid redemonstrated with mild adjacent perirectal inflammatory stranding which may represent a nonspecific proctocolitis. 2. No bowel obstruction or pneumoperitoneum. 3. Fat filled left inguinal and midline abdominal wall hernias. There are several additional fat and bowel containing hernias without obstruction. 4. Prior Whipple procedure. Mild edema involves the pancreatic tail. Correlation should be made with serum lipase to exclude acute pancreatitis. 5. Cholecystectomy with pneumobilia redemonstrated. 6. Possible 2.5 cm right hepatic lobe lesion. Attention on follow-up recommended in order to exclude metastasis. 7. Additional findings as above. ACT 112: Negative or not required by law. The above report was generated using voice recognition software. It may contain grammatical, syntax or spelling errors. Electronically signed by: Rafal Amezquita M.D. 08/20/2024 12:11 PM Discharge Plan Visit Data Chief Complaint: Fever Stated Complaint: FEVER, FEEL LOUSY, LETHARGIC ED Provider: Kavita Brasher ED Midlevel Provider: Zainab Agarwal Discharge Problem: Norovirus, Sepsis Patient Disposition: Admitted As Inpatient Discharge Instructions Interventions: ED Discharge Assessment Last Done: 08/20/24 17:03 Discharge Problem: Sepsis Qualifiers: Sepsis type: sepsis due to unspecified organism Sepsis acute organ dysfunction status: unspecified Qualified Code(s): A41.9 - Sepsis, unspecified organism
[2024-08-20 10:29] LABS: Basophils # (auto) 0.03 K/uL (0.00-0.20); Basophils % (auto) 0.3 %; Eosinophils # (auto) 0.03 K/uL (0.00-0.50); Eosinophils % (auto) 0.3 %; Hematocrit (blood only) 27.2 % (42.0-52.0); Hemoglobin 9.3 g/dl (14.0-18.0); Immature Granulocytes # (auto) 0.06 K/uL (0.01-0.20); Immature Granulocytes % (auto) 0.7 %; Lymphocytes % (auto) 4.3 %; Mean Corpuscular Hemoglobin 29.3 pg (25.0-34.0); Mean Corpuscular Hgb Conc 34.2 g/dL (32.0-36.0); Mean Corpuscular Volume 85.8 fL (80.0-100.0); Mean Platelet Volume 10.6 fL (9.4-12.4); Monocytes # (auto) 0.57 K/uL (0.11-0.59); Monocytes % (auto) 6.2 %; Neutrophils # (auto) 8.13 K/uL (1.40-6.50); Neutrophils % (auto) 88.2 %; Platelet Count 233 K/uL (130-400); RDW Coefficient of Variation 17.2 % (11.5-14.5); RDW Standard Deviation 54.3 fL (36.4-46.3); Red Blood Count 3.17 M/uL (4.70-6.10); White Blood Count 9.22 K/ul (4.8-10.8)
[2024-08-20] MEDS: ACETAMINOPHEN 1,000 MG/100 ML VIAL IV STA (10:29)
[2024-08-20] MEDS: SODIUM CHLORIDE 0.9% 1,000 ML IV ONE (10:29)
[2024-08-20 10:46] LABS: Albumin Level 2.5 gm/dl (3.4-5.0); BUN Creatinine Ratio 11.6 (10-20); Bilirubin Direct 0.3 mg/dl (0-0.2); Bilirubin,Total 0.7 mg/dl (0.2-1.0); Calcium 7.7 mg/dl (8.6-10.3); Globulin 2.5 gm/dl (2.5-4.0); Magnesium 1.2 mg/dl (1.7-2.4)
[2024-08-20 10:54] LABS: Troponin I High Sensitivity 40.8 pg/ml (0-20)
[2024-08-20 11:46] LABS: Adenovirus PCR Not Detected (NotDetected); Bordetella parapertussis PCR Not Detected (NotDetected); Bordetella pertussis PCR Not Detected (NotDetected); Chlamydia pneumoniae PCR Not Detected (NotDetected); Coronavirus 229E PCR Not Detected (NotDetected); Coronavirus CoV-2 (COVID19)PCR Not Detected (NotDetected); Coronavirus HKU1 PCR Not Detected (NotDetected); Coronavirus NL63 PCR Not Detected (NotDetected); Coronavirus OC43PCR Not Detected (NotDetected); Human Metapneumovirus PCR Not Detected (NotDetected); Influenza A PCR Not Detected (NotDetected); Influenza B PCR Not Detected (NotDetected); Mycoplasma pneumoniae PCR Not Detected (NotDetected); Parainfluenza Virus 1 PCR Not Detected (NotDetected); Parainfluenza Virus 2 PCR Not Detected (NotDetected); Parainfluenza Virus 3 PCR Not Detected (NotDetected); Parainfluenza Virus 4 PCR Not Detected (NotDetected); Respiratory Syncytial VirusPCR Not Detected (NotDetected); Rhinovirus/Enterovirus PCR Not Detected (NotDetected)
[2024-08-20] MEDS: MAGNESIUM SULFATE / D5W 1 GM/100 ML BAG IV STA ×2 (12:06→13:59)
[2024-08-20] MEDS: PIPERACILLIN/TAZOBACTAM 4.5 GM/100 ML BAG IV ONE (12:07)
[2024-08-20] MEDS: SODIUM CHLORIDE 0.9% 1,000 ML IV SCH (12:08)
--- NOTE | 2024-08-20 12:13 | CT Scan Report ---
ABDOMEN AND PELVIS CT WITHOUT CONTRAST CT DOSE: 899.81 mGy.cm HISTORY: Acute generalized abdominal pain abd pain, TTP diffuse TECHNIQUE: Multiaxial CT images of the abdomen and pelvis were performed without contrast. A dose lo wering technique was utilized adhering to the principles of ALARA. COMPARISON STUDY: 07/25/2024 CTA of the abdomen and pelvis FINDINGS: Median sternotomy. Moderate bibasilar atelectasis. No free air. Generalized body wall edema . Unremarkable spleen with anterior benign-appearing calcification. Moderate generalized pancreatic atr ophy with unchanged positioning of the pancreatic stent. There is mild interstitial and peripancreati c edema. Unremarkable adrenal glands. Cholecystectomy with pneumobilia. Hepatic steatosis. Ill-define d 2.5 cm hypodense focus of the right hepatic lobe on image 36 series 2. This was not clearly seen on the prior study. Mild nonspecific perinephric stranding of the left kidney. Mild inflammatory stranding adjacent to th e renal pelvis on the left, unchanged. Prostamegaly with brachytherapy seeds. Urinary bladder wall th ickening and trabeculation awith partial distention. [id number] fat filled left inguinal herni a. No pathologically enlarged lymph nodes. Right nephrectomy. 5 mm nodular focus within the right nep hrectomy bed on image 102, unchanged. Distal esophageal wall thickening with small hiatal hernia. Prior Whipple procedure. Umbilical hernia with diastases of 4 cm contains a nonobstructed loop of small bowel, mesenteric fat and small amount of fluid. Circumferential wall thickening of the rectosigmoid. Moderate colonic fecal retention. [facility] or appendectomy. No acute fracture or destructive bone lesion. Chronic appearing left- sided L3 far a s detected. IMPRESSION: 1. Wall thickening of the rectosigmoid redemonstrated with mild adjacent perirectal inflammatory stra nding which may represent a nonspecific proctocolitis. 2. No bowel obstruction or pneumoperitoneum. 3. Fat filled left inguinal and midline abdominal wall hernias. There are several additional fat and bowel containing hernias without obstruction. 4. Prior Whipple procedure. Mild edema involves the pancreatic tail. Correlation should be made with serum lipase to exclude acute pancreatitis. 5. Cholecystectomy with pneumobilia redemonstrated. 6. Possible 2.5 cm right hepatic lobe lesion. Attention on follow-up recommended in order to exclude metastasis. 7. Additional findings as above. ACT 112: Negative or not required by law. The above report was generated using voice recognition software. It may contain grammatical, syntax o r spelling errors. Electronically signed by: Rafal Amezquita M.D. 08/20/2024 12:11 PM
--- NOTE | 2024-08-20 13:08 | XRay Report ---
XR chest 2V PA/lateral HISTORY: 83 years-old Male r/o pnx acute shortness of breath COMPARISON: 07/25/2024 TECHNIQUE: PA and lateral views of the chest FINDINGS: Cardiac silhouette is mildly enlarged. Median sternotomy with CABG. No pneumothorax, pleural effusion or airspace consolidation. The bones appear to be grossly intact. IMPRESSION: No acute process. ACT 112: Negative or not required by law. The above report was generated using voice recognition software. It may contain grammatical, syntax o r spelling errors. Electronically signed by: Rafal Amezquita M.D. 08/20/2024 1:06 PM
[2024-08-20 13:19] LABS: Appearance Urine Clear (Clear); Bacteria Urine Automated None Seen (None Seen); Bilirubin Urine Negative (Negative); Blood Urine Negative (Negative); Color Urine Yellow; Glucose Urine UA Negative (Negative); Ketones Urine Negative (Negative); Leukocyte Esterase Urine Trace (Negative); Nitrite Urine Negative (Negative); Protein Urine Negative (Negative); RBC Urine Automated 0-2 /hpf (0-2); Urobilinogen Urine Negative (Negative); WBC Urine Automated 0-5 /hpf (0-5)
[2024-08-20 13:22] LABS: Troponin I High Sensitivity 44.6 pg/ml (0-20)
[2024-08-20] MEDS: LACTATED RINGER'S 1,000 ML IV SCH (13:59)
--- NOTE | 2024-08-20 14:10 | History & Physical Report ---
Date of Service August 20, 2024 Assessment & Plan (1) Norovirus: Plan: Proctocolitis on CT with norovirus PCR Isolation precautions Conservative management - LR @ 125ml/hr, if worsening acidosis will switch to sodium bicarb Discontinue further antibiotics despite elevated procalcitonin, follow up blood cultures Formed stool therefore c. diff PCR not performed (2) Metabolic acidosis with normal anion gap and bicarbonate losses: Plan: Unfortunately initially given NSS as initial bolus, should just correct with LR IV fluids hydration and diarrhea improving however if getting worse with AM labs consider switching IV fluids to sodium bicarb (3) Sepsis: Plan: Source = proctocolitis with norovirus, no need for antibiotics Lactate 0.9, Hypotensive on arrival to ER s/p NSS 1L bolus Hold olmesartan due to hypotension (4) Normocytic anemia: Plan: At baseline (5) Hypomagnesemia: Plan: Mg level 1.2 - secondary to poor oral intake and diarrhea, Mg sulfate total 4g, repeat with AM labs (6) Hypokalemia: Plan: K 3.0 - KCl 40 meq PO, repeat with AM labs Plan Coronary artery disease - severe chronic multivessel disease on recent cardiac catheterization, continue ASA, atorvastatin, no BB (recently discontinued due to bradycardia) Severe aortic stenosis - murmur on exam, [place] [facility] [place] - continue tamsulosin VTE prophylaxis - heparin 5000 units SQ BID Diet - low fiber Disposition - admit to med/tele (significant hypotension on arrival to ER with severe aortic stenosis) Admission and Anticipated Discharge Date Admission Date: August 20, 2024 History of Present Illness Chief Complaint: Fever and chills Primary Care Provider: Pato Castle MD Osmany Shaw is an 83 year old male with severe aortic stenosis and prior Whipple procedure who presents to the ER with chills and fevers. He notes generalized abdominal pain intermittently for the last 2-3 weeks although unclear whether this is truly a new symptom or since his Whipple's procedure. The pains last for an hour and occurring 1-2 times a day. Currently he denies any pain but at worst the severity is 7 out of 10. Some relief with defecation and urination. For the last week he has then been having diarrhea although he notes this is getting better and is more formed today, not watery, no melena or bright red blood in stool. No nausea or vomiting. He started having fevers 5 days ago which is the main reason he came to the ER today. He notes a maximum fever of 103.1 F getting worse over the last day where he cycles between not having enough blankets to keep him warm and then sweating. He denies any respiratory or urinary symptoms. Notably he was recently admitted to [facility] in July due to bradycardia and dizziness secondary to atenolol use and additionally diagnosed with of severe aortic stenosis with severe chronic multivessel coronary artery disease and has been referred to [facility] for evaluation of TAVR. Allergies Allergy/AdvReac Type Severity Reaction Status Date / Time house dust Allergy Unknown SNEEZING, Verified 08/19/24 10:15 CONGESTION Iodinated Contrast Media Allergy Unknown HIVES Verified 08/19/24 10:15 pollen extracts Allergy Unknown SNEEZING, Verified 08/19/24 10:15 CONGESTION red dye Allergy Unknown Hives Verified 08/19/24 10:15 Home Medications Medication Instructions Recorded Confirmed Type aspirin 81 mg tablet,delayed 81 mg PO QAM #90 tabs 11/07/20 08/20/24 Rx release (Ecotrin Low Strength) albuterol sulfate 90 mcg/actuation 2 puff inhalation Q4H PRN 09/06/21 08/20/24 Rx aerosol inhaler (Ventolin HFA) shortness of breath #8.5 grams cholecalciferol (vitamin D3) 25 25 mcg PO QAM 12/28/21 08/20/24 History mcg (1,000 unit) capsule mecobalamin (vitamin B12) 500 mcg 500 mcg PO QAM 09/13/23 08/20/24 History chewable tablet atorvastatin 80 mg tablet 80 mg PO HS 10/08/23 08/20/24 History fluticasone 100 mcg-salmeterol 50 1 inh inhalation BID 10/08/23 08/20/24 History mcg/dose blistr powdr for inhalation (Advair Diskus) allopurinol 100 mg tablet 100 mg PO QAM #90 tabs 11/12/23 08/20/24 Rx montelukast 10 mg tablet 10 mg PO QAM #90 tabs 11/12/23 08/20/24 Rx olmesartan 5 mg tablet 5 mg PO QAM #90 tabs 02/25/24 08/20/24 Rx epoetin ebony 40,000 unit/mL 40,000 unit subcut UD 04/28/24 08/20/24 History injection solution (Procrit) empagliflozin 10 mg tablet 10 mg PO DAILY #30 tabs 08/06/24 08/20/24 Rx (Jardiance) fluticasone propionate 50 2 spray intranasal UD PRN 08/06/24 08/20/24 Rx mcg/actuation nasal Congestion #16 grams spray,suspension (Allergy Relief (fluticasone)) solifenacin 5 mg tablet (Vesicare) 5 mg PO QAM 08/20/24 08/20/24 History tamsulosin 0.4 mg capsule 0.4 mg PO HS 08/20/24 08/20/24 History Past Med/Surg History Problem List (Updated 08/21/24 @ 01:05 by Marcio Bryan MD) Metabolic acidosis with normal anion gap and bicarbonate losses Hypokalemia Hypomagnesemia Normocytic anemia Sepsis (Acute) Norovirus (Acute) Acute kidney injury superimposed on stage 3b chronic kidney disease Acute heart failure with preserved ejection fraction (HFpEF) Nausea (Acute) Bradycardia (Acute) Chest pain (Acute) Bradycardia History of lumbosacral spine surgery Chronic low back pain Lumbosacral spondylosis Prostate cancer Asthma flares with weather changes. Last use rescue inhaler 12/10/23 due to weather. No further issues. 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 Macular degeneration injections for upcoming 12/12/23. Gastrointestinal complaint hx EGD blocked bile duct/stent Sep 2023. History of gout Fatigue easily fatigue, little energy for the last year -- currently anemic (per patient). History of COVID-19 06/2022: moderate cold symptoms. no current issues. Anemia Hyperlipidemia Pancreatic cancer dx 06/2022. whipple procedure in 08/2022 at [facility]. no chemo/no radiation needed. Atrial fibrillation controlled with medication. no cardioversion in the past. Urinary incontinence History of prostate cancer (~09/2017) treated with radiation treatments. no surgery. no current issues. Carotid artery plaque Obstructive sleep apnea of adult cpap at night Coronary artery disease of bypass graft of [place] heart with stable angina pectoris Three-vessel coronary bypass grafting March 26, 2019 HTN (hypertension) Surgical History History of esophagogastroduodenoscopy (EGD) History of cardiac cath prior to open heart sx. History of cholecystectomy History of ERCP 05/2022 History of Whipple procedure (~08/2022) done at [facility] Hx of colonoscopy Hx of hand surgery repair of laceration on left hand due to saw accident Hx of rotator cuff surgery Right X 1, Left X2 Hx of CABG X 3 [place] [facility] [place] Rolle. History of nephrectomy Right 1964 - damage from kidney stones Family History Sister Breast cancer Father Coronary heart disease Congestive heart disease COPD (chronic obstructive pulmonary disease) Mother Pancreas cancer Brother Colorectal cancer Pancreas cancer Sister Coronary heart disease Stroke Sister Hypertension Other Diabetes Heart disease Lung disease No family history of adverse response to anesthesia Denies family history of Prostate cancer Social History Smoking Status: Former smoker Tobacco Type: Cigarettes, Pipe and Cigars Second Hand Exposure: No; Do You Dip or Chew Tobacco: No; Hx Alcohol Use: No Hx Substance Use: No Preferred Language: Omani Communication Ability: Effective Visual Impairment: No Limitations Hearing Ability: Hard of Hearing Exercise Physiologist Certified Required: No Beliefs That Will Affect Care: None and Buddhist Buddhist Beliefs: Free Rastafarian marital status: Current Living Situation: Spouse current occupational status: employed and 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 Other Information That Helps Us Care for You: No Feels Safe at Home: Yes Safety Concerns: Feels Safe At This Time Childhood Exposure to Second-Hand Smoke: Yes Diet: regular caffeine: No during the past year weight has: decreased > 10 lbs Dental Care, Regularly: No Physical Activity Frequency: Daily Seatbelt Use: always Sunscreen Use: Yes Do you think of yourself as: straight/heterosexual Gender Identity: Male Assistive Devices: Cane, CPAP and Walker Review of Systems Review of Systems: All systems reviewed & are unremarkable except as noted in HPI & below Physical Exam Constitutional: WD/WN, vitals as above Eyes: PERRL, conjunctivae normal, anicteric sclerae ENMT: Mouth: + dry oral mucous membranes Respiratory: normal respiratory effort, lungs clear to auscultation Cardiovascular: Rate/Rhythm: regular rate and regular rhythm Heart Sounds: + murmur (MARIO) Extremities: normal capillary refill; no calf tenderness and no pedal edema Gastrointestinal (Abdomen): Inspection/Auscultation: abdomen normal to inspection; abdomen not distended Percussion/Palpation: + abdomen tender (lower abdominal) and abdomen soft; no guarding and abdomen not rigid Musculoskeletal: no cyanosis or clubbing, extremities motor strength 5/5 Skin: no rashes, warm and dry Neurologic: moves all extremities and awake; not confused Psychiatric: A+Ox3, euthymic affect Results & Data Results & Data Vital Signs (Past 12 Hours) Vital Signs Temp Pulse Pulse Resp BP BP Pulse Ox 08/20/24 13:39 55 L 08/20/24 13:25 58 L 18 102/53 L 100 08/20/24 12:01 36.0 C L 71 21 110/61 100 08/20/24 10:30 76 19 100/48 L 99 08/20/24 10:07 89 16 97 08/20/24 10:00 85 20 99/55 L 96 08/20/24 09:44 89 08/20/24 09:19 36.6 C 97 H 16 74/39 L 97 O2 Del Method 08/20/24 13:39 08/20/24 13:25 Room Air 08/20/24 12:01 Room Air 08/20/24 10:30 08/20/24 10:07 Room Air 08/20/24 10:00 08/20/24 09:44 08/20/24 09:19 Room Air Laboratory Results Abnormal lab results 08/20/24 08/20/24 08/20/24 Range/Units 09:40 12:03 13:00 RBC 3.17 L (4.70-6.10) M/uL Hgb 9.3 L (14.0-18.0) g/dl Hct 27.2 L (42.0-52.0) % RDW Std Deviation 54.3 H (36.4-46.3) fL RDW Coeff of Karolyn 17.2 H (11.5-14.5) % Neut # (Auto) 8.13 H (1.40-6.50) K/uL Lymph # (Auto) 0.40 L (1.20-3.40) K/uL Potassium 3.0 L (3.5-5.1) mmol/L Chloride 113 H (98-107) mmol/L Carbon Dioxide 18 L (21-32) mmol/L Creatinine 1.90 H (0.6-1.4) mg/dl Calcium 7.7 L (8.6-10.3) mg/dl Magnesium 1.2 L (1.7-2.4) mg/dl Direct Bilirubin 0.3 H (0-0.2) mg/dl Alkaline Phosphatase 123 H (34-104) U/L Troponin I High Sens 40.8 H 44.6 H (0-20) pg/ml Total Protein 5.0 L (6.0-8.3) gm/dl Albumin 2.5 L (3.4-5.0) gm/dl Procalcitonin 8.96 H (0-0.5) ng/ml Ur Leukocyte Esterase Trace H (Negative) U Hyaline Cast (Auto) 3-5 H (0-2) /lpf U Epithel Cells (Auto) 3-5 H (0-2) /hpf Diagnostic Findings ABDOMEN AND PELVIS CT WITHOUT CONTRAST CT DOSE: 899.81 mGy.cm HISTORY: Acute generalized abdominal pain abd pain, TTP diffuse TECHNIQUE: Multiaxial CT images of the abdomen and pelvis were performed without contrast. A dose lowering technique was utilized adhering to the principles of ALARA. COMPARISON STUDY: 07/25/2024 CTA of the abdomen and pelvis FINDINGS: Median sternotomy. Moderate bibasilar atelectasis. No free air. Generalized body wall edema. Unremarkable spleen with anterior benign-appearing calcification. Moderate generalized pancreatic atrophy with unchanged positioning of the pancreatic stent. There is mild interstitial and peripancreatic edema. Unremarkable adrenal glands. Cholecystectomy with pneumobilia. Hepatic steatosis. Ill-defined 2.5 cm hypodense focus of the right hepatic lobe on image 36 series 2. This was not clearly seen on the prior study. Mild nonspecific perinephric stranding of the left kidney. Mild inflammatory stranding adjacent to the renal pelvis on the left, unchanged. Prostamegaly with brachytherapy seeds. Urinary bladder wall thickening and trabeculation awith partial distention. [id number]-bf-ehchslrs fat filled left inguinal hernia. No pathologically enlarged lymph nodes. Right nephrectomy. 5 mm nodular focus within the right nephrectomy bed on image 102, unchanged. Distal esophageal wall thickening with small hiatal hernia. Prior Whipple procedure. Umbilical hernia with diastases of 4 cm contains a nonobstructed loop of small bowel, mesenteric fat and small amount of fluid. Circumferential wall thickening of the rectosigmoid. Moderate colonic fecal retention. Prior appendectomy. No acute fracture or destructive bone lesion. Chronic appearing left- sided L3 far as detected. IMPRESSION: 1. Wall thickening of the rectosigmoid redemonstrated with mild adjacent perirectal inflammatory stranding which may represent a nonspecific proctocolitis. 2. No bowel obstruction or pneumoperitoneum. 3. Fat filled left inguinal and midline abdominal wall hernias. There are several additional fat and bowel containing hernias without obstruction. 4. Prior Whipple procedure. Mild edema involves the pancreatic tail. Correlation should be made with serum lipase to exclude acute pancreatitis. 5. Cholecystectomy with pneumobilia redemonstrated. 6. Possible 2.5 cm right hepatic lobe lesion. Attention on follow-up recommended in order to exclude metastasis. 7. Additional findings as above. Medications Administered ER Medications Given: Normal saline 1 L bolus Acetaminophen 1000 mg IV Magnesium sulfate 1 g IV Zosyn 4.5 g IV ECG Rate (beats per minute): 91 Rhythm: sinus with SA Findings: no acute ischemic change Comparison ECG Date: from (July 25, 2024) Change: no significant change Code Status & VTE Plan Code Status Full VTE Prophylaxis Plan VTE Prophylaxis will be ordered: Yes PG Care Time/CCT Total # of Minutes Spent Total Time Spent with Patient: Total time spent is greater than 50% in coordination of care (as documented) at patient's floor/unit and/or counseling patient: Coding Level of Care Code 23063 INT INP/OBS CARE 3/75MIN Diagnoses Norovirus A08.11 Metabolic acidosis with normal anion gap and bicarbonate losses E87.20 Sepsis A41.9 Sepsis acute organ dysfunction status: unspecified Sepsis type: sepsis due to unspecified organism Normocytic anemia D64.9 Hypomagnesemia E83.42 Hypokalemia E87.6 (3) Sepsis Sepsis acute organ dysfunction status: unspecified Sepsis type: sepsis due to unspecified organism Qualified Code(s): A41.9 - Sepsis, unspecified organism
[2024-08-20 14:31] LABS: Adenovirus F 40/41 PCR Not Detected (NotDetected); Astrovirus PCR Not Detected (NotDetected); Campylobacter PCR Not Detected (NotDetected); Cryptosporidium PCR Not Detected (NotDetected); Cyclospora cayetanensis PCR Not Detected (NotDetected); Entamoeba histolytica PCR Not Detected (NotDetected); Enteroaggregative E.coli(EAEC) Not Detected (NotDetected); Enteropathogenic E.coli (EPEC) Not Detected (NotDetected); Enterotoxigenic E.coli (ETEC) Not Detected (NotDetected); Giardia lamblia PCR Not Detected (NotDetected); Plesiomonas shigelloides PCR Not Detected (NotDetected); Rotavirus A PCR Not Detected (NotDetected); Salmonella PCR Not Detected (NotDetected); Sapovirus PCR Not Detected (NotDetected); Shiga-like Toxin E.coli (STEC) Not Detected (NotDetected); Shigella/Enteroinvasive E.coli Not Detected (NotDetected); Vibrio cholerae PCR Not Detected (NotDetected); Vibrio species PCR Not Detected (NotDetected); Yersinia enterocolitica PCR Not Detected (NotDetected)
[2024-08-20 14:38] LABS: Norovirus GI/GII PCR DETECTED (NotDetected)
--- NOTE | 2024-08-20 16:37 | Electrocardiogram Report ---
Test Reason : Blood Pressure : */* mmHG Vent. Rate : 91 BPM Atrial Rate : 91 BPM P-R Int : 162 ms QRS Dur : 80 ms QT Int : 352 ms P-R-T Axes : 77 -4 29 degrees QTcB Int : 432 ms Sinus rhythm with likely blocked PAC Cannot rule out Inferior infarct , age undetermined Abnormal ECG When compared with ECG of 25-Jul-2024 15:56, Vent. rate has increased by 51 bpm Confirmed by Pato Rolle ([id number]) on 08/20/2024 4:36:41 PM Referred By: REFERRED SELF Confirmed By: Pato Rolle
[2024-08-20] MEDS ORDERED: FLUTICASONE PROPIONATE NA SPR 16 GM BTL NAE PRN (18:18)
[2024-08-20] MEDS ORDERED: ACETAMINOPHEN 325 MG TAB PO PRN (18:18)
[2024-08-20] MEDS: MAGNESIUM SULFATE / D5W 1 GM/100 ML BAG IV SCH (20:56)
[2024-08-20] MEDS: MONTELUKAST SODIUM 10 MG TABLET PO SCH (20:57)
[2024-08-20] MEDS: TAMSULOSIN HCL 0.4 MG CAP PO SCH (20:57)
[2024-08-20] MEDS: ATORVASTATIN 40 MG TAB PO SCH (20:57)
[2024-08-20] MEDS: POTASSIUM CHLORIDE CRTAB 20 MEQ TABCR PO STA (20:57)
[2024-08-20] MEDS: FLUTICASONE/VILANTEROL 100/25MCG 14 PUFFS/INHALER INH SCH (20:58)
[2024-08-20] MEDS: INFLUENZA VACC TS2024-25(65y+)/PF (IIV3) 0.5mL Syr IM ONE (20:58)
[2024-08-21 06:22] LABS: Basophils # (auto) 0.02 K/uL (0.00-0.20); Basophils % (auto) 0.2 %; Eosinophils # (auto) 0.11 K/uL (0.00-0.50); Eosinophils % (auto) 0.9 %; Hematocrit (blood only) 25.4 % (42.0-52.0); Hemoglobin 8.4 g/dl (14.0-18.0); Immature Granulocytes % (auto) 0.8 %; Lymphocytes # (auto) 0.98 K/uL (1.20-3.40); Lymphocytes % (auto) 7.6 %; Mean Corpuscular Hemoglobin 28.9 pg (25.0-34.0); Mean Corpuscular Hgb Conc 33.1 g/dL (32.0-36.0); Mean Corpuscular Volume 87.3 fL (80.0-100.0); Mean Platelet Volume 10.5 fL (9.4-12.4); Monocytes # (auto) 0.64 K/uL (0.11-0.59); Neutrophils # (auto) 11.04 K/uL (1.40-6.50); Neutrophils % (auto) 85.5 %; Platelet Count 233 K/uL (130-400); RDW Coefficient of Variation 17.1 % (11.5-14.5); Red Blood Count 2.91 M/uL (4.70-6.10); White Blood Count 12.89 K/ul (4.8-10.8)
[2024-08-21 06:29] LABS: BUN Creatinine Ratio 12.5 (10-20); Bilirubin,Total 0.5 mg/dl (0.2-1.0); Calcium 7.6 mg/dl (8.6-10.3); Creatinine Clr Calc Pharmacy 28.6 ml/min; Globulin 2.1 gm/dl (2.5-4.0); Magnesium 2.1 mg/dl (1.7-2.4); Phosphorus 2.3 mg/dl (2.5-4.9); Potassium 3.6 mmol/L (3.5-5.1); Total Protein 4.1 gm/dl (6.0-8.3)
[2024-08-21] MEDS: OXYBUTYNIN CHLORIDE XL 5 MG TABCR PO SCH (07:59)
[2024-08-21] MEDS: allopurinoL 100 MG TAB PO SCH (07:59)
[2024-08-21] MEDS: ASPIRIN 81 MG ECTAB PO SCH (08:00)
[2024-08-21] MEDS: HEPARIN SOD 5,000 UNIT/0.5 ML VIAL SQ SCH (08:03)
[2024-08-21] MEDS ORDERED: EMPAGLIFLOZIN 10 MG TAB PO SCH (09:00)
[2024-08-21] MEDS: SODIUM BICARBONATE 8.4% 100 MEQ in WATER, STERILE 1,000 ML IV SCH (10:03)
[2024-08-21] MEDS: PIPERACILLIN/TAZOBACTAM 4.5 GM/100 ML BAG IV ONE (11:10)
[2024-08-21] MEDS: PIPERACILLIN/TAZOBACTAM 4.5 GM/100 ML BAG IV SCH (16:16)
--- NOTE | 2024-08-21 17:00 | Hospitalist Progress Note ---
Date of Service August 21, 2024 Assessment & Plan (1) Sepsis: Plan: 83-year-old man admitted with sepsis, proctocolitis, related to norovirus. was hypotensive in ED but that resolved after IV normal saline. This morning however however white blood count has increased from 9-13 K, procalcitonin has increased from 8-27 and metabolic acidosis persists. Blood cultures no growth to date however he is at risk for bacterial infection - supportive care for norovirus which seems to be resolving since no diarrhea today. formed stool so no C. difficile assay sent - start pip-tazo - follow-up blood cultures and exam (2) Metabolic acidosis with normal anion gap and bicarbonate losses: Plan: metabolic acidosis persists though renal function improved. Changed fluids to sodium bicarbonate at 150 mL an hour - a.m. BMP (3) Norovirus: Plan: Isolation precautions see above (4) Normocytic anemia: Plan: At baseline (5) Hypomagnesemia: Plan: replaced IV and improved normal at 2.1 today, check in a.m. (6) Hypokalemia: Plan: K 3.0 - replaced and normal at 3.6 today Plan Coronary artery disease - severe chronic multivessel disease on recent cardiac catheterization, continue ASA, atorvastatin, no BB (recently discontinued due to bradycardia) hypertensionolmesartan held because of hypotension chronic kidney disease stage IIIcreatinine improved from 1.9 down to 1.6 overnight Severe aortic stenosis - murmur on exam, referred to [facility] [place] for TAVR BPH - continue tamsulosin VTE prophylaxis - heparin 5000 units SQ BID Diet - low fiber Admission and Anticipated Discharge Date Admission Date: August 20, 2024 Subjective Mr. Shaw does have some mild lower abdominal pain and tenderness, nonbloody diarrhea prior to admission but none overnight or today Physical Exam 2 Physical Exam: PHYSICAL EXAMINATION Last 24h vital signs reviewed, see documentation in flowsheet General: comfortable appearing, no distress, sitting up in chair HEENT: Normocephalic, atraumatic, pupils round and equal, sclerae anicteric, no conjunctival injection, moist mucus membranes Lungs: Normal respiratory effort. Clear to auscultation bilaterally. No RRW Heart: Regular rate and rhythm, systolic murmur. No JVD Abdomen: Soft,, nondistended. tender to palpation lower mid abdomen without RRG Bowel sounds present. Extremities: Warm, dry, well-perfused. No extremity edema. Neuro: Alert and oriented x 4, face symmetric, moves 4 extremities well. observed to walk well Psych: Normal affect and behavior Results & Data Results & Data Vital Signs (Past 12 Hours) Vital Signs Temp Pulse Pulse Resp BP Pulse Ox O2 Del Method 08/21/24 14:55 36.5 C 58 L 18 113/49 L 99 Room Air 08/21/24 14:53 62 08/21/24 11:27 36.5 C 67 18 118/71 95 Room Air 08/21/24 10:30 50 L 08/21/24 07:31 36.5 C 58 L 18 117/64 100 Room Air Laboratory Results 08/21/24 05:24 08/21/24 05:24 PG Care Time/CCT Total # of Minutes Spent Total Time Spent with Patient: Total time spent is greater than 50% in coordination of care (as documented) at patient's floor/unit and/or counseling patient: Coding Level of Care Code 57369 SUB INP/OBS CARE 3/50MIN Diagnoses Sepsis A41.9 Sepsis acute organ dysfunction status: unspecified Sepsis type: sepsis due to unspecified organism Metabolic acidosis with normal anion gap and bicarbonate losses E87.20 Norovirus A08.11 Normocytic anemia D64.9 Hypomagnesemia E83.42 Hypokalemia E87.6 (1) Sepsis Sepsis acute organ dysfunction status: unspecified Sepsis type: sepsis due to unspecified organism Qualified Code(s): A41.9 - Sepsis, unspecified organism
[2024-08-21] MEDS ORDERED: ALBUTEROL HFA 8 GM INHALER INH PRN (19:29)
[2024-08-22 06:00] LABS: Hematocrit (blood only) 23.8 % (42.0-52.0); Hemoglobin 7.9 g/dl (14.0-18.0); Mean Corpuscular Hemoglobin 28.9 pg (25.0-34.0); Mean Corpuscular Hgb Conc 33.2 g/dL (32.0-36.0); Mean Corpuscular Volume 87.2 fL (80.0-100.0); Mean Platelet Volume 10.5 fL (9.4-12.4); Platelet Count 231 K/uL (130-400); RDW Coefficient of Variation 16.8 % (11.5-14.5); RDW Standard Deviation 53.3 fL (36.4-46.3); Red Blood Count 2.73 M/uL (4.70-6.10); White Blood Count 7.75 K/ul (4.8-10.8)
[2024-08-22 06:15] LABS: BUN Creatinine Ratio 12.9 (10-20); Calcium 7.3 mg/dl (8.6-10.3); Creatinine Clr Calc Pharmacy 29.6 ml/min; Potassium 3.6 mmol/L (3.5-5.1)
--- NOTE | 2024-08-22 14:19 | Hospitalist Progress Note ---
Date of Service August 22, 2024 Assessment & Plan (1) Sepsis: Plan: 83-year-old man admitted with sepsis, proctocolitis, related to norovirus. was hypotensive in ED but that resolved after IV normal saline. In the first 24 hours however white blood count increased from 9-->13 K, procalcitonin increased from 8-->27 and metabolic acidosis persisted. broad-spectrum antibiotics started and leukocytosis resolved metabolic acidosis resolved. Blood cultures no growth to date At 24 hours - sepsis resolved, diarrhea resolved. formed stool so no C. difficile assay sent - pip-tazo - continue and transition to short course oral Augmentin at discharge - follow-up blood cultures and exam (2) Metabolic acidosis with normal anion gap and bicarbonate losses: Plan: metabolic acidosis resolved, stop bicarb drip (3) Norovirus: Plan: Isolation precautions see above (4) Normocytic anemia: Plan: At baseline (5) Hypomagnesemia: Plan: replaced IV and resolved (6) Hypokalemia: Plan: K 3.0 - replaced and resolved Plan Coronary artery disease - severe chronic multivessel disease on recent cardiac catheterization, continue ASA, atorvastatin, no BB (recently discontinued due to bradycardia) hypertensionolmesartan held because of hypotension chronic kidney disease stage IIIcreatinine improved from 1.9 down to 1.6-7 which is his recent baseline. note that he has had significant worsening in his creatinine compared to 2022 Severe aortic stenosis - murmur on exam, referred to [facility] [place] for TAVR BPH - continue tamsulosin VTE prophylaxis - heparin 5000 units SQ BID Diet - low fiber anticipate discharge home tomorrow if blood cultures remain negative Admission and Anticipated Discharge Date Admission Date: August 20, 2024 Subjective no further diarrhea, lower abdominal pain resolved no chest pain or shortness of breath no nausea, eating well Physical Exam 2 Physical Exam: PHYSICAL EXAMINATION Last 24h vital signs reviewed, see documentation in flowsheet General: again sitting in chair working on his study Bible HEENT: Normocephalic, atraumatic, pupils round and equal, sclerae anicteric, no conjunctival injection, moist mucus membranes Lungs: Normal respiratory effort. Clear to auscultation bilaterally. No RRW Heart: Regular rate and rhythm, systolic murmur. No JVD Abdomen: Soft,, nondistended. lower abdomen nontender to palpation today, improved normal bowel tones Extremities: Warm, dry, well-perfused. 1+ lower extremity edema. Neuro: Alert and oriented x 4, face symmetric, moves 4 extremities well. Psych: Normal affect and behavior Results & Data Results & Data Vital Signs (Past 12 Hours) Vital Signs Temp Pulse Resp BP Pulse Ox O2 Del Method 08/22/24 07:23 36.4 C L 61 16 127/52 L 99 Room Air Laboratory Results 08/22/24 04:50 08/22/24 04:50 PG Care Time/CCT Total # of Minutes Spent Total Time Spent with Patient: Total time spent is greater than 50% in coordination of care (as documented) at patient's floor/unit and/or counseling patient: Coding Level of Care Code 75690 SUB INP/OBS CARE 2/35MIN Diagnoses Sepsis A41.9 Sepsis acute organ dysfunction status: unspecified Sepsis type: sepsis due to unspecified organism Metabolic acidosis with normal anion gap and bicarbonate losses E87.20 Norovirus A08.11 Normocytic anemia D64.9 Hypomagnesemia E83.42 Hypokalemia E87.6 (1) Sepsis Sepsis acute organ dysfunction status: unspecified Sepsis type: sepsis due to unspecified organism Qualified Code(s): A41.9 - Sepsis, unspecified organism
[2024-08-23 12:23] VITALS: BP 106/60; PULSE 77; RESP 20; TEMP 97.5; O2SAT 100
--- NOTE | 2024-08-23 14:56 | Discharge Summary ---
Discharge Summary Date of Service August 23, 2024 Principal Dx & Hospital Course #1 = Principal Diagnosis (1) Sepsis: 83-year-old man admitted with sepsis, proctocolitis, related to norovirus. was hypotensive in ED but that resolved after IV normal saline. In the first 24 hours however white blood count increased from 9-->13 K, procalcitonin increased from 8-->27 and metabolic acidosis persisted. broad-spectrum antibiotics started and leukocytosis resolved metabolic acidosis resolved. Blood cultures no growth to date At 72 hours - sepsis resolved, diarrhea resolved. formed stool so no C. difficile assay sent - Treated with pip-tazo - transition to short course oral Augmentin at discharge - lower abdominal tenderness and pain has resolved, normal oral intake - follow-up blood cultures (2) Metabolic acidosis with normal anion gap and bicarbonate losses: treated initially with bicarbonate drip metabolic acidosis resolved (3) Norovirus: see above (4) Normocytic anemia: At baseline (5) Hypomagnesemia: replaced IV and resolved (6) Hypokalemia: K 3.0 - replaced and resolved Plan Coronary artery disease - severe chronic multivessel disease on recent cardiac catheterization, continue ASA, atorvastatin, no BB (recently discontinued due to bradycardia) hypertensionolmesartan held because of hypotension chronic kidney disease stage IIIcreatinine improved from 1.9 down to 1.6-7 which is his recent baseline. note that he has had significant worsening in his creatinine compared to 2022 Severe aortic stenosis - murmur on exam, referred to [place] for TAVR BPH - continue tamsulosin I updated his by phone day of discharge Admission HPI Per Admitting Provider Osmany Shaw is an 83 year old male with severe aortic stenosis and prior Whipple procedure who presents to the ER with chills and fevers. He notes generalized abdominal pain intermittently for the last 2-3 weeks although unclear whether this is truly a new symptom or since his Whipple's procedure. The pains last for an hour and occurring 1-2 times a day. Currently he denies any pain but at worst the severity is 7 out of 10. Some relief with defecation and urination. For the last week he has then been having diarrhea although he notes this is getting better and is more formed today, not watery, no melena or bright red blood in stool. No nausea or vomiting. He started having fevers 5 days ago which is the main reason he came to the ER today. He notes a maximum fever of 103.1 F getting worse over the last day where he cycles between not having enough blankets to keep him warm and then sweating. He denies any respiratory or urinary symptoms. Notably he was recently admitted to [facility] in July due to bradycardia and dizziness secondary to atenolol use and additionally diagnosed with of severe aortic stenosis with severe chronic multivessel coronary artery disease and has been referred to [facility] for evaluation of TAVR. Discharge Exam PHYSICAL EXAMINATION Last 24h vital signs reviewed, see documentation in flowsheet General: sitting on the edge of the bed talking to his HEENT: Normocephalic, atraumatic, pupils round and equal, sclerae anicteric, no conjunctival injection, moist mucus membranes Lungs: Normal respiratory effort. Clear to auscultation bilaterally. No RRW Heart: Regular rate and rhythm, systolic murmur. No JVD Abdomen: Soft,, nondistended. abdomen nontender normal bowel tones Extremities: Warm, dry, well-perfused. 1+ lower extremity edema. Neuro: Alert and oriented x 4, face symmetric, moves 4 extremities well. Psych: Normal affect and behavior Discharge Plan Discharge Items Patient Disposition: Home - Self-Care Reason For Visit: NOROVIRUS, PROCTOCOLITIS Discharge Diagnosis: norovirus, proctocolitis Activity: Resume your previous activity Non-emergency contact: Primary Care Provider Call non-emergency contact if: you have any medication questions, your symptoms worsen and you have a fever Follow-up/Referrals: Pato Castle MD [Primary Care Provider] - Diet: Regular Addtl Attending Provider Instructions: You had diarrhea related to norovirus. There was proctocolitis (inflammation of distal colon/rectum) on CT scan. Some of your lab tests were suggestive of bacterial infection so we are treating you with a course of antibiotics. Your blood cultures are negative at three days, which is pretty good. They don't finalize until five days so there is a slim chance that if they turn positive we might have to bring you back to the hospital for IV antibiotics. We will call you if that is the case. You may want to take a probiotic for 2-4 weeks to help your bowel brianda return to normal. It was a pleasure taking care of you in the hospital Trina Sal MD Pending Studies at Discharge: Yes (blood cultures) Stand-Alone Forms: [facility], Smoking Cessation Medications and DC Order Prescriptions: New amoxicillin-pot clavulanate 500-125 mg tablet 1 tab PO Q12H Qty: 10 0RF Continued aspirin [Ecotrin Low Strength] 81 mg tablet,delayed release (DR/EC) 81 mg PO QAM Qty: 90 3RF cholecalciferol (vitamin D3) 25 mcg (1,000 unit) capsule 25 mcg PO QAM allopurinol 100 mg tablet 100 mg PO QAM Qty: 90 3RF montelukast 10 mg tablet 10 mg PO QAM Qty: 90 3RF olmesartan 5 mg tablet 5 mg PO QAM Qty: 90 3RF albuterol sulfate [Ventolin HFA] 90 mcg/actuation HFA aerosol inhaler 2 puff INH Q4H PRN (Reason: shortness of breath) Qty: 8.5 3RF mecobalamin (vitamin B12) 500 mcg tablet,chewable 500 mcg PO QAM Procrit 40,000 unit/mL solution 40,000 unit subcut UD Rx Instructions: Pt gets this done at the doctor office Jardiance 10 mg tablet 10 mg PO DAILY Qty: 30 2RF fluticasone propionate [Allergy Relief (fluticasone)] 50 mcg/actuation spray,suspension 2 spray intranasal UD PRN (Reason: Congestion) Qty: 16 3RF Rx Instructions: administer into each nostril atorvastatin 80 mg tablet 80 mg PO HS fluticasone propion-salmeterol [Advair Diskus] 100-50 mcg/dose blister with device 1 inh inhalation BID tamsulosin 0.4 mg capsule 0.4 mg PO HS solifenacin [Vesicare] 5 mg tablet 5 mg PO QAM Discharge Orders: Discharge Order (Routine); Ordered 08/23/24 Ordered By: Trina Sal Admission Data Admit Date/Time: 08/20/24 14:49 Attending Provider: Trina Sal Admit Provider: Marcio Bryan Primary Care Provider: Pato Castle Other Interventions: Discharge Summary Assessment (RN) Last Done: 08/23/24 08:49 Hospital Stay Data Diagnostic Imagining Performed 10/03/24 10:52 CT Abd and Pelvis [CT abd pelvis wo con] Stat Pending Results Patient Have Any Pending Studies at Discharge: Yes (blood cultures) Discharge Instructions Given to Patient (Per Discharging Provider) You had diarrhea related to norovirus. There was proctocolitis (inflammation of distal colon/rectum) on CT scan. Some of your lab tests were suggestive of bacterial infection so we are treating you with a course of antibiotics. Your blood cultures are negative at three days, which is pretty good. They don't finalize until five days so there is a slim chance that if they turn positive we might have to bring you back to the hospital for IV antibiotics. We will call you if that is the case. You may want to take a probiotic for 2-4 weeks to help your bowel brianda return to normal. It was a pleasure taking care of you in the hospital Trina Sal MD Total Time Total Time Spent Total Time Spent (In Minutes): less than 30 minutes Coding Level of Care Code 72851 IN/OBS DISCH 30 MIN/LESS Diagnoses Sepsis A41.9 Sepsis acute organ dysfunction status: unspecified Sepsis type: sepsis due to unspecified organism Metabolic acidosis with normal anion gap and bicarbonate losses E87.20 Norovirus A08.11 Normocytic anemia D64.9 Hypomagnesemia E83.42 Hypokalemia E87.6
== END 2024-08-23 13:16 | disposition home or self-care (01) | DRG 872 ==
LOC: ED 09:02 → SUATTDRO 14:49 → 2W 14:49

== ENCOUNTER 2024-10-13 08:54 | Inpatient (IN) ==
--- NOTE | 2024-10-13 09:41 | XRay Report ---
XR chest 1V portable CLINICAL HISTORY: Sepsis COMPARISON STUDY: Chest CT July 25, 2024. Chest radiograph August 20, 2024. FINDINGS: Status post median sternotomy and bypass grafting. Lung volumes are normal. Minimal left ba silar opacity favors atelectasis. There is no pneumothorax. There is a trace left pleural effusion. C ardiac size is normal. Mediastinal contours are normal. There is no evidence for pulmonary edema. IMPRESSION: 1. Trace left pleural effusion. 2. No consolidation to suggest pneumonia. ACT 112: Negative or not required by law. Electronically signed by: Rishabh Sebastian M.D. 10/13/2024 9:39 AM
[2024-10-13] MEDS: SODIUM CHLORIDE 0.9% 1,000 ML IV SCH (09:58)
[2024-10-13 09:59] LABS: Basophils # (auto) 0.01 K/uL (0.00-0.20); Basophils % (auto) 0.2 %; Eosinophils # (auto) 0.06 K/uL (0.00-0.50); Eosinophils % (auto) 0.9 %; Hematocrit (blood only) 34.9 % (42.0-52.0); Hemoglobin 11.6 g/dl (14.0-18.0); Immature Granulocytes # (auto) 0.03 K/uL (0.01-0.20); Immature Granulocytes % (auto) 0.5 %; Lymphocytes # (auto) 0.67 K/uL (1.20-3.40); Lymphocytes % (auto) 10.4 %; Mean Corpuscular Hemoglobin 30.1 pg (25.0-34.0); Mean Corpuscular Hgb Conc 33.2 g/dL (32.0-36.0); Mean Corpuscular Volume 90.6 fL (80.0-100.0); Mean Platelet Volume 9.6 fL (9.4-12.4); Monocytes # (auto) 0.31 K/uL (0.11-0.59); Monocytes % (auto) 4.8 %; Neutrophils # (auto) 5.38 K/uL (1.40-6.50); Neutrophils % (auto) 83.2 %; Nucleated RBC # (auto) 0.07 K/uL (0.00-0.12); Nucleated RBC % (auto) 1.1 %; Platelet Count 334 K/uL (130-400); RDW Standard Deviation 52.8 fL (36.4-46.3); Red Blood Count 3.85 M/uL (4.70-6.10); White Blood Count 6.46 K/ul (4.8-10.8)
[2024-10-13] MEDS: diphenhydrAMINE 50 MG/ML VIAL IV ONE (10:16)
[2024-10-13] MEDS: methylPREDNISolone 125 MG/2 ML VIAL IV ONE (10:17)
[2024-10-13 10:23] LABS: Base Excess VBG -11.5 mEq/L; HCO3 VBG 15 mmol/L; Oxygen Saturation VBG 62.5 %; PCO2 VBG 35 mmHg (38-50); PO2 VBG 41 mmHg; pH VBG 7.24 (7.36-7.41)
[2024-10-13 10:25] LABS: Albumin Level 1.9 gm/dl (3.4-5.0); BUN Creatinine Ratio 9.4 (10-20); Bilirubin Direct 0.2 mg/dl (0-0.2); Bilirubin,Total 0.6 mg/dl (0.2-1.0); Calcium 7.4 mg/dl (8.6-10.3); Magnesium 1.7 mg/dl (1.7-2.4); Potassium 3.8 mmol/L (3.5-5.1); Total Protein 4.3 gm/dl (6.0-8.3)
[2024-10-13 10:28] LABS: Troponin I High Sensitivity 10.6 pg/ml (0-20)
--- NOTE | 2024-10-13 11:04 | Emergency Department Note ---
Impression & Plan Acute kidney injury superimposed on stage 3b chronic kidney disease, Acute heart failure with preserved ejection fraction (HFpEF), Anasarca, H/O Whipple procedure ED Provider Note NAME: NANCY MILLER AGE: 83 SEX: M : 1940 ARRIVES VIA: Walk-In INFORMANT: Patient, ED PROVIDER(S): Joesph Galo MD CHIEF COMPLAINT: Abdominal pain, right, diarrhea HPI: This is an 83-year-old male presenting for diarrhea, weakness. Patient notes that he has had about 5 days worth of lower abdominal pain. Notes it is on his flank region on his right side. He notes he has been swollen to his extremities as well. He notes he has previous pancreatic cancer and had a Whipple procedure. Otherwise he has 1 kidney remaining. He notes he was seen in the hospital about 1 month ago with norovirus and given antibiotics. Since then he has not had any other antibiotics. He notes no current fevers or chills. ROS: See above HPI for pertinent positives & negatives. A total of 10 systems reviewed and were otherwise negative. PAST MEDICAL HISTORY: See Below PAST SURGICAL HISTORY: See Below FAMILY HISTORY: See Below SOCIAL HISTORY: See Below HOME MEDICATIONS: See Below ALLERGIES: See Below VITALS: See Below PHYSICAL EXAMINATION: General: resting comfortably in no acute distress Head: Normocephalic and atraumatic Eyes: Normal inspection, extraocular muscles intact Ear, nose, throat: Normal external exam Neck: Normal range of motion Respiratory: lungs clear to auscultation bilaterally Cardiovascular: Regular rate/rhythm, no murmur GI: soft, nontender, no guarding or rebound Extremities: nontender, moves all extremities Neuro: The patient awake and alert, appropriately conversive, no focal deficits, symmetric faces Skin: Warm, dry, and intact MEDICAL DECISION MAKING: This is an 83-year-old male present for diarrhea and weakness. Patient was complains of right flank pain. Will do urinalysis, basic blood work and CAT scan of the abdomen/pelvis. -Consider C. difficile, cholecystitis, pancreatitis, pyelonephritis -Blood work does reveal a creatinine that is elevated to 2.65. With patient's 1 kidney, will defer contrast and do CT Noncon -ECG independently interpreted by me with normal sinus rhythm, rate of 92, normal axis, normal MI, normal QRS, normal QTc, no ST segment elevations consistent with STEMI criteria -Chest Xray independently interpreted by me showing no pneumothorax, focal opacity. -CT imaging does reveal moderate diffuse colorectal wall thickening representing a nonspecific proctocolitis. Severe hepatic steatosis with a 3 point centimeter right hepatic lobe hypodense focus. I did advise patient of this finding. Otherwise patient does not appear to be fluid overloaded with anasarca -Patient's does have bladder wall thickening on CT imaging however no current urinalysis, will await this. -The patient's KANDI, proctocolitis, will admit for further treatment. Still waiting stool and urine cultures. -Care discussed with Dr. Lawrence for admission Differential diagnosis: C. difficile, cholecystitis, pancreatitis, pyelonephritis, bowel perforation, diverticulitis, appendicitis, KANDI Independent History obtained from: Daughter Diagnostics interpreted by me: ECG: See above Cardiac Monitoring: An order was placed for continuous cardiac monitoring. The monitor shows a rate of 84 with sinus rhythm. Past Med/Surg History Problem List (Updated 10/13/24 @ 15:08 by Joesph Galo MD) Pancolitis Anasarca (Acute) Normocytic anemia Norovirus (Acute) Acute kidney injury superimposed on stage 3b chronic kidney disease (Acute) Acute heart failure with preserved ejection fraction (HFpEF) (Acute) Nausea (Acute) Bradycardia (Acute) Chest pain (Acute) Bradycardia History of lumbosacral spine surgery Chronic low back pain Lumbosacral spondylosis Prostate cancer Asthma flares with weather changes. Last use rescue inhaler 12/10/23 due to weather. No further issues. 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) H/O Whipple procedure (Acute) Hyperlipidemia Hypersomnia Allergic rhinitis with postnasal drip Coronary artery disease Elevated troponin (Acute) Kidney disease ONLY ONE KIDNEY FROM KIDNEY STONES DAMAGED KIDNEY AND NEEDED TO BE REMOVED Elevated serum immunoglobulin free light chain level Aortic stenosis follows with Dr Rolle Stage 3b chronic kidney disease Iron deficiency anemia Medical History Prostate cancer (10/02/17) Gastric ulcer Macular degeneration Gastrointestinal complaint History of gout Fatigue History of COVID-19 Anemia Hyperlipidemia Pancreatic cancer Atrial fibrillation Urinary incontinence History of prostate cancer (~09/2017) Carotid artery plaque Obstructive sleep apnea of adult Coronary artery disease of bypass graft of [place] heart with stable angina pectoris HTN (hypertension) Surgical History History of esophagogastroduodenoscopy (EGD) History of cardiac cath History of cholecystectomy History of ERCP History of Whipple procedure (~08/2022) Hx of colonoscopy Hx of hand surgery Hx of rotator cuff surgery Hx of CABG History of nephrectomy Family History Sister Breast cancer Father Coronary heart disease Congestive heart disease COPD (chronic obstructive pulmonary disease) Mother Pancreas cancer Brother Colorectal cancer Pancreas cancer Sister Coronary heart disease Stroke Sister Hypertension Other Diabetes Heart disease Lung disease No family history of adverse response to anesthesia Denies family history of Prostate cancer Social History Smoking Status: Former smoker Tobacco Type: Cigarettes, Pipe and Cigars Age Started Using Tobacco: 19; Age Quit Using Tobacco: 32; packs per day: 0.5; Second Hand Exposure: No; Do You Dip or Chew Tobacco: No; Hx Alcohol Use: No Hx Substance Use: No Preferred Language: Slovenian Communication Ability: Effective Visual Impairment: No Limitations Hearing Ability: Hard of Hearing Field Producer Required: No Beliefs That Will Affect Care: None and Islam Islam Beliefs: Free Mandaen marital status: Current Living Situation: Spouse 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 Safe at Home: Yes Childhood Exposure to Second-Hand Smoke: Yes Diet: regular caffeine: No during the past year weight has: decreased > 10 lbs Dental Care, Regularly: No Physical Activity Frequency: Daily Seatbelt Use: always Sunscreen Use: Yes Do you think of yourself as: straight/heterosexual Gender Identity: Male Assistive Devices: Cane and Walker Allergies Allergies Allergy/AdvReac Type Severity Reaction Status Date / Time house dust Allergy Unknown SNEEZING, Verified 10/06/24 14:44 CONGESTION pollen extracts Allergy Unknown SNEEZING, Verified 10/06/24 14:44 CONGESTION red dye Allergy Unknown Hives Verified 10/06/24 14:44 Home Meds Home Medications Medication Instructions Recorded Confirmed cholecalciferol (vitamin D3) 25 25 mcg PO QAM 12/28/21 10/13/24 mcg (1,000 unit) capsule mecobalamin (vitamin B12) 500 mcg 500 mcg PO QAM 09/13/23 10/13/24 chewable tablet fluticasone 100 mcg-salmeterol 50 1 inh inhalation BID 10/08/23 10/13/24 mcg/dose blistr powdr for inhalation (Advair Diskus) solifenacin 5 mg tablet (Vesicare) 5 mg PO QAM 08/20/24 10/13/24 tamsulosin 0.4 mg capsule 0.4 mg PO HS 08/20/24 10/13/24 olmesartan 5 mg tablet (Benicar) 5 mg PO QAM 08/31/24 10/13/24 epoetin ebony 40,000 unit/mL 40,000 unit subcut .Qmonth 10/06/24 10/13/24 injection solution (Procrit) atenolol 50 mg tablet 50 mg PO UD 10/13/24 10/13/24 Previous Rx's Medication Instructions Recorded aspirin 81 mg tablet,delayed 81 mg PO QAM #90 tabs 11/07/20 release (Ecotrin Low Strength) albuterol sulfate 90 mcg/actuation 2 puff inhalation Q4H PRN 09/06/21 aerosol inhaler (Ventolin HFA) shortness of breath #8.5 grams allopurinol 100 mg tablet 100 mg PO QAM #90 tabs 11/12/23 montelukast 10 mg tablet 10 mg PO QAM #90 tabs 11/12/23 empagliflozin 10 mg tablet 10 mg PO DAILY #30 tabs 08/06/24 (Jardiance) fluticasone propionate 50 2 spray intranasal UD PRN 09/03/24 mcg/actuation nasal Congestion #16 grams spray,suspension (Allergy Relief (fluticasone)) atorvastatin 80 mg tablet 80 mg PO HS #45 tabs 09/28/24 pantoprazole 40 mg tablet,delayed 40 mg PO BID #60 tabs 10/02/24 release Results & Data (ED) Vital Signs Vital Signs - 24 hr 10/13/24 08:58 10/13/24 09:22 10/13/24 09:30 Temperature 36.9 C Temperature Source Temporal Artery Scan Pulse Rate 71 103 H 98 H Respiratory Rate 18 19 Blood Pressure 77/52 L 93/62 L Blood Pressure Mean 60 67 Pulse Oximetry 97 96 Oxygen Delivery Method Room Air Sepsis New/Unexplained Change in Mental Status No Sepsis Action Taken by Nursing No Action Required 10/13/24 09:45 10/13/24 10:00 10/13/24 10:23 Temperature Temperature Source Pulse Rate 101 H 75 80 Respiratory Rate 14 15 Blood Pressure 104/83 107/57 L Blood Pressure Mean 94 67 Pulse Oximetry 96 100 100 Oxygen Delivery Method Room Air Room Air Sepsis New/Unexplained Change in Mental Status Sepsis Action Taken by Nursing 10/13/24 10:30 10/13/24 10:45 10/13/24 11:15 Temperature Temperature Source Pulse Rate 101 H 85 90 Respiratory Rate 16 20 16 Blood Pressure 103/62 124/47 L 102/71 Blood Pressure Mean 69 50 80 Pulse Oximetry 100 99 100 Oxygen Delivery Method Room Air Sepsis New/Unexplained Change in Mental Status Sepsis Action Taken by Nursing 10/13/24 11:30 10/13/24 12:01 10/13/24 13:00 Temperature Temperature Source Pulse Rate 76 76 89 Respiratory Rate 16 16 16 Blood Pressure 125/69 126/79 117/62 Blood Pressure Mean 102 103 80 Pulse Oximetry 100 97 99 Oxygen Delivery Method Sepsis New/Unexplained Change in Mental Status Sepsis Action Taken by Nursing 10/13/24 13:51 Temperature Temperature Source Pulse Rate 84 Respiratory Rate 18 Blood Pressure 102/72 Blood Pressure Mean 88 Pulse Oximetry 100 Oxygen Delivery Method Sepsis New/Unexplained Change in Mental Status Sepsis Action Taken by Nursing Laboratory Data 10/13/24 09:38 10/13/24 09:38 Lab Results 10/13/24 10/13/24 10/13/24 Range/Units 09:38 10:07 11:13 WBC 6.46 (4.8-10.8) K/ul RBC 3.85 L (4.70-6.10) M/uL Hgb 11.6 L (14.0-18.0) g/dl Hct 34.9 L (42.0-52.0) % MCV 90.6 (80.0-100.0) fL MCH 30.1 (25.0-34.0) pg MCHC 33.2 (32.0-36.0) g/dL RDW Std Deviation 52.8 H (36.4-46.3) fL RDW Coeff of Karolyn 17.0 H (11.5-14.5) % Plt Count 334 (130-400) K/uL MPV 9.6 (9.4-12.4) fL Immature Gran % (Auto) 0.5 % Neut % (Auto) 83.2 % Lymph % (Auto) 10.4 % [place] % (Auto) 4.8 % Eos % (Auto) 0.9 % Baso % (Auto) 0.2 % Neut # (Auto) 5.38 (1.40-6.50) K/uL Lymph # (Auto) 0.67 L (1.20-3.40) K/uL [place] # (Auto) 0.31 (0.11-0.59) K/uL Eos # (Auto) 0.06 (0.00-0.50) K/uL Baso # (Auto) 0.01 (0.00-0.20) K/uL Immature Gran # (Auto) 0.03 (0.01-0.20) K/uL Absolute Nucleated RBC 0.07 (0.00-0.12) K/uL Nucleated RBC % (auto) 1.1 % PT 12.8 H (9.0-12.0) Seconds INR 1.2 H (0.9-1.1) VBG pH 7.24 L (7.36-7.41) VBG pCO2 35 L (38-50) mmHg VBG pO2 41 mmHg VBG HCO3 15 mmol/L VBG O2 Saturation 62.5 % VBG Base Excess -11.5 mEq/L Sodium 140 (136-145) mmol/L Potassium 3.8 (3.5-5.1) mmol/L Chloride 118 H (98-107) mmol/L Carbon Dioxide 16 L (21-32) mmol/L Anion Gap 6 (3-11) BUN 25 H (6-23) mg/dl Creatinine 2.65 H (0.6-1.4) mg/dl Est Cr Clr Drug Dosing 21.0 ml/min eGFR 23.48 BUN/Creatinine Ratio 9.4 L (10-20) Glucose 80 (70-99(Fasting)) mg/dl Lactate 1.5 1.1 (0.4-2.0) mmol/L Calcium 7.4 L (8.6-10.3) mg/dl Magnesium 1.7 (1.7-2.4) mg/dl Total Bilirubin 0.6 (0.2-1.0) mg/dl Direct Bilirubin 0.2 (0-0.2) mg/dl AST 22 (13-39) U/L ALT 33 (7-52) U/L Alkaline Phosphatase 131 H (34-104) U/L Troponin I High Sens 10.6 (0-20) pg/ml Total Protein 4.3 L (6.0-8.3) gm/dl Albumin 1.9 L (3.4-5.0) gm/dl Procalcitonin 0.24 (0-0.5) ng/ml Urine Color Urine Appearance (Clear) Urine pH (4.5-7.5) Ur Specific [place] (1.000-1.030) Urine Protein (Negative) Urine Glucose (UA) (Negative) Urine Ketones (Negative) Urine Blood (Negative) Urine Nitrite (Negative) Urine Bilirubin (Negative) Urine Urobilinogen (Negative) Ur Leukocyte Esterase (Negative) Urine WBC (Auto) (0-5) /hpf Urine RBC (Auto) (0-2) /hpf U Hyaline Cast (Auto) (0-2) /lpf U Epithel Cells (Auto) (0-2) /hpf Urine Bacteria (Auto) (None Seen) Hyaline Casts (None Presnt) /lpf Urine Mucus (None Prsent) Urine Yeast (None Prsent) 10/13/24 Range/Units 13:37 WBC (4.8-10.8) K/ul RBC (4.70-6.10) M/uL Hgb (14.0-18.0) g/dl Hct (42.0-52.0) % MCV (80.0-100.0) fL MCH (25.0-34.0) pg MCHC (32.0-36.0) g/dL RDW Std Deviation (36.4-46.3) fL RDW Coeff of Karolyn (11.5-14.5) % Plt Count (130-400) K/uL MPV (9.4-12.4) fL Immature Gran % (Auto) % Neut % (Auto) % Lymph % (Auto) % [place] % (Auto) % Eos % (Auto) % Baso % (Auto) % Neut # (Auto) (1.40-6.50) K/uL Lymph # (Auto) (1.20-3.40) K/uL [place] # (Auto) (0.11-0.59) K/uL Eos # (Auto) (0.00-0.50) K/uL Baso # (Auto) (0.00-0.20) K/uL Immature Gran # (Auto) (0.01-0.20) K/uL Absolute Nucleated RBC (0.00-0.12) K/uL Nucleated RBC % (auto) % PT (9.0-12.0) Seconds INR (0.9-1.1) VBG pH (7.36-7.41) VBG pCO2 (38-50) mmHg VBG pO2 mmHg VBG HCO3 mmol/L VBG O2 Saturation % VBG Base Excess mEq/L Sodium (136-145) mmol/L Potassium (3.5-5.1) mmol/L Chloride (98-107) mmol/L Carbon Dioxide (21-32) mmol/L Anion Gap (3-11) BUN (6-23) mg/dl Creatinine (0.6-1.4) mg/dl Est Cr Clr Drug Dosing ml/min eGFR BUN/Creatinine Ratio (10-20) Glucose (70-99(Fasting)) mg/dl Lactate (0.4-2.0) mmol/L Calcium (8.6-10.3) mg/dl Magnesium (1.7-2.4) mg/dl Total Bilirubin (0.2-1.0) mg/dl Direct Bilirubin (0-0.2) mg/dl AST (13-39) U/L ALT (7-52) U/L Alkaline Phosphatase (34-104) U/L Troponin I High Sens (0-20) pg/ml Total Protein (6.0-8.3) gm/dl Albumin (3.4-5.0) gm/dl Procalcitonin (0-0.5) ng/ml Urine Color Yellow Urine Appearance Cloudy A (Clear) Urine pH 5.5 (4.5-7.5) Ur Specific [place] 1.014 (1.000-1.030) Urine Protein Trace H (Negative) Urine Glucose (UA) Negative (Negative) Urine Ketones Negative (Negative) Urine Blood Negative (Negative) Urine Nitrite Negative (Negative) Urine Bilirubin Negative (Negative) Urine Urobilinogen Negative (Negative) Ur Leukocyte Esterase 2+ H (Negative) Urine WBC (Auto) >50 H (0-5) /hpf Urine RBC (Auto) >20 H (0-2) /hpf U Hyaline Cast (Auto) 11-20 H (0-2) /lpf U Epithel Cells (Auto) 0-2 (0-2) /hpf Urine Bacteria (Auto) 2+ H (None Seen) Hyaline Casts Present A (None Presnt) /lpf Urine Mucus Present A (None Prsent) Urine Yeast Present A (None Prsent) Administered Medications Albumin Human (Albumin 25%) 25 gm in 100 mls @ 50 mls/hr IV Q2H FARIDA Stop: 10/13/24 18:29 Last Admin: 10/13/24 14:46 Dose: 50 mls/hr Documented By: ESTELITA Discontinued Medications Diphenhydramine HCl (Diphenhydramine 50 Mg/Ml Vial) 25 mg IV ONE ONE Stop: 10/13/24 09:11 Last Admin: 10/13/24 10:16 Dose: Not Given Documented By: BENJAMIN Sodium Chloride (Nss) 1,000 mls @ 999 mls/hr IV .Q1H1M FARIDA Stop: 10/13/24 10:15 Last Infusion: 10/13/24 11:30 Dose: Infused Documented By: Admin: 10/13/24 09:58 Dose: 999 mls/hr Documented By: BENJAMIN Methylprednisolone (Methylprednisolone 125 Mg/2 Ml Vial) 40 mg IV NOW ONE Stop: 10/13/24 09:11 Last Admin: 10/13/24 10:17 Dose: Not Given Documented By: BENJAMIN Imaging Data Radiologist's Impression: Chest X-Ray 10/13/24 09:11 XR chest 1V portable CLINICAL HISTORY: Sepsis COMPARISON STUDY: Chest CT July 25, 2024. Chest radiograph August 20, 2024. FINDINGS: Status post median sternotomy and bypass grafting. Lung volumes are normal. Minimal left basilar opacity favors atelectasis. There is no pneumothorax. There is a trace left pleural effusion. Cardiac size is normal. Mediastinal contours are normal. There is no evidence for pulmonary edema. IMPRESSION: 1. Trace left pleural effusion. 2. No consolidation to suggest pneumonia. ACT 112: Negative or not required by law. Electronically signed by: Rishabh Sebastian M.D. 10/13/2024 9:39 AM Abdomen/Pelvis CT 10/13/24 10:34 CT OF THE ABDOMEN AND PELVIS WITHOUT CONTRAST CLINICAL HISTORY: Abdominal pain, diarrhea, hypotensive. COMPARISON STUDY: CT of the abdomen and pelvis August 20, 2024. TECHNIQUE: Axial images of the abdomen and pelvis were obtained without IV contrast. Images were reviewed in the axial, sagittal, and coronal planes. Automated exposure control was utilized for the study. A dose lowering technique was utilized adhering to the principles of ALARA. FINDINGS: Body wall edema is present. There is bilateral gynecomastia. Trace bilateral pleural effusions. No pneumatosis, free air or portal venous gas. Status post Whipple procedure. Pancreatic stent is unchanged in position. Pneumobilia is again noted. There is severe hepatic steatosis. A 3.4 cm hyperdense focus within the right hepatic lobe on image 66 of 373 is present. There is mild associated capsular retraction. Trace perihepatic ascites. The right kidney is not visualized. There is no evidence for a bowel obstruction. Moderate wall thickening of the entirety of the colon and rectum has progressed since prior CT. The spleen, adrenal glands are unremarkable on unenhanced exam. There is no lymphadenopathy. There are no fluid collections. Moderate bladder wall thickening is present. Bilateral inguinal hernias are noted as well as superimposed hernia which contains a loop of small bowel. This does not result in a bowel obstruction. There are no suspicious lesions within the visualized skeletal structures. Extensive aortoiliac after sclerotic plaque is present. Evaluation of the abdomen and pelvis is suboptimal on this unenhanced exam. Wall thickening of the distal stomach is present. IMPRESSION: 1. Moderate diffuse colorectal wall thickening which has progressed since CT of August 20, 2024. This represents a nonspecific proctocolitis. No evidence for a bowel obstruction. No pneumatosis, free air or portal venous gas. 2. Status post Whipple. Wall thickening of the distal stomach with adjacent stranding which may reflect gastritis. 3. Severe hepatic steatosis. Indeterminate 3.4 cm right hepatic lobe hypodense focus with capsular retraction. A hepatic mass cannot be excluded. Nonemergent liver protocol MRI is recommended. 4. Evidence for volume overload with anasarca, trace bilateral pleural effusions and trace ascites. 5. Supraumbilical hernia which contains a loop of small bowel without resultant bowel obstruction. 6. Bladder wall thickening. This is likely chronic although could be correlated with urinalysis. ACT 112: Negative or not required by law. Electronically signed by: Rishabh Sebastian M.D. 10/13/2024 11:20 AM Discharge Plan Visit Data Chief Complaint: Illness Stated Complaint: DIARRHEA, RT FLANK/KIDNEY PAIN, VERTIGO/FELT FAINT ED Provider: Joesph Galo ED Midlevel Provider: Ev Pastor Discharge Problem: Acute kidney injury superimposed on stage 3b chronic kidney disease, Acute heart failure with preserved ejection fraction (HFpEF), Anasarca, H/O Whipple procedure Forms Stand Alone Forms: [facility] Prescriptions Prescriptions: No Action aspirin [Ecotrin Low Strength] 81 mg tablet,delayed release (DR/EC) 81 mg PO QAM Qty: 90 3RF cholecalciferol (vitamin D3) 25 mcg (1,000 unit) capsule 25 mcg PO QAM allopurinol 100 mg tablet 100 mg PO QAM Qty: 90 3RF montelukast 10 mg tablet 10 mg PO QAM Qty: 90 3RF fluticasone propionate [Allergy Relief (fluticasone)] 50 mcg/actuation spray,suspension 2 spray intranasal UD PRN (Reason: Congestion) Qty: 16 3RF Rx Instructions: administer into each nostril atorvastatin 80 mg tablet 80 mg PO HS Qty: 45 3RF pantoprazole 40 mg tablet,delayed release (DR/EC) 40 mg PO BID Qty: 60 5RF albuterol sulfate [Ventolin HFA] 90 mcg/actuation HFA aerosol inhaler 2 puff INH Q4H PRN (Reason: shortness of breath) Qty: 8.5 3RF mecobalamin (vitamin B12) 500 mcg tablet,chewable 500 mcg PO QAM Procrit 40,000 unit/mL solution 40,000 unit subcut .Qmonth Rx Instructions: Hold for Hgb 11 or greater. Pt gets this done at the doctor office Jardiance 10 mg tablet 10 mg PO DAILY Qty: 30 2RF fluticasone propion-salmeterol [Advair Diskus] 100-50 mcg/dose blister with device 1 inh inhalation BID olmesartan [Benicar] 5 mg tablet 5 mg PO QAM Hold Instructions: hypotension tamsulosin 0.4 mg capsule 0.4 mg PO HS solifenacin [Vesicare] 5 mg tablet 5 mg PO QAM atenolol 50 mg tablet 50 mg PO UD Rx Instructions: 50 mg po qam filled 09/28 90 day supply Referrals Referrals: Pato Castle MD [Primary Care Provider] -
--- NOTE | 2024-10-13 11:23 | CT Scan Report ---
CT OF THE ABDOMEN AND PELVIS WITHOUT CONTRAST CLINICAL HISTORY: Abdominal pain, diarrhea, hypotensive. COMPARISON STUDY: CT of the abdomen and pelvis August 20, 2024. TECHNIQUE: Axial images of the abdomen and pelvis were obtained without IV contrast. Images were revi ewed in the axial, sagittal, and coronal planes. Automated exposure control was utilized for the adan dy. A dose lowering technique was utilized adhering to the principles of ALARA. FINDINGS: Body wall edema is present. There is bilateral gynecomastia. Trace bilateral pleural effusi ons. No pneumatosis, free air or portal venous gas. Status post Whipple procedure. Pancreatic stent i s unchanged in position. Pneumobilia is again noted. There is severe hepatic steatosis. A 3.4 cm hype rdense focus within the right hepatic lobe on image 66 of 373 is present. There is mild associated ca psular retraction. Trace perihepatic ascites. The right kidney is not visualized. There is no evidenc e for a bowel obstruction. Moderate wall thickening of the entirety of the colon and rectum has progr essed since prior CT. The spleen, adrenal glands are unremarkable on unenhanced exam. There is no lym phadenopathy. There are no fluid collections. Moderate bladder wall thickening is present. Bilateral inguinal hernias are noted as well as superimposed hernia which contains a loop of small bowel. This does not result in a bowel obstruction. There are no suspicious lesions within the visualized skeleta l structures. Extensive aortoiliac after sclerotic plaque is present. Evaluation of the abdomen and p sherrie is suboptimal on this unenhanced exam. Wall thickening of the distal stomach is present. IMPRESSION: 1. Moderate diffuse colorectal wall thickening which has progressed since CT of August 20, 2024. This represents a nonspecific proctocolitis. No evidence for a bowel obstruction. No pneumatosis, free ai r or portal venous gas. 2. Status post Whipple. Wall thickening of the distal stomach with adjacent stranding which may refle ct gastritis. 3. Severe hepatic steatosis. Indeterminate 3.4 cm right hepatic lobe hypodense focus with capsular re traction. A hepatic mass cannot be excluded. Nonemergent liver protocol MRI is recommended. 4. Evidence for volume overload with anasarca, trace bilateral pleural effusions and trace ascites. 5. Supraumbilical hernia which contains a loop of small bowel without resultant bowel obstruction. 6. Bladder wall thickening. This is likely chronic although could be correlated with urinalysis. ACT 112: Negative or not required by law. Electronically signed by: Rishabh Sebastian M.D. 10/13/2024 11:20 AM
--- NOTE | 2024-10-13 12:25 | History & Physical Report ---
Date of Service October 13, 2024 Assessment & Plan (1) Acute kidney injury superimposed on stage 3b chronic kidney disease: Plan: Metabolic acidosis, KANDI, NAGMA, history of solitary kidney Prerenal due to diarrhea and poor p.o. intake, coupled with total body fluid overload and third spacing due to hypoalbuminemia VBG 7.24/35/41/15 consistent with metabolic acidosis with incomplete respiratory compensation Baseline creatinine around 1.71.9. 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 Potassium normal, 3.8 UA collected, trace protein. No evidence of gross proteinuria/nephrotic syndrome contributing Given total body fluid overload and intravascular contraction will treat with IV albumin. Nephrology consulted Sodium bicarb p.o. added Lactate is not elevated (2) Anasarca: Plan: Anasarca Liver steatosis and mass as noted below. No evidence of portal thrombosis seen on contrasted CT CXR: Trace left pleural effusion, no consolidation, no overt pulmonary edema TTE 07/2024: EF 65 to 70%, no regional wall motion abnormality, moderatesevere aortic stenosis and progressive compared to prior study. Albumin markedly diminished at 1.9 prior was 2.4, without evidence of significant proteinuria Boost (3) Pancolitis: Plan: Diarrhea, abdominal pain No rebound/guarding/rigidity on exam CTA/P: Moderate diffuse cross-colorectal wall thickening progressive since 09/16/2024, nonspecific progressive proctocolitis. S/p Whipple. Possible gastritis. Severe hepatic steatosis with indeterminate 3.4 cm right hepatic lobe hypodense focus with retraction from which mass is not excluded and nonemergent liver protocol MRI is recommended. Evidence of volume overload with anasarca, trace bilateral pleural effusions, and ascites is noted. Supraumbilical hernia with a loop of small bowel without evidence of SBO. Bladder wall thickening chronic versus cystitis C. difficile test and stool PCR pending IV FM. Further antibiotics pending based on PCR/s C. difficile testing results (4) Acute heart failure with preserved ejection fraction (HFpEF): Plan: CAD: Multivessel CAD on recent cath, aspirin continued, atorvastatin continued, beta-lisa previously discontinued to prevent bradycardia static symptoms - Moderate to severe aortic stenosis: Referred to [facility] [place] for TAVR. He does not have evidence of pulmonary edema. While he does have orthostasis he denies limiting exertional dyspnea/fatigue once he gets going and has not had chest pain/chest pressure. EKG on admission is without acute ST/T wave changes in sinus, no evidence of ischemia. Admitting troponin 10.6 -No acute anginal symptoms Patient is acutely volume overloaded however suspect this is more from third spacing and fraction/hypoalbuminemia. He appears intravascular complete with KANDI, diuresis deferred. Nephrology following. 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 This cannot be performed per protocol with contrast until renal function/GFR improves. No transaminitis or hyperbilirubinemia. 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 Has had increased swelling of his bilateral upper and lower extremities. Patient has a solitary kidney. Patient was discharged from the hospital 08/23/2024 after being treated for sepsis and proctocolitis with broad- spectrum antibiotics and he was also norovirus positive at that time. Mohinder is seen at the bedside. - BMs 4-5x BMs very loose but not completely liquid. No blood. No melena. - +Polyuria, +urgency. Reports incontinence and urge incontinence at baseline. No dysuria Rapid progression of swelling in his legs and hands in the last 24 hours. Has had some intermittent chronic leg swelling however this has greatly worsened last 24 hours, and hand swelling in the last day is new - No fevers. No recent chills. - Denies Abdominal pain. Denies nausea/vomiting No flank pain - +mild lightheadedness on standing which passes after waiting for a bit before walking. Denies syncope, did have 3 falls in August due to lightheadedness but non in the last month and since last discharge. - Last UA low-grade proteinuria but no microscopic hematuria - R shoulder with continued pain. --> XRAY RIGHT CLAVICLE. Medical History: Reviewed Medications: Reviewed Surgical History: Reviewed Family history: Reviewed Allergies: Reviewed Social History: No tobacco/etoh use Code Status: DNR/DNI Allergies Allergy/AdvReac Type Severity Reaction Status Date / Time house dust Allergy Unknown SNEEZING, Verified 10/06/24 14:44 CONGESTION pollen extracts Allergy Unknown SNEEZING, Verified 10/06/24 14:44 CONGESTION red dye Allergy Unknown Hives Verified 10/06/24 14:44 Home Medications Medication Instructions Recorded Confirmed Type aspirin 81 mg tablet,delayed 81 mg PO QAM #90 tabs 11/07/20 10/13/24 Rx release (Ecotrin Low Strength) albuterol sulfate 90 mcg/actuation 2 puff inhalation Q4H PRN 09/06/21 10/13/24 Rx aerosol inhaler (Ventolin HFA) shortness of breath #8.5 grams cholecalciferol (vitamin D3) 25 25 mcg PO QAM 12/28/21 10/13/24 History mcg (1,000 unit) capsule mecobalamin (vitamin B12) 500 mcg 500 mcg PO QAM 09/13/23 10/13/24 History chewable tablet fluticasone 100 mcg-salmeterol 50 1 inh inhalation BID 10/08/23 10/13/24 History mcg/dose blistr powdr for inhalation (Advair Diskus) allopurinol 100 mg tablet 100 mg PO QAM #90 tabs 11/12/23 10/13/24 Rx montelukast 10 mg tablet 10 mg PO QAM #90 tabs 11/12/23 10/13/24 Rx empagliflozin 10 mg tablet 10 mg PO DAILY #30 tabs 08/06/24 10/13/24 Rx (Jardiance) solifenacin 5 mg tablet (Vesicare) 5 mg PO QAM 08/20/24 10/13/24 History tamsulosin 0.4 mg capsule 0.4 mg PO HS 08/20/24 10/13/24 History olmesartan 5 mg tablet (Benicar) 5 mg PO QAM 08/31/24 10/13/24 History fluticasone propionate 50 2 spray intranasal UD PRN 09/03/24 10/13/24 Rx mcg/actuation nasal Congestion #16 grams spray,suspension (Allergy Relief (fluticasone)) atorvastatin 80 mg tablet 80 mg PO HS #45 tabs 09/28/24 10/13/24 Rx pantoprazole 40 mg tablet,delayed 40 mg PO BID #60 tabs 10/02/24 10/13/24 Rx release epoetin ebony 40,000 unit/mL 40,000 unit subcut .Qmonth 10/06/24 10/13/24 History injection solution (Procrit) atenolol 50 mg tablet 50 mg PO UD 10/13/24 10/13/24 History Past Med/Surg History Problem List (Updated 10/13/24 @ 15:08 by Joesph Galo MD) Pancolitis Anasarca (Acute) Normocytic anemia Norovirus (Acute) Acute kidney injury superimposed on stage 3b chronic kidney disease (Acute) Acute heart failure with preserved ejection fraction (HFpEF) (Acute) Nausea (Acute) Bradycardia (Acute) Chest pain (Acute) Bradycardia History of lumbosacral spine surgery Chronic low back pain Lumbosacral spondylosis Prostate cancer Asthma flares with weather changes. Last use rescue inhaler 12/10/23 due to weather. No further issues. 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) H/O Whipple procedure (Acute) Hyperlipidemia Hypersomnia Allergic rhinitis with postnasal drip Coronary artery disease Elevated troponin (Acute) Kidney disease ONLY ONE KIDNEY FROM KIDNEY STONES DAMAGED KIDNEY AND NEEDED TO BE REMOVED Elevated serum immunoglobulin free light chain level Aortic stenosis follows with Dr Rolle Stage 3b chronic kidney disease Iron deficiency anemia Medical History Prostate cancer (10/02/17) Gastric ulcer Macular degeneration Gastrointestinal complaint History of gout Fatigue History of COVID-19 Anemia Hyperlipidemia Pancreatic cancer Atrial fibrillation Urinary incontinence History of prostate cancer (~09/2017) Carotid artery plaque Obstructive sleep apnea of adult Coronary artery disease of bypass graft of [place] heart with stable angina pectoris HTN (hypertension) Surgical History History of esophagogastroduodenoscopy (EGD) History of cardiac cath History of cholecystectomy History of ERCP History of Whipple procedure (~08/2022) Hx of colonoscopy Hx of hand surgery Hx of rotator cuff surgery Hx of CABG History of nephrectomy Family History Sister Breast cancer Father Coronary heart disease Congestive heart disease COPD (chronic obstructive pulmonary disease) Mother Pancreas cancer Brother Colorectal cancer Pancreas cancer Sister Coronary heart disease Stroke Sister Hypertension Other Diabetes Heart disease Lung disease No family history of adverse response to anesthesia Denies family history of Prostate cancer Social History Smoking Status: Former smoker Tobacco Type: Cigarettes, Pipe and Cigars Age Started Using Tobacco: 19; Age Quit Using Tobacco: 32; packs per day: 0.5; Second Hand Exposure: No; Do You Dip or Chew Tobacco: No; Hx Alcohol Use: No Hx Substance Use: No Preferred Language: Hungarian Communication Ability: Effective Visual Impairment: No Limitations Hearing Ability: Hard of Hearing Wheelchair Rental Clerk Required: No Beliefs That Will Affect Care: None and Denominational Denominational Beliefs: Free Anabaptism marital status: Current Living Situation: Spouse 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 NAD. Cooperative. HEENT: Atraumatic, normocephalic. Vision and hearing grossly intact Pulm: CTAB A&P. -wheezes, -rales, -rhonchi. Symmetrical chest rise. No increased work of breathing. No respiratory distress. Cardiac: RRR, SM present. Radial pulses intact and symmetrical. Abdominal: Mild diffuse tenderness without rebound/guarding Extremities: Diffuse pitting edema of the upper and lower extremities bilaterally, anasarca. Bobbin Dumper strength, hip flexion, ankle plantar/dorsiflexion 5/5 bilaterally. Right shoulder forward flexion is limited by severe pain and patient is tender overlying the proximal clavicle. No clavicular tenting is appreciated. Sensation of soft touch is intact in the hands and feet bilaterally. Results & Data Results & Data Vital Signs (Past 12 Hours) Vital Signs Temp Pulse Resp BP Pulse Ox O2 Del Method 10/13/24 12:01 76 16 126/79 97 10/13/24 11:30 76 16 125/69 100 10/13/24 11:15 90 16 102/71 100 10/13/24 10:45 85 20 124/47 L 99 Room Air 10/13/24 10:30 101 H 16 103/62 100 10/13/24 10:23 80 100 Room Air 10/13/24 10:00 75 15 107/57 L 100 Room Air 10/13/24 09:45 101 H 14 104/83 96 10/13/24 09:30 98 H 10/13/24 09:22 103 H 19 93/62 L 96 10/13/24 08:58 36.9 C 71 18 77/52 L 97 Room Air PG Care Time/CCT Total # of Minutes Spent Total Time Spent with Patient: Total time spent is greater than 50% in coordination of care (as documented) at patient's floor/unit and/or counseling patient: Coding Level of Care Code 95613 INT INP/OBS CARE 3/75MIN Diagnoses Acute kidney injury superimposed on stage 3b chronic kidney disease N17.9; N18.32 Anasarca R60.1 Pancolitis K51.00 Acute heart failure with preserved ejection fraction (HFpEF) I50.31 Obstructive sleep apnea of adult G47.33 History of Whipple procedure Z90.410; Z90.49
[2024-10-13 13:13] LABS: INR 1.2 (0.9-1.1); Prothrombin Time 12.8 Seconds (9.0-12.0)
[2024-10-13 14:07] LABS: Appearance Urine Cloudy (Clear); Bacteria Urine Automated 2+ (None Seen); Bilirubin Urine Negative (Negative); Blood Urine Negative (Negative); Color Urine Yellow; Epithelial Cell Urine Auto 0-2 /hpf (0-2); Glucose Urine UA Negative (Negative); Hyaline Casts Urine Present /lpf (None Presnt); Ketones Urine Negative (Negative); Leukocyte Esterase Urine 2+ (Negative); Mucus Urine Present (None Prsent); Nitrite Urine Negative (Negative); Protein Urine Trace (Negative); RBC Urine Automated >20 /hpf (0-2); Specific Gravity Urine 1.014 (1.000-1.030); Urobilinogen Urine Negative (Negative); WBC Urine Automated >50 /hpf (0-5); pH Urine 5.5 (4.5-7.5)
[2024-10-13] MEDS: ALBUMIN 25% 25 GM/100 ML VIAL IV SCH (14:46)
--- NOTE | 2024-10-13 15:25 | XRay Report ---
EXAM: Radiographs of the Right Shoulder Complete 3 Views INDICATION: Remote fall. Persistent pain. TECHNIQUE: 3 views of the right shoulder. COMPARISON: No relevant prior studies available. FINDINGS: Bones/joints: There is mild acromioclavicular and glenohumeral spurring. Joint spaces are maintained. No fracture or dislocation. Visualized right ribs intact. Soft tissues: No abnormality noted. No radiopaque foreign body noted. IMPRESSION: Mild degenerative changes. No acute abnormality. ACT 112: Negative or not required by law. Electronically signed by Stephani Acosta 10-13-2024 3:25 PM
[2024-10-13] MEDS ORDERED: ALBUTEROL HFA 8 GM INHALER INH PRN (16:24)
--- NOTE | 2024-10-13 18:31 | Electrocardiogram Report ---
Test Reason : Blood Pressure : */* mmHG Vent. Rate : 92 BPM Atrial Rate : 92 BPM P-R Int : 158 ms QRS Dur : 68 ms QT Int : 358 ms P-R-T Axes : 55 -9 43 degrees QTcB Int : 442 ms Sinus rhythm with Premature supraventricular complexes Low voltage QRS Possible Inferior infarct (cited on or before 20-Aug-2024) Abnormal ECG When compared with ECG of 20-Aug-2024 09:28, Premature supraventricular complexes are now Present Confirmed by Pato Rolle ([id number]) on 10/13/2024 6:31:11 PM Referred By: REFERRED SELF Confirmed By: Pato Rolle
--- NOTE | 2024-10-13 18:48 | Nephrology Consultation ---
Date of Consultation October 13, 2024 Assessment & Plan (1) Acute kidney injury superimposed on stage 3b chronic kidney disease: Non-oliguric. CT demonstrates the kidney to be unobstructed. Urine microscopy notable for hyaline casts, WBCs, and RBCs. Trace protein on dipstick. Clinical presentation suggestive of intravascular volume depletion and possible CRS. IV albumin ordered. Electrolytes are acceptable. There is no emergent indication for INTERN BRAND. Document strict I/O's. Repeat metabolic profile tomorrow AM. Jardiance and olmesartan have been held. Medications are appropriate for kidney function. Oral NaHCO3 replacement has been ordered for NAGMA. (2) Anasarca: Attributed to protein wasting colitis, CRS, and CKD. Not nephrotic. Defer diuretics due to intravascular volume depletion and prerenal physiology. (3) Normocytic anemia: Chronic, stable. JM therapy not indicated. (4) Pancolitis: PO NaHCO3 supplementation provided. Stool studies pending. (5) Aortic stenosis: History of Present Illness Reason for Consultation: KANDI, NAGMA Requesting Physician: Kasi Lawrence MD Attending Physician: Kasi Lawrence MD History of Present Illness Mr. Osmany Shaw (Earl) is an 83 year-old male with CKD IIIb (baseline creatinine 1.7-1.9 mg/dL) A1-2 (~20-30 mcg/mg). Mohinder follows in the [facility] nephrology clinic with Dr. Bob. I reviewed the patient's history and plan of care with Dr. Bob today. Records were reviewed. I also discussed the plan of care with Dr. King. Mohinder has a solitary left kidney. Right nephrectomy performed in the s for obstructive nephropathy due to kidney stone disease. Urine has been acellular by history. Serologic and paraprotein evaluation was completed an reassuring. CT demonstrated normal appearing kidney. CKD has been attributed to single kidney, arterionephrosclerosis, hypertension, and history of NSAID use. Mohinder smoked in the past but quit >40 years ago. 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 Mohinder was admitted to [facility] in July with chest pain and bradycardia. Atenolol was stopped. Cardiac cath demonstrated non-occlusive CAD and patent graft. Severe was noted. CTA demonstrated moderate to severe L ARMINDA. PRBC transfusion was required for anemia. Follow up evaluation for gastric ulcers with EGD arranged. He was discharged from the hospital 08/23/2024 after being treated for sepsis and proctocolitis with broad-spectrum antibiotics and he was also norovirus positive at that time. Mohinder presented to the emergency department at [facility] today with diarrhea, weakness, and progressive abdominal discomfort. He reports increasing lightheadedness and progressive weakness as well as generalized edema. ROS notable for recent right shoulder injury due to a fall with some persistent pain and limited ROM. Allergies Allergy/AdvReac Type Severity Reaction Status Date / Time house dust Allergy Unknown SNEEZING, Verified 10/06/24 14:44 CONGESTION pollen extracts Allergy Unknown SNEEZING, Verified 10/06/24 14:44 CONGESTION red dye Allergy Unknown Hives Verified 10/06/24 14:44 Home Medications Medication Instructions Recorded Confirmed Type aspirin 81 mg tablet,delayed 81 mg PO QAM #90 tabs 11/07/20 10/13/24 Rx release (Ecotrin Low Strength) albuterol sulfate 90 mcg/actuation 2 puff inhalation Q4H PRN 09/06/21 10/13/24 Rx aerosol inhaler (Ventolin HFA) shortness of breath #8.5 grams cholecalciferol (vitamin D3) 25 25 mcg PO QAM 12/28/21 10/13/24 History mcg (1,000 unit) capsule mecobalamin (vitamin B12) 500 mcg 500 mcg PO QAM 09/13/23 10/13/24 History chewable tablet fluticasone 100 mcg-salmeterol 50 1 inh inhalation BID 10/08/23 10/13/24 History mcg/dose blistr powdr for inhalation (Advair Diskus) allopurinol 100 mg tablet 100 mg PO QAM #90 tabs 11/12/23 10/13/24 Rx montelukast 10 mg tablet 10 mg PO QAM #90 tabs 11/12/23 10/13/24 Rx empagliflozin 10 mg tablet 10 mg PO DAILY #30 tabs 08/06/24 10/13/24 Rx (Jardiance) solifenacin 5 mg tablet (Vesicare) 5 mg PO QAM 08/20/24 10/13/24 History tamsulosin 0.4 mg capsule 0.4 mg PO HS 08/20/24 10/13/24 History olmesartan 5 mg tablet (Benicar) 5 mg PO QAM 08/31/24 10/13/24 History fluticasone propionate 50 2 spray intranasal UD PRN 09/03/24 10/13/24 Rx mcg/actuation nasal Congestion #16 grams spray,suspension (Allergy Relief (fluticasone)) atorvastatin 80 mg tablet 80 mg PO HS #45 tabs 09/28/24 10/13/24 Rx pantoprazole 40 mg tablet,delayed 40 mg PO BID #60 tabs 10/02/24 10/13/24 Rx release epoetin ebony 40,000 unit/mL 40,000 unit subcut .Qmonth 10/06/24 10/13/24 History injection solution (Procrit) atenolol 50 mg tablet 50 mg PO UD 10/13/24 10/13/24 History Patient History Medical History Prostate cancer (10/02/17) Gastric ulcer reason for upcoming egd. Macular degeneration injections for upcoming 12/12/23. Gastrointestinal complaint hx EGD blocked bile duct/stent Sep 2023. History of gout Fatigue easily fatigue, little energy for the last year -- currently anemic (per patient). History of COVID-19 06/2022: moderate cold symptoms. no current issues. Anemia Hyperlipidemia Pancreatic cancer dx 06/2022. whipple procedure in 08/2022 at [facility]. no chemo/no radiation needed. Atrial fibrillation controlled with medication. no cardioversion in the past. Urinary incontinence History of prostate cancer (~09/2017) treated with radiation treatments. no surgery. no current issues. Carotid artery plaque Obstructive sleep apnea of adult cpap at night Coronary artery disease of bypass graft of red devil heart with stable angina pectoris Three-vessel coronary bypass grafting March 26, 2019 HTN (hypertension) Surgical History History of esophagogastroduodenoscopy (EGD) History of cardiac cath prior to open heart sx. History of cholecystectomy History of ERCP 05/2022 History of Whipple procedure (~08/2022) done at [facility] Hx of colonoscopy Hx of hand surgery repair of laceration on left hand due to saw accident Hx of rotator cuff surgery Right X 1, Left X2 Hx of CABG X 3 vessels at [facility] [place] ~[address]. [address] Rolle. History of nephrectomy Right 1963 - damage from kidney stones Family History Sister Breast cancer Father Coronary heart disease Congestive heart disease COPD (chronic obstructive pulmonary disease) Mother Pancreas cancer Brother Colorectal cancer Pancreas cancer Sister Coronary heart disease Stroke Sister Hypertension Other Diabetes Heart disease Lung disease No family history of adverse response to anesthesia Denies family history of Prostate cancer Social History Smoking Status: Former smoker Tobacco Type: Cigarettes, Pipe and Cigars Age Started Using Tobacco: 19; Age Quit Using Tobacco: 32; packs per day: 0.5; Second Hand Exposure: No; Do You Dip or Chew Tobacco: No; Tobacco Cessation Education Requested by Patient: No Hx Alcohol Use: No Hx Substance Use: No Preferred Language: Armenian Communication Ability: Effective Visual Impairment: No Limitations Hearing Ability: Hard of Hearing Milk Sampler Required: No Beliefs That Will Affect Care: None marital status: Current Living Situation: Spouse current occupational status: employed and 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 Other Information That Helps Us Care for You: No Feels Safe at Home: Yes Safety Concerns: Feels Safe At This Time Childhood Exposure to Second-Hand Smoke: Yes Diet: regular caffeine: No during the past year weight has: decreased > 10 lbs Dental Care, Regularly: No Physical Activity Frequency: Daily Seatbelt Use: always Sunscreen Use: Yes Do you think of yourself as: straight/heterosexual Gender Identity: Male Assistive Devices: Cane, Denture - Upper and Denture - Lower Review of Systems Constitutional: + weakness and + weight loss; no fever, no chills and no anorexia Eyes: + dry eyes Ear, Nose, Mouth, Throat: + dry mouth; no sore throat and no dysph agia Respiratory: no dyspnea and no problem reported Cardiovascular: + lightheadedness and + edema; no chest pain, no dyspnea, no palpitations and no syncope Gastrointestinal: + bloating, + nausea, + vomiting and + d iarrhea/loose stools; no abdominal pain, no blood in stools and no melena Musculoskeletal: + back pain and + joint pain (R shoulder ); no radicular pain Integumentary: no problem reported Neurologic: no problem reported Psychiatric: no problem reported Endocrine: no problem reported Physical Exam Constitutional: well developed and + edematous; no acute distress Eyes: + anicteric sclerae; no conjunctival abn ormality ENMT: Mouth: + dry oral mucous membranes; no oral mucosal abnormality Neck: normal visual inspection and trachea midline Respiratory: normal respiratory effort Auscultation: lungs clear to auscultation bilaterally Cardiovascular: Rate/Rhythm: regular rate Heart Sounds: normal S1, normal S2 and + murmur Extremities: + edema Musculoskeletal: Extremities: no cyanosis and no clubbing Skin: no jaundice Neurologic: Motor/Sensory: no tremor and no asterixis Psychiatric: Orientation: alert and oriented x 3 Results & Data Vital Signs (Past 12 Hours) Vital Signs Temp Pulse Pulse Resp BP BP Pulse Ox 10/13/24 17:00 36.9 C 72 20 120/73 10/13/24 16:26 82 10/13/24 16:24 36.6 C 72 20 120/73 100 10/13/24 16:24 10/13/24 15:48 81 18 117/71 97 10/13/24 15:27 122 H 10/13/24 14:35 10/13/24 13:51 84 18 102/72 100 10/13/24 13:00 89 16 117/62 99 10/13/24 12:01 76 16 126/79 97 10/13/24 11:30 76 16 125/69 100 10/13/24 11:15 90 16 102/71 100 10/13/24 10:45 85 20 124/47 L 99 10/13/24 10:30 101 H 16 103/62 100 10/13/24 10:23 80 100 10/13/24 10:00 75 15 107/57 L 100 10/13/24 09:45 101 H 14 104/83 96 10/13/24 09:30 98 H 10/13/24 09:22 103 H 19 93/62 L 96 10/13/24 08:58 36.9 C 71 18 77/52 L 97 Pulse Ox O2 Del Method O2 Del Method 10/13/24 17:00 Room Air 10/13/24 16:26 10/13/24 16:24 Room Air 10/13/24 16:24 100 Room Air 10/13/24 15:48 10/13/24 15:27 10/13/24 14:35 100 Room Air 10/13/24 13:51 10/13/24 13:00 10/13/24 12:01 10/13/24 11:30 10/13/24 11:15 10/13/24 10:45 Room Air 10/13/24 10:30 10/13/24 10:23 Room Air 10/13/24 10:00 Room Air 10/13/24 09:45 10/13/24 09:30 10/13/24 09:22 10/13/24 08:58 Room Air Laboratory Results Laboratory Results - last 24 hr 10/13/24 10/13/24 10/13/24 09:38 10:07 11:13 WBC 6.46 RBC 3.85 L Hgb 11.6 L Hct 34.9 L MCV 90.6 MCH 30.1 MCHC 33.2 RDW Std Deviation 52.8 H RDW Coeff of Karolyn 17.0 H Plt Count 334 MPV 9.6 Immature Gran % (Auto) 0.5 Neut % (Auto) 83.2 Lymph % (Auto) 10.4 [place] % (Auto) 4.8 Eos % (Auto) 0.9 Baso % (Auto) 0.2 Neut # (Auto) 5.38 Lymph # (Auto) 0.67 L [place] # (Auto) 0.31 Eos # (Auto) 0.06 Baso # (Auto) 0.01 Immature Gran # (Auto) 0.03 Absolute Nucleated RBC 0.07 Nucleated RBC % (auto) 1.1 PT 12.8 H INR 1.2 H VBG pH 7.24 L VBG pCO2 35 L VBG pO2 41 VBG HCO3 15 VBG O2 Saturation 62.5 VBG Base Excess -11.5 Sodium 140 Potassium 3.8 Chloride 118 H Carbon Dioxide 16 L Anion Gap 6 BUN 25 H Creatinine 2.65 H Est Cr Clr Drug Dosing 21.0 eGFR 23.48 BUN/Creatinine Ratio 9.4 L Glucose 80 Lactate 1.5 1.1 Calcium 7.4 L Magnesium 1.7 Total Bilirubin 0.6 Direct Bilirubin 0.2 AST 22 ALT 33 Alkaline Phosphatase 131 H Troponin I High Sens 10.6 Total Protein 4.3 L Albumin 1.9 L Procalcitonin 0.24 Urine Color Urine Appearance Urine pH Ur Specific [place] Urine Protein Urine Glucose (UA) Urine Ketones Urine Blood Urine Nitrite Urine Bilirubin Urine Urobilinogen Ur Leukocyte Esterase Urine WBC (Auto) Urine RBC (Auto) U Hyaline Cast (Auto) U Epithel Cells (Auto) Urine Bacteria (Auto) Hyaline Casts Urine Mucus Urine Yeast 10/13/24 13:37 WBC RBC Hgb Hct MCV MCH MCHC RDW Std Deviation RDW Coeff of Karolyn Plt Count MPV Immature Gran % (Auto) Neut % (Auto) Lymph % (Auto) [place] % (Auto) Eos % (Auto) Baso % (Auto) Neut # (Auto) Lymph # (Auto) [place] # (Auto) Eos # (Auto) Baso # (Auto) Immature Gran # (Auto) Absolute Nucleated RBC Nucleated RBC % (auto) PT INR VBG pH VBG pCO2 VBG pO2 VBG HCO3 VBG O2 Saturation VBG Base Excess Sodium Potassium Chloride Carbon Dioxide Anion Gap BUN Creatinine Est Cr Clr Drug Dosing eGFR BUN/Creatinine Ratio Glucose Lactate Calcium Magnesium Total Bilirubin Direct Bilirubin AST ALT Alkaline Phosphatase Troponin I High Sens Total Protein Albumin Procalcitonin Urine Color Yellow Urine Appearance Cloudy A Urine pH 5.5 Ur Specific [place] 1.014 Urine Protein Trace H Urine Glucose (UA) Negative Urine Ketones Negative Urine Blood Negative Urine Nitrite Negative Urine Bilirubin Negative Urine Urobilinogen Negative Ur Leukocyte Esterase 2+ H Urine WBC (Auto) >50 H Urine RBC (Auto) >20 H U Hyaline Cast (Auto) 11-20 H U Epithel Cells (Auto) 0-2 Urine Bacteria (Auto) 2+ H Hyaline Casts Present A Urine Mucus Present A Urine Yeast Present A Diagnostic Findings CT OF THE ABDOMEN AND PELVIS WITHOUT CONTRAST COMPARISON STUDY: CT of the abdomen and pelvis August 20, 2024. TECHNIQUE: Axial images of the abdomen and pelvis were obtained without IV contrast. Images were reviewed in the axial, sagittal, and coronal planes. Automated exposure control was utilized for the study. A dose lowering technique was utilized adhering to the principles of ALARA. FINDINGS: Body wall edema is present. There is bilateral gynecomastia. Trace bilateral pleural effusions. No pneumatosis, free air or portal venous gas. Status post Whipple procedure. Pancreatic stent is unchanged in position. Pneumobilia is again noted. There is severe hepatic steatosis. A 3.4 cm hyperdense focus within the right hepatic lobe on image 66 of 373 is present. There is mild associated capsular retraction. Trace perihepatic ascites. The right kidney is not visualized. There is no evidence for a bowel obstruction. Moderate wall thickening of the entirety of the colon and rectum has progressed since prior CT. The spleen, adrenal glands are unremarkable on unenhanced exam. There is no lymphadenopathy. There are no fluid collections. Moderate bladder wall thickening is present. Bilateral inguinal hernias are noted as well as superimposed hernia which contains a loop of small bowel. This does not result in a bowel obstruction. There are no suspicious lesions within the visualized skeletal structures. Extensive aortoiliac after sclerotic plaque is present. Evaluation of the abdomen and pelvis is suboptimal on this unenhanced exam. Wall thickening of the distal stomach is present. IMPRESSION: 1. Moderate diffuse colorectal wall thickening which has progressed since CT of August 20, 2024. This represents a nonspecific proctocolitis. No evidence for a bowel obstruction. No pneumatosis, free air or portal venous gas. 2. Status post Whipple. Wall thickening of the distal stomach with adjacent stranding which may reflect gastritis. 3. Severe hepatic steatosis. Indeterminate 3.4 cm right hepatic lobe hypodense focus with capsular retraction. A hepatic mass cannot be excluded. Nonemergent liver protocol MRI is recommended. 4. Evidence for volume overload with anasarca, trace bilateral pleural effusions and trace ascites. 5. Supraumbilical hernia which contains a loop of small bowel without resultant bowel obstruction. 6. Bladder wall thickening. This is likely chronic although could be correlated with urinalysis. PG Care Time/CCT Total # of Minutes Spent Total Time Spent with Patient: Total time spent is greater than 50% in coordination of care (as documented) at patient's floor/unit and/or counseling patient: Coding Level of Care Code 37293 IN/OBS CONSULT LVL 5,80M Diagnoses Acute kidney injury superimposed on stage 3b chronic kidney disease N17.9; N18.32 Anasarca R60.1 Normocytic anemia D64.9 Pancolitis K51.00 Nonrheumatic aortic valve stenosis I35.0 Cardiac valve disease etiology: nonrheumatic (5) Aortic stenosis Cardiac valve disease etiology: nonrheumatic Qualified Code(s): I35.0 - Nonrheumatic aortic (valve) stenosis
[2024-10-13] MEDS: HEPARIN SOD 5,000 UNIT/0.5 ML VIAL SQ SCH (21:43)
[2024-10-13] MEDS: PANTOprazole 40 MG TAB PO SCH (21:44)
[2024-10-13] MEDS: TAMSULOSIN HCL 0.4 MG CAP PO SCH (21:44)
[2024-10-13] MEDS: SODIUM BICARBONATE 650 MG TAB PO SCH (21:44)
[2024-10-13] MEDS: ATORVASTATIN 40 MG TAB PO SCH (21:44)
[2024-10-13] MEDS: FLUTICASONE/VILANTEROL 100/25MCG 14 PUFFS/INHALER INH SCH (21:45)
[2024-10-13] MEDS: ACETAMINOPHEN 325 MG TAB PO PRN (21:47)
[2024-10-14] MEDS: ASPIRIN 81 MG ECTAB PO SCH (08:20)
[2024-10-14] MEDS: OXYBUTYNIN CHLORIDE XL 5 MG TABCR PO SCH (08:20)
[2024-10-14] MEDS: allopurinoL 100 MG TAB PO SCH (08:21)
[2024-10-14] MEDS: MONTELUKAST SODIUM 10 MG TABLET PO SCH (08:21)
[2024-10-14] MEDS: CHOLECALCIFEROL 25 MCG (1000 UNITS) TAB PO SCH (08:21)
[2024-10-14] MEDS: CYANOCOBALAMIN (B-12) 500 MCG TABLET PO SCH (08:21)
[2024-10-14] MEDS: ATENOLOL 50 MG TABLET PO SCH (08:24)
[2024-10-14] MEDS ORDERED: PNEUMOCOCCAL VACCINE (PCV20) 20-VAL CONJ-DIP CRM/PF 0.5 ML SYR IM ONE (09:00)
[2024-10-14 10:43] LABS: Calcium 7.6 mg/dl (8.6-10.3); Potassium 3.9 mmol/L (3.5-5.1)
[2024-10-14 10:44] LABS: Basophils # (auto) 0.01 K/uL (0.00-0.20); Basophils % (auto) 0.1 %; Eosinophils # (auto) 0.03 K/uL (0.00-0.50); Eosinophils % (auto) 0.4 %; Hematocrit (blood only) 33.9 % (42.0-52.0); Hemoglobin 11.2 g/dl (14.0-18.0); Immature Granulocytes # (auto) 0.03 K/uL (0.01-0.20); Immature Granulocytes % (auto) 0.4 %; Lymphocytes # (auto) 0.95 K/uL (1.20-3.40); Lymphocytes % (auto) 13.8 %; Mean Corpuscular Hemoglobin 30.6 pg (25.0-34.0); Mean Corpuscular Volume 92.6 fL (80.0-100.0); Mean Platelet Volume 10.1 fL (9.4-12.4); Monocytes % (auto) 4.4 %; Neutrophils # (auto) 5.55 K/uL (1.40-6.50); Neutrophils % (auto) 80.9 %; Nucleated RBC # (auto) 0.06 K/uL (0.00-0.12); Nucleated RBC % (auto) 0.9 %; Platelet Count 256 K/uL (130-400); RDW Coefficient of Variation 18.3 % (11.5-14.5); Red Blood Count 3.66 M/uL (4.70-6.10); White Blood Count 6.87 K/ul (4.8-10.8)
[2024-10-14 10:49] LABS: BUN Creatinine Ratio 12.1 (10-20); Creatinine Clr Calc Pharmacy 22.8 ml/min
[2024-10-14 12:49] LABS: Adenovirus F 40/41 PCR Not Detected (NotDetected); Astrovirus PCR Not Detected (NotDetected); Campylobacter PCR Not Detected (NotDetected); Cryptosporidium PCR Not Detected (NotDetected); Cyclospora cayetanensis PCR Not Detected (NotDetected); Entamoeba histolytica PCR Not Detected (NotDetected); Enteroaggregative E.coli(EAEC) Not Detected (NotDetected); Enteropathogenic E.coli (EPEC) Not Detected (NotDetected); Enterotoxigenic E.coli (ETEC) Not Detected (NotDetected); Giardia lamblia PCR Not Detected (NotDetected); Norovirus GI/GII PCR Not Detected (NotDetected); Plesiomonas shigelloides PCR Not Detected (NotDetected); Rotavirus A PCR Not Detected (NotDetected); Salmonella PCR Not Detected (NotDetected); Sapovirus PCR Not Detected (NotDetected); Shiga-like Toxin E.coli (STEC) Not Detected (NotDetected); Shigella/Enteroinvasive E.coli Not Detected (NotDetected); Vibrio cholerae PCR Not Detected (NotDetected); Vibrio species PCR Not Detected (NotDetected); Yersinia enterocolitica PCR Not Detected (NotDetected)
[2024-10-14] MEDS: ALBUMIN 25% 25 GM/100 ML VIAL IV ONE (13:11)
--- NOTE | 2024-10-14 13:28 | Gastrointestinal Consultation ---
Date of Consultation October 14, 2024 Assessment & Plan (1) Diarrhea: 83 year old male with history of prostate ca, R nephrectomy, CABG x 3, HFpEF, CKD-3, bradycardia, ampullary invasive adenocarcinoma s/p Whipple in 2021 admitted through the ED w/ diarrhea, stool studies this admission negative, CT reviewed showing proctocolitis. Diarrhea may be multifactorial as he is s/p Whipple. We can provide endoscopic evaluation given imaging with colitis for biopsies NPO Unprepped, unsedated Flex Sig offered - Risks, benefits, alternatives discussed 3.4 indeterminate liver lesion - He notes this is being followed by his OP oncology team - Recommend MRI liver - Recommend close follow up with his oncology team Check fecal fat studies I spent a total of 60 minutes on the date of service in review of patient's record, and previously obtained information in person and appropriate medical visit, discussion and education of plan, with patient and/or caregiver, placing orders for tests/referral/procedures as medically necessary and documentation of pertinent clinical information in patient's medical records for their visit today. Supervising Physician Co-Signing Physician Notes I examined the patient and reviewed the medical record, laboratory data and imaging studies. I agree with the assessment and plan of care as suggested by the advanced practice provider. A pleasant frail-appearing elderly male who is sitting in the chair at present he states he was diagnosed with diarrhea and he had it was positive for norovirus and he states it has not really fully resolved since he had that initial episode with a norovirus at the frequency of bowel movements is variable but is generally around 4 as is the consistency it can be loose at times are somewhat semisolid he had a recent CT scan which showed that there was "proctocolitis his stool studies were negative for any infection on this recent admission of note he had a colonoscopy in September of last year which only showed some polyps and it was recommended that he should get a repeat in 3 years at the current time for his #1 diarrhea ensure patient's hydration is more maintained and we will start him on Imodium twice daily to see how that impacts his frequency of bowel movements would also place on high-fiber diet. If the diarrhea persists can try an empiric trial of rifaximin if there were to rule out diarrhea secondary to SIBO would also place on a low-fat diet 2. Liver lesion patient has a history of ampullary lesion for which he is undergoing a Whipple's get an MRI of with a liver protocol to evaluate the liver lesion further recommendations after MRI Thank you for allowing us to take part in the care of patient continue to follow him with you History of Present Illness Reason for Consultation: colitis 1 mo, protein losing, anasarca/KANDI Requesting Physician: Kasi Lawrence MD Attending Physician: Kasi Lawrence MD History of Present Illness 83 year old male with history of prostate ca, R nephrectomy, CABG x 3, HFpEF, CKD-3, bradycardia, ampullary invasive adenocarcinoma s/p Whipple in 2021 admitted through the ED w/ diarrhea, abd pain. GI was asked to evaluate. Pt was seen and evaluated, chart reviewed. Endorses acute diarrhea in august, stools at that time positive for norovirus. Suggests he improved w/ supportive measures. About 3/4 weeks ago loose stools returned. Endorses between 4-5 loose stools daily. Watery. No black or bloody stools. All BMs urgent w/ occasional episodes of incontience. Denies abd pain but has cramping. No nausea/vomiting. Denies dysphagia. Weight flucuates +/- 10 lbs. Stool studies 10/11: negative Stool studies 09/10: + norovirus CTAP 10/11: 1. Moderate diffuse colorectal wall thickening which has progressed since CT of August 20, 2024. This represents a nonspecific proctocolitis. No evidence for a bowel obstruction. No pneumatosis, free air or portal venous gas. 2. Status post Whipple. Wall thickening of the distal stomach with adjacent stranding which may reflect gastritis. 3. Severe hepatic steatosis. Indeterminate 3.4 cm right hepatic lobe hypodense focus with capsular retractio n. A hepatic mass cannot be excluded. Nonemergent liver protocol MRI is recommended. 4. Evidence for volume overload with anasarca, trace bilateral pleural effusions and trace ascites. 5. Supraumbilical hernia which contains a loop of small bowel without resultant bowel obstruction. 6. Bladder wall thickening. This is likely chronic although could be correlated with urinalysis. CTAP 09/10: 1. Wall thickening of the rectosigmoid redemonstrated with mild adjacent perirectal inflammatory stranding which may represent a nonspecific proctocolitis.2. No bowel obstruction or pneumoperitoneum.3. Fat filled left inguinal and midline abdominal wall hernias. There are several additional fat and bowel containing hernias without obstruction.4. Prior Whipple procedure. Mild edema involves the pancreatic tail. Correlation should be made with serum lipase to exclude acute pancreatitis.5. Cholecystectomy with pneumobilia redemonstrated.6. Possible 2.5 cm right hepatic lobe lesion. Attention on follow-up recommended in order to exclude metastasis.7. Additional findings as above. EGD 2023: - Normal esophagus. - A classic Whipple was found, characterized by visible sutures. - Normal examined jejunum. - No specimens collected. EGD 2022: - Normal esophagus. - A classic Whipple was found, characterized by inflammation and ulceration. Biopsied. - Normal examined duodenum. Colonoscopy 2022: - Preparation of the colon was poor. - One 4 mm polyp in the rectum, removed with a cold snare. Resected and retrieved. - Non-bleeding internal hemorrhoids. - Stool in the rectum, in the sigmoid colon, in the descending colon and at the splenic flexure. Allergies Allergy/AdvReac Type Severity Reaction Status Date / Time house dust Allergy Unknown SNEEZING, Verified 10/06/24 14:44 CONGESTION pollen extracts Allergy Unknown SNEEZING, Verified 10/06/24 14:44 CONGESTION red dye Allergy Unknown Hives Verified 10/06/24 14:44 Home Medications Medication Instructions Recorded Confirmed Type aspirin 81 mg tablet,delayed 81 mg PO QAM #90 tabs 11/07/20 10/13/24 Rx release (Ecotrin Low Strength) albuterol sulfate 90 mcg/actuation 2 puff inhalation Q4H PRN 09/06/21 10/13/24 Rx aerosol inhaler (Ventolin HFA) shortness of breath #8.5 grams cholecalciferol (vitamin D3) 25 25 mcg PO QAM 12/28/21 10/13/24 History mcg (1,000 unit) capsule mecobalamin (vitamin B12) 500 mcg 500 mcg PO QAM 09/13/23 10/13/24 History chewable tablet fluticasone 100 mcg-salmeterol 50 1 inh inhalation BID 10/08/23 10/13/24 History mcg/dose blistr powdr for inhalation (Advair Diskus) allopurinol 100 mg tablet 100 mg PO QAM #90 tabs 12/26/23 11/26/24 Rx montelukast 10 mg tablet 10 mg PO QAM #90 tabs 11/12/23 10/13/24 Rx empagliflozin 10 mg tablet 10 mg PO DAILY #30 tabs 08/06/24 10/13/24 Rx (Jardiance) solifenacin 5 mg tablet (Vesicare) 5 mg PO QAM 08/20/24 10/13/24 History tamsulosin 0.4 mg capsule 0.4 mg PO HS 08/20/24 10/13/24 History olmesartan 5 mg tablet (Benicar) 5 mg PO QAM 08/31/24 10/13/24 History fluticasone propionate 50 2 spray intranasal UD PRN 09/03/24 10/13/24 Rx mcg/actuation nasal Congestion #16 grams spray,suspension (Allergy Relief (fluticasone)) atorvastatin 80 mg tablet 80 mg PO HS #45 tabs 09/28/24 10/13/24 Rx pantoprazole 40 mg tablet,delayed 40 mg PO BID #60 tabs 10/02/24 10/13/24 Rx release epoetin ebony 40,000 unit/mL 40,000 unit subcut .Qmonth 10/06/24 10/13/24 History injection solution (Procrit) atenolol 50 mg tablet 50 mg PO UD 10/13/24 10/13/24 History Patient History Medical History Prostate cancer (10/02/17) Gastric ulcer reason for upcoming egd. Macular degeneration injections for upcoming 12/12/23. Gastrointestinal complaint hx EGD blocked bile duct/stent Sep 2023. History of gout Fatigue easily fatigue, little energy for the last year -- currently anemic (per patient). History of COVID-19 06/2022: moderate cold symptoms. no current issues. Anemia Hyperlipidemia Pancreatic cancer dx 06/2022. whipple procedure in 08/2022 at [facility]. no chemo/no radiation needed. Atrial fibrillation controlled with medication. no cardioversion in the past. Urinary incontinence History of prostate cancer (~09/2017) treated with radiation treatments. no surgery. no current issues. Carotid artery plaque Obstructive sleep apnea of adult cpap at night Coronary artery disease of bypass graft of [place] heart with stable angina pectoris Three-vessel coronary bypass grafting March 26, 2019 HTN (hypertension) Surgical History History of esophagogastroduodenoscopy (EGD) History of cardiac cath prior to open heart sx. History of cholecystectomy History of ERCP 05/2022 History of Whipple procedure (~08/2022) done at [facility] Hx of colonoscopy Hx of hand surgery repair of laceration on left hand due to saw accident Hx of rotator cuff surgery Right X 1, Left X2 Hx of CABG X 3 vessels at [facility] [place] Rolle. History of nephrectomy Right 1963 - damage from kidney stones Family History Sister Breast cancer Father Coronary heart disease Congestive heart disease COPD (chronic obstructive pulmonary disease) Mother Pancreas cancer Brother Colorectal cancer Pancreas cancer Sister Coronary heart disease Stroke Sister Hypertension Other Diabetes Heart disease Lung disease No family history of adverse response to anesthesia Denies family history of Prostate cancer Social History Smoking Status: Former smoker Tobacco Type: Cigarettes, Pipe and Cigars Age Started Using Tobacco: 19; Age Quit Using Tobacco: 32; packs per day: 0.5; Second Hand Exposure: No; Do You Dip or Chew Tobacco: No; Tobacco Cessation Education Requested by Patient: No Hx Alcohol Use: No Hx Substance Use: No Preferred Language: Serbian Communication Ability: Effective Visual Impairment: No Limitations Hearing Ability: Hard of Hearing Teacher Assistant Required: No Beliefs That Will Affect Care: None marital status: Current Living Situation: Spouse current occupational status: employed and 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 Physical Exam Constitutional: WD/WN, vitals as above Respiratory: normal respiratory effort Cardiovascular: Rate/Rhythm: regular rate and regular rhythm Gastrointestinal (Abdomen): normal bowel sounds, soft, nontender, no hepatosplenomegaly Skin: no rashes, warm and dry Results & Data Vital Signs (Past 12 Hours) Vital Signs Temp Pulse Pulse Resp BP Pulse Ox O2 Del Method 10/14/24 11:35 36.6 C 76 17 121/69 98 Room Air 10/14/24 07:49 Room Air 10/14/24 07:31 36.7 C 64 17 102/61 97 Room Air 10/14/24 07:12 58 L 10/14/24 02:49 36.5 C 66 18 103/57 L 98 Room Air Laboratory Results 10/14/24 10/14/24 10/13/24 Range/Units 11:05 09:58 13:37 WBC 6.87 (4.8-10.8) K/ul RBC 3.66 L (4.70-6.10) M/uL Hgb 11.2 L (14.0-18.0) g/dl Hct 33.9 L (42.0-52.0) % MCV 92.6 (80.0-100.0) fL MCH 30.6 (25.0-34.0) pg MCHC 33.0 (32.0-36.0) g/dL RDW Std Deviation 59.0 H (36.4-46.3) fL RDW Coeff of Karolyn 18.3 H (11.5-14.5) % Plt Count 256 (130-400) K/uL MPV 10.1 (9.4-12.4) fL Immature Gran % (Auto) 0.4 % Neut % (Auto) 80.9 % Lymph % (Auto) 13.8 % [place] % (Auto) 4.4 % Eos % (Auto) 0.4 % Baso % (Auto) 0.1 % Neut # (Auto) 5.55 (1.40-6.50) K/uL Lymph # (Auto) 0.95 L (1.20-3.40) K/uL [place] # (Auto) 0.30 (0.11-0.59) K/uL Eos # (Auto) 0.03 (0.00-0.50) K/uL Baso # (Auto) 0.01 (0.00-0.20) K/uL Immature Gran # (Auto) 0.03 (0.01-0.20) K/uL Absolute Nucleated RBC 0.06 (0.00-0.12) K/uL Nucleated RBC % (auto) 0.9 % Sodium 138 (136-145) mmol/L Potassium 3.9 (3.5-5.1) mmol/L Chloride 116 H (98-107) mmol/L Carbon Dioxide 16 L (21-32) mmol/L Anion Gap 6 (3-11) BUN 30 H (6-23) mg/dl Creatinine 2.47 H (0.6-1.4) mg/dl Est Cr Clr Drug Dosing 22.8 ml/min eGFR 25.55 BUN/Creatinine Ratio 12.1 (10-20) Glucose 143 H (70-99(Fasting)) mg/dl Calcium 7.6 L (8.6-10.3) mg/dl Urine Color Yellow Urine Appearance Cloudy A (Clear) Urine pH 5.5 (4.5-7.5) Ur Specific [place] 1.014 (1.000-1.030) Urine Protein Trace H (Negative) Urine Glucose (UA) Negative (Negative) Urine Ketones Negative (Negative) Urine Blood Negative (Negative) Urine Nitrite Negative (Negative) Urine Bilirubin Negative (Negative) Urine Urobilinogen Negative (Negative) Ur Leukocyte Esterase 2+ H (Negative) Urine WBC (Auto) >50 H (0-5) /hpf Urine RBC (Auto) >20 H (0-2) /hpf U Hyaline Cast (Auto) 11-20 H (0-2) /lpf U Epithel Cells (Auto) 0-2 (0-2) /hpf Urine Bacteria (Auto) 2+ H (None Seen) Hyaline Casts Present A (None Presnt) /lpf Urine Mucus Present A (None Prsent) Urine Yeast Present A (None Prsent) Stl C. cayetanensis PCR Not Detected (NotDetected) Stool Rotavirus A PCR Not Detected (NotDetected) Stl Adenov F 40/41 PCR Not Detected (NotDetected) Stool Astrovirus (PCR) Not Detected (NotDetected) Stool Campylobacter PCR Not Detected (NotDetected) Stl C. diff Tox B Gene Negative Cdiff Gene (Neg) Stool Cryptosporidium PCR Not Detected (NotDetected) Stl E.coli Shiga Tox PCR Not Detected (NotDetected) Stl Enterotoxigenic E PCR Not Detected (NotDetected) Stool EPEC (PCR) Not Detected (NotDetected) Stool EAEC (PCR) Not Detected (NotDetected) Stl E. histolytica PCR Not Detected (NotDetected) Stool Giardia Lamblia PCR Not Detected (NotDetected) Stool Salmonella PCR Not Detected (NotDetected) Stool Sapovirus (PCR) Not Detected (NotDetected) Stl P. shigelloides PCR Not Detected (NotDetected) Stl Shigella/EIEC PCR Not Detected (NotDetected) St Y.enterocolitica PCR Not Detected (NotDetected) Stool Vibrio (PCR) Not Detected (NotDetected) Stl Vibrio cholerae PCR Not Detected (NotDetected) Stl Norovirus GI/GII PCR Not Detected (NotDetected) PG Care Time/CCT Total # of Minutes Spent Total Time Spent with Patient: Total time spent is greater than 50% in coordination of care (as documented) at patient's floor/unit and/or counseling patient: Coding Level of Care Code 44945 INT INP/OBS CARE 2MIN Diagnoses Diarrhea R19.7
--- NOTE | 2024-10-14 13:30 | Hospitalist Progress Note ---
Date of Service October 14, 2024 Assessment & Plan (1) Pancolitis: Plan: 83 y/o man with history of ampullary carcinoma and Whipple procedure in 2021. I saw him last month when he had norovirus diarrhea, nonspecific proctocolitis on CT, treated with broad spectrum ABX because of rising WBC and procal despite resolution of diarrhea. This resolved and blood cultures were negative. Initially had improvement and no diarrhea, however, developed recurrent diarrhea and continues to have it. Admitting CT with progression of proctocolitis. Stool biofire and C. diff negative. Consider ischemic colitis, however, CTA abdomen without significant vascular lesions 07/2024. Has protein-losing enteropathy with hypoalbuminemia, anasarca. KANDI but not nephrotic. No history of IBD. -consult gastoenterology, proctocolitis and protein losing enteropathy of unknown cause -imodium and probiotic -add pancrelipase may be malabsorbing post Whipple -RD consulted - discussed with her (2) Acute kidney injury superimposed on stage 3b chronic kidney disease: Plan: Metabolic acidosis, KANDI, NAGMA, history of solitary kidney. Baseline Cr 1.7-1.9 - nephrology consulting - UOP improved and Cr unchanged/slightly improved after albumin 25g x 2 yesterday, repeat 25g today - Na bicarbonate po for metabolic acidosis - monitor UOP, electrolytes, BMP (3) Anasarca: Plan: Albumin markedly diminished at 1.9 prior was 2.4, without evidence of significant proteinuria -suspect mainly GI losses -nutrition consult, protein supplement TTE 07/2024: EF 65 to 70%, no regional wall motion abnormality, moderatesevere aortic stenosis and progressive compared to prior study. (4) Acute heart failure with preserved ejection fraction (HFpEF): Plan: Intravascularly dry with abscence of pulmonary edema on admission. Anasarca and hypoalbuminemia. - CAD: Multivessel CAD on recent cath - continue aspirin -atenolol, olmesartan, atorvastatin have been stopped/held recently as outpatient - Moderate to severe aortic stenosis: Referred to [facility] for TAVR. He does not have evidence of pulmonary edema. While he does have orthostasis he denies limiting exertional dyspnea/fatigue once he gets going and has not had chest pain/chest pressure. EKG on admission is without acute ST/T wave changes in sinus, no evidence of ischemia. Admitting troponin 10.6 -No acute anginal symptoms (5) Obstructive sleep apnea of adult: Plan: CPAP nightly (6) History of Whipple procedure: Plan: History of pancreatic duodenectomy/Whipple procedure Due to 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 on follow-up Patient does have a reported stent in place Liver mass Liver protocol MRI/MRCP pending improvement in renal function. This cannot be performed per protocol with contrast until renal function/GFR improves. No transaminitis or hyperbilirubinemia. INR mildly elevated at 1.2 Probably nutritional Plan DVT prophylaxis: Heparin subcu due to renal dysfunction CODE STATUS: DNR/DNI Admission and Anticipated Discharge Date Admission Date: October 13, 2024 Subjective Denies abdominal pain. Nausea yesterday but none today. Eating food. Still with diarrhea - several large loose BM today so far UOP this morning was a void of 300 mL Gives a bit of confused story about whether diarrhea ever resolved following last admission, says it did then later says it didn't. PCP Transitional care note said no diarrhea at that time. Daughter says he's had chronic GI issues as well and asks about dumping syndrome Physical Exam 2 Physical Exam: PHYSICAL EXAMINATION Last 24h vital signs reviewed, see documentation in flowsheet General: sitting up in chair eating lunch HEENT: Normocephalic, atraumatic, pupils round and equal, sclerae anicteric, no conjunctival injection, moist mucus membranes. periorbital edema Lungs: Normal respiratory effort. Heart: deferred Abdomen: nondistended Extremities: Warm, dry, well-perfused. anasarca x 4 extremities Neuro: Alert and oriented x 4, face symmetric, moves 4 extremities well Psych: Normal affect and behavior Results & Data Results & Data Vital Signs (Past 12 Hours) Vital Signs Temp Pulse Pulse Resp BP Pulse Ox O2 Del Method 10/14/24 11:35 97.9 F 76 17 121/69 98 Room Air 10/14/24 07:49 Room Air 10/14/24 07:31 98.1 F 64 17 102/61 97 Room Air 10/14/24 07:12 58 L 10/14/24 02:49 97.7 F 66 18 103/57 L 98 Room Air Laboratory Results 10/14/24 09:58 10/14/24 09:58 PG Care Time/CCT Total # of Minutes Spent Total Time Spent with Patient: Total time spent is greater than 50% in coordination of care (as documented) at patient's floor/unit and/or counseling patient: Coding Level of Care Code 27418 SUB INP/OBS CARE 3/50MIN Diagnoses Pancolitis K51.00 Acute kidney injury superimposed on stage 3b chronic kidney disease N17.9; N18.32 Anasarca R60.1 Acute heart failure with preserved ejection fraction (HFpEF) I50.31 Obstructive sleep apnea of adult G47.33 History of Whipple procedure Z90.410; Z90.49
--- NOTE | 2024-10-14 14:02 | Nephrology Progress Note ---
Date of Service October 14, 2024 Assessment & Plan (1) Acute kidney injury superimposed on stage 3b chronic kidney disease: Plan: Non-oliguric. CT demonstrates the kidney to be unobstructed. Urine microscopy notable for hyaline casts, WBCs, and RBCs. Trace protein on dipstick. Clinical presentation suggestive of intravascular volume depletion and possible CRS. Creatinine slightly improved this AM. Electrolytes are acceptable. There is no emergent indication for [employer]. Additional 25 gram IV albumin provided. Document strict I/O's. Repeat metabolic profile tomorrow AM. Jardiance and olmesartan have been held. Medications are appropriate for kidney function. Oral NaHCO3 replacement has been ordered for NAGMA --> increased to 1300 mg BID this AM. (2) Anasarca: Plan: Attributed to protein wasting colitis, CRS, and CKD. Not nephrotic. Defer diuretics due to intravascular volume depletion and prerenal physiology. (3) Normocytic anemia: Plan: Chronic, stable. JM therapy not indicated. (4) Pancolitis: Plan: PO NaHCO3 supplementation provided. GI consultation appreciated. (5) Aortic stenosis: Admission and Anticipated Discharge Date Admission Date: October 13, 2024 Merary Ceron was seen and evaluated with his and daughter at the bedside this AM. No fevers or chills. Appetite fair. He denied abdominal pain. Denied significant diarrhea. Edema persists. Review of Systems Review of Systems: All systems reviewed & are unremarkable except as noted in HPI & below Physical Exam Constitutional: well developed and + edematous; no acute distress Eyes: + anicteric sclerae; no conjunctival abn ormality ENMT: Mouth: no oral mucosal abnormality and oral mucous membranes not dry Neck: normal visual inspection and trachea midline Respiratory: normal respiratory effort Auscultation: lungs clear to auscultation bilaterally Cardiovascular: Rate/Rhythm: regular rate Heart Sounds: normal S1, normal S2 and + murmur Extremities: + edema Musculoskeletal: Extremities: no cyanosis and no clubbing Skin: no jaundice Neurologic: Motor/Sensory: no tremor and no asterixis Psychiatric: Orientation: alert and oriented x 3 Results & Data Vital Signs (Past 12 Hours) Vital Signs Temp Pulse Pulse Resp BP Pulse Ox O2 Del Method 10/14/24 11:35 36.6 C 76 17 121/69 98 Room Air 10/14/24 07:49 Room Air 10/14/24 07:31 36.7 C 64 17 102/61 97 Room Air 10/14/24 07:12 58 L 10/14/24 02:49 36.5 C 66 18 103/57 L 98 Room Air Laboratory Results Laboratory Results - last 24 hr 10/13/24 10/14/24 10/14/24 13:37 09:58 11:05 WBC 6.87 RBC 3.66 L Hgb 11.2 L Hct 33.9 L MCV 92.6 MCH 30.6 MCHC 33.0 RDW Std Deviation 59.0 H RDW Coeff of Karolyn 18.3 H Plt Count 256 MPV 10.1 Immature Gran % (Auto) 0.4 Neut % (Auto) 80.9 Lymph % (Auto) 13.8 [place] % (Auto) 4.4 Eos % (Auto) 0.4 Baso % (Auto) 0.1 Neut # (Auto) 5.55 Lymph # (Auto) 0.95 L [place] # (Auto) 0.30 Eos # (Auto) 0.03 Baso # (Auto) 0.01 Immature Gran # (Auto) 0.03 Absolute Nucleated RBC 0.06 Nucleated RBC % (auto) 0.9 Sodium 138 Potassium 3.9 Chloride 116 H Carbon Dioxide 16 L Anion Gap 6 BUN 30 H Creatinine 2.47 H Est Cr Clr Drug Dosing 22.8 eGFR 25.55 BUN/Creatinine Ratio 12.1 Glucose 143 H Calcium 7.6 L Urine Color Yellow Urine Appearance Cloudy A Urine pH 5.5 Ur Specific [place] 1.014 Urine Protein Trace H Urine Glucose (UA) Negative Urine Ketones Negative Urine Blood Negative Urine Nitrite Negative Urine Bilirubin Negative Urine Urobilinogen Negative Ur Leukocyte Esterase 2+ H Urine WBC (Auto) >50 H Urine RBC (Auto) >20 H U Hyaline Cast (Auto) 11-20 H U Epithel Cells (Auto) 0-2 Urine Bacteria (Auto) 2+ H Hyaline Casts Present A Urine Mucus Present A Urine Yeast Present A Stl C. cayetanensis PCR Not Detected Stool Rotavirus A PCR Not Detected Stl Adenov F 40/41 PCR Not Detected Stool Astrovirus (PCR) Not Detected Stool Campylobacter PCR Not Detected Stl C. diff Tox B Gene Negative Cdiff Gene Stool Cryptosporidium PCR Not Detected Stl E.coli Shiga Tox PCR Not Detected Stl Enterotoxigenic E PCR Not Detected Stool EPEC (PCR) Not Detected Stool EAEC (PCR) Not Detected Stl E. histolytica PCR Not Detected Stool Giardia Lamblia PCR Not Detected Stool Salmonella PCR Not Detected Stool Sapovirus (PCR) Not Detected Stl P. shigelloides PCR Not Detected Stl Shigella/EIEC PCR Not Detected St Y.enterocolitica PCR Not Detected Stool Vibrio (PCR) Not Detected Stl Vibrio cholerae PCR Not Detected Stl Norovirus GI/GII PCR Not Detected PG Care Time/CCT Total # of Minutes Spent Total Time Spent with Patient: Total time spent is greater than 50% in coordination of care (as documented) at patient's floor/unit and/or counseling patient: Coding Level of Care Code 20243 SUB INP/OBS CARE 3/50MIN Diagnoses Acute kidney injury superimposed on stage 3b chronic kidney disease N17.9; N18.32 Anasarca R60.1 Normocytic anemia D64.9 Pancolitis K51.00 Nonrheumatic aortic valve stenosis I35.0 Cardiac valve disease etiology: nonrheumatic (5) Aortic stenosis Cardiac valve disease etiology: nonrheumatic Qualified Code(s): I35.0 - Nonrheumatic aortic (valve) stenosis
[2024-10-14] MEDS: ADVANCED PROBIOTIC 625 MG CAPSULE PO SCH (15:45)
[2024-10-14] MEDS: LOPERAMIDE HCL 2 MG CAP PO PRN (15:45)
[2024-10-14] MEDS: PANCREAZE (LIPASE 10,500U) CAP PO SCH (17:21)
[2024-10-14] MEDS: SODIUM BICARBONATE 650 MG TAB PO SCH (20:20)
[2024-10-15 06:13] LABS: Basophils # (auto) 0.01 K/uL (0.00-0.20); Basophils % (auto) 0.3 %; Eosinophils # (auto) 0.09 K/uL (0.00-0.50); Eosinophils % (auto) 2.5 %; Hematocrit (blood only) 27.2 % (42.0-52.0); Immature Granulocytes # (auto) 0.01 K/uL (0.01-0.20); Immature Granulocytes % (auto) 0.3 %; Lymphocytes # (auto) 0.86 K/uL (1.20-3.40); Lymphocytes % (auto) 24.1 %; Mean Corpuscular Hemoglobin 29.6 pg (25.0-34.0); Mean Corpuscular Hgb Conc 33.1 g/dL (32.0-36.0); Mean Corpuscular Volume 89.5 fL (80.0-100.0); Mean Platelet Volume 9.6 fL (9.4-12.4); Monocytes # (auto) 0.25 K/uL (0.11-0.59); Neutrophils # (auto) 2.35 K/uL (1.40-6.50); Neutrophils % (auto) 65.8 %; Nucleated RBC # (auto) 0.02 K/uL (0.00-0.12); Nucleated RBC % (auto) 0.6 %; Platelet Count 213 K/uL (130-400); RDW Coefficient of Variation 17.8 % (11.5-14.5); RDW Standard Deviation 55.6 fL (36.4-46.3); Red Blood Count 3.04 M/uL (4.70-6.10); White Blood Count 3.57 K/ul (4.8-10.8)
[2024-10-15 06:45] LABS: BUN Creatinine Ratio 12.4 (10-20); Calcium 7.5 mg/dl (8.6-10.3); Creatinine Clr Calc Pharmacy 23.7 ml/min; Potassium 3.8 mmol/L (3.5-5.1)
[2024-10-15 09:34] LABS: Albumin Level 2.3 gm/dl (3.4-5.0)
--- NOTE | 2024-10-15 10:11 | Cardiology Consultation ---
Date of Consultation October 15, 2024 Assessment & Plan (1) Anasarca: (2) Aortic stenosis: (3) Coronary artery disease: (4) Bradycardia: Plan 1. Anasarca: I agree that this is not likely to be cardiac in nature. We could make sure that he has not developed right heart failure on echocardiography, but that would be the only logical explanation if it is cardiac. I think would be worth checking but I suspect it is a combination of low albumin and poor kidney function causing fluid retention in that distribution. I will leave treatment up to nephrology. 2. Aortic stenosis: He has severe aortic stenosis although I am not sure that has much to do with his presentation. He recently had a full evaluation including echocardiography and catheterization although the valve was not evaluated invasively. It might be reasonable to do a limited echo to look at LV function and his aortic valve. 3. Coronary disease: He has known coronary artery disease but no evidence of active ischemia (his troponin is negative, his electrocardiogram does not show any current acute changes and his catheterization several months ago showed severe [place] disease but intact bypass grafts). I would not pursue any further evaluation. 4. Bradycardia: He has nocturnal bradycardia but during the day his heart rate is appropriate. I do not believe this is symptomatic and I do not believe treating his bradycardia would be of much value. History of Present Illness Reason for Consultation: Aortic stenosis, jaye Attending Physician: Kasi Lawrence MD History of Present Illness This is an 83-year-old male who is followed by Dr. Rolle in our office for aortic stenosis, coronary artery disease and atrial fibrillation. He also has a history of hypertension, hyperlipidemia, pancreatic cancer and had a Whipple procedure, he has a history of prostate cancer and has had a right nephrectomy. He also is treated for anemia. He had bypass surgery at [facility] in 2019 and had postoperative atrial fibrillation. He was evaluated for chest discomfort in early July 2024 and was admitted for several days, he had cardiac catheterization performed July 27, 2024 where he was noted to have patent grafts (HARRIS to the LAD, saphenous vein graft to the obtuse marginal and saphenous vein graft to the PDA). He had severe [place] multivessel coronary artery disease but nothing which required intervention. He did have known aortic stenosis however I do not believe the valve was crossed at catheterization. An echocardiogram done July 26, 2024 showed normal left ventricular systolic function with no left ventricular hypertrophy. The aortic valve was severely stenotic with a valve area felt to be around 1.3 cm although his peak gradient was 25 mmHg. He was referred to [facility] for consideration of TAVR. He was also identified as having sinus bradycardia although it was not clear that he was having symptoms related to it. He was discharged July 30, 2024. He presented to the emergency room with sepsis August 20, 2024 and had a 3-day hospitalization. He now presents to the emergency room October 13, 2020 for with acute kidney injury (he has chronic kidney disease). He also has low albumin and anasarca. Nephrology is involved and feels that he is intravascular ly depleted despite anasarca. We are consulted to assist in his cardiovascular care. This admission his creatinine is in the mid 2 range, in August it was in the 1.5-2 range. His albumin was 1.9 this admission, although had been in the low twos in August 2024. A high-sensitivity troponin on presentation was normal. His presenting electrocardiogram October 13, 2024 showed sinus rhythm with premature atrial beats and an average heart rate of 92 bpm. No acute changes. He has not heard anything about an appointment for his valve replacement, understand information has been sent to [facility] but I cannot verify that. He does not have any heart failure symptoms and he is still having trouble with anasarca. He has no chest discomfort. Allergies Allergy/AdvReac Type Severity Reaction Status Date / Time house dust Allergy Unknown SNEEZING, Verified 10/06/24 14:44 CONGESTION pollen extracts Allergy Unknown SNEEZING, Verified 10/06/24 14:44 CONGESTION red dye Allergy Unknown Hives Verified 10/06/24 14:44 Home Medications Medication Instructions Recorded Confirmed Type aspirin 81 mg tablet,delayed 81 mg PO QAM #90 tabs 11/07/20 10/13/24 Rx release (Ecotrin Low Strength) albuterol sulfate 90 mcg/actuation 2 puff inhalation Q4H PRN 09/06/21 10/13/24 Rx aerosol inhaler (Ventolin HFA) shortness of breath #8.5 grams cholecalciferol (vitamin D3) 25 25 mcg PO QAM 12/28/21 10/13/24 History mcg (1,000 unit) capsule mecobalamin (vitamin B12) 500 mcg 500 mcg PO QAM 09/13/23 10/13/24 History chewable tablet fluticasone 100 mcg-salmeterol 50 1 inh inhalation BID 10/08/23 10/13/24 History mcg/dose blistr powdr for inhalation (Advair Diskus) allopurinol 100 mg tablet 100 mg PO QAM #90 tabs 11/12/23 10/13/24 Rx montelukast 10 mg tablet 10 mg PO QAM #90 tabs 11/12/23 10/13/24 Rx empagliflozin 10 mg tablet 10 mg PO DAILY #30 tabs 08/06/24 10/13/24 Rx (Jardiance) solifenacin 5 mg tablet (Vesicare) 5 mg PO QAM 08/20/24 10/13/24 History tamsulosin 0.4 mg capsule 0.4 mg PO HS 08/20/24 10/13/24 History olmesartan 5 mg tablet (Benicar) 5 mg PO QAM 08/31/24 10/13/24 History fluticasone propionate 50 2 spray intranasal UD PRN 09/03/24 10/13/24 Rx mcg/actuation nasal Congestion #16 grams spray,suspension (Allergy Relief (fluticasone)) atorvastatin 80 mg tablet 80 mg PO HS #45 tabs 09/28/24 10/13/24 Rx pantoprazole 40 mg tablet,delayed 40 mg PO BID #60 tabs 10/02/24 10/13/24 Rx release epoetin ebony 40,000 unit/mL 40,000 unit subcut .Qmonth 10/06/24 10/13/24 History injection solution (Procrit) atenolol 50 mg tablet 50 mg PO UD 10/13/24 10/13/24 History Patient History Medical History Prostate cancer (10/02/17) Gastric ulcer reason for upcoming egd. Macular degeneration injections for upcoming 12/12/23. Gastrointestinal complaint hx EGD blocked bile duct/stent Sep 2023. History of gout Fatigue easily fatigue, little energy for the last year -- currently anemic (per patient). History of COVID-19 06/2022: moderate cold symptoms. no current issues. Anemia Hyperlipidemia Pancreatic cancer dx 06/2022. whipple procedure in 08/2022 at [facility]. no chemo/no radiation needed. Atrial fibrillation controlled with medication. no cardioversion in the past. Urinary incontinence History of prostate cancer (~09/2017) treated with radiation treatments. no surgery. no current issues. Carotid artery plaque Obstructive sleep apnea of adult cpap at night Coronary artery disease of bypass graft of [place] heart with stable angina pectoris Three-vessel coronary bypass grafting March 26, 2019 HTN (hypertension) Surgical History History of esophagogastroduodenoscopy (EGD) History of cardiac cath prior to open heart sx. History of cholecystectomy History of ERCP 05/2022 History of Whipple procedure (~08/2022) done at [facility] Hx of colonoscopy Hx of hand surgery repair of laceration on left hand due to saw accident Hx of rotator cuff surgery Right X 1, Left X2 Hx of CABG X 3 vessels at [facility] [place] Rolle. History of nephrectomy Right 1964 - damage from kidney stones Family History Sister Breast cancer Father Coronary heart disease Congestive heart disease COPD (chronic obstructive pulmonary disease) Mother Pancreas cancer Brother Colorectal cancer Pancreas cancer Sister Coronary heart disease Stroke Sister Hypertension Other Diabetes Heart disease Lung disease No family history of adverse response to anesthesia Denies family history of Prostate cancer Social History Smoking Status: Former smoker Tobacco Type: Cigarettes, Pipe and Cigars Age Started Using Tobacco: 19; Age Quit Using Tobacco: 32; packs per day: 0.5; Second Hand Exposure: No; Do You Dip or Chew Tobacco: No; Tobacco Cessation Education Requested by Patient: No Hx Alcohol Use: No Hx Substance Use: No Preferred Language: Maltese Communication Ability: Effective Visual Impairment: No Limitations Hearing Ability: Hard of Hearing Department Administrator Required: No Beliefs That Will Affect Care: None marital status: Current Living Situation: Spouse current occupational status: employed and 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 Other Information That Helps Us Care for You: No Feels Safe at Home: Yes Safety Concerns: Feels Safe At This Time Childhood Exposure to Second-Hand Smoke: Yes Diet: regular caffeine: No during the past year weight has: decreased > 10 lbs Dental Care, Regularly: No Physical Activity Frequency: Daily Seatbelt Use: always Sunscreen Use: Yes Do you think of yourself as: straight/heterosexual Gender Identity: Male Assistive Devices: Cane, CPAP and Walker Review of Systems Review of Systems: All systems reviewed & are unremarkable except as noted in HPI & below Physical Exam Physical Exam: Constitutional: Alert, cooperative and in no distress. He is sitting in his bedside chair. HEENT: Unremarkable Neck: No jugular venous distention, carotid pulses are normal and equal bilaterally without bruits but he does have a bilateral transmitted aortic stenosis murmur. Pulmonary: Clear to auscultation bilaterally. Cardiac: Regular rhythm with a grade 2/6 crescendo decrescendo murmur at the base, a grade 3/6 holosystolic murmur at the apex, no gallop or rub. Abdomen: Soft, nontender with normal bowel sounds. Extremities: +3 bilateral pretibial edema as well as puffiness in his hands. Neurologic: No focal findings. Skin: No rash, ecchymoses or petechiae. Results & Data Vital Signs (Past 12 Hours) Vital Signs Temp Pulse Pulse Resp BP Pulse Ox O2 Del Method 10/15/24 07:32 36.5 C 63 18 124/57 L 95 Room Air 10/15/24 07:00 42 L 10/15/24 03:19 36.3 C L 58 L 18 128/56 L 99 Room Air 10/14/24 22:40 36.4 C L 61 16 124/61 99 Room Air Laboratory Results CBC 10/14/24 10/15/24 Range/Units 09:58 05:56 WBC 6.87 3.57 L (4.8-10.8) K/ul RBC 3.66 L 3.04 L (4.70-6.10) M/uL Hgb 11.2 L 9.0 L (14.0-18.0) g/dl Hct 33.9 L 27.2 L (42.0-52.0) % Plt Count 256 213 (130-400) K/uL Neut # (Auto) 5.55 2.35 (1.40-6.50) K/uL Lymph # (Auto) 0.95 L 0.86 L (1.20-3.40) K/uL [place] # (Auto) 0.30 0.25 (0.11-0.59) K/uL Eos # (Auto) 0.03 0.09 (0.00-0.50) K/uL Baso # (Auto) 0.01 0.01 (0.00-0.20) K/uL Comprehensive Metabolic Panel 10/14/24 10/15/24 Range/Units 09:58 05:56 Sodium 138 144 (136-145) mmol/L Potassium 3.9 3.8 (3.5-5.1) mmol/L Chloride 116 H 122 H (98-107) mmol/L Carbon Dioxide 16 L 16 L (21-32) mmol/L BUN 30 H 29 H (6-23) mg/dl Creatinine 2.47 H 2.34 H (0.6-1.4) mg/dl Glucose 143 H 84 (70-99(Fasting)) mg/dl Calcium 7.6 L 7.5 L (8.6-10.3) mg/dl Albumin 2.3 L (3.4-5.0) gm/dl Intake and Output 10/14/24 10/15/24 10/15/24 22:59 06:59 14:59 Intake Total 1090 / 1740 300 / 1740 Output Total 401 / 1077 375 / 1077 Balance 689 / 663 -75 / 663 Intake: IV 100 / 100 Albumin 25% 25 gm In 100 ml @ 100 / 100 50 mls/hr IV ONE ONE Rx#: [id number] Oral 990 / 1640 300 / 1640 Output: Urine 400 / 775 375 / 775 Stool Other: # Unmeasured Voids 0 Weight 76.7 kg Diagnostic Findings Telemetry: Sinus rhythm and sinus bradycardia, at night he has sinus bradycardia with heart rates in the 30s, his heart rate is better when he is up and around. PG Care Time/CCT Total # of Minutes Spent Total Time Spent with Patient: Total time spent is greater than 50% in coordination of care (as documented) at patient's floor/unit and/or counseling patient: Coding Level of Care Code 15263 INT INP/OBS CARE 3/75MIN Diagnoses Anasarca R60.1 Nonrheumatic aortic valve stenosis I35.0 Cardiac valve disease etiology: nonrheumatic Coronary artery disease involving [place] coronary artery of [place] heart without angina pectoris I25.10 Associated angina: without angina Coronary Disease-Associated Artery/Lesion type: [place] artery [place] vs. transplanted heart: [place] heart Bradycardia R00.1 (2) Aortic stenosis Cardiac valve disease etiology: nonrheumatic Qualified Code(s): I35.0 - Nonrheumatic aortic (valve) stenosis (3) Coronary artery disease Associated angina: without angina Coronary Disease-Associated Artery/Lesion type: [place] artery [place] vs. transplanted heart: [place] heart Qualified Code(s): I25.10 - Atherosclerotic heart disease of [place] coronary artery without angina pectoris
--- NOTE | 2024-10-15 12:16 | Hospitalist Progress Note ---
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 admitted with diarrhea, acute kidney injury, anasarca and hypoalbuminemia Metabolic acidosis, KANDI, NAGMA, history of solitary kidney. Baseline Cr 1.7-1.9 creatinine improved from 2.47--> 2.34, carbon oxide remains 16 urine output 1000 mL / 24 hours - nephrology consulting - Urine output and creatinine improved, has been treated with IV albumin consider another dose today - defer to nephrology - Na bicarbonate po for metabolic acidosis - monitor UOP, BMP in a.m. (2) Pancolitis: Plan: I saw him last month when he had norovirus diarrhea, nonspecific proctocolitis on CT, treated with broad spectrum ABX because of rising WBC and procal despite resolution of diarrhea. This resolved and blood cultures were negative. Initially had improvement and no diarrhea, however, developed recurrent diarrhea. Admitting CT with progression of proctocolitis. Stool biofire and C. diff negative. Considered ischemic colitis, however, CTA abdomen without significant vascular lesions 07/2024, so seems unlikely. Has protein-losing enteropathy with hypoalbuminemia, anasarca. KANDI but not nephrotic. No history of IBD. - consulted gastroenterology, flex sig was considered yesterday but he had too much formed stool in the rectum -imodium and probiotic -continue pancrelipase -RD consulting this morning not having diarrhea assess response to above interventions (3) Anasarca: Plan: Albumin markedly diminished at 1.9 prior was 2.4, without evidence of significant proteinuria -suspect mainly GI losses -nutrition consult, protein supplement TTE 07/2024: EF 65 to 70%, no regional wall motion abnormality, moderatesevere aortic stenosis and progressive compared to prior study. (4) Acute heart failure with preserved ejection fraction (HFpEF): Plan: Intravascularly dry with abscence of pulmonary edema on admission. Anasarca and hypoalbuminemia. - CAD: Multivessel CAD on recent cath - continue aspirin -atenolol, olmesartan, atorvastatin have been stopped/held recently as outpatient - Moderate to severe aortic stenosis: Referred to [facility] [place] for TAVR. He does not have evidence of pulmonary edema. While he does have orthostasis he denies limiting exertional dyspnea/fatigue once he gets going and has not had chest pain/chest pressure. EKG on admission is without acute ST/T wave changes in sinus, no evidence of ischemia. Admitting troponin 10.6 -No acute anginal symptoms - may have cardiorenal component to the KANDI however would not affect management at this point. 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 This cannot be performed per protocol with contrast until renal function/GFR improves. No transaminitis or hyperbilirubinemia. INR mildly elevated at 1.2 Probably nutritional Plan DVT prophylaxis: Heparin subcu due to renal dysfunction CODE STATUS: DNR/DNI Admission and Anticipated Discharge Date Admission Date: October 13, 2024 Subjective Did 1 full lap with PT no stool so far today no abdominal pain, no chest pain or shortness of breath continues to have severe anasarca Physical Exam 2 Physical Exam: PHYSICAL EXAMINATION Last 24h vital signs reviewed, see documentation in flowsheet General: seen ambulating in hallway with PT then sitting in the chair by the window HEENT: Normocephalic, atraumatic, pupils round and equal, sclerae anicteric, no conjunctival injection, moist mucus membranes. periorbital edema Lungs: Normal respiratory effort. clear to auscultation bilaterally no rhonchi rales or wheezing Heart: regular, systolic crescendo decrescendo murmur left sternal border, no JVD Abdomen: soft nontender nondistended active bowel tones Extremities: Warm, dry, well-perfused. anasarca x 4 extremities - similar to yesterday with some skin weeping left upper extremity Neuro: Alert and oriented x 4, face symmetric, moves 4 extremities well Psych: Normal affect and behavior Results & Data Results & Data Vital Signs (Past 12 Hours) Vital Signs Temp Pulse Pulse Resp BP Pulse Ox Pulse Ox 10/15/24 11:17 97.7 F 100 H 18 107/60 95 10/15/24 10:44 100 10/15/24 07:32 97.7 F 63 18 124/57 L 95 10/15/24 07:00 42 L 10/15/24 03:19 97.3 F L 58 L 18 128/56 L 99 O2 Del Method O2 Flow Rate 10/15/24 11:17 Room Air 10/15/24 10:44 0 10/15/24 07:32 Room Air 10/15/24 07:00 10/15/24 03:19 Room Air Laboratory Results 10/15/24 05:56 10/15/24 05:56 PG Care Time/CCT Total # of Minutes Spent Total Time Spent with Patient: Total time spent is greater than 50% in coordination of care (as documented) at patient's floor/unit and/or counseling patient: Coding Level of Care Code 13786 SUB INP/OBS CARE 2/35MIN Diagnoses Acute kidney injury superimposed on stage 3b chronic kidney disease N17.9; N18.32 Pancolitis K51.00 Anasarca R60.1 Acute heart failure with preserved ejection fraction (HFpEF) I50.31 Obstructive sleep apnea of adult G47.33 History of Whipple procedure Z90.410; Z90.49
--- NOTE | 2024-10-15 13:56 | Nephrology Progress Note ---
Date of Service October 15, 2024 Assessment & Plan (1) Acute kidney injury superimposed on stage 3b chronic kidney disease: Plan: Non-oliguric. Creatinine improving. KANDI consistent with prerenal physiology + possible ATN from intravascular volume depletion and CRS. TTE being updated today. Electrolytes are acceptable. 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 Additional 25 gram IV albumin provided. Document strict I/O's. Repeat metabolic profile tomorrow AM. Jardiance and olmesartan have been held. Medications are appropriate for kidney function. Oral NaHCO3 replacement has been ordered for NAGMA. (2) Anasarca: Plan: Attributed to protein wasting colitis, CRS, and CKD. Not nephrotic. Defer diuretics due to intravascular volume depletion and prerenal physiology. (3) Normocytic anemia: Plan: Chronic, stable. JM therapy not indicated. (4) Pancolitis: Plan: PO NaHCO3 supplementation provided. GI consultation appreciated. Pathology pending. (5) Aortic stenosis: Plan: Updated US pending. Admission and Anticipated Discharge Date Admission Date: October 13, 2024 Subjective No acute events overnight. TTE being obtained during my meeting with patient. He is breathing comfortably and feels well overall. Review of Systems Review of Systems: All systems reviewed & are unremarkable except as noted in HPI & below Physical Exam Constitutional: well developed and + edematous; no acute distress Eyes: + anicteric sclerae; no conjunctival abn ormality ENMT: Mouth: no oral mucosal abnormality and oral mucous membranes not dry Neck: normal visual inspection and trachea midline Respiratory: normal respiratory effort Auscultation: lungs clear to auscultation bilaterally Cardiovascular: Rate/Rhythm: regular rate Heart Sounds: normal S1, normal S2 and + murmur Extremities: + edema Musculoskeletal: Extremities: no cyanosis and no clubbing Skin: no jaundice Neurologic: Motor/Sensory: no tremor and no asterixis Psychiatric: Orientation: alert and oriented x 3 Results & Data Vital Signs (Past 12 Hours) Vital Signs Temp Pulse Pulse Resp BP Pulse Ox Pulse Ox 10/15/24 13:02 10/15/24 11:17 36.5 C 100 H 18 107/60 95 10/15/24 10:44 100 10/15/24 07:32 36.5 C 63 18 124/57 L 95 10/15/24 07:00 42 L 10/15/24 03:19 36.3 C L 58 L 18 128/56 L 99 O2 Del Method O2 Flow Rate 10/15/24 13:02 Room Air 10/15/24 11:17 Room Air 10/15/24 10:44 0 10/15/24 07:32 Room Air 10/15/24 07:00 10/15/24 03:19 Room Air Laboratory Results Laboratory Results - last 24 hr 10/15/24 05:56 WBC 3.57 L RBC 3.04 L Hgb 9.0 L Hct 27.2 L MCV 89.5 MCH 29.6 MCHC 33.1 RDW Std Deviation 55.6 H RDW Coeff of Karolyn 17.8 H Plt Count 213 MPV 9.6 Immature Gran % (Auto) 0.3 Neut % (Auto) 65.8 Lymph % (Auto) 24.1 Jackson % (Auto) 7.0 Eos % (Auto) 2.5 Baso % (Auto) 0.3 Neut # (Auto) 2.35 Lymph # (Auto) 0.86 L Jackson # (Auto) 0.25 Eos # (Auto) 0.09 Baso # (Auto) 0.01 Immature Gran # (Auto) 0.01 Absolute Nucleated RBC 0.02 Nucleated RBC % (auto) 0.6 Sodium 144 Potassium 3.8 Chloride 122 H Carbon Dioxide 16 L Anion Gap 6 BUN 29 H Creatinine 2.34 H Est Cr Clr Drug Dosing 23.7 eGFR 27.26 BUN/Creatinine Ratio 12.4 Glucose 84 Calcium 7.5 L Albumin 2.3 L PG Care Time/CCT Total # of Minutes Spent Total Time Spent with Patient: Total time spent is greater than 50% in coordination of care (as documented) at patient's floor/unit and/or counseling patient: Coding Level of Care Code 82138 SUB INP/OBS CARE 3/50MIN Diagnoses Acute kidney injury superimposed on stage 3b chronic kidney disease N17.9; N18.32 Anasarca R60.1 Normocytic anemia D64.9 Pancolitis K51.00 Nonrheumatic aortic valve stenosis I35.0 Cardiac valve disease etiology: nonrheumatic (5) Aortic stenosis Cardiac valve disease etiology: nonrheumatic Qualified Code(s): I35.0 - Nonrheumatic aortic (valve) stenosis
[2024-10-15] MEDS: ALBUMIN 25% 25 GM/100 ML VIAL IV ONE (14:34)
[2024-10-16 06:19] LABS: Calcium 7.2 mg/dl (8.6-10.3); Potassium 3.7 mmol/L (3.5-5.1)
[2024-10-16 06:25] LABS: Creatinine Clr Calc Pharmacy 22.6 ml/min
[2024-10-16 07:19] LABS: Eosinophils # (auto) 0.12 K/uL (0.00-0.50); Eosinophils % (auto) 2.7 %; Hemoglobin 9.1 g/dl (14.0-18.0); Immature Granulocytes # (auto) 0.02 K/uL (0.01-0.20); Immature Granulocytes % (auto) 0.5 %; Lymphocytes # (auto) 0.79 K/uL (1.20-3.40); Mean Corpuscular Hemoglobin 29.6 pg (25.0-34.0); Mean Corpuscular Hgb Conc 32.5 g/dL (32.0-36.0); Mean Corpuscular Volume 91.2 fL (80.0-100.0); Mean Platelet Volume 9.4 fL (9.4-12.4); Monocytes # (auto) 0.25 K/uL (0.11-0.59); Monocytes % (auto) 5.7 %; Neutrophils # (auto) 3.22 K/uL (1.40-6.50); Neutrophils % (auto) 73.1 %; Platelet Count 205 K/uL (130-400); RDW Coefficient of Variation 18.3 % (11.5-14.5); RDW Standard Deviation 59.2 fL (36.4-46.3); Red Blood Count 3.07 M/uL (4.70-6.10)
[2024-10-16 08:33] LABS: Magnesium 1.7 mg/dl (1.7-2.4)
--- NOTE | 2024-10-16 11:01 | XCELERA ---
[id number] \\[id number]
--- NOTE | 2024-10-16 13:03 | Nephrology Progress Note ---
Date of Service October 16, 2024 Assessment & Plan (1) Acute kidney injury superimposed on stage 3b chronic kidney disease: Plan: Non-oliguric. Creatinine stable. KANDI consistent with prerenal physiology + possible ATN from intravascular volume depletion and cardiorenal syndrome. Updated urine sodium requested today. IV albumin has been provided to help restore intravascular volume. Serum albumin improving. Additional IV albumin was provided today. Unfortunately, edema is not going to resolve or improve quickly with colloid. If debilitating, diuretics may be considered as oncotic pressure improves. Osmany and his family find the fluid retention to be debilitating. However, I would be very cautious with diuretics, Osmany is preload dependent with a history of severe . It is difficult to reconcile recent TTE findings with prior cardiac ultrasound findings, clinical exam, and history. Electrolytes are acceptable. 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 I would have concerns regarding Osmany's ability to tolerate hemodialysis given his valvular heart disease and frailty. I would not proceed with dialysis for volume management at this time. Additional 25 gram IV albumin provided today. IV albumin added. Document strict I/O's. Repeat metabolic profile tomorrow AM. Continue to hold Jardiance and olmesartan. Medications are appropriate for kidney function. Oral NaHCO3 replacement has been ordered for NAGMA. (2) Anasarca: Plan: Attributed to protein wasting colitis, CRS, and CKD. TTE did not demonstrate findings of right heart failure or intravascular volume overload. Not nephrotic. This is unfortunately a very complex physiology with multiple medical comorbidities including nutritional, liver, cardiac, and kidney disease. Aggressive diuresis should be avoided. The most beneficial treatment at this time would likely be lymphedema treatments and effleurage as well as nutritional support. (3) Normocytic anemia: Plan: Chronic, stable. Hgb <10. Notable history of iron deficiency requiring IV replacement. Venofer 200 mg x 1 today. Check iron profile tomorrow AM. Hold additional JM at this time. (4) Pancolitis: Plan: PO NaHCO3 supplementation provided. Improvement in diarrhea reported. Pancreatic enzymes are being provided. (5) Aortic stenosis: Plan: Appreciate cardiology consultation. Clinical history, prior imaging, and exam certainly indicate severe . I believe Leylas kidney function is now affected by associated cardiorenal syndrome. 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 Hepatic lobe lesion will require follow up evaluation and liver protocol MRI was recommended by radiology. I would avoid gadolinium at this time with current kidney function. Admission and Anticipated Discharge Date Admission Date: October 13, 2024 Subjective No acute events overnight. Osmany was seen and evaluated with his family at the bedside. He feels reasonably well. Unfortunately he continues to struggle with edema and leakage of fluid. He is breathing comfortably. Appetite remains poor. Review of Systems Review of Systems: All systems reviewed & are unremarkable except as noted in HPI & below Physical Exam Constitutional: well developed and + edematous; no acute distress Eyes: + anicteric sclerae; no conjunctival abn ormality ENMT: Mouth: no oral mucosal abnormality and oral mucous membranes not dry Neck: normal visual inspection and trachea midline Respiratory: normal respiratory effort Auscultation: lungs clear to auscultation bilaterally Cardiovascular: Rate/Rhythm: regular rate Heart Sounds: normal S1, normal S2 (difficult to appreciate due to late peaking systolic murmur) and + murmur Extremities: + edema Musculoskeletal: Extremities: no cyanosis and no clubbing Skin: no jaundice Neurologic: Motor/Sensory: no tremor and no asterixis Psychiatric: Orientation: alert and oriented x 3 Results & Data Vital Signs (Past 12 Hours) Vital Signs Temp Pulse Pulse Resp BP Pulse Ox Pulse Ox 10/16/24 12:09 36.5 C 83 16 113/63 98 10/16/24 10:00 95 10/16/24 09:55 10/16/24 07:55 37.2 C 60 16 116/65 97 10/16/24 07:08 45 L 10/16/24 04:12 36.4 C L 65 20 143/67 H 95 O2 Del Method O2 Del Method 10/16/24 12:09 Room Air 10/16/24 10:00 Room Air 10/16/24 09:55 Room Air 10/16/24 07:55 Room Air 10/16/24 07:08 10/16/24 04:12 Room Air Laboratory Results Laboratory Results - last 24 hr 10/16/24 10/16/24 10/16/24 05:45 07:01 11:30 WBC Cancelled 4.40 L RBC Cancelled 3.07 L Hgb Cancelled 9.1 L Hct Cancelled 28.0 L MCV Cancelled 91.2 MCH Cancelled 29.6 MCHC Cancelled 32.5 RDW Std Deviation Cancelled 59.2 H RDW Coeff of Karolyn Cancelled 18.3 H Plt Count Cancelled 205 MPV Cancelled 9.4 Immature Gran % (Auto) Cancelled 0.5 Neut % (Auto) Cancelled 73.1 Lymph % (Auto) Cancelled 18.0 Mcclain % (Auto) Cancelled 5.7 Eos % (Auto) Cancelled 2.7 Baso % (Auto) Cancelled 0.0 Neut # (Auto) Cancelled 3.22 Lymph # (Auto) Cancelled 0.79 L Mcclain # (Auto) Cancelled 0.25 Eos # (Auto) Cancelled 0.12 Baso # (Auto) Cancelled 0.00 Immature Gran # (Auto) Cancelled 0.02 Absolute Nucleated RBC Cancelled Nucleated RBC % (auto) Cancelled Neutrophils % (Manual) Cancelled Band Neutrophils % Cancelled Lymphocytes % (Manual) Cancelled Prolymphocyte % Cancelled Reactive Lymphs % (Man) Cancelled Monocytes % (Manual) Cancelled Eosinophils % (Manual) Cancelled Basophils % (Manual) Cancelled Metamyelocytes % (Man) Cancelled Myelocytes % (Man) Cancelled Promyelocytes % (Man) Cancelled Blast Cells % (Manual) Cancelled Plasma Cell % (Manual) Cancelled Other Cells % Cancelled Nucleated RBC % Cancelled Neutrophils # (Manual) Cancelled Band Neutrophils # Cancelled Total Absolute Neuts Cancelled Lymphocytes # (Manual) Cancelled Prolymphocyte # Cancelled Reactive Lymphs # Cancelled Total Abs Lymphocytes Cancelled Monocytes # (Manual) Cancelled Eosinophils # (Manual) Cancelled Basophils # (Manual) Cancelled Metamyelocytes # (Man) Cancelled Myelocytes # (Manual) Cancelled Promyelocytes # (Man) Cancelled Blast Cells # (Man) Cancelled Plasma Cell # (Manual) Cancelled Other Cells # Cancelled Nucleated RBCs # (Man) Cancelled Hypersegmented Neuts Cancelled Hyposegmented Neuts Cancelled Hypogranular Neuts Cancelled Large Granular Lymphs Cancelled # Lrg Granular Lymphs Cancelled Hairy Cells Cancelled Smudge Cells Cancelled Toxic Granulation Cancelled Toxic Vacuolation Cancelled Dohle Bodies Cancelled Peter Rods Cancelled Platelet Estimate Cancelled Hypogranular Platelets Cancelled Giant Platelets Cancelled Platelet Satelliting Cancelled RBC Morphology Cancelled Polychromasia Cancelled Hypochromasia Cancelled Poikilocytosis Cancelled Basophilic Stippling Cancelled Anisocytosis Cancelled Microcytosis Cancelled Macrocytosis Cancelled Spherocytes Cancelled Pappenheimer Bodies Cancelled Sickle Cells Cancelled Target Cells Cancelled Tear Drop Cells Cancelled Ovalocytes Cancelled Stomatocytes Cancelled [place] Bodies Cancelled Echinocytes Cancelled Acanthocytes (Spur) Cancelled Rouleaux Cancelled RBC Agglutinates Cancelled Schistocytes Cancelled Sezary Cell Cancelled Sodium 144 Potassium 3.7 Chloride 123 H Carbon Dioxide 16 L Anion Gap 5 BUN 27 H Creatinine 2.46 H Est Cr Clr Drug Dosing 22.6 eGFR 25.67 BUN/Creatinine Ratio 11.0 Glucose 105 H Calcium 7.2 L Magnesium 1.7 Albumin 2.8 L Blood Parasites ID Cancelled PG Care Time/CCT Total # of Minutes Spent Total Time Spent with Patient: Total time spent is greater than 50% in coordination of care (as documented) at patient's floor/unit and/or counseling patient: Coding Level of Care Code 36696 SUB INP/OBS CARE 3/50MIN Diagnoses Acute kidney injury superimposed on stage 3b chronic kidney disease N17.9; N18.32 Anasarca R60.1 Normocytic anemia D64.9 Pancolitis K51.00 Nonrheumatic aortic valve stenosis I35.0 Cardiac valve disease etiology: nonrheumatic Cancer of ampulla of Vater C24.1 (5) Aortic stenosis Cardiac valve disease etiology: nonrheumatic Qualified Code(s): I35.0 - Nonrheumatic aortic (valve) stenosis
[2024-10-16] MEDS: ALBUMIN 25% 25 GM/100 ML VIAL IV ONE (13:55)
[2024-10-16] MEDS: IRON SUCROSE 200 MG in SODIUM CHLORIDE 0.9% 100 ML IV ONE (16:10)
--- NOTE | 2024-10-16 16:12 | Hospitalist Progress Note ---
Date of Service October 16, 2024 Assessment & Plan (1) Acute kidney injury superimposed on stage 3b chronic kidney disease: Plan: 83 y/o man with history of ampullary carcinoma and Whipple procedure in 2021, coronary artery disease severe aortic stenosis and HFpEF. admitted with diarrhea, acute kidney injury, anasarca and hypoalbuminemia Metabolic acidosis, KANDI, NAGMA, history of solitary kidney. Baseline Cr 1.7-1.9 creatinine improved from 2.47--> 2.34, carbon oxide remains 16 urine output 1000 mL / 24 hours - nephrology consulting - UOP remains low better than 48h ago. Cr static overnight remains 2.46. potassium 3.7 - Na bicarbonate po for metabolic acidosis - monitor UOP, BMP in a.m. continues to be severely edematous and renal function hasn't significantly improved, however serum albumin and diarrhea has improved (2) Pancolitis: Plan: I saw him last month when he had norovirus diarrhea, nonspecific proctocolitis on CT, treated with broad spectrum ABX because of rising WBC and procal despite resolution of diarrhea. This resolved and blood cultures were negative. Initially had improvement and no diarrhea, however, developed recurrent diarrhea. Admitting CT with progression of proctocolitis. Stool biofire and C. diff negative. Considered ischemic colitis, however, CTA abdomen without significant vascular lesions 07/2024, so seems unlikely. Has protein-losing enteropathy with hypoalbuminemia, anasarca. KANDI but not nephrotic. No history of IBD. - consulted gastroenterology, flex sig was considered but he had too much formed stool in the rectum -imodium and probiotic -continue pancrelipase -RD consulting significantly improved checked albumin today improved from 1.9 to 2.8 (3) Anasarca: Plan: Albumin markedly diminished at 1.9 prior was 2.4, without evidence of significant proteinuria -suspect mainly GI losses -nutrition consult, protein supplement (4) Acute heart failure with preserved ejection fraction (HFpEF): Plan: Intravascularly dry with abscence of pulmonary edema on admission. Anasarca and hypoalbuminemia. - CAD: Multivessel CAD on recent cath - continue aspirin -atenolol, olmesartan, atorvastatin have been stopped/held recently as outpatient - Moderate to severe aortic stenosis: Referred to [facility] for TAVR. He does not have evidence of pulmonary edema. While he does have orthostasis he denies limiting exertional dyspnea/fatigue once he gets going and has not had chest pain/chest pressure. EKG on admission is without acute ST/T wave changes in sinus, no evidence of ischemia. Admitting troponin 10.6 -No acute anginal symptoms - may have cardiorenal component to the KANDI however would not affect management at this point. 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 This cannot be performed per protocol with contrast until renal function/GFR improves. No transaminitis or hyperbilirubinemia. INR mildly elevated at 1.2 Probably nutritional Plan Left shoulder pain and weakness following a fall - no fracture/dislocation on xray but exam is suspicious for rotator cuff tear DVT prophylaxis: Heparin subcu due to renal dysfunction CODE STATUS: DNR/DNI updated his daughter and at bedside Admission and Anticipated Discharge Date Admission Date: October 13, 2024 Subjective remains very edematous no dyspnea has a lot of gas but no stools 24h, no diarrea eating well right shoulder remains painful and weak - cant abduct, PROM causes pain Physical Exam 2 Physical Exam: PHYSICAL EXAMINATION Last 24h vital signs reviewed, see documentation in flowsheet General: up in chair HEENT: Normocephalic, atraumatic, pupils round and equal, sclerae anicteric, no conjunctival injection, moist mucus membranes. periorbital edema Lungs: Normal respiratory effort. clear to auscultation bilaterally no rhonchi rales or wheezing Heart: regular, systolic crescendo decrescendo murmur left sternal border, no JVD Abdomen: soft nontender nondistended active bowel tones Extremities: Warm, dry, well-perfused. anasarca x 4 extremities UE>LE - some weeping olivia UE Neuro: Alert and oriented x 4, face symmetric, moves 4 extremities well Psych: Normal affect and behavior Results & Data Results & Data Vital Signs (Past 12 Hours) Vital Signs Temp Pulse Pulse Resp BP Pulse Ox Pulse Ox 10/16/24 14:25 98 H 10/16/24 14:00 96 10/16/24 12:09 97.7 F 83 16 113/63 98 10/16/24 10:00 95 10/16/24 09:55 10/16/24 07:55 99.0 F 60 16 116/65 97 10/16/24 07:08 45 L 10/16/24 04:12 97.5 F L 65 20 143/67 H 95 O2 Del Method O2 Del Method 10/16/24 14:25 10/16/24 14:00 Room Air 10/16/24 12:09 Room Air 10/16/24 10:00 Room Air 10/16/24 09:55 Room Air 10/16/24 07:55 Room Air 10/16/24 07:08 10/16/24 04:12 Room Air Laboratory Results 10/16/24 07:01 10/16/24 05:45 PG Care Time/CCT Total # of Minutes Spent Total Time Spent with Patient: Total time spent is greater than 50% in coordination of care (as documented) at patient's floor/unit and/or counseling patient: Coding Level of Care Code 90140 SUB INP/OBS CARE 3/50MIN Diagnoses Acute kidney injury superimposed on stage 3b chronic kidney disease N17.9; N18.32 Pancolitis K51.00 Anasarca R60.1 Acute heart failure with preserved ejection fraction (HFpEF) I50.31 Obstructive sleep apnea of adult G47.33 History of Whipple procedure Z90.410; Z90.49
[2024-10-17 06:17] LABS: Hematocrit (blood only) 24.5 % (42.0-52.0); Hemoglobin 8.2 g/dl (14.0-18.0); Mean Corpuscular Hemoglobin 30.5 pg (25.0-34.0); Mean Corpuscular Hgb Conc 33.5 g/dL (32.0-36.0); Mean Corpuscular Volume 91.1 fL (80.0-100.0); Mean Platelet Volume 10.1 fL (9.4-12.4); Platelet Count 187 K/uL (130-400); RDW Coefficient of Variation 18.4 % (11.5-14.5); RDW Standard Deviation 59.7 fL (36.4-46.3); Red Blood Count 2.69 M/uL (4.70-6.10); White Blood Count 3.79 K/ul (4.8-10.8)
[2024-10-17 06:44] LABS: Anion Gap 5 (3-11); Blood Urea Nitrogen 26 mg/dl (6-23); Calcium 7.3 mg/dl (8.6-10.3); Carbon Dioxide 20 mmol/L (21-32); Chloride 122 mmol/L (98-107); Creatinine Clr Calc Pharmacy 27.8 ml/min; Glucose 100 mg/dl (70-99(Fasting)); Potassium 3.5 mmol/L (3.5-5.1); Sodium 147 mmol/L (136-145)
[2024-10-17 06:45] LABS: Albumin Level 2.4 gm/dl (3.4-5.0); Iron 53 mcg/dl (35-175); Phosphorus 2.6 mg/dl (2.5-4.9); Unsaturated Iron Binding Cap < 55 mcg/dl (155-355)
--- NOTE | 2024-10-17 08:09 | Hospitalist Progress Note ---
Date of Service October 17, 2024 Assessment & Plan (1) Acute kidney injury superimposed on stage 3b chronic kidney disease: Plan: 83 y/o man with history of ampullary carcinoma and Whipple procedure in 2021, coronary artery disease severe aortic stenosis and HFpEF. admitted with diarrhea, acute kidney injury, anasarca and hypoalbuminemia Metabolic acidosis, KANDI, NAGMA, history of solitary kidney. Baseline Cr 1.7-1.9 - nephrology consulting - discussed with Dr. Robertson - UOP improved to 550 past 24h. 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 This resolved and blood cultures were negative. Initially had improvement and no diarrhea, however, developed recurrent diarrhea. Admitting CT with progression of proctocolitis. Stool biofire and C. diff negative. Considered ischemic colitis, however, CTA abdomen without significant vascular lesions 07/2024, so seems unlikely. Has protein-losing enteropathy with hypoalbuminemia, anasarca. KANDI but not nephrotic. No history of IBD. - consulted gastroenterology, flex sig was considered but he had too much formed stool in the rectum -imodium and probiotic -continue pancrelipase -RD consulting May be resolved. Last two stools have been soft (3) Anasarca: Plan: Albumin markedly diminished at 1.9 prior was 2.4, without evidence of significant proteinuria -suspect mainly GI losses -nutrition consult, protein supplement (4) Acute heart failure with preserved ejection fraction (HFpEF): Plan: Intravascularly dry with abscence of pulmonary edema on admission. Anasarca and hypoalbuminemia. - CAD: Multivessel CAD on recent cath - continue aspirin -atenolol, olmesartan, atorvastatin have been stopped/held recently as outpatient - Moderate to severe aortic stenosis: Referred to [facility] for TAVR. He does not have evidence of pulmonary edema. While he does have orthostasis he denies limiting exertional dyspnea/fatigue once he gets going and has not had chest pain/chest pressure. EKG on admission is without acute ST/T wave changes in sinus, no evidence of ischemia. Admitting troponin 10.6 -No acute anginal symptoms - may have cardiorenal component to the KANDI however would not affect management at this point. 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 This cannot be performed per protocol with contrast until renal function/GFR improves. No transaminitis or hyperbilirubinemia. INR mildly elevated at 1.2 Probably nutritional Plan Left shoulder pain and weakness following a fall - no fracture/dislocation on xray but exam is suspicious for rotator cuff tear DVT prophylaxis: Heparin subcu due to renal dysfunction CODE STATUS: DNR/DNI updated his at bedside Admission and Anticipated Discharge Date Admission Date: October 13, 2024 Subjective now having soft stools, no diarrhea 48h. No abdominal pain UOP improved a little LUE less edematous but RUE not improved with some weeping. LE edema looks improved a bit Physical Exam 2 Physical Exam: PHYSICAL EXAMINATION Last 24h vital signs reviewed, see documentation in flowsheet General: awake sitting up in bed HEENT: Normocephalic, atraumatic, pupils round and equal, sclerae anicteric, no conjunctival injection, moist mucus membranes. periorbital edema Lungs: Normal respiratory effort. CTAB Heart: regular, syst M, no JVD Abdomen: soft nontender nondistended active bowel tones Extremities: Warm, dry, well-perfused. anasarca x 4 extremities UE>LE - especially RUE. Neuro: Alert and oriented x 4, face symmetric, moves 4 extremities well Psych: Normal affect and behavior Results & Data Results & Data Vital Signs (Past 12 Hours) Vital Signs Temp Pulse Pulse Resp BP Pulse Ox O2 Del Method 10/17/24 08:01 97.5 F L 81 16 121/70 97 Room Air 10/17/24 03:04 98.2 F 70 16 134/72 97 Room Air 10/16/24 22:53 98.2 F 67 17 130/70 98 Room Air 10/16/24 21:45 56 L Laboratory Results 10/17/24 05:52 10/17/24 05:52 PG Care Time/CCT Total # of Minutes Spent Total Time Spent with Patient: Total time spent is greater than 50% in coordination of care (as documented) at patient's floor/unit and/or counseling patient: Coding Level of Care Code 67194 SUB INP/OBS CARE 3/50MIN Diagnoses Acute kidney injury superimposed on stage 3b chronic kidney disease N17.9; N18.32 Pancolitis K51.00 Anasarca R60.1 Acute heart failure with preserved ejection fraction (HFpEF) I50.31 Obstructive sleep apnea of adult G47.33 History of Whipple procedure Z90.410; Z90.49
[2024-10-17] MEDS: IRON SUCROSE 300 MG in SODIUM CHLORIDE 0.9% 250 ML IV ONE (11:13)
[2024-10-17] MEDS ORDERED: ALBUMIN 25% 25 GM/100 ML VIAL IV ONE (11:20)
--- NOTE | 2024-10-17 13:47 | Nephrology Progress Note ---
Date of Service October 17, 2024 Assessment & Plan (1) Acute kidney injury superimposed on stage 3b chronic kidney disease: Plan: Non-oliguric. Creatinine slightly improved to 2.0 mg/dL. KANDI consistent with prerenal physiology + possible ATN from intravascular volume depletion and cardiorenal syndrome. Hypoalbuminemia is major contributing factor from diarrhea, pancreatic insufficiency, and recent Whipple. IV albumin has been provided. Dietary intake encouraged. Electrolytes are acceptable. There is no emergent indication for MANAGER MULTICULTURAL. Additional 25 gram IV albumin provided today. Document strict I/O's. Repeat metabolic profile tomorrow AM. Continue to hold Jardiance and olmesartan. Medications are appropriate for kidney function. Oral NaHCO3 replacement has been ordered for NAGMA. (2) Anasarca: Plan: Attributed to protein wasting colitis + pancreatic insufficiency + Whipple, CRS, and CKD. TTE did not demonstrate findings of right heart failure or intravascular volume overload. Not nephrotic. This is unfortunately a very complex physiology with multiple medical comorbidities including nutritional, liver, cardiac, and kidney disease. Aggressive diuresis should be avoided. Primary management should include lymphedema treatments and effleurage as well as nutritional support. IV albumin + furosemide provided today. (3) Normocytic anemia: Plan: Chronic, stable. Notable iron deficiency. Venofer provided yesterday and today. (4) Pancolitis: Plan: PO NaHCO3 supplementation provided. (5) Aortic stenosis: Plan: I discussed with Dr. Adams yesterday. 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 Hepatic lobe lesion will require follow up evaluation and liver protocol MRI was recommended by radiology. I would avoid gadolinium pending continued improvement in kidney function. Admission and Anticipated Discharge Date Admission Date: October 13, 2024 Subjective No acute events overnight. Osmany was seen and evaluated with his at the bedside. His remains very concerned about the fluid in his arms and legs. She is also concerned that he is weak and requiring assistance to walk several feet from the bed to the bathroom. He denies any dyspnea. He denies lightheadedness or dizziness. Urine output is good. Review of Systems Review of Systems: All systems reviewed & are unremarkable except as noted in HPI & below Physical Exam Constitutional: well developed and + edematous; no acute distress Eyes: + anicteric sclerae; no conjunctival abn ormality ENMT: Mouth: no oral mucosal abnormality and oral mucous membranes not dry Neck: normal visual inspection and trachea midline Respiratory: normal respiratory effort Auscultation: lungs clear to auscultation bilaterally Cardiovascular: Rate/Rhythm: regular rate Heart Sounds: normal S1, normal S2 (difficult to appreciate due to late peaking systolic murmur) and + murmur Extremities: + edema (soft pitting generalized edema notable in UE and LE) Musculoskeletal: Extremities: no cyanosis and no clubbing Skin: no jaundice Neurologic: Motor/Sensory: no tremor and no asterixis Psychiatric: Orientation: alert and oriented x 3 Results & Data Vital Signs (Past 12 Hours) Vital Signs Temp Pulse Pulse Resp BP BP Pulse Ox 10/17/24 12:36 36.7 C 65 16 131/68 96 10/17/24 11:13 36.4 C L 63 20 137/67 98 10/17/24 10:02 66 10/17/24 08:01 36.4 C L 81 16 121/70 97 10/17/24 03:04 36.8 C 70 16 134/72 97 O2 Del Method 10/17/24 12:36 Room Air 10/17/24 11:13 Room Air 10/17/24 10:02 10/17/24 08:01 Room Air 10/17/24 03:04 Room Air Laboratory Results Laboratory Results - last 24 hr 10/16/24 10/17/24 Unknown 05:52 WBC 3.79 L RBC 2.69 L Hgb 8.2 L Hct 24.5 L MCV 91.1 MCH 30.5 MCHC 33.5 RDW Std Deviation 59.7 H RDW Coeff of Karolyn 18.4 H Plt Count 187 MPV 10.1 Sodium 147 H Potassium 3.5 Chloride 122 H Carbon Dioxide 20 L Anion Gap 5 BUN 26 H Creatinine 2.00 H D Est Cr Clr Drug Dosing 27.8 eGFR 32.91 BUN/Creatinine Ratio 13.0 Glucose 100 H Calcium 7.3 L Phosphorus 2.6 Iron 53 TIBC TNP Unsaturated IBC < 55 L Transferrin % Sat TNP Ferritin 358.0 Albumin 2.4 L Ur Random Sodium 78 PG Care Time/CCT Total # of Minutes Spent Total Time Spent with Patient: Total time spent is greater than 50% in coordination of care (as documented) at patient's floor/unit and/or counseling patient: Coding Level of Care Code 68474 SUB INP/OBS CARE 50MIN Diagnoses Acute kidney injury superimposed on stage 3b chronic kidney disease N17.9; N18.32 Anasarca R60.1 Normocytic anemia D64.9 Pancolitis K51.00 Nonrheumatic aortic valve stenosis I35.0 Cardiac valve disease etiology: nonrheumatic Cancer of ampulla of Vater C24.1 (5) Aortic stenosis Cardiac valve disease etiology: nonrheumatic Qualified Code(s): I35.0 - Nonrheumatic aortic (valve) stenosis
[2024-10-17] MEDS: FUROSEMIDE 40 MG/4 ML VIAL IV ONE (14:14)
[2024-10-17] MEDS: ALBUMIN 25% 25 GM/100 ML VIAL IV ONE (14:14)
[2024-10-17] MEDS: FUROSEMIDE INJ 20 MG/2 ML VIAL IV ONE (14:29)
[2024-10-17 20:18] LABS: Potassium 3.9 mmol/L (3.5-5.1)
[2024-10-17 20:24] LABS: Creatinine Clr Calc Pharmacy 26.9 ml/min
[2024-10-18 07:50] LABS: Calcium 7.7 mg/dl (8.6-10.3); Magnesium 1.5 mg/dl (1.7-2.4); Potassium 3.3 mmol/L (3.5-5.1)
[2024-10-18 07:56] LABS: BUN Creatinine Ratio 15.2 (10-20); Creatinine Clr Calc Pharmacy 26.4 ml/min
--- NOTE | 2024-10-18 08:08 | Hospitalist Progress Note ---
Date of Service October 18, 2024 Assessment & Plan (1) Acute kidney injury superimposed on stage 3b chronic kidney disease: Plan: 83 y/o man with history of ampullary carcinoma and Whipple procedure in 2021, coronary artery disease severe aortic stenosis and HFpEF. admitted with diarrhea, acute kidney injury, anasarca and hypoalbuminemia Metabolic acidosis, KANDI, NAGMA, history of solitary kidney. Baseline Cr 1.7-1.9 - nephrology consulting - discussed with Dr. Robertson continues to be severely edematous but renal function now improving and diarrhea resolved UOP 650 last 24h and was given albumin 25g and lasix 40 mg IV x 1 Weight is down from 167 on 10/13 --> 157 by standing scales today BUN/Cr improved approaching baseline, bicarb normal, potassium and mag mildly low, hypernatremic at 147 -decreased [place] to 650 bid -repeat albumin 25g and lasix 40 IV x 1 -replace hypokalemia, hypomagnesemia -encourage oral hydration -4pm BMP -discussed with Dr. Robertson (2) Pancolitis: Plan: I saw him last month when he had norovirus diarrhea, nonspecific proctocolitis on CT, treated with broad spectrum ABX because of rising WBC and procal despite resolution of diarrhea. This resolved and blood cultures were negative. Initially had improvement and no diarrhea, however, developed recurrent diarrhea. Admitting CT with progression of proctocolitis. Stool biofire and C. diff negative. Considered ischemic colitis, however, CTA abdomen without significant vascular lesions 07/2024, so seems unlikely. Has protein-losing enteropathy with hypoalbuminemia, anasarca. KANDI but not nephrotic. No history of IBD. - consulted gastroenterology, flex sig was considered but he had too much formed stool in the rectum -imodium and probiotic -continue pancrelipase -RD consulting May be resolved. Last few stools have been soft (3) Anasarca: Plan: Albumin markedly diminished at 1.9 prior was 2.4, without evidence of significant proteinuria -suspect mainly GI losses -nutrition consult, protein supplement (4) Acute heart failure with preserved ejection fraction (HFpEF): Plan: Intravascularly dry with abscence of pulmonary edema on admission. Anasarca and hypoalbuminemia. - CAD: Multivessel CAD on recent cath - continue aspirin -atenolol, olmesartan, atorvastatin have been stopped/held recently as outpatient - Moderate to severe aortic stenosis: [place] [facility] [place] He does not have evidence of pulmonary edema. While he does have orthostasis he denies limiting exertional dyspnea/fatigue once he gets going and has not had chest pain/chest pressure. EKG on admission is without acute ST/T wave changes in sinus, no evidence of ischemia. Admitting troponin 10.6 -No acute anginal symptoms - may have cardiorenal component to the KANDI however would not affect management at this point. 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 This cannot be performed per protocol with contrast until renal function/GFR improves. No transaminitis or hyperbilirubinemia. INR mildly elevated at 1.2 Probably nutritional Plan Left shoulder pain and weakness following a fall - no fracture/dislocation on xray but exam is suspicious for rotator cuff tear DVT prophylaxis: Heparin subcu due to renal dysfunction CODE STATUS: DNR/DNI updated his at bedside 10/17, 10/18 Admission and Anticipated Discharge Date Admission Date: October 13, 2024 Subjective LUE edema improved, RUE still weeping No dyspnea, has had significant increase in UOP yesterday and this AM R shoulder still painful Physical Exam 2 Physical Exam: PHYSICAL EXAMINATION Last 24h vital signs reviewed, see documentation in flowsheet General: awake sitting up in bed HEENT: Normocephalic, atraumatic, pupils round and equal, sclerae anicteric, no conjunctival injection, moist mucus membranes. periorbital edema sig improved Lungs: Normal respiratory effort. CTAB Heart: regular, syst M, no JVD Abdomen: soft nontender nondistended active bowel tones Extremities: Warm, dry, well-perfused. anasarca x 4 extremities UE>LE - especially RUE. LUE improved a lot Neuro: Alert and oriented x 4, face symmetric, moves 4 extremities well Psych: Normal affect and behavior Results & Data Results & Data Vital Signs (Past 12 Hours) Vital Signs Temp Pulse Pulse Resp BP Pulse Ox O2 Del Method 10/18/24 07:24 97.7 F 51 L 18 158/78 H 94 Room Air 10/18/24 03:27 97.5 F L 55 L 18 138/56 L 96 Room Air 10/17/24 23:18 98.1 F 57 L 18 145/63 H 96 Room Air 10/17/24 21:53 52 L 10/17/24 20:10 Room Air Laboratory Results 10/17/24 05:52 10/18/24 06:36 PG Care Time/CCT Total # of Minutes Spent Total Time Spent with Patient: Total time spent is greater than 50% in coordination of care (as documented) at patient's floor/unit and/or counseling patient: Coding Level of Care Code 39207 SUB INP/OBS CARE 2/35MIN Diagnoses Acute kidney injury superimposed on stage 3b chronic kidney disease N17.9; N18.32 Pancolitis K51.00 Anasarca R60.1 Acute heart failure with preserved ejection fraction (HFpEF) I50.31 Obstructive sleep apnea of adult G47.33 History of Whipple procedure Z90.410; Z90.49
[2024-10-18] MEDS: POTASSIUM CHLORIDE CRTAB 20 MEQ TABCR PO STA (08:40)
[2024-10-18] MEDS: FUROSEMIDE 40 MG/4 ML VIAL IV ONE (08:48)
[2024-10-18] MEDS: ALBUMIN 25% 25 GM/100 ML VIAL IV ONE (08:48)
[2024-10-18] MEDS: MAGNESIUM SULFATE / D5W 1 GM/100 ML BAG IV SCH (11:04)
[2024-10-18] MEDS: SODIUM BICARBONATE 650 MG TAB PO SCH (11:05)
--- NOTE | 2024-10-18 12:27 | Nephrology Progress Note ---
Date of Service October 18, 2024 Assessment & Plan (1) Acute kidney injury superimposed on stage 3b chronic kidney disease: Plan: Non-oliguric. Creatinine slightly improved to 2.0 mg/dL. KANDI consistent with prerenal physiology from intravascular volume depletion and cardiorenal syndrome. Hypoalbuminemia is major contributing factor. Protein losses attributed to diarrhea, pancreatic insufficiency, and recent Whipple. IV albumin has been provided. Dietary intake encouraged. Electrolytes are acceptable. There is no indication for ELECTRONIC PREPRESS OPERATOR. Additional 25 gram IV albumin provided today. Document strict I/O's. Repeat metabolic profile tomorrow AM. Continue to hold Jardiance and olmesartan. Medications are appropriate for kidney function. Oral NaHCO3 replacement has been ordered for NAGMA. (2) Anasarca: Plan: Attributed to protein wasting colitis + pancreatic insufficiency + Whipple, CRS, and CKD. TTE did not demonstrate findings of right heart failure or intravascular volume overload. Not nephrotic. This is unfortunately a very complex physiology with multiple medical comorbidities including nutritional, liver, cardiac, and kidney disease. Aggressive diuresis should be avoided. [place] management to include lymphedema treatments and effleurage as well as nutritional support. IV albumin + furosemide provided today. (3) Normocytic anemia: Plan: Chronic, stable. Notable iron deficiency. Additional 300 mg IV Venofer provided today (net dose over 3 days 700 mg). (4) Pancolitis: Plan: PO NaHCO3 supplementation provided. (5) Aortic stenosis: Plan: Outpatient evaluation for TAVR previously requested by cardiology. 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 Hepatic lobe lesion will require follow up evaluation and liver protocol MRI was recommended by radiology. I would avoid gadolinium pending continued improvement in kidney function. Admission and Anticipated Discharge Date Admission Date: October 13, 2024 Subjective No acute events overnight. Osmany was seen and evaluated with his daughter at the bedside. He reports improved strength walking to the bathroom. His diarrhea has improved. He denies abdominal pain. Edema seems to be slowly improving. UOP has increased. His weight has decreased significantly. He denies chest pains or palpitations. Review of Systems Review of Systems: All systems reviewed & are unremarkable except as noted in HPI & below Physical Exam Constitutional: + frail appearing; no acute distress Eyes: + anicteric sclerae; no conjunctival abn ormality ENMT: Mouth: no oral mucosal abnormality and oral mucous membranes not dry Neck: normal visual inspection and trachea midline Respiratory: normal respiratory effort Auscultation: lungs clear to auscultation bilaterally Cardiovascular: Rate/Rhythm: regular rate Heart Sounds: normal S1, normal S2 (difficult to appreciate due to late peaking systolic murmur) and + murmur Extremities: + edema (soft pitting generalized edema notable in UE and LE) Musculoskeletal: Extremities: no cyanosis and no clubbing Skin: no jaundice Neurologic: Motor/Sensory: no tremor and no asterixis Psychiatric: Orientation: alert and oriented x 3 Results & Data Vital Signs (Past 12 Hours) Vital Signs Temp Pulse Pulse Resp BP BP Pulse Ox 10/18/24 11:34 36.3 C L 70 18 133/68 98 10/18/24 11:11 126/55 L 10/18/24 10:49 10/18/24 08:48 128/72 10/18/24 08:00 40 L 10/18/24 07:24 36.5 C 51 L 18 158/78 H 94 10/18/24 03:27 36.4 C L 55 L 18 138/56 L 96 O2 Del Method 10/18/24 11:34 Room Air 10/18/24 11:11 10/18/24 10:49 Room Air 10/18/24 08:48 10/18/24 08:00 10/18/24 07:24 Room Air 10/18/24 03:27 Room Air Laboratory Results Laboratory Results - last 24 hr 10/17/24 10/18/24 19:45 06:36 Sodium 147 H 147 H Potassium 3.9 3.3 L Chloride 121 H 118 H Carbon Dioxide 21 23 Anion Gap 5 6 BUN 27 H 29 H Creatinine 2.07 H 1.91 H Est Cr Clr Drug Dosing 26.9 26.4 eGFR 31.58 34.78 BUN/Creatinine Ratio 13.0 15.2 Glucose 113 H 82 Calcium 8.0 L 7.7 L Magnesium 1.5 L PG Care Time/CCT Total # of Minutes Spent Total Time Spent with Patient: Total time spent is greater than 50% in coordination of care (as documented) at patient's floor/unit and/or counseling patient: Coding Level of Care Code 20244 SUB INP/OBS CARE 3/50MIN Diagnoses Acute kidney injury superimposed on stage 3b chronic kidney disease N17.9; N18.32 Anasarca R60.1 Normocytic anemia D64.9 Pancolitis K51.00 Nonrheumatic aortic valve stenosis I35.0 Cardiac valve disease etiology: nonrheumatic Cancer of ampulla of Vater C24.1 (5) Aortic stenosis Cardiac valve disease etiology: nonrheumatic Qualified Code(s): I35.0 - Nonrheumatic aortic (valve) stenosis
[2024-10-18] MEDS: IRON SUCROSE 300 MG in SODIUM CHLORIDE 0.9% 250 ML IV ONE (15:31)
[2024-10-18 16:38] LABS: Calcium 8.3 mg/dl (8.6-10.3); Potassium 3.9 mmol/L (3.5-5.1)
[2024-10-18 16:43] LABS: BUN Creatinine Ratio 14.6 (10-20); Creatinine Clr Calc Pharmacy 25.5 ml/min
[2024-10-19 07:38] LABS: Albumin Level 2.8 gm/dl (3.4-5.0); BUN Creatinine Ratio 15.8 (10-20); Creatinine Clr Calc Pharmacy 27.4 ml/min; Phosphorus 2.2 mg/dl (2.5-4.9); Potassium 3.7 mmol/L (3.5-5.1)
[2024-10-19] MEDS: FUROSEMIDE 40 MG/4 ML VIAL IV ONE (09:08)
[2024-10-19] MEDS: IRON SUCROSE 200 MG in SODIUM CHLORIDE 0.9% 100 ML IV ONE (09:08)
--- NOTE | 2024-10-19 10:18 | Nephrology Progress Note ---
Date of Service October 19, 2024 Assessment & Plan (1) Acute kidney injury superimposed on stage 3b chronic kidney disease: Plan: Non-oliguric. Creatinine improved. KANDI consistent with prerenal physiology from intravascular volume depletion and cardiorenal syndrome. Hypoalbuminemia is major contributing factor. Protein losses attributed to diarrhea, pancreatic insufficiency, and recent Whipple. IV albumin has been provided. Dietary intake encouraged. Electrolytes are acceptable. 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 Additional 25 gram IV albumin provided today. Document strict I/O's. Repeat metabolic profile tomorrow AM. Continue to hold Jardiance and olmesartan. Medications are appropriate for kidney function. Oral NaHCO3 replacement has been ordered for NAGMA. (2) Anasarca: Plan: Attributed to protein wasting colitis + pancreatic insufficiency + Whipple, CRS, and CKD. TTE did not demonstrate findings of right heart failure or intravascular volume overload. Not nephrotic. This is unfortunately a very complex physiology with multiple medical comorbidities including nutritional, liver, cardiac, and kidney disease. Aggressive diuresis should be avoided. [place] management to include lymphedema treatments and effleurage as well as nutritional support. IV albumin + furosemide provided today. (3) Normocytic anemia: Plan: Chronic, stable. Notable iron deficiency. Additional 200 mg IV Venofer provided today (net dose over 1000 mg has been provided). (4) Pancolitis: Plan: PO NaHCO3 supplementation. (5) Aortic stenosis: Plan: Outpatient evaluation for TAVR previously requested by cardiology. 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 Hepatic lobe lesion will require follow up evaluation and liver protocol MRI which would be reasonable if kidney function remains stable. Admission and Anticipated Discharge Date Admission Date: October 13, 2024 Subjective No acute events overnight. Loose stools persist but less frequency. Large watery bowel movement this AM. Denies abdominal pain. No melena or hematochezia. Edema improving. No fevers or chills. Review of Systems Review of Systems: All systems reviewed & are unremarkable except as noted in HPI & below Physical Exam Constitutional: well developed, + frail appearing and + edematous; no acute distress Eyes: + anicteric sclerae; no conjunctival abn ormality ENMT: Mouth: no oral mucosal abnormality and oral mucous membranes not dry Neck: normal visual inspection and trachea midline Respiratory: normal respiratory effort Auscultation: lungs clear to auscultation bilaterally Cardiovascular: Rate/Rhythm: regular rate Heart Sounds: normal S1, normal S2 (difficult to appreciate due to late peaking systolic murmur) and + murmur Extremities: + edema (soft pitting generalized edema notable in UE and LE) Musculoskeletal: Extremities: no cyanosis and no clubbing Skin: no jaundice Neurologic: Motor/Sensory: no tremor and no asterixis Psychiatric: Orientation: alert and oriented x 3 Results & Data Vital Signs (Past 12 Hours) Vital Signs Temp Pulse Pulse Resp BP BP Pulse Ox 10/19/24 07:18 57 L 10/19/24 07:15 36.5 C 49 L 18 151/66 H 98 10/19/24 03:30 36.7 C 86 20 126/64 94 10/19/24 00:20 36.8 C 64 18 133/53 L 96 O2 Del Method 10/19/24 07:18 10/19/24 07:15 Room Air 10/19/24 03:30 Room Air 10/19/24 00:20 Room Air Laboratory Results Laboratory Results - last 24 hr 10/18/24 10/19/24 15:38 06:31 Sodium 146 H 148 H Potassium 3.9 3.7 Chloride 116 H 116 H Carbon Dioxide 23 28 Anion Gap 7 4 BUN 29 H 29 H Creatinine 1.98 H 1.84 H Est Cr Clr Drug Dosing 25.5 27.4 eGFR 33.31 36.38 BUN/Creatinine Ratio 14.6 15.8 Glucose 168 H 89 Calcium 8.3 L 8.0 L Phosphorus 2.2 L Albumin 2.8 L PG Care Time/CCT Total # of Minutes Spent Total Time Spent with Patient: Total time spent is greater than 50% in coordination of care (as documented) at patient's floor/unit and/or counseling patient: Coding Level of Care Code 31769 SUB INP/OBS CARE 3/50MIN Diagnoses Acute kidney injury superimposed on stage 3b chronic kidney disease N17.9; N18.32 Anasarca R60.1 Normocytic anemia D64.9 Pancolitis K51.00 Nonrheumatic aortic valve stenosis I35.0 Cardiac valve disease etiology: nonrheumatic Cancer of ampulla of Vater C24.1 (5) Aortic stenosis Cardiac valve disease etiology: nonrheumatic Qualified Code(s): I35.0 - Nonrheumatic aortic (valve) stenosis
[2024-10-19] MEDS: ALBUMIN 25% 25 GM/100 ML VIAL IV ONE (11:10)
--- NOTE | 2024-10-19 14:21 | Magnetic Resonance Report ---
MRI OF THE RIGHT SHOULDER WITHOUT CONTRAST CLINICAL HISTORY: Right shoulder pain and weakness following fall. COMPARISON STUDY: Right shoulder radiographs October 13, 2024. TECHNIQUE: Utilizing a 1.5 Marleen magnet and dedicated coil, multiplanar, multiecho imaging of the rig ht shoulder was performed without intravenous or intraarticular contrast. FINDINGS: This exam is moderately compromised by motion artifact. There is anterior decentering of th e humeral head with respect to the glenoid. There is no evidence for dislocation. A moderate sized kayode int effusion is present. There are multiple joint bodies. No fractures are present. There is no suspi cious marrow replacement. 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 There is moderate cartilage thinning of the glenohumeral joint. Associated osteophytosis consistent with o steoarthritis. Extensive full-thickness tears of supraspinatus, infraspinatus and subscapularis are p resent. There is approximately 3.7 cm of retraction of supraspinatus. Extensive associated muscular a trophy is present within supraspinatus, subscapularis and infraspinatus. Teres minor is intact. Assoc iated fluid within point is noted. There is fluid within the subacromial/subdeltoid bursa The proxima l long head of the biceps tendon is torn. The superior glenoid labrum is irregular with increased sig nal consistent with a tear. IMPRESSION: 1. Exam compromised by motion artifact. Extensive full-thickness tears of supraspinatus, infraspinatu s and subscapularis with tendon retraction and muscular atrophy. Associated fluid within the subacrom ial/subdeltoid bursa and the deltoid muscle. Therefore, the findings may reflect acute on chronic rot ator cuff tears. 2. 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 3. Moderate size joint effusion which contains multiple joint bodies. 4. Full-thickness tear of the proximal long head of the biceps tendon. 5. No fractures within the right shoulder. 6. Superior labral tear. ACT 112: Negative or not required by law. Electronically signed by: Rishabh Sebastian M.D. 10/19/2024 2:20 PM
--- NOTE | 2024-10-19 15:05 | Hospitalist Progress Note ---
Date of Service October 19, 2024 Assessment & Plan (1) Acute kidney injury superimposed on stage 3b chronic kidney disease: Plan: 83 y/o man with history of ampullary carcinoma and Whipple procedure in 2021, CKD, coronary artery disease severe aortic stenosis and HFpEF. admitted with diarrhea, acute kidney injury, anasarca and hypoalbuminemia Metabolic acidosis, KANDI, NAGMA, history of solitary kidney. Baseline Cr 1.7-1.9 - nephrology consulting at this point edema is improving on Lasix plus albumin, creatinine has improved approaching baseline, diarrhea significantly improved Weight is down from 167 on 10/13 --> 153 by standing scales today BUN/Cr improved approaching baseline, bicarb normal, potassium and mag mildly low, hypernatremic at 147 - stop sodium bicarbonate, see if metabolic acidosis recurs on morning BMP, might require this chronically with his diarrhea - same routine today: albumin 25g and lasix 40 IV x 1. Skin is no longer weeping so would be reasonable to stop doing this, unclear to me whether he would even tolerate low-dose diuretic without albumin - hypokalemia, hypomagnesemia were replaced, a.m. BMP and mag -encourage oral hydration, remains hypernatremic (2) Pancolitis: Plan: I saw him last month when he had norovirus diarrhea, nonspecific proctocolitis on CT, treated with broad spectrum ABX because of rising WBC and procal despite resolution of diarrhea. This resolved and blood cultures were negative. Initially had improvement and no diarrhea, however, developed recurrent diarrhea. Admitting CT with progression of proctocolitis. Stool biofire and C. diff negative. Considered ischemic colitis, however, CTA abdomen without significant vascular lesions 07/2024, so seems unlikely. Has protein-losing enteropathy with hypoalbuminemia, anasarca. KANDI but not nephrotic. No history of IBD. - consulted gastroenterology, flex sig was considered but he had too much formed stool in the rectum -imodium and probiotic -continue pancrelipase - this seems to be helping significantly and would discharge with that -RD consulting diarrhea much improved (3) Anasarca: Plan: Albumin markedly diminished at 1.9 prior was 2.4, without evidence of significant proteinuria -suspect mainly GI losses -nutrition consult, protein supplement albumin 2.8 today (4) Acute heart failure with preserved ejection fraction (HFpEF): Plan: Intravascularly dry with abscence of pulmonary edema on admission. Anasarca and hypoalbuminemia. - CAD: Multivessel CAD on recent cath - continue aspirin -atenolol, olmesartan, atorvastatin have been stopped/held recently as outpatient - Moderate to severe aortic stenosis: Referred to [facility] [place] for TAVR. He does not have evidence of pulmonary edema. While he does have orthostasis he denies limiting exertional dyspnea/fatigue once he gets going and has not had chest pain/chest pressure. EKG on admission is without acute ST/T wave changes in sinus, no evidence of ischemia. Admitting troponin 10.6 -No acute anginal symptoms - may have cardiorenal component to the KANDI however would not affect management at this point. 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 This cannot be performed per protocol with contrast until renal function/GFR improves. No transaminitis or hyperbilirubinemia. INR mildly elevated at 1.2 Probably nutritional Plan Left shoulder pain and weakness following a fall - no fracture/dislocation on xray but exam is suspicious for rotator cuff tear. MRI right shoulder without contrast ordered. he knows he is not a candidate for surgery at this time because of his medical comorbidities DVT prophylaxis: Heparin subcu due to renal dysfunction CODE STATUS: DNR/DNI updated his at bedside 10/17, 10/18 Admission and Anticipated Discharge Date Admission Date: October 13, 2024 Subjective Diarrhea overall much improved though had a large loose watery BM today bilateral upper extremity edema significantly improved, weeping seems to have resolved right shoulder remains painful and weak Physical Exam 2 Physical Exam: PHYSICAL EXAMINATION Last 24h vital signs reviewed, see documentation in flowsheet General: walking back from bathroom HEENT: Normocephalic, atraumatic, pupils round and equal, sclerae anicteric, no conjunctival injection, moist mucus membranes. periorbital edema sig improved Lungs: Normal respiratory effort. CTAB, diminished in bases Heart: regular, syst M, no JVD Abdomen: soft nontender nondistended active bowel tones Extremities: Warm, dry, well-perfused. anasarca x 4 extremities. bilateral upper extremities have improved significantly, continues with 2+ bilateral lower extremity edema Neuro: Alert and oriented x 4, face symmetric, moves 4 extremities well, walks fairly well with walker Psych: Normal affect and behavior Results & Data Results & Data Vital Signs (Past 12 Hours) Vital Signs Temp Pulse Pulse Resp BP BP Pulse Ox 10/19/24 11:53 97.3 F L 62 18 159/68 H 95 10/19/24 07:18 57 L 10/19/24 07:15 97.7 F 49 L 18 151/66 H 98 10/19/24 03:30 98.1 F 86 20 126/64 94 O2 Del Method 10/19/24 11:53 Room Air 10/19/24 07:18 10/19/24 07:15 Room Air 10/19/24 03:30 Room Air Laboratory Results 10/17/24 05:52 10/19/24 06:31 PG Care Time/CCT Total # of Minutes Spent Total Time Spent with Patient: Total time spent is greater than 50% in coordination of care (as documented) at patient's floor/unit and/or counseling patient: Coding Level of Care Code 75706 SUB INP/OBS CARE 2/35MIN Diagnoses Acute kidney injury superimposed on stage 3b chronic kidney disease N17.9; N18.32 Pancolitis K51.00 Anasarca R60.1 Acute heart failure with preserved ejection fraction (HFpEF) I50.31 Obstructive sleep apnea of adult G47.33 History of Whipple procedure Z90.410; Z90.49
--- NOTE | 2024-10-19 18:15 | Communication Note ---
Date of Service: October 19, 2024 Shoulder MRI - extensive acute on chronic rotator cuff tears and tear of biceps tendon Read late in day so I have not discussed this with Mr. Shaw, though he knows he likely has rotator cuff tears and not currently a surgical candidate. Probably would require TKA which he wouldn't tolerate until/unless aortic valve, renal, hypoalbuminemia issues are resolved.
[2024-10-20 06:51] LABS: BUN Creatinine Ratio 16.7 (10-20); Calcium 7.5 mg/dl (8.6-10.3); Magnesium 1.5 mg/dl (1.7-2.4); Potassium 3.2 mmol/L (3.5-5.1)
[2024-10-20] MEDS: POTASSIUM CHLORIDE CRTAB 20 MEQ TABCR PO STA (09:04)
[2024-10-20] MEDS: MAGNESIUM SULFATE / D5W 1 GM/100 ML BAG IV SCH (09:04)
--- NOTE | 2024-10-20 09:58 | Nephrology Progress Note ---
Date of Service October 20, 2024 Assessment & Plan (1) Acute kidney injury superimposed on stage 3b chronic kidney disease: Plan: Creatinine improved. KANDI consistent with prerenal physiology from intravascular volume depletion and cardiorenal syndrome. Hypoalbuminemia and aortic stenosis major contributing factors. Protein losses attributed to diarrhea, pancreatic insufficiency, and recent Whipple. IV albumin has been provided. Dietary intake encouraged. Magnesium and potassium supplements are being provided. I would consider holding Jardiance and losartan for continued monitoring of volume status and blood pressure without continued IV albumin infusions. Medications are appropriate for kidney function. No additional nephrology recommendations at this time. I will sign-off. Please call with questions or concerns. Outpatient follow up with Dr. Bob should be scheduled at discharge. (2) Anasarca: Plan: Attributed to protein wasting colitis + pancreatic insufficiency + Whipple, CRS, and CKD. TTE did not demonstrate findings of right heart failure or intravascular volume overload. Not nephrotic. This is unfortunately a very complex physiology with multiple medical comorbidities including nutritional, liver, cardiac, and kidney disease. Aggressive diuresis should be avoided. [place] management to include lymphedema treatments and effleurage as well as nutritional support. (3) Normocytic anemia: Plan: Chronic, stable. Notable iron deficiency. IV Venofer provided for net 1000 mg this admission. (4) Pancolitis: (5) Aortic stenosis: Plan: Outpatient evaluation for TAVR previously requested by cardiology. 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 Hepatic lobe lesion will require follow up evaluation and liver protocol MRI which would be reasonable if kidney function remains stable. Admission and Anticipated Discharge Date Admission Date: October 13, 2024 Subjective Osmany is feeling tired this AM. He did not sleep well last night due to pain in his right shoulder. Edema in the arms has significantly improved. He reports slightly improved but persistent lower extremity edema. Overall, Osmany states that he feels well this AM. Appetite remains decreased. Diarrhea improved. 1-2 loose bowel movements daily. Review of Systems Review of Systems: All systems reviewed & are unremarkable except as noted in HPI & below Physical Exam Constitutional: + frail appearing; no acute distress Eyes: + anicteric sclerae; no conjunctival abn ormality ENMT: Mouth: + dry oral mucous membranes (slightly ); no oral mucosal abnormality Neck: normal visual inspection and trachea midline Respiratory: normal respiratory effort Auscultation: lungs clear to auscultation bilaterally Cardiovascular: Rate/Rhythm: regular rate Heart Sounds: normal S1, normal S2 (difficult to appreciate due to late peaking systolic murmur) and + murmur Extremities: + edema (improved UE edema, 2+ pitting BL LE edma) Musculoskeletal: Extremities: no cyanosis and no clubbing Skin: no jaundice Neurologic: Motor/Sensory: no tremor and no asterixis Psychiatric: Orientation: alert and oriented x 3 Results & Data Vital Signs (Past 12 Hours) Vital Signs Temp Pulse Pulse Resp BP Pulse Ox O2 Del Method 10/20/24 07:50 36.6 C 57 L 18 116/61 97 Room Air 10/20/24 07:35 Room Air 10/20/24 07:00 39 L 10/20/24 02:55 36.4 C L 59 L 18 113/51 L 96 Room Air 10/19/24 22:45 36.5 C 57 L 20 137/53 L 97 Room Air 10/19/24 21:55 50 L Laboratory Results Laboratory Results - last 24 hr 10/20/24 06:05 Sodium 144 Potassium 3.2 L Chloride 111 H Carbon Dioxide 28 Anion Gap 5 BUN 30 H Creatinine 1.80 H Est Cr Clr Drug Dosing 28.0 eGFR 37.35 BUN/Creatinine Ratio 16.7 Glucose 85 Calcium 7.5 L Magnesium 1.5 L PG Care Time/CCT Total # of Minutes Spent Total Time Spent with Patient: Total time spent is greater than 50% in coordination of care (as documented) at patient's floor/unit and/or counseling patient: Coding Level of Care Code 46126 SUB INP/OBS CARE 3/50MIN Diagnoses Acute kidney injury superimposed on stage 3b chronic kidney disease N17.9; N18.32 Anasarca R60.1 Normocytic anemia D64.9 Pancolitis K51.00 Nonrheumatic aortic valve stenosis I35.0 Cardiac valve disease etiology: nonrheumatic Cancer of ampulla of Vater C24.1 (5) Aortic stenosis Cardiac valve disease etiology: nonrheumatic Qualified Code(s): I35.0 - Nonrheumatic aortic (valve) stenosis
--- NOTE | 2024-10-20 12:10 | Hospitalist Progress Note ---
Date of Service October 20, 2024 Assessment & Plan (1) Acute kidney injury superimposed on stage 3b chronic kidney disease: Plan: Baseline Cr 1.7-1.9 Baseline CrCl 20s/low 30s, usually 20s more c/w Stage 4 disease appreciate [facility] assistance has had albumin infusions with lasix throughout the visit renal-associated metabolic derangements have been better (NAGMA, etc) sodium bicarbonate supplementation stopped BMP am (2) Anasarca: Plan: albumin was 1.9 at time of admission likely due to GI losses s/p IV albumin multiple times while hospitalized albumin levels have improved volume status improved TSH 2023 wnl only trace protein on u/a no liver disease (3) Pancolitis: Plan: has had diarrhea throughout the stay and pancolitis on CT cdiff testing and stool BioFire negative started on pancrease for pancreatic insufficiency - diarrhea improved seen by GI earlier in the stay - was to have flex sig - then endoscopy canceled (4) Acute heart failure with preserved ejection fraction (HFpEF): Plan: volume overloaded state this admission likely due to KANDI on CKD rather than cardiac factors volume status has improved while hospitalized (5) Obstructive sleep apnea of adult: Plan: CPAP nightly (6) History of Whipple procedure: Plan: History of pancreatic duodenectomy/Whipple procedure 2nd to 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 on follow-up Patient does have a reported stent in place (7) Pancreatic insufficiency: Plan: s/p institution of pancrease with meals this is helping his diarrhea (8) Hypomagnesemia: Plan: IV mag sulfate repeat levels am (9) Hypokalemia: Plan: replace with PO K supplementation repeat BMP am replace low mag as well (10) Coronary artery disease of bypass graft of [place] heart with stable angina pectoris: Plan: 2018 HARRIS to the LAD, saphenous vein graft to the obtuse marginal and saphenous vein graft to the PDA (11) Aortic stenosis: Plan: moderate no Rx at this time (12) Rotator cuff tear, right: Plan: 3 out of 4 rotator cuff tendons are torn on MRI right shoulder only solution would be a complete shoulder replacement ice pain meds prn etc results communicated to patient today (13) Osteoarthritis of right shoulder: Plan: severe ice pain meds only solution would be a shoulder replacement (14) Biceps tendon tear: Plan: right confirmed on MRI right shoulder ice, pain meds ortho referral (15) Liver mass: Plan: right hepatic lobe -- as seen on imaging this admission needs dedicated imaging for this Plan DVT prophylaxis: Heparin SC CODE STATUS: DNR/DNI Dispo - home with home health & PT/OT? has not had therapy in several days Admission and Anticipated Discharge Date Admission Date: October 13, 2024 Subjective staff report at least 2-3 loose BMs yesterday but none today main complaint is that of right shoulder pain offered him ortho consult for consideration of injection but he declined such denies dyspnea at rest edema in legs improved; willing to wear compression stockings states he wants to do rehab at home rather than go to inpatient rehab Review of Systems Review of Systems: gen - no fevers or chills cv - no cp, no orthopnea pulm - no dyspnea at rest, no cough GI - no abd pain or N/V Physical Exam Physical Exam: gen - NAD, pleasant mouth - MMM neck - no JVD heart - RRR, s1 s2, 3/6 holosystolic murmur RUSB/apex lungs - CTA b/l abd - soft NT ND BS+ ext - 2+ edema b/l, pulses 2+ b/l feet psych - a/o x 3 musculo - significant muscle wasting about the right shoulder; tender over subacromial bursal region; tender over biceps tendon groove; extremely limited active ROM of right shoulder (abduction, rotation, etc) Results & Data Results & Data Vital Signs (Past 12 Hours) Vital Signs Temp Pulse Pulse Resp BP Pulse Ox O2 Del Method 10/20/24 07:50 36.6 C 57 L 18 116/61 97 Room Air 10/20/24 07:35 Room Air 10/20/24 07:00 39 L 10/20/24 02:55 36.4 C L 59 L 18 113/51 L 96 Room Air Laboratory Results Laboratory Results - last 24 hr 10/20/24 06:05 Sodium 144 Potassium 3.2 L Chloride 111 H Carbon Dioxide 28 Anion Gap 5 BUN 30 H Creatinine 1.80 H Est Cr Clr Drug Dosing 28.0 eGFR 37.35 BUN/Creatinine Ratio 16.7 Glucose 85 Calcium 7.5 L Magnesium 1.5 L PG Care Time/CCT Total # of Minutes Spent Total Time Spent with Patient: Total time spent is greater than 50% in coordination of care (as documented) at patient's floor/unit and/or counseling patient: Coding Level of Care Code 19765 SUB INP/OBS CARE 50MIN Diagnoses Acute kidney injury superimposed on stage 3b chronic kidney disease N17.9; N18.32 Anasarca R60.1 Pancolitis K51.00 Acute heart failure with preserved ejection fraction (HFpEF) I50.31 Obstructive sleep apnea of adult G47.33 History of Whipple procedure Z90.410; Z90.49 Pancreatic insufficiency K86.89 Hypomagnesemia E83.42 Hypokalemia E87.6 Coronary artery disease of bypass graft of [place] heart with stable angina pectoris I25.708 Nonrheumatic aortic valve stenosis I35.0 Cardiac valve disease etiology: nonrheumatic Rotator cuff tear, right M75.101 Osteoarthritis of right shoulder M19.011 Biceps tendon tear S46.219A Liver mass R16.0 (11) Aortic stenosis Cardiac valve disease etiology: nonrheumatic Qualified Code(s): I35.0 - Nonrheumatic aortic (valve) stenosis
[2024-10-20] MEDS: POTASSIUM CHLORIDE CRTAB 20 MEQ TABCR PO ONE (14:12)
[2024-10-21 07:32] LABS: Hematocrit (blood only) 25.9 % (42.0-52.0); Hemoglobin 8.4 g/dl (14.0-18.0); Mean Corpuscular Hemoglobin 30.2 pg (25.0-34.0); Mean Corpuscular Hgb Conc 32.4 g/dL (32.0-36.0); Mean Corpuscular Volume 93.2 fL (80.0-100.0); Mean Platelet Volume 10.6 fL (9.4-12.4); Platelet Count 165 K/uL (130-400); RDW Coefficient of Variation 16.9 % (11.5-14.5); RDW Standard Deviation 56.6 fL (36.4-46.3); Red Blood Count 2.78 M/uL (4.70-6.10); White Blood Count 3.88 K/ul (4.8-10.8)
[2024-10-21 08:13] LABS: Calcium 7.7 mg/dl (8.6-10.3); Creatinine Clr Calc Pharmacy 27.7 ml/min; Magnesium 1.9 mg/dl (1.7-2.4); Potassium 4.3 mmol/L (3.5-5.1)
[2024-10-21 08:22] LABS: Folate (Folic Acid),Ser orPlas 11.86 ng/ml (>5.38)
--- NOTE | 2024-10-21 15:42 | Hospitalist Progress Note ---
Date of Service October 21, 2024 Assessment & Plan (1) Acute kidney injury superimposed on stage 3b chronic kidney disease: Plan: Baseline Cr 1.7-1.9 Baseline CrCl 20s/low 30s, usually 20s more c/w Stage 4 disease Cr today 1.8 peak Cr earlier in the stay - 2.65 appreciate [facility] [place] Nephrology assistance has had albumin infusions with lasix throughout the visit renal-associated metabolic derangements are better (NAGMA, etc) sodium bicarbonate supplementation stopped BMP am (2) Anasarca: Plan: albumin was 1.9 at time of admission likely due to GI losses s/p IV albumin multiple times while hospitalized albumin levels have improved volume status improved TSH 2023 wnl only trace protein on u/a no liver disease (3) Pancolitis: Plan: has had diarrhea throughout the stay and pancolitis on CT cdiff testing and stool BioFire negative started on pancrease for pancreatic insufficiency - diarrhea improved seen by GI earlier in the stay - was to have flex sig - then endoscopy canceled if diarrhea recurs then Rx for overgrowth syndrome? 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 on follow-up Patient does have a pancreatic duct stent in place (7) Pancreatic insufficiency: Plan: s/p institution of pancrease with meals this is helping his diarrhea check cost before d/c home (8) Hypomagnesemia: Plan: s/p IV mag sulfate repeat level wnl today (9) Hypokalemia: Plan: repleted resolved on labs today (10) Coronary artery disease of bypass graft of [place] heart with stable angina pectoris: Plan: 2017 HARRIS to the LAD, saphenous vein graft to the obtuse marginal and saphenous vein graft to the PDA cont asa resume statin at d/c atenolol stopped this admission because of bradycardia (11) Aortic stenosis: Plan: moderate no Rx at this time (12) Rotator cuff tear, right: Plan: 3 out of 4 rotator cuff tendons are torn on MRI right shoulder only solution would be a complete shoulder replacement ice pain meds prn etc asked [facility] to consult for consideration of injection before d/c home (13) Osteoarthritis of right shoulder: Plan: severe ice pain meds only solution would be a shoulder replacement see #12 above (14) Biceps tendon tear: Plan: right confirmed on MRI right shoulder ice, pain meds (15) Liver mass: Plan: right hepatic lobe -- as seen on imaging this admission needs dedicated imaging for this will send to GI post-d/c to follow this and to work it up Plan DVT prophylaxis: Heparin SC CODE STATUS: DNR/DNI Dispo - home with home health & PT/OT - hopefully tomorrow daughter updated at bedside today Admission and Anticipated Discharge Date Admission Date: October 13, 2024 Subjective tele overnight wnl large BM today following lunch - was not diarrhea or loose; fairly normal denies any dyspnea denies any abd pain feels good overall daughter at bedside during the visit worked with PT/OT - they felt he can return home does want an injection into his right shoulder for ongoing pain is using ice Review of Systems Review of Systems: cv - no chest pain pulm - no dyspnea or MARKS GI - no abd pain or N/V Physical Exam Physical Exam: gen - NAD, pleasant, looks well mouth - MMM neck - no JVD heart - RRR, s1 s2, 3/6 holosystolic murmur RUSB/apex lungs - CTA b/l abd - soft NT ND BS+ ext - 1+ edema b/l, pulses 2+ b/l feet psych - a/o x 3 musculo - significant muscle wasting about the right shoulder; extremely limited active ROM of right shoulder Results & Data Results & Data Vital Signs (Past 12 Hours) Vital Signs Temp Pulse Pulse Resp BP Pulse Ox O2 Del Method 10/21/24 12:15 36.4 C L 77 18 112/65 100 Room Air 10/21/24 08:21 36.3 C L 62 18 145/68 H 100 Room Air 10/21/24 07:00 45 L Laboratory Results Laboratory Results - last 24 hr 10/21/24 06:46 WBC 3.88 L RBC 2.78 L Hgb 8.4 L Hct 25.9 L MCV 93.2 MCH 30.2 MCHC 32.4 RDW Std Deviation 56.6 H RDW Coeff of Karolyn 16.9 H Plt Count 165 MPV 10.6 Sodium 143 Potassium 4.3 D Chloride 113 H Carbon Dioxide 27 Anion Gap 3 BUN 31 H Creatinine 1.82 H Est Cr Clr Drug Dosing 27.7 eGFR 36.86 BUN/Creatinine Ratio 17.0 Glucose 86 Calcium 7.7 L Magnesium 1.9 Vitamin B12 673 Folate 11.86 PG Care Time/CCT Total # of Minutes Spent Total Time Spent with Patient: Total time spent is greater than 50% in coordination of care (as documented) at patient's floor/unit and/or counseling patient: Coding Level of Care Code 78745 SUB INP/OBS CARE 2/35MIN Diagnoses Acute kidney injury superimposed on stage 3b chronic kidney disease N17.9; N18.32 Anasarca R60.1 Pancolitis K51.00 Acute heart failure with preserved ejection fraction (HFpEF) I50.31 Obstructive sleep apnea of adult G47.33 History of Whipple procedure Z90.410; Z90.49 Pancreatic insufficiency K86.89 Hypomagnesemia E83.42 Hypokalemia E87.6 Coronary artery disease of bypass graft of [place] heart with stable angina pectoris I25.708 Nonrheumatic aortic valve stenosis I35.0 Cardiac valve disease etiology: nonrheumatic Rotator cuff tear, right M75.101 Osteoarthritis of right shoulder M19.011 Biceps tendon tear S46.219A Liver mass R16.0 (11) Aortic stenosis Cardiac valve disease etiology: nonrheumatic Qualified Code(s): I35.0 - Nonrheumatic aortic (valve) stenosis
[2024-10-22 07:14] LABS: Hematocrit (blood only) 29.1 % (42.0-52.0); Hemoglobin 9.3 g/dl (14.0-18.0); Mean Corpuscular Hemoglobin 29.9 pg (25.0-34.0); Mean Corpuscular Volume 93.6 fL (80.0-100.0); Platelet Count 171 K/uL (130-400); RDW Coefficient of Variation 17.2 % (11.5-14.5); RDW Standard Deviation 57.1 fL (36.4-46.3); Red Blood Count 3.11 M/uL (4.70-6.10); White Blood Count 4.15 K/ul (4.8-10.8)
[2024-10-22 07:39] LABS: BUN Creatinine Ratio 21.4 (10-20); Calcium 7.8 mg/dl (8.6-10.3); Creatinine Clr Calc Pharmacy 31.7 ml/min
[2024-10-22 07:43] VITALS: RESP 16
[2024-10-22 11:23] VITALS: PULSE 66; TEMP 97.3; O2SAT 99
[2024-10-22] MEDS: KETOROLAC 30 MG/ML VIAL ONE (12:34)
[2024-10-22] MEDS: TRIAMCINOLONE ACET 40 MG/ML VIAL ONE (12:35)
--- NOTE | 2024-10-22 14:04 | Orthopedic Consultation ---
Date of Consultation October 22, 2024 Assessment & Plan (1) Osteoarthritis of right shoulder: (2) Rotator cuff tear arthropathy of right shoulder: Plan RIGHT SHOULDER ASPIRATION AND INJECTION Diagnosis: Right shoulder rotator cuff tear arthropathy Performed by: Alvarez Arroyo PA-C Side: Right Anesthesia: local Material forwarded to lab: none Prior to starting, the diagnosis and the procedure was reviewed with the patient in detail. Possible risks, complications and alternative therapies were also reviewed. All questions were answered. Informed consent was obtained. Allergies and medication list was reviewed. The anterior shoulder and surrounding tissues were prepped with a prep consisting of Betadine swab x3 and alcohol prep x 2. Sterile technique was maintained throughout the procedure. Next, a 3.5 inch 18-gauge needle upon a 20 cc syringe was advanced into the glenohumeral and subacromial spaces, but no fluid was able to be obtained. The syringe was removed and replaced with a 10 cc syringe with a solution containing 1 mL of 40 mg/mL of Triamcinolone acetonide, 1 mL of 30 mg/mL of Toradol, and 6 mL of 0.5% ropivacaine was injected. Patient did not experience any abnormal pain, paresthesia or discomfort throughout the injection period. Adequate hemostasis was noted. A sterile Band-Aid was applied at the injection site. No complications were noted. Patient was monitored for a brief period afterwards. Right shoulder aspiration and injection was performed today without difficulty. Plan is for patient to be seen in the orthopedics clinic as an outpatient. Discussed with patient that the option for a right reverse total shoulder arthroplasty would be delayed until approximately 3 months after today's injection, which did include a steroid component, as periarticular steroid can place the patient at a higher risk for postop complications and infection. History of Present Illness Reason for Consultation: "R shoulder advanced OA & rotator cuff tears" Requesting Physician: Marcio Clay MD Attending Physician: Marcio Clay MD History of Present Illness Patient is hospitalized for medical reasons and the orthopedic service has been consulted to address right shoulder pain, and for consideration of injection. 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 Patient states that he knows that his right shoulder has tears to his rotator cuff, and that he has arthritis. He says that he has had limited function of the right shoulder for quite some time. He has had 2 previous surgeries to the shoulder, seemingly arthroscopic, or, at most, a mini open. However, he has persisted with pain to the right shoulder for years, and it is now to the point where it significantly bothers his ADLs. He does understand that to ultimately treat his condition he would require a shoulder replacement. Patient does request injection to the right shoulder today for pain relief if this is a possibility. Allergies Allergy/AdvReac Type Severity Reaction Status Date / Time house dust Allergy Unknown SNEEZING, Verified 10/06/24 14:44 CONGESTION pollen extracts Allergy Unknown SNEEZING, Verified 10/06/24 14:44 CONGESTION red dye Allergy Unknown Hives Verified 10/06/24 14:44 Home Medications Medication Instructions Recorded Confirmed Type aspirin 81 mg tablet,delayed 81 mg PO QAM #90 tabs 11/07/20 10/13/24 Rx release (Ecotrin Low Strength) albuterol sulfate 90 mcg/actuation 2 puff inhalation Q4H PRN 09/06/21 10/13/24 Rx aerosol inhaler (Ventolin HFA) shortness of breath #8.5 grams cholecalciferol (vitamin D3) 25 25 mcg PO QAM 12/28/21 10/13/24 History mcg (1,000 unit) capsule mecobalamin (vitamin B12) 500 mcg 500 mcg PO QAM 09/13/23 10/13/24 History chewable tablet fluticasone 100 mcg-salmeterol 50 1 inh inhalation BID 10/08/23 10/13/24 History mcg/dose blistr powdr for inhalation (Advair Diskus) allopurinol 100 mg tablet 100 mg PO QAM #90 tabs 11/12/23 10/13/24 Rx montelukast 10 mg tablet 10 mg PO QAM #90 tabs 11/12/23 10/13/24 Rx empagliflozin 10 mg tablet 10 mg PO DAILY #30 tabs 08/06/24 10/13/24 Rx (Jardiance) solifenacin 5 mg tablet (Vesicare) 5 mg PO QAM 08/20/24 10/13/24 History tamsulosin 0.4 mg capsule 0.4 mg PO HS 08/20/24 10/13/24 History olmesartan 5 mg tablet (Benicar) 5 mg PO QAM 08/31/24 10/13/24 History fluticasone propionate 50 2 spray intranasal UD PRN 09/03/24 10/13/24 Rx mcg/actuation nasal Congestion #16 grams spray,suspension (Allergy Relief (fluticasone)) atorvastatin 80 mg tablet 80 mg PO HS #45 tabs 09/28/24 10/13/24 Rx pantoprazole 40 mg tablet,delayed 40 mg PO BID #60 tabs 10/02/24 10/13/24 Rx release epoetin ebony 40,000 unit/mL 40,000 unit subcut .Qmonth 10/06/24 10/13/24 History injection solution (Procrit) nljtuf-hremrycg-cjwylim 1 cap PO AC #90 caps 10/21/24 Rx 36,000-114,000-180,000 unit capsule,delay rel (Creon) furosemide 20 mg tablet (Lasix) 20 mg PO QAM PRN edema/swelling 10/22/24 Rx #20 tabs loperamide 2 mg capsule 2 mg PO Q3H PRN loose 10/22/24 Rx stool/diarrhea #1 cap Patient History Medical History Prostate cancer (10/02/17) Gastric ulcer reason for upcoming egd. Macular degeneration injections for upcoming 12/12/23. Gastrointestinal complaint hx EGD blocked bile duct/stent Sep 2023. History of gout Fatigue easily fatigue, little energy for the last year -- currently anemic (per patient). History of COVID-19 06/2022: moderate cold symptoms. no current issues. Anemia Hyperlipidemia Pancreatic cancer dx 06/2022. whipple procedure in 08/2022 at [facility]. no chemo/no radiation needed. Atrial fibrillation controlled with medication. no cardioversion in the past. Urinary incontinence History of prostate cancer (~09/2017) treated with radiation treatments. no surgery. no current issues. Carotid artery plaque Obstructive sleep apnea of adult cpap at night Coronary artery disease of bypass graft of [place] heart with stable angina pectoris Three-vessel coronary bypass grafting March 26, 2019 HTN (hypertension) Surgical History History of esophagogastroduodenoscopy (EGD) History of cardiac cath prior to open heart sx. History of cholecystectomy History of ERCP 05/2022 History of Whipple procedure (~08/2022) done at [facility] Hx of colonoscopy Hx of hand surgery repair of laceration on left hand due to saw accident Hx of rotator cuff surgery Right X 1, Left X2 Hx of CABG X 3 vessels at [facility] ~[address] Rolle. History of nephrectomy Right 1964 - damage from kidney stones Family History Sister Breast cancer Father Coronary heart disease Congestive heart disease COPD (chronic obstructive pulmonary disease) Mother Pancreas cancer Brother Colorectal cancer Pancreas cancer Sister Coronary heart disease Stroke Sister Hypertension Other Diabetes Heart disease Lung disease No family history of adverse response to anesthesia Denies family history of Prostate cancer Social History Smoking Status: Former smoker Tobacco Type: Cigarettes, Pipe and Cigars Age Started Using Tobacco: 19; Age Quit Using Tobacco: 32; packs per day: 0.5; Second Hand Exposure: No; Do You Dip or Chew Tobacco: No; Hx Alcohol Use: No Hx Substance Use: No Preferred Language: Taiwanese Communication Ability: Effective Visual Impairment: No Limitations Hearing Ability: Hard of Hearing [employer] Required: No Beliefs That Will Affect Care: None marital status: Current Living Situation: Spouse 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 HEAD/FACE: Normocephalic and atraumatic. RESPIRATORY: Patient with unlabored breathing. No signs of respiratory distress. SKIN: [place], warm and dry. No rash noted. NEURO: Alert and appears oriented. Speech is fluent. PSYCH: Alert, pleasant, affect is calm. Musculoskeletal: Shoulder: + limited ROM (Right: flex 20, IR lateral hip, ER 10), + joint line tenderness and + drop arm test positive; no skin erythema and no ecchymosis R shoulder strength: FF 0/5, ER 0/5, IR 3+/5 Results & Data Vital Signs (Past 12 Hours) Vital Signs Temp Pulse Pulse Resp BP BP Pulse Ox 10/22/24 11:23 36.3 C L 66 16 131/72 99 10/22/24 07:42 36.5 C 58 L 16 136/67 98 10/22/24 07:00 56 L 10/22/24 04:00 36.7 C 60 18 143/69 H 97 O2 Del Method 10/22/24 11:23 Room Air 10/22/24 07:42 Room Air 10/22/24 07:00 10/22/24 04:00 Room Air Diagnostic Findings Shoulder X-Ray 10/13/24 13:10 EXAM: Radiographs of the Right Shoulder Complete 3 Views INDICATION: Remote fall. Persistent pain. TECHNIQUE: 3 views of the right shoulder. COMPARISON: No relevant prior studies available. FINDINGS: Bones/joints: There is mild acromioclavicular and glenohumeral spurring. Joint spaces are maintained. No fracture or dislocation. Visualized right ribs intact. Soft tissues: No abnormality noted. No radiopaque foreign body noted. IMPRESSION: Mild degenerative changes. No acute abnormality. ACT 112: Negative or not required by law. Electronically signed by Stephani Acosta 10-13-2024 3:25 PM Shoulder MRI 10/19/24 07:29 MRI OF THE RIGHT SHOULDER WITHOUT CONTRAST CLINICAL HISTORY: Right shoulder pain and weakness following fall. COMPARISON STUDY: Right shoulder radiographs October 13, 2024. TECHNIQUE: Utilizing a 1.5 Marleen magnet and dedicated coil, multiplanar, multiecho imaging of the right shoulder was performed without intravenous or intraarticular contrast. FINDINGS: This exam is moderately compromised by motion artifact. There is anterior decentering of the humeral head with respect to the glenoid. There is no evidence for dislocation. A moderate sized joint effusion is present. There are multiple joint bodies. No fractures are present. There is no suspicious marrow replacement. 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 There is moderate cartilage thinning of the glenohumeral joint. Associated osteophytosis consistent with osteoarthritis. Extensive full- thickness tears of supraspinatus, infraspinatus and subscapularis are present. There is approximately 3.7 cm of retraction of supraspinatus. Extensive associated muscular atrophy is present within supraspinatus, subscapularis and infraspinatus. Teres minor is intact. Associated fluid within point is noted. There is fluid within the subacromial/subdeltoid bursa The proximal long head of the biceps tendon is torn. The superior glenoid labrum is irregular with increased signal consistent with a tear. IMPRESSION: 1. Exam compromised by motion artifact. Extensive full-thickness tears of supraspinatus, infraspinatus and subscapularis with tendon retraction and muscular atrophy. Associated fluid within the subacromial/subdeltoid bursa and the deltoid muscle. Therefore, the findings may reflect acute on chronic rotator cuff tears. 2. 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 3. Moderate size joint effusion which contains multiple joint bodies. 4. Full-thickness tear of the proximal long head of the biceps tendon. 5. No fractures within the right shoulder. 6. Superior labral tear. ACT 112: Negative or not required by law. Electronically signed by: Rishabh Sebastian M.D. 10/19/2024 2:20 PM
--- NOTE | 2024-10-22 14:57 | Discharge Summary ---
Discharge Summary Date of Service date of admission - October 13, 2024 date of discharge - October 22, 2024 Principal Dx & Hospital Course #1 = Principal Diagnosis (1) Acute kidney injury superimposed on stage 3b chronic kidney disease: Baseline Cr 1.7-1.9 Baseline CrCl 20s/low 30s, usually 20s more c/w Stage 4 disease peak creatinine while hospitalized - 2.65 discharge creatinine - 1.59 due to severe hypoalbuminemia he was given albumin infusions with lasix throughout the visit he was placed on sodium bicarbonate supplementation for NAGMA as well acid-base status improved while hospitalized and sodium bicarbonate was stopped recommend repeat BMP within a few days of discharge for stability and f/u with Dr Char Bob, [facility] Nephrology, in 1-2 weeks at discharge was given lasix 20mg to use on PRN basis for edema and/or fluid weight gains (2) Anasarca: anasarca was 2nd to severe hypoalbuminemia albumin level was 1.9 at time of admission low albumin was likely due to GI losses as he had had severe diarrhea leading up to admission s/p IV albumin multiple times while hospitalized albumin levels improved during the stay with discharge albumin of 2.8 volume status was much improved following diuresis TSH 2023 wnl only trace protein on u/a no liver disease no CHF (3) Pancolitis: had diarrhea throughout the stay and pancolitis on CT abd/pelvis on day of admission cdiff testing and stool BioFire were negative started on pancrease for suspected pancreatic insufficiency - diarrhea improved with such seen by Titus DUGAN early in the stay - was to have flex sig - then endoscopy canceled as diarrhea was improving if diarrhea recurs then consider Rx for bacterial overgrowth syndrome? 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 on follow-up Patient does have a pancreatic duct stent in place Started on pancrease capsules with meals for diarrhea (7) Pancreatic insufficiency: suspected s/p institution of pancrease with meals this is helping his diarrhea continue 1 capsule with meals upon discharge home (8) Hypomagnesemia: s/p replacement throughout the visit level was normal at discharge cont mag oxide 400mg daily for maintenance (9) Hypokalemia: repleted resolved (10) Coronary artery disease of bypass graft of [place] heart with stable angina pectoris: 2018 CABG -- HARRIS to the LAD, saphenous vein graft to the obtuse marginal and saphenous vein graft to the PDA cont aspirin cont atorvastatin atenolol stopped this admission because of bradycardia olmesartan on hold at time of discharge (11) Aortic stenosis: moderate no Rx at this time a referral has been made to a tertiary care center to begin preparations for consideration of TAVR procedure (12) Rotator cuff tear, right: 3 out of 4 rotator cuff tendons are torn on MRI right shoulder he also has advanced OA of the glenohumeral joint only solution would be a complete shoulder replacement utilized ice and pain meds prn while here asked [facility]opedics to consult and they provided him a steroid injection in the right shoulder on day of discharge (13) Osteoarthritis of right shoulder: severe ice pain meds prn only solution would be a shoulder replacement see #12 above (14) Biceps tendon tear: right confirmed on MRI right shoulder ice, pain meds prn (15) Liver mass: right hepatic lobe -- as seen on imaging this admission needs dedicated imaging for this will send to GI post-d/c to follow this and to work it up (16) Iron deficiency: received IV venofer multiple times while here discharge hemoglobin was 9.3 Plan asymptomatic bacteriuria --- patient grew out enterococcus in a urine culture. He had NO symptoms of UTI and thus Rx was withheld. Further he never had leukocytosis or fever. cleared by PT/OT to return home he will have home health and home PT/OT Notes For Next Care Provider 1. GI f/u needed for recent diarrhea as well as the right hepatic lobe mass 2. Nephrology f/u due to recent KANDI & anasarca Medication Changes From Visit 1. furosemide 20mg prn weight gain/edema 2. hold olmesartan 3. stop atenolol 4. hold empaglifozin 5. start pancreaze 1 capsule with each meal 6. 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 Has had increased swelling of his bilateral upper and lower extremities. Patient has a solitary kidney. Patient was discharged from the hospital 08/23/2024 after being treated for sepsis and proctocolitis with broad- spectrum antibiotics and he was also norovirus positive at that time. Mohinder is seen at the bedside. - BMs 4-5x BMs very loose but not completely liquid. No blood. No melena. - +Polyuria, +urgency. Reports incontinence and urge incontinence at baseline. No dysuria Rapid progression of swelling in his legs and hands in the last 24 hours. Has had some intermittent chronic leg swelling however this has greatly worsened last 24 hours, and hand swelling in the last day is new - No fevers. No recent chills. - Denies Abdominal pain. Denies nausea/vomiting No flank pain - +mild lightheadedness on standing which passes after waiting for a bit before walking. Denies syncope, did have 3 falls in August due to lightheadedness but non in the last month and since last discharge. - Last UA low-grade proteinuria but no microscopic hematuria - R shoulder with continued pain. --> XRAY RIGHT CLAVICLE. Discharge Exam gen - NAD, pleasant, looks well mouth - MMM neck - no JVD heart - RRR, s1 s2, 3/6 holosystolic murmur RUSB/apex lungs - CTA b/l abd - soft NT ND BS+ ext - 1+ edema b/l, pulses 2+ b/l feet psych - a/o x 3 musculo - significant muscle wasting about the right shoulder; extremely limited active ROM of right shoulder; band-aid present over the right shoulder from recent corticosteroid injection Discharge Plan Discharge Items Patient Disposition: Home - Home Health Services Reason For Visit: Severe swelling, acute kidney injury Discharge Diagnosis: 1. severe swelling/edema of arms/legs - due to low blood protein levels & acute kidney injury - improved 2. acute kidney injury - improved 3. chronic kidney disease 4. severe diarrhea - improved; possibly due to pancreatic insufficiency 5. aortic stenosis 6. severe arthritis of the right shoulder 7. torn rotator cuff of the right shoulder - steroid injection given by orthopedics 8. liver mass - incidentally noted on CT scan - follow-up imaging needed 9. coronary artery disease 10. iron deficiency - IV iron given multiple times while here 11. history of Whipple procedure Activity: Resume your previous activity Activity Comment: as tolerated Non-emergency contact: Primary Care Provider, Daycare Director and Radioisotope Technologist Call non-emergency contact if: you have any medication questions, your symptoms worsen and you have a fever Follow-up/Referrals: Pato Castle MD [Primary Care Provider] - 10/29/24 11:00 am (1 week) Char Bob MD [Physician] - 11/03/24 2:00 pm () Dawna Licona CRNP [Nurse Practitioner] - 10/30/24 3:00 pm (PER DR. CLAY) Diet: Heart Healthy Addtl Attending Provider Instructions: Mr Shaw, You were admitted due to having severe diarrhea, weakness, and worsening swelling in your arms/legs. At time of admission you had evidence of acute kidney injury. This means that your creatinine level in the blood was much higher than your normal level. We also found that your blood protein levels were very low likely a result of the severe diarrhea you were having. You received IV protein infusions, some diuretics to remove the excess fluid, and medicine for your diarrhea. We did not find any new infection of the stool based on stool studies. We started you on a medicine called "pancreaze" which is synthetic pancreatic enzymes. This medicine was to help with your diarrhea. With the above measures your diarrhea improved, your kidney function got better, and your blood protein levels annita to a more healthy range. In addition, we obtained an MRI of your right shoulder. This showed advanced arthritis as well as a torn rotator cuff (3 torn tendons of the rotator cuff). These issues are causing your pain, weakness, and difficulty moving the arm. Orthopedics gave you a steroid shot in your shoulder. Recommendations - 1. please weigh yourself every morning on the same scale. Weigh yourself first thing upon awakening and after using the bathroom. Keep a log of your weights. If your weight rises more than 2-3 pounds over a 1-2 day period this may be fluid weight gain. If you see your weights rising like this over several days please let Dr Bob or Dr Castle know right away. 2. for possible pancreatic insufficiency (a condition in which your pancreas is not producing enough pancreatic enzymes which can lead to diarrhea) please take - * pancreaze 1 capsule with each meal * the copay is about $19/month 3. if you have diarrhea despite taking the pancreaze with each meal you can take [id number] imodium as needed 4. if you have worsening swelling/edema of your legs you can take - * furosemide 20mg each morning as needed * if you notice that the medicine is not helping the swelling OR you have to take the medicine for more than 2-[address] Bob or Dr Castle know right away 5. when you see the GI providers in clinic next week please speak to them about getting more imaging of the possible liver mass seen during this hospitalization. They may have to order a MRI or another test. HOLD the following medicines for now - * atenolol * olmesartan * Jardiance Follow-up - see separate section Return to [facility] if - * you have fever over 100 degrees * you have recurrent abdominal pains * you have shortness of breath * you see large amounts of blood and/or mucous in your stools * you have 3 or more diarrhea stools each day despite taking the pancreaze * any other concerns It was our pleasure to care for you! Happy holidays, Dr Clay Pending Studies at Discharge: No Stand-Alone Forms: My [facility], Smoking Cessation Medications and DC Order Prescriptions: Boy Shannon 36,000-114,000- 180,000 unit Capsule,Delayed Release(Dr/Ec) 1 cap PO AC Qty: 90 2RF loperamide 2 mg Capsule 2 mg PO Q3H PRN (Reason: loose stool/diarrhea) Qty: 1 0RF Rx Instructions: purchase [id number] furosemide [Lasix] 20 mg tablet 20 mg PO QAM PRN (Reason: edema/swelling) Qty: 20 0RF Continued aspirin [Ecotrin Low Strength] 81 mg tablet,delayed release (DR/EC) 81 mg PO QAM Qty: 90 3RF cholecalciferol (vitamin D3) 25 mcg (1,000 unit) capsule 25 mcg PO QAM allopurinol 100 mg tablet 100 mg PO QAM Qty: 90 3RF montelukast 10 mg tablet 10 mg PO QAM Qty: 90 3RF fluticasone propionate [Allergy Relief (fluticasone)] 50 mcg/actuation spray,suspension 2 spray intranasal UD PRN (Reason: Congestion) Qty: 16 3RF Rx Instructions: administer into each nostril atorvastatin 80 mg tablet 80 mg PO HS Qty: 45 3RF pantoprazole 40 mg tablet,delayed release (DR/EC) 40 mg PO BID Qty: 60 5RF albuterol sulfate [Ventolin HFA] 90 mcg/actuation HFA aerosol inhaler 2 puff INH Q4H PRN (Reason: shortness of breath) Qty: 8.5 3RF mecobalamin (vitamin B12) 500 mcg tablet,chewable 500 mcg PO QAM Procrit 40,000 unit/mL solution 40,000 unit subcut .Qmonth Rx Instructions: Hold for Hgb 11 or greater. Pt gets this done at the doctor office fluticasone propion-salmeterol [Advair Diskus] 100-50 mcg/dose blister with device 1 inh inhalation BID tamsulosin 0.4 mg capsule 0.4 mg PO HS solifenacin [Vesicare] 5 mg tablet 5 mg PO QAM Held Jardiance 10 mg tablet 10 mg PO DAILY Qty: 30 2RF Hold Instructions: hold unless your outpatient providers recommend resuming it olmesartan [Benicar] 5 mg tablet 5 mg PO QAM Hold Instructions: hypotension Discontinued atenolol 50 mg tablet 50 mg PO UD Rx Instructions: 50 mg po qam filled 09/28 90 day supply No Action magnesium oxide 400 mg magnesium tablet 400 mg PO DAILY Patient Comments: PER PT HE TAKES MAGNESIUM 400MG DAILY.CONFIRMED ON 10/23/24. Discharge Orders: Discharge Order (Routine); Ordered 10/22/24 Ordered By: Marcio Clay Admission Data Admit Date/Time: 10/13/24 14:35 Attending Provider: Marcio Clay Admit Provider: Kasi Lawrence Primary Care Provider: Pato Castle Other Providers: Walter Joseph; Andrew Bolton; [facility]; Flynn Robertson; Harrison Adams Other Interventions: Discharge Summary Assessment (RN) Last Done: 10/22/24 15:02 Hospital Stay Data Consultations [facility] Nephrology [facility] Gastroenterology [facility] Cardiology [facility] Orthopedic Surgery PT, OT Procedures Performed 1. echocardiogram - 2. right shoulder steroid injection Diagnostic Imagining Performed Chest X-Ray 10/13/24 09:11 XR chest 1V portable CLINICAL HISTORY: Sepsis COMPARISON STUDY: Chest CT July 25, 2024. Chest radiograph August 20, 2024. FINDINGS: Status post median sternotomy and bypass grafting. Lung volumes are normal. Minimal left basilar opacity favors atelectasis. There is no pneumothorax. There is a trace left pleural effusion. Cardiac size is normal. Mediastinal contours are normal. There is no evidence for pulmonary edema. IMPRESSION: 1. Trace left pleural effusion. 2. No consolidation to suggest pneumonia. ACT 112: Negative or not required by law. Electronically signed by: Rishabh Sebastian M.D. 10/13/2024 9:39 AM Abdomen/Pelvis CT 10/13/24 10:34 CT OF THE ABDOMEN AND PELVIS WITHOUT CONTRAST CLINICAL HISTORY: Abdominal pain, diarrhea, hypotensive. COMPARISON STUDY: CT of the abdomen and pelvis August 20, 2024. TECHNIQUE: Axial images of the abdomen and pelvis were obtained without IV contrast. Images were reviewed in the axial, sagittal, and coronal planes. Automated exposure control was utilized for the study. A dose lowering technique was utilized adhering to the principles of ALARA. FINDINGS: Body wall edema is present. There is bilateral gynecomastia. Trace bilateral pleural effusions. No pneumatosis, free air or portal venous gas. Status post Whipple procedure. Pancreatic stent is unchanged in position. Pneumobilia is again noted. There is severe hepatic steatosis. A 3.4 cm hyperdense focus within the right hepatic lobe on image 66 of 373 is present. There is mild associated capsular retraction. Trace perihepatic ascites. The right kidney is not visualized. There is no evidence for a bowel obstruction. Moderate wall thickening of the entirety of the colon and rectum has progressed since prior CT. The spleen, adrenal glands are unremarkable on unenhanced exam. There is no lymphadenopathy. There are no fluid collections. Moderate bladder wall thickening is present. Bilateral inguinal hernias are noted as well as superimposed hernia which contains a loop of small bowel. This does not result in a bowel obstruction. There are no suspicious lesions within the visualized skeletal structures. Extensive aortoiliac after sclerotic plaque is present. Evaluation of the abdomen and pelvis is suboptimal on this unenhanced exam. Wall thickening of the distal stomach is present. IMPRESSION: 1. Moderate diffuse colorectal wall thickening which has progressed since CT of August 20, 2024. This represents a nonspecific proctocolitis. No evidence for a bowel obstruction. No pneumatosis, free air or portal venous gas. 2. Status post Whipple. Wall thickening of the distal stomach with adjacent stranding which may reflect gastritis. 3. Severe hepatic steatosis. Indeterminate 3.4 cm right hepatic lobe hypodense focus with capsular retraction. A hepatic mass cannot be excluded. Nonemergent liver protocol MRI is recommended. 4. Evidence for volume overload with anasarca, trace bilateral pleural effusions and trace ascites. 5. Supraumbilical hernia which contains a loop of small bowel without resultant bowel obstruction. 6. Bladder wall thickening. This is likely chronic although could be correlated with urinalysis. ACT 112: Negative or not required by law. Electronically signed by: Rishabh Sebastian M.D. 10/13/2024 11:20 AM Shoulder X-Ray 10/13/24 13:10 EXAM: Radiographs of the Right Shoulder Complete 3 Views INDICATION: Remote fall. Persistent pain. TECHNIQUE: 3 views of the right shoulder. COMPARISON: No relevant prior studies available. FINDINGS: Bones/joints: There is mild acromioclavicular and glenohumeral spurring. Joint spaces are maintained. No fracture or dislocation. Visualized right ribs intact. Soft tissues: No abnormality noted. No radiopaque foreign body noted. IMPRESSION: Mild degenerative changes. No acute abnormality. ACT 112: Negative or not required by law. Electronically signed by Stephani Acosta 10-13-2024 3:25 PM Shoulder MRI 10/19/24 07:29 MRI OF THE RIGHT SHOULDER WITHOUT CONTRAST CLINICAL HISTORY: Right shoulder pain and weakness following fall. COMPARISON STUDY: Right shoulder radiographs October 13, 2024. TECHNIQUE: Utilizing a 1.5 Marleen magnet and dedicated coil, multiplanar, multiecho imaging of the right shoulder was performed without intravenous or intraarticular contrast. FINDINGS: This exam is moderately compromised by motion artifact. There is anterior decentering of the humeral head with respect to the glenoid. There is no evidence for dislocation. A moderate sized joint effusion is present. There are multiple joint bodies. No fractures are present. There is no suspicious marrow replacement. 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 There is moderate cartilage thinning of the glenohumeral joint. Associated osteophytosis consistent with osteoarthritis. Extensive full- thickness tears of supraspinatus, infraspinatus and subscapularis are present. There is approximately 3.7 cm of retraction of supraspinatus. Extensive associated muscular atrophy is present within supraspinatus, subscapularis and infraspinatus. Teres minor is intact. Associated fluid within point is noted. There is fluid within the subacromial/subdeltoid bursa The proximal long head of the biceps tendon is torn. The superior glenoid labrum is irregular with increased signal consistent with a tear. IMPRESSION: 1. Exam compromised by motion artifact. Extensive full-thickness tears of supraspinatus, infraspinatus and subscapularis with tendon retraction and muscular atrophy. Associated fluid within the subacromial/subdeltoid bursa and the deltoid muscle. Therefore, the findings may reflect acute on chronic rotator cuff tears. 2. 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 3. Moderate size joint effusion which contains multiple joint bodies. 4. Full-thickness tear of the proximal long head of the biceps tendon. 5. No fractures within the right shoulder. 6. Superior labral tear. ACT 112: Negative or not required by law. Electronically signed by: Rishabh Sebastian M.D. 10/19/2024 2:20 PM Pending Results Patient Have Any Pending Studies at Discharge: No Discharge Instructions Given to Patient (Per Discharging Provider) Mr Shaw, You were admitted due to having severe diarrhea, weakness, and worsening swelling in your arms/legs. At time of admission you had evidence of acute kidney injury. This means that your creatinine level in the blood was much higher than your normal level. We also found that your blood protein levels were very low likely a result of the severe diarrhea you were having. You received IV protein infusions, some diuretics to remove the excess fluid, and medicine for your diarrhea. We did not find any new infection of the stool based on stool studies. We started you on a medicine called "pancreaze" which is synthetic pancreatic enzymes. This medicine was to help with your diarrhea. With the above measures your diarrhea improved, your kidney function got better, and your blood protein levels annita to a more healthy range. In addition, we obtained an MRI of your right shoulder. This showed advanced arthritis as well as a torn rotator cuff (3 torn tendons of the rotator cuff). These issues are causing your pain, weakness, and difficulty moving the arm. Orthopedics gave you a steroid shot in your shoulder. Recommendations - 1. please weigh yourself every morning on the same scale. Weigh yourself first thing upon awakening and after using the bathroom. Keep a log of your weights. If your weight rises more than 2-3 pounds over a 1-2 day period this may be fluid weight gain. If you see your weights rising like this over several days please let Dr Bob or Dr Castle know right away. 2. for possible pancreatic insufficiency (a condition in which your pancreas is not producing enough pancreatic enzymes which can lead to diarrhea) please take - * pancreaze 1 capsule with each meal * the copay is about $19/month 3. if you have diarrhea despite taking the pancreaze with each meal you can take [id number] imodium as needed 4. if you have worsening swelling/edema of your legs you can take - * furosemide 20mg each morning as needed * if you notice that the medicine is not helping the swelling OR you have to take the medicine for more than 2-[address] Bob or Dr Castle know right away 5. when you see the GI providers in clinic next week please speak to them about getting more imaging of the possible liver mass seen during this hospitalization. They may have to order a MRI or another test. HOLD the following medicines for now - * atenolol * olmesartan * Jardiance Follow-up - see separate section Return to [facility] if - * you have fever over 100 degrees * you have recurrent abdominal pains * you have shortness of breath * you see large amounts of blood and/or mucous in your stools * you have 3 or more diarrhea stools each day despite taking the pancreaze * any other concerns It was our pleasure to care for you! Happy holidays, Dr Clay Total Time Total Time Spent Total Time Spent (In Minutes): 50 Coding Level of Care Code 63167 INP/OBS DISCH >30 MIN Diagnoses Acute kidney injury superimposed on stage 3b chronic kidney disease N17.9; N18.32 Anasarca R60.1 Pancolitis K51.00 Acute heart failure with preserved ejection fraction (HFpEF) I50.31 Obstructive sleep apnea of adult G47.33 History of Whipple procedure Z90.410; Z90.49 Pancreatic insufficiency K86.89 Hypomagnesemia E83.42 Hypokalemia E87.6 Coronary artery disease of bypass graft of [place] heart with stable angina pectoris I25.708 Nonrheumatic aortic valve stenosis I35.0 Cardiac valve disease etiology: nonrheumatic Rotator cuff tear, right M75.101 Osteoarthritis of right shoulder M19.011 Biceps tendon tear S46.219A Liver mass R16.0 Iron deficiency E61.1
[2024-10-22 15:09] VITALS: BP 143/69
== END 2024-10-22 15:50 | disposition home health service (06) | DRG 682 ==
LOC: ED 08:54 → 2N 14:35 → SUATTDRO 14:35 → 2N 15:47

== ENCOUNTER 2025-02-09 14:33 | Inpatient (IN) ==
--- NOTE | 2025-02-09 15:21 | Emergency Department Note ---
ED Provider Note History of Present Illness Chief Complaint: Hip Pain Stated Complaint: FRACTURED HIP Time Seen by Provider: 02/09/25 14:49 Source: patient Mode of arrival: ambulatory Limitations: no limitations This patient is an 84-year-old male who presents to the emergency department for evaluation of a right hip fracture. Patient reports that he fell 2 months ago and injured his right hip. He was seen as an outpatient by orthopedics and had an x-ray which did not show an obvious fracture, although he notes that he had a hard time getting good pictures. He had continued pain in the right hip and difficulty walking on it, so he was seen again and had a CT ordered at that time. He was called today by orthopedics and told that he had a hip fracture and needed to go to the ER for admission. Patient does report continued pain in the right hip. He also reports some pain in the right knee which has been ongoing as well. Home Medications Medication Instructions Recorded Confirmed Type aspirin 81 mg tablet,delayed 81 mg PO QAM #90 tabs 11/07/20 02/09/25 Rx release (Ecotrin Low Strength) albuterol sulfate 90 mcg/actuation 2 puff inhalation Q4H PRN 09/06/21 02/09/25 Rx aerosol inhaler (Ventolin HFA) shortness of breath #8.5 grams cholecalciferol (vitamin D3) 25 25 mcg PO QAM 12/28/21 02/09/25 History mcg (1,000 unit) capsule mecobalamin (vitamin B12) 500 mcg 500 mcg PO QAM 09/13/23 02/09/25 History chewable tablet fluticasone 100 mcg-salmeterol 50 1 inh inhalation BID 10/08/23 02/09/25 History mcg/dose blistr powdr for inhalation (Advair Diskus) empagliflozin 10 mg tablet 10 mg PO DAILY #30 tabs 08/06/24 02/09/25 Rx (Jardiance) solifenacin 5 mg tablet (Vesicare) 5 mg PO QAM 08/20/24 02/09/25 History tamsulosin 0.4 mg capsule 0.4 mg PO HS 08/20/24 02/09/25 History olmesartan 5 mg tablet (Benicar) 5 mg PO QAM 08/31/24 02/09/25 History fluticasone propionate 50 2 spray intranasal UD PRN 09/03/24 02/09/25 Rx mcg/actuation nasal Congestion #16 grams spray,suspension (Allergy Relief (fluticasone)) epoetin ebony 40,000 unit/mL 40,000 unit subcut .Qmonth 10/06/24 02/09/25 History injection solution (Procrit) [id number] 1 cap PO AC #90 caps 10/21/24 02/09/25 Rx 36,000-114,000-180,000 unit capsule,delay rel (Creon) magnesium oxide 400 mg PO DAILY 10/23/24 02/09/25 History atorvastatin 80 mg tablet 80 mg PO HS #90 tabs 11/13/24 02/09/25 Rx allopurinol 100 mg tablet 100 mg PO QAM #90 tabs 11/17/24 02/09/25 Rx montelukast 10 mg tablet 10 mg PO QAM #90 tabs 11/17/24 02/09/25 Rx furosemide 20 mg tablet (Lasix) 20 mg PO QAM PRN edema/swelling 12/11/24 02/09/25 Rx #30 tabs Lift Chair #1 ea 12/23/24 02/09/25 Rx pantoprazole 40 mg tablet,delayed 40 mg PO BID #60 tabs 01/05/25 02/09/25 Rx release Allergies Allergy/AdvReac Type Severity Reaction Status Date / Time house dust Allergy Unknown SNEEZING, Verified 02/04/25 14:10 CONGESTION pollen extracts Allergy Unknown SNEEZING, Verified 02/04/25 14:10 CONGESTION red dye Allergy Unknown Hives Verified 02/04/25 14:10 Past Med/Surg History Problem List (Updated 02/09/25 @ 22:30 by Yesy Niño PA-C) Closed right hip fracture (Acute) Right knee pain Fracture of femoral neck, right Aortic stenosis follows with Dr Rolle Iron deficiency Rotator cuff tear arthropathy of right shoulder Liver mass Biceps tendon tear Osteoarthritis of right shoulder Rotator cuff tear, right Coronary artery disease of bypass 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 Last use rescue inhaler 12/10/23 due to weather. No further issues. 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 Macular degeneration injections for upcoming 12/12/23. Gastrointestinal complaint hx EGD blocked bile duct/stent Sep 2023. History of gout Fatigue easily fatigue, little energy for the last year -- currently anemic (per patient). History of COVID-19 06/2022: moderate cold symptoms. no current issues. Anemia Hyperlipidemia Pancreatic cancer dx 06/2022. whipple procedure in 08/2022 at [facility]. no chemo/no radiation needed. Atrial fibrillation controlled with medication. no cardioversion in the past. Urinary incontinence History of prostate cancer (~09/2017) treated with radiation treatments. no surgery. no current issues. Carotid artery plaque Obstructive sleep apnea of adult cpap at night HTN (hypertension) Surgical History History of esophagogastroduodenoscopy (EGD) History of cardiac cath prior to open heart sx. History of cholecystectomy History of ERCP 05/2022 History of Whipple procedure (~08/2022) done at [facility] Hx of colonoscopy Hx of hand surgery repair of laceration on left hand due to saw accident Hx of rotator cuff surgery Right X 1, Left X2 Hx of CABG X 3 vessels at [facility] [place]. [address] Rolle. History of nephrectomy Right 1963 - damage from kidney stones Family History Sister Breast cancer Father Coronary heart disease Congestive heart disease COPD (chronic obstructive pulmonary disease) Mother Pancreas cancer Brother Colorectal cancer Pancreas cancer Sister Coronary heart disease Stroke Sister Hypertension Other Diabetes Heart disease Lung disease No family history of adverse response to anesthesia Denies family history of Prostate cancer Social History Smoking Status: Never smoker Tobacco Type: Cigarettes, Pipe and Cigars Age Started Using Tobacco: 19; Age Quit Using Tobacco: 32; packs per day: 0.5; Second Hand Exposure: No; Do You Dip or Chew Tobacco: No; Hx Alcohol Use: No Hx Substance Use: No Preferred Language: Moldovan Communication Ability: Effective Visual Impairment: No Limitations Hearing Ability: Hard of Hearing Topstitcher Zigzag Required: No Beliefs That Will Affect Care: None marital status: Current Living Situation: Spouse 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 Safe at Home: Yes Safety Concerns Comment: Concerns about falling Childhood Exposure to Second-Hand Smoke: Yes Diet: regular caffeine: No during the past year weight has: decreased > 10 lbs Dental Care, Regularly: No Physical Activity Frequency: Daily Seatbelt Use: always Sunscreen Use: Yes Do you think of yourself as: straight/heterosexual Gender Identity: Male Assistive Devices: Cane, CPAP and Walker Physical Exam Vital Signs Vital Signs - 24 hr 02/09/25 14:36 02/09/25 15:12 02/09/25 17:00 Temperature 36.6 C Temperature Source Skin Pulse Rate 84 Pulse Rate [Finger] 73 69 Respiratory Rate 18 16 16 Respiratory Effort / Characteristics Non-Labored Spontaneous Non-Labored Spontaneous Respiratory Depth Normal Normal Blood Pressure 158/66 H Blood Pressure [Right Arm] 148/61 H 167/66 H Blood Pressure Mean 96 Blood Pressure Mean [Right Arm] 90 99 Blood Pressure Position [Right Arm] Semi-fowlers Semi-fowlers Pulse Oximetry 97 98 99 Oxygen Delivery Method Room Air Room Air Room Air Sepsis Recent Fever Within 48 Hours No Sepsis New/Unexplained Change in Mental Status No Sepsis Action Taken by Nursing No Action Required VITALS: Vitals are noted on the nurse's note and reviewed by myself. GENERAL: This is an 84-year-old male, in no acute distress, well-developed well- nourished. SKIN: The skin was without rashes, erythema, edema, or bruising. HEART: Regular rate and rhythm without murmurs gallops or rubs. LUNGS: Clear to auscultation bilaterally without wheezes, rales or rhonchi. ABDOMEN: Positive bowel sounds x 4. Soft, nontender to palpation. MUSCULOSKELETAL: There is tenderness palpation over the lateral right hip. NEURO: Patient was alert and oriented to person place and time. Distal sensation intact in the right lower extremity. Course Administered Medications Lipase/Protease/Amylase (Pancreaze (Lipase 10,500u) Cap) 1 cap PO AC FARIDA Stop: 03/11/25 20:14 Last Admin: 02/09/25 20:36 Dose: 1 cap Documented By: GERSON Atorvastatin Calcium (Atorvastatin 40 Mg Tab) 80 mg PO HS FARIDA Stop: 03/11/25 20:59 Last Admin: 02/09/25 20:37 Dose: 80 mg Documented By: GERSON Pantoprazole Sodium (Pantoprazole 40 Mg Tab) 40 mg PO BID FARIDA Stop: 03/11/25 20:59 Last Admin: 02/09/25 20:36 Dose: 40 mg Documented By: GERSON Tamsulosin HCl (Tamsulosin Hcl 0.4 Mg Cap) 0.4 mg PO HS FARIDA Stop: 03/11/25 20:59 Last Admin: 02/09/25 20:36 Dose: 0.4 mg Documented By: GERSON Medical Decision Making Differential Diagnosis Fracture, dislocation, neurovascular compromise, compartment syndrome, soft tissue injury, as well as other pathologies. Laboratory Data Attestation: I reviewed the patient's lab results. 02/09/25 15:44 02/09/25 15:44 Lab Results 02/09/25 Range/Units 15:44 WBC 7.98 (4.8-10.8) K/ul RBC 3.33 L (4.70-6.10) M/uL Hgb 10.2 L (14.0-18.0) g/dl Hct 31.1 L (42.0-52.0) % MCV 93.4 (80.0-100.0) fL MCH 30.6 (25.0-34.0) pg MCHC 32.8 (32.0-36.0) g/dL RDW Std Deviation 49.7 H (36.4-46.3) fL RDW Coeff of Karolyn 14.6 H (11.5-14.5) % Plt Count 319 (130-400) K/uL MPV 10.0 (9.4-12.4) fL Immature Gran % (Auto) 0.8 % Neut % (Auto) 59.2 % Lymph % (Auto) 25.6 % Starr % (Auto) 10.3 % Eos % (Auto) 3.3 % Baso % (Auto) 0.8 % Neut # (Auto) 4.74 (1.40-6.50) K/uL Lymph # (Auto) 2.04 (1.20-3.40) K/uL Starr # (Auto) 0.82 H (0.11-0.59) K/uL Eos # (Auto) 0.26 (0.00-0.50) K/uL Baso # (Auto) 0.06 (0.00-0.20) K/uL Immature Gran # (Auto) 0.06 (0.01-0.20) K/uL PT 10.2 (9.0-12.0) Seconds INR 0.9 (0.9-1.1) APTT 30 (21-31) Seconds PTT Ratio 1.1 Sodium 139 (136-145) mmol/L Potassium 4.2 (3.5-5.1) mmol/L Chloride 109 H (98-107) mmol/L Carbon Dioxide 25 (21-32) mmol/L Anion Gap 5 (3-11) BUN 43 H (6-23) mg/dl Creatinine 1.43 H (0.6-1.4) mg/dl Est Cr Clr Drug Dosing 34.6 ml/min eGFR 48.92 BUN/Creatinine Ratio 30.1 H (10-20) Glucose 140 H (70-99(Fasting)) mg/dl Calcium 9.0 (8.6-10.3) mg/dl Total Bilirubin 0.3 (0.2-1.0) mg/dl AST 15 (13-39) U/L ALT 12 (7-52) U/L Alkaline Phosphatase 147 H (34-104) U/L Total Protein 6.3 (6.0-8.3) gm/dl Albumin 3.6 (3.4-5.0) gm/dl Globulin 2.7 (2.5-4.0) gm/dl Albumin/Globulin Ratio 1.3 (0.9-2) 25-OH Vitamin D Total 19.3 L (30-100) ng/ml Imaging Data Attestation: I personally reviewed and interpreted this imaging study as follows: Radiologist's Impression: Chest X-Ray 02/09/25 15:13 XR chest 1V portable CLINICAL HISTORY: preop COMPARISON STUDY: 10/13/2024 FINDINGS: Stable. Heart size and pulmonary vasculature are normal. No effusion or consolidation. IMPRESSION: No acute findings. ACT 112: Negative or not required by law. Electronically signed by: Phu Taylor M.D. 02/09/2025 3:29 PM Hip/Pelvis X-Ray 02/09/25 15:30 XR hip RT 2V w pelvis CLINICAL HISTORY: hip fx COMPARISON: 12/29/2024 FINDINGS: There is a moderately impacted fracture at the right femoral neck. No other fracture or dislocation seen. IMPRESSION: Impacted fracture at the right femoral neck. ACT 112: Negative or not required by law. Electronically signed by: Phu Taylor M.D. 02/09/2025 3:49 PM Knee X-Ray 02/09/25 15:30 XR knee RT 1 or 2V routine CLINICAL HISTORY: knee pain COMPARISON: 12/29/2024 FINDINGS: There are atherosclerotic calcifications. There is a trace joint effusion. No fracture or dislocation. There are minimal degenerative changes. IMPRESSION: Trace joint effusion without identified fracture. ACT 112: Negative or not required by law. Electronically signed by: Phu Taylor M.D. 02/09/2025 3:49 PM Venous Doppler Study 02/09/25 16:19 Clinical History: Pain Technique: Venous ultrasound evaluation was performed utilizing grayscale, color Doppler and wave form evaluation. Images were also obtained with and without compression Findings: Evaluation was limited due to patient discomfort The visualized right common femoral, superficial femoral, popliteal, and visualized calf veins demonstrate normal anechoic lumens with full compressibility. Normal flow is seen on color Doppler images. Expected waveforms were produced with augmentation maneuvers Impression: No definite evidence of right leg deep venous thrombosis Electronically signed by Boo Mitchell 02-09-2025 5:58 PM MDM Narrative This patient is an 84-year-old male who presents to the emergency department for evaluation of a right hip fracture. This was diagnosed as an outpatient. Patient had a fall 2 months ago, had initially negative outpatient x-rays then CT which showed a right hip fracture. Patient was contacted by orthopedics and recommended to come to the ED for admission for surgery. He was evaluated in the ER by orthopedics, Jake Brooks. [facility]. Impression Closed right hip fracture Discharge Plan Visit Data Chief Complaint: Hip Pain Stated Complaint: FRACTURED HIP ED Provider: Joesph Galo ED Midlevel Provider: Yesy Niño Discharge Problem: Closed right hip fracture Patient Disposition: Admitted As Inpatient Discharge Instructions Interventions: ED Discharge Assessment Last Done: 02/09/25 19:41 Discharge Problem: Closed right hip fracture Qualifiers: Encounter type: initial encounter Qualified Code(s): S72.001A - Fracture of unspecified part of neck of right femur, initial encounter for closed fracture
--- NOTE | 2025-02-09 15:30 | XRay Report ---
XR chest 1V portable CLINICAL HISTORY: preop COMPARISON STUDY: 10/13/2024 FINDINGS: Stable. Heart size and pulmonary vasculature are normal. No effusion or consolidation. IMPRESSION: No acute findings. ACT 112: Negative or not required by law. Electronically signed by: Phu Taylor M.D. 02/09/2025 3:29 PM
--- NOTE | 2025-02-09 15:37 | Orthopedic Consultation ---
Date of Service February 09, 2025 Assessment & Plan (1) Fracture of femoral neck, right: He was seen and examined in the ER. His daughter is here with him today. He was educated on this fracture and treatment for it. We recommend bipolar hemiarthroplasty for this. Procedure was explained to them. He is going to be admitted by Hospitalist, CADE after midnight for surgery Saturday 02/10. Nonweight bearing on the RLE at this time. Godwin/scd's for dvt prophylaxis. New xrays of his hip and knee ordered today. (2) Right knee pain: will obtain new xrays today. further recommendations pending results. His knee pain could be referred from the hip fx. History of Present Illness Reason for Consultation: . Requesting Physician: . . 84 year old patient with right hip and knee pain x 2 months, which began after he slipped and fell on some ice in November. He had some xrays of his hip and knee in December that did not show any obvious fracture. He continued to have hip pain and difficulty ambulating/weight bearing. Describes his pain in the groin/thigh, and anterior knee. He had a ct scan of the right hip 02/05 which showed a femoral neck fracture and was advised by our office to come to the ER. He has been using a walker since he fell. Denies any hip pain prior to this fall 2 months ago. Allergies Allergy/AdvReac Type Severity Reaction Status Date / Time house dust Allergy Unknown SNEEZING, Verified 02/04/25 14:10 CONGESTION pollen extracts Allergy Unknown SNEEZING, Verified 02/04/25 14:10 CONGESTION red dye Allergy Unknown Hives Verified 02/04/25 14:10 Home Medications Medication Instructions Recorded Confirmed Type aspirin 81 mg tablet,delayed 81 mg PO QAM #90 tabs 11/07/20 02/04/25 Rx release (Ecotrin Low Strength) albuterol sulfate 90 mcg/actuation 2 puff inhalation Q4H PRN 09/06/21 02/04/25 Rx aerosol inhaler (Ventolin HFA) shortness of breath #8.5 grams cholecalciferol (vitamin D3) 25 25 mcg PO QAM 12/28/21 02/04/25 History mcg (1,000 unit) capsule mecobalamin (vitamin B12) 500 mcg 500 mcg PO QAM 09/13/23 02/04/25 History chewable tablet fluticasone 100 mcg-salmeterol 50 1 inh inhalation BID 10/08/23 02/04/25 History mcg/dose blistr powdr for inhalation (Advair Diskus) empagliflozin 10 mg tablet 10 mg PO DAILY #30 tabs 08/06/24 02/04/25 Rx (Jardiance) solifenacin 5 mg tablet (Vesicare) 5 mg PO QAM 08/20/24 02/04/25 History tamsulosin 0.4 mg capsule 0.4 mg PO HS 08/20/24 02/04/25 History olmesartan 5 mg tablet (Benicar) 5 mg PO QAM 08/31/24 02/04/25 History fluticasone propionate 50 2 spray intranasal UD PRN 09/03/24 02/04/25 Rx mcg/actuation nasal Congestion #16 grams spray,suspension (Allergy Relief (fluticasone)) epoetin ebony 40,000 unit/mL 40,000 unit subcut .Qmonth 10/06/24 02/04/25 History injection solution (Procrit) [id number] 1 cap PO AC #90 caps 10/21/24 02/04/25 Rx 36,000-114,000-180,000 unit capsule,delay rel (Creon) loperamide 2 mg capsule 2 mg PO Q3H PRN loose 10/22/24 02/04/25 Rx stool/diarrhea #1 cap magnesium oxide 400 mg PO DAILY 10/23/24 02/04/25 History atorvastatin 80 mg tablet 80 mg PO HS #90 tabs 11/13/24 02/04/25 Rx allopurinol 100 mg tablet 100 mg PO QAM #90 tabs 11/17/24 02/04/25 Rx montelukast 10 mg tablet 10 mg PO QAM #90 tabs 11/17/24 02/04/25 Rx furosemide 20 mg tablet (Lasix) 20 mg PO QAM PRN edema/swelling 12/11/24 02/04/25 Rx #30 tabs Lift Chair #1 ea 12/23/24 02/04/25 Rx pantoprazole 40 mg tablet,delayed 40 mg PO BID #60 tabs 01/05/25 02/04/25 Rx release Past Med/Surg History Problem List (Updated 02/09/25 @ 15:42 by Robert Brooks PA-C) Right knee pain Fracture of femoral neck, right Aortic stenosis follows with Dr Rolle Iron deficiency Rotator cuff tear arthropathy of right shoulder Liver mass Biceps tendon tear Osteoarthritis of right shoulder Rotator cuff tear, right Coronary artery disease of bypass graft of [place] heart with stable angina pectoris Three-vessel coronary bypass grafting March 26, 2019 Pancreatic insufficiency Diarrhea Pancolitis Anasarca (Acute) Normocytic anemia Norovirus (Acute) Acute heart failure with preserved ejection fraction (HFpEF) (Acute) Nausea (Acute) Bradycardia (Acute) Chest pain (Acute) Bradycardia History of lumbosacral spine surgery Chronic low back pain Lumbosacral spondylosis Prostate cancer Asthma flares with weather changes. Last use rescue inhaler 12/10/23 due to weather. No further issues. 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 Macular degeneration injections for upcoming 12/12/23. Gastrointestinal complaint hx EGD blocked bile duct/stent Sep 2023. History of gout Fatigue easily fatigue, little energy for the last year -- currently anemic (per patient). History of COVID-19 06/2022: moderate cold symptoms. no current issues. Anemia Hyperlipidemia Pancreatic cancer dx 06/2022. whipple procedure in 08/2022 at [facility]. no chemo/no radiation needed. Atrial fibrillation controlled with medication. no cardioversion in the past. Urinary incontinence History of prostate cancer (~09/2017) treated with radiation treatments. no surgery. no current issues. Carotid artery plaque Obstructive sleep apnea of adult cpap at night HTN (hypertension) Surgical History History of esophagogastroduodenoscopy (EGD) History of cardiac cath prior to open heart sx. History of cholecystectomy History of ERCP 05/2022 History of Whipple procedure (~08/2022) done at [facility] Hx of colonoscopy Hx of hand surgery repair of laceration on left hand due to saw accident Hx of rotator cuff surgery Right X 1, Left X2 Hx of CABG X 3 vessels at [facility] [place] ~[address]. [address] Rolle. History of nephrectomy Right 1963 - damage from kidney stones Family History Sister Breast cancer Father Coronary heart disease Congestive heart disease COPD (chronic obstructive pulmonary disease) Mother Pancreas cancer Brother Colorectal cancer Pancreas cancer Sister Coronary heart disease Stroke Sister Hypertension Other Diabetes Heart disease Lung disease No family history of adverse response to anesthesia Denies family history of Prostate cancer Social History Smoking Status: Never smoker Tobacco Type: Cigarettes, Pipe and Cigars Age Started Using Tobacco: 19; Age Quit Using Tobacco: 32; packs per day: 0.5; Second Hand Exposure: No; Do You Dip or Chew Tobacco: No; Hx Alcohol Use: No Hx Substance Use: No Preferred Language: Egyptian Communication Ability: Effective Visual Impairment: No Limitations Hearing Ability: Hard of Hearing Reel Slitter Required: No Beliefs That Will Affect Care: None marital status: Current Living Situation: Spouse 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 Physical Exam .alert and oriented. NAD Right leg: unable to lift his leg off the bed, due to pain in the groin. Has hip/groin pain with minimal hip motion. +small knee effusion, tender to palpation anteromedially. Skin intact. able to dorsiflex and plantarflex. Results & Data Results & Data Laboratory Results . Diagnostic Findings . ct scan from 02/05 shows a right femoral neck fracture PG Care Time/CCT Total # of Minutes Spent Total Time Spent with Patient: Total time spent is greater than 50% in coordination of care (as documented) at patient's floor/unit and/or counseling patient: Coding Level of Care Code 05519 IN/OBS CONSULT LVL 4,60M Diagnoses Fracture of femoral neck, right S72.001A Right knee pain M25.561
--- NOTE | 2025-02-09 15:50 | XRay Report ---
XR hip RT 2V w pelvis CLINICAL HISTORY: hip fx COMPARISON: 12/29/2024 FINDINGS: There is a moderately impacted fracture at the right femoral neck. No other fracture or di slocation seen. IMPRESSION: Impacted fracture at the right femoral neck. ACT 112: Negative or not required by law. Electronically signed by: Phu Taylor M.D. 02/09/2025 3:49 PM
--- NOTE | 2025-02-09 15:51 | XRay Report ---
XR knee RT 1 or 2V routine CLINICAL HISTORY: knee pain COMPARISON: 12/29/2024 FINDINGS: There are atherosclerotic calcifications. There is a trace joint effusion. No fracture or dislocation. There are minimal degenerative changes. IMPRESSION: Trace joint effusion without identified fracture. ACT 112: Negative or not required by law. Electronically signed by: Phu Taylor M.D. 02/09/2025 3:49 PM
--- NOTE | 2025-02-09 15:51 | History & Physical Report ---
Date of Service February 09, 2025 Assessment & Plan (1) Fracture of femoral neck, right: (2) Right calf pain: (3) Aortic stenosis: (4) Coronary artery disease of bypass graft of [place] heart with stable angina pectoris: (5) Pancreatic insufficiency: Plan 84 year old male presents to the ER with right hip pain after outpatient CT hip showing fracture #Fracture of right femoral neck Acetaminophen only for pain relief Revised cardiac risk index 1: 6.0% risk of major cardiac event He is medically optimized for surgery at this time, hold losartan pre- operatively NPO after midnight Consult orthopedics Vitamin D level, consider DEXA scan as outpatient #Right calf pain Suspect from just disuse of muscles and not using his right leg, r/o DVT with US doppler #Coronary artery disease / moderate aortic stenosis / History of HFpEF (takes PRN Lasix) Hx bypass in 2019 Previously on atenolol, Recent cardiology note says he is on a BB although this was discontinued due to CKD. 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 #CKD stage 3 - At baseline, continue to monitor with AM labs #BPH - continue tamsulosin #GERD - continue pantoprazole 40mg PO BID #Asthma - no acute exacerbation, continue his maintenance inhalers or hospital formulary equivalent #Normocytic anemia - at baseline VTE Prophylaxis - per orthopedics post operatively, deferred pre-operatively Diet - regular, NPO after midnight Disposition - admit to med/surg Admission and Anticipated Discharge Date Admission Date: February 09, 2025 History of Present Illness Chief Complaint: Right hip pain, abnormal outpatient CT hip Primary Care Provider: Pato Castle MD Osmany Shaw is an 84 year old male who presents to the ER following an outpatient CT hip showing a fracture. His right hip has been hurting since a fall on black ice in December. No shortness of breath, chest pain or dizziness prior to falling. He initially felt it was just bruised and managed to get himself up and back into the house. After the pain and swelling continued for a few days he called his PCP to arrange an XR hip which did not show a fracture and he has continued to walk on it but with ongoing pain, using a cane and mainly putting all the weight on his other leg. He is unable to take NSAIDs due to his renal function for pain so has just been taking acetaminophen with limited relief. Due to persistent pain he underwent CT hip on February 05 which showed the fracture and he was called today to come to the ER. He took all his usual morning medications. He denies history of heart attack or stroke. On review of cardiology note he has had a three vessel bypass in 2019 with catheterization in 07/27/2024 which revealed patent grafts. He denies any current symptoms suggestive of angina. He also has known moderate aortic stenosis. Allergies Allergy/AdvReac Type Severity Reaction Status Date / Time house dust Allergy Unknown SNEEZING, Verified 02/04/25 14:10 CONGESTION pollen extracts Allergy Unknown SNEEZING, Verified 02/04/25 14:10 CONGESTION red dye Allergy Unknown Hives Verified 02/04/25 14:10 Home Medications Medication Instructions Recorded Confirmed Type aspirin 81 mg tablet,delayed 81 mg PO QAM #90 tabs 11/07/20 02/09/25 Rx release (Ecotrin Low Strength) albuterol sulfate 90 mcg/actuation 2 puff inhalation Q4H PRN 09/06/21 02/09/25 Rx aerosol inhaler (Ventolin HFA) shortness of breath #8.5 grams cholecalciferol (vitamin D3) 25 25 mcg PO QAM 12/28/21 02/09/25 History mcg (1,000 unit) capsule mecobalamin (vitamin B12) 500 mcg 500 mcg PO QAM 09/13/23 02/09/25 History chewable tablet fluticasone 100 mcg-salmeterol 50 1 inh inhalation BID 10/08/23 02/09/25 History mcg/dose blistr powdr for inhalation (Advair Diskus) empagliflozin 10 mg tablet 10 mg PO DAILY #30 tabs 08/06/24 02/09/25 Rx (Jardiance) solifenacin 5 mg tablet (Vesicare) 5 mg PO QAM 08/20/24 02/09/25 History tamsulosin 0.4 mg capsule 0.4 mg PO HS 08/20/24 02/09/25 History olmesartan 5 mg tablet (Benicar) 5 mg PO QAM 08/31/24 02/09/25 History fluticasone propionate 50 2 spray intranasal UD PRN 09/03/24 02/09/25 Rx mcg/actuation nasal Congestion #16 grams spray,suspension (Allergy Relief (fluticasone)) epoetin ebony 40,000 unit/mL 40,000 unit subcut .Qmonth 10/06/24 02/09/25 History injection solution (Procrit) bdutiy-zjekrhkw-oxwffqd 1 cap PO AC #90 caps 10/21/24 02/09/25 Rx 36,000-114,000-180,000 unit capsule,delay rel (Creon) magnesium oxide 400 mg PO DAILY 10/23/24 02/09/25 History atorvastatin 80 mg tablet 80 mg PO HS #90 tabs 11/13/24 02/09/25 Rx allopurinol 100 mg tablet 100 mg PO QAM #90 tabs 11/17/24 02/09/25 Rx montelukast 10 mg tablet 10 mg PO QAM #90 tabs 11/17/24 02/09/25 Rx furosemide 20 mg tablet (Lasix) 20 mg PO QAM PRN edema/swelling 12/11/24 02/09/25 Rx #30 tabs Lift Chair #1 ea 12/23/24 02/09/25 Rx pantoprazole 40 mg tablet,delayed 40 mg PO BID #60 tabs 01/05/25 02/09/25 Rx release Past Med/Surg History Problem List (Updated 02/10/25 @ 06:12 by Marcio Bryan MD) Right calf pain Closed right hip fracture (Acute) Right knee pain Fracture of femoral neck, right Aortic stenosis follows with Dr Rolle Iron deficiency Rotator cuff tear arthropathy of right shoulder Liver mass Biceps tendon tear Osteoarthritis of right shoulder Rotator cuff tear, right Coronary artery disease of bypass graft of [place] heart with stable angina pectoris Three-vessel coronary bypass grafting March 26, 2019 Pancreatic insufficiency Diarrhea Pancolitis Anasarca (Acute) Normocytic anemia Nausea (Acute) Bradycardia (Acute) Chest pain (Acute) Bradycardia History of lumbosacral spine surgery Chronic low back pain Lumbosacral spondylosis Prostate cancer Asthma flares with weather changes. Last use rescue inhaler 12/10/23 due to weather. No further issues. 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 Macular degeneration injections for upcoming 12/12/23. Gastrointestinal complaint hx EGD blocked bile duct/stent Sep 2023. History of gout Fatigue easily fatigue, little energy for the last year -- currently anemic (per patient). History of COVID-19 06/2022: moderate cold symptoms. no current issues. Anemia Hyperlipidemia Pancreatic cancer dx 06/2022. whipple procedure in 08/2022 at [facility]. no chemo/no radiation needed. Atrial fibrillation controlled with medication. no cardioversion in the past. Urinary incontinence History of prostate cancer (~09/2017) treated with radiation treatments. no surgery. no current issues. Carotid artery plaque Obstructive sleep apnea of adult cpap at night HTN (hypertension) Surgical History History of esophagogastroduodenoscopy (EGD) History of cardiac cath prior to open heart sx. History of cholecystectomy History of ERCP 05/2022 History of Whipple procedure (~08/2022) done at [facility] Hx of colonoscopy Hx of hand surgery repair of laceration on left hand due to saw accident Hx of rotator cuff surgery Right X 1, Left X2 Hx of CABG X 3 vessels at [facility] [place] Rolle. History of nephrectomy Right 1963 - damage from kidney stones Family History Sister Breast cancer Father Coronary heart disease Congestive heart disease COPD (chronic obstructive pulmonary disease) Mother Pancreas cancer Brother Colorectal cancer Pancreas cancer Sister Coronary heart disease Stroke Sister Hypertension Other Diabetes Heart disease Lung disease No family history of adverse response to anesthesia Denies family history of Prostate cancer Social History Smoking Status: Former smoker Tobacco Type: Cigarettes, Pipe and Cigars Age Started Using Tobacco: 19; Age Quit Using Tobacco: 32; packs per day: 0.5; Second Hand Exposure: No; Do You Dip or Chew Tobacco: No; Hx Alcohol Use: No Hx Substance Use: No Preferred Language: Thai Communication Ability: Effective Visual Impairment: No Limitations Hearing Ability: Hard of Hearing 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 Beliefs That Will Affect Care: None marital status: Current Living Situation: Spouse current occupational status: employed and retired current occupation: [employer] Other Information That Helps Us Care for You: No Feels Safe at Home: Yes Safety Concerns: Feels Safe At This Time Safety Concerns Comment: Concerns about falling Childhood Exposure to Second-Hand Smoke: Yes Diet: regular caffeine: No during the past year weight has: decreased > 10 lbs Dental Care, Regularly: No Physical Activity Frequency: Daily Seatbelt Use: always Sunscreen Use: Yes Do you think of yourself as: straight/heterosexual Gender Identity: Male Assistive Devices: Cane, Denture - Upper, Denture - Lower, Glasses and Walker Review of Systems Review of Systems: All systems reviewed & are unremarkable except as noted in HPI & below Physical Exam Constitutional: WD/WN, vitals as above Eyes: PERRL, conjunctivae normal, anicteric sclerae ENMT: external ear and nose normal, oropharynx normal Respiratory: normal respiratory effort, lungs clear to auscultation Cardiovascular: Rate/Rhythm: regular rate and regular rhythm Heart Sounds: + murmur (MARIO, loudest LUSB, 5/6) Extremities: normal capillary refill, + ca lf tenderness (right) and + pedal edema (trace) Gastrointestinal (Abdomen): normal bowel sounds, soft, nontender, no hepatosplenomegaly Musculoskeletal: Right groin and knee pain on any leg movement, NV intact distally, Right calf pain without enlargement on palpation Skin: no rashes, warm and dry Neurologic: awake; not confused Psychiatric: A+Ox3, euthymic affect Results & Data Results & Data Vital Signs (Past 12 Hours) Vital Signs Temp Pulse Pulse Resp BP BP Pulse Ox 02/09/25 15:12 73 16 148/61 H 98 02/09/25 14:36 36.6 C 84 18 158/66 H 97 O2 Del Method 02/09/25 15:12 Room Air 02/09/25 14:36 Room Air Laboratory Results Abnormal lab results 02/09/25 Range/Units 15:44 RBC 3.33 L (4.70-6.10) M/uL Hgb 10.2 L (14.0-18.0) g/dl Hct 31.1 L (42.0-52.0) % RDW Std Deviation 49.7 H (36.4-46.3) fL RDW Coeff of Karolyn 14.6 H (11.5-14.5) % Christian # (Auto) 0.82 H (0.11-0.59) K/uL Chloride 109 H (98-107) mmol/L BUN 43 H (6-23) mg/dl Creatinine 1.43 H (0.6-1.4) mg/dl BUN/Creatinine Ratio 30.1 H (10-20) Glucose 140 H (70-99(Fasting)) mg/dl Alkaline Phosphatase 147 H (34-104) U/L 25-OH Vitamin D Total 19.3 L (30-100) ng/ml Diagnostic Findings XR chest 1V portable CLINICAL HISTORY: preop COMPARISON STUDY: 10/13/2024 FINDINGS: Stable. Heart size and pulmonary vasculature are normal. No effusion or consolidation. IMPRESSION: No acute findings. Medications Administered ER Medications Given: None Code Status & VTE Plan Code Status Do not resuscitate in setting of cardiac arrest, All other treatment including intubation and ventilation in setting of respiratory arrest VTE Prophylaxis Plan VTE Prophylaxis will be ordered: Yes PG Care Time/CCT Total # of Minutes Spent Total Time Spent with Patient: Total time spent is greater than 50% in coordination of care (as documented) at patient's floor/unit and/or counseling patient: Coding Level of Care Code 58558 INT INP/OBS CARE 3/75MIN Diagnoses Fracture of femoral neck, right S72.001A Right calf pain M79.661 Nonrheumatic aortic valve stenosis I35.0 Cardiac valve disease etiology: nonrheumatic Coronary artery 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
[2025-02-09 16:10] LABS: Basophils # (auto) 0.06 K/uL (0.00-0.20); Basophils % (auto) 0.8 %; Eosinophils # (auto) 0.26 K/uL (0.00-0.50); Eosinophils % (auto) 3.3 %; Hematocrit (blood only) 31.1 % (42.0-52.0); Hemoglobin 10.2 g/dl (14.0-18.0); Immature Granulocytes # (auto) 0.06 K/uL (0.01-0.20); Immature Granulocytes % (auto) 0.8 %; Lymphocytes # (auto) 2.04 K/uL (1.20-3.40); Lymphocytes % (auto) 25.6 %; Mean Corpuscular Hemoglobin 30.6 pg (25.0-34.0); Mean Corpuscular Hgb Conc 32.8 g/dL (32.0-36.0); Mean Corpuscular Volume 93.4 fL (80.0-100.0); Monocytes # (auto) 0.82 K/uL (0.11-0.59); Monocytes % (auto) 10.3 %; Neutrophils # (auto) 4.74 K/uL (1.40-6.50); Neutrophils % (auto) 59.2 %; Platelet Count 319 K/uL (130-400); RDW Coefficient of Variation 14.6 % (11.5-14.5); RDW Standard Deviation 49.7 fL (36.4-46.3); Red Blood Count 3.33 M/uL (4.70-6.10); White Blood Count 7.98 K/ul (4.8-10.8)
[2025-02-09 16:29] LABS: Albumin Globulin Ratio 1.3 (0.9-2); Albumin Level 3.6 gm/dl (3.4-5.0); BUN Creatinine Ratio 30.1 (10-20); Bilirubin,Total 0.3 mg/dl (0.2-1.0); Creatinine Clr Calc Pharmacy 34.6 ml/min; Globulin 2.7 gm/dl (2.5-4.0); Potassium 4.2 mmol/L (3.5-5.1); Total Protein 6.3 gm/dl (6.0-8.3)
[2025-02-09 16:34] LABS: INR 0.9 (0.9-1.1); Partial Thromboplastin Ratio 1.1; Partial Thromboplastin Time 30 Seconds (21-31); Prothrombin Time 10.2 Seconds (9.0-12.0)
--- NOTE | 2025-02-09 17:59 | Ultrasound Report ---
Clinical History: Pain Technique: Venous ultrasound evaluation was performed utilizing grayscale, color Doppler and wave form evaluation. Images were also obtained with and without compression Findings: Evaluation was limited due to patient discomfort The visualized right common femoral, superficial femoral, popliteal, and visualized calf veins demonstrate normal anechoic lumens with full compressibility. Normal flow is seen on color Doppler images. Expected waveforms were produced with augmentation maneuvers Impression: No definite evidence of right leg deep venous thrombosis Electronically signed by Boo Mitchell 02-09-2025 5:58 PM
[2025-02-09] MEDS ORDERED: FLUTICASONE PROPIONATE NA SPR 16 GM BTL NAE PRN (20:03)
[2025-02-09] MEDS ORDERED: bisacodyL 10 MG SUPP PR PRN (20:03)
[2025-02-09] MEDS ORDERED: MAGNESIUM HYDROXIDE SUSP 30 ML UDC PO PRN (20:03)
[2025-02-09] MEDS: TAMSULOSIN HCL 0.4 MG CAP PO SCH (20:36)
[2025-02-09] MEDS: PANTOprazole 40 MG TAB PO SCH (20:36)
[2025-02-09] MEDS: PANCREAZE (LIPASE 10,500U) CAP PO SCH (20:36)
[2025-02-09] MEDS: ATORVASTATIN 40 MG TAB PO SCH (20:37)
[2025-02-10] MEDS: ACETAMINOPHEN 325 MG TAB PO PRN (04:05)
[2025-02-10] MEDS: LACTATED RINGER'S 1,000 ML IV SCH (06:05)
[2025-02-10 07:51] LABS: Basophils # (auto) 0.04 K/uL (0.00-0.20); Basophils % (auto) 0.6 %; Eosinophils # (auto) 0.29 K/uL (0.00-0.50); Eosinophils % (auto) 4.2 %; Hematocrit (blood only) 33.2 % (42.0-52.0); Hemoglobin 10.7 g/dl (14.0-18.0); Immature Granulocytes # (auto) 0.04 K/uL (0.01-0.20); Immature Granulocytes % (auto) 0.6 %; Lymphocytes # (auto) 1.63 K/uL (1.20-3.40); Lymphocytes % (auto) 23.8 %; Mean Corpuscular Hemoglobin 30.1 pg (25.0-34.0); Mean Corpuscular Hgb Conc 32.2 g/dL (32.0-36.0); Mean Corpuscular Volume 93.5 fL (80.0-100.0); Mean Platelet Volume 9.8 fL (9.4-12.4); Monocytes # (auto) 0.69 K/uL (0.11-0.59); Monocytes % (auto) 10.1 %; Neutrophils # (auto) 4.16 K/uL (1.40-6.50); Neutrophils % (auto) 60.7 %; Platelet Count 270 K/uL (130-400); RDW Coefficient of Variation 14.6 % (11.5-14.5); RDW Standard Deviation 50.4 fL (36.4-46.3); Red Blood Count 3.55 M/uL (4.70-6.10); White Blood Count 6.85 K/ul (4.8-10.8)
[2025-02-10] MEDS: CYANOCOBALAMIN (B-12) 500 MCG TABLET PO SCH (08:03)
[2025-02-10] MEDS: CHOLECALCIFEROL 25 MCG (1000 UNITS) TAB PO SCH (08:04)
[2025-02-10] MEDS: MONTELUKAST SODIUM 10 MG TABLET PO SCH (08:04)
[2025-02-10] MEDS: allopurinoL 100 MG TAB PO SCH (08:04)
[2025-02-10] MEDS: MAGNESIUM OXIDE 400 MG TAB PO SCH (08:04)
[2025-02-10] MEDS: OXYBUTYNIN CHLORIDE XL 5 MG TABCR PO SCH (08:04)
[2025-02-10] MEDS: FLUTICASONE/VILANTEROL 100/25MCG 14 PUFFS/INHALER INH SCH (08:06)
[2025-02-10 08:34] LABS: BUN Creatinine Ratio 26.5 (10-20); Calcium 8.8 mg/dl (8.6-10.3); Creatinine Clr Calc Pharmacy 32.8 ml/min; Potassium 4.4 mmol/L (3.5-5.1)
--- NOTE | 2025-02-10 09:48 | Electrocardiogram Report ---
Test Reason : Blood Pressure : */* mmHG Vent. Rate : 72 BPM Atrial Rate : 72 BPM P-R Int : 176 ms QRS Dur : 76 ms QT Int : 382 ms P-R-T Axes : 23 -1 44 degrees QTcB Int : 418 ms Sinus rhythm with occasional Premature ventricular complexes Poor R wave progression, consider anterior MO vs. lead placement vs. LVH Abnormal ECG When compared with ECG of 13-Oct-2024 09:18, Premature ventricular complexes are now Present Premature supraventricular complexes are no longer Present Borderline criteria for Inferior infarct are no longer Present Confirmed by Scout Zarate ([id number]) on 02/10/2025 9:48:27 AM Referred By: Mateusz Castro Confirmed By: Scout Zarate
--- NOTE | 2025-02-10 10:32 | Hospitalist Progress Note ---
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: (5) Pancreatic insufficiency: Plan 84 year old male presents to the ER with right hip pain after outpatient CT hip showing fracture #Fracture of right femoral neck Found to have right femoral neck surgery Revised cardiac risk index 1: 6.0% risk of major cardiac event He is medically optimized for surgery at this time, hold losartan pre- operatively Plan is for surgery today Appreciate orthopedics Vitamin D level, consider DEXA scan as outpatient Acetaminophen only for pain relief #Right calf pain Suspect from just disuse of muscles and not using his right leg, r/o DVT with US doppler #Coronary artery disease / moderate aortic stenosis / History of HFpEF (takes PRN Lasix) Hx bypass in 2019 Previously on atenolol, Recent cardiology note says he is on a BB although this was discontinued due to CKD. 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 #CKD stage 3 - At baseline, continue to monitor with AM labs #BPH - continue tamsulosin #GERD - continue pantoprazole 40mg PO BID #Asthma - no acute exacerbation, continue his maintenance inhalers or hospital formulary equivalent #Normocytic anemia - at baseline VTE Prophylaxis - per orthopedics post operatively, deferred pre-operatively Diet - regular, Disposition - admit to med/surg Admission and Anticipated Discharge Date Admission Date: February 09, 2025 Subjective patient seen and examined, lying quietly in bed, no pain unless he moves Review of Systems Review of Systems: All systems reviewed are negative, apart from the ones contained in the history. Physical Exam Physical Exam: The patient is awake, alert and oriented 3, well developed and well nourished, normocephalic and atraumatic, lying in bed and in no acute distress. HEENT--PERRL, EOMI, mucous membranes and oropharynx mildly dry Neck--supple. No JVD. No bruits. Thyroid normal, trachea midline, no adenopathy. Heart--normal S1 and S2. No murmurs, rubs or gallops. Lungs--clear bilaterally, no respiratory distress, no accessory muscle use. Abdomen--normal bowel sounds and soft. Extremities--no cyanosis or clubbing. No edema. Dermatologic--normal skin turgor, normal color, no abnormal lymph nodes, no rash. Neurologic--cranial nerves II through XII grossly intact. Rheumatologic-- range of motion limited by pain Psychiatric--normal affect. Results & Data Results & Data Vital Signs (Past 12 Hours) Vital Signs Temp Pulse Resp BP Pulse Ox O2 Del Method 02/10/25 07:27 97.9 F 66 18 161/67 H 97 Room Air PG Care Time/CCT Total # of Minutes Spent Total Time Spent with Patient: Total time spent is greater than 50% in coordination of care (as documented) at patient's floor/unit and/or counseling patient: Coding Level of Care Code 57403 SUB INP/OBS CARE 2/35MIN Diagnoses Fracture of femoral neck, right S72.001A Right calf pain M79.661 Nonrheumatic aortic valve stenosis I35.0 Cardiac valve disease etiology: nonrheumatic Coronary artery disease of bypass graft of [place] heart with stable angina pectoris I25.708 Pancreatic insufficiency K86.89 Time Spent (min) 35 (3) Aortic stenosis Cardiac valve disease etiology: nonrheumatic Qualified Code(s): I35.0 - Nonrheumatic aortic (valve) stenosis
[2025-02-10] MEDS ORDERED: PROPOFOL IV EMULSION 10 MG/ML 20 ML VIAL IV ONE ×2 (13:32→13:59)
[2025-02-10] MEDS ORDERED: MIDAZOLAM HCL 1 MG/ML 2ML VIAL ONE (13:32)
[2025-02-10] MEDS ORDERED: LIDOCAINE 2% 2 ML VIAL/AMP(20MG/ML) INFIL ONE ×2 (13:35→14:00)
--- NOTE | 2025-02-10 13:39 | Anesthesiology Consultation ---
Date of Service February 10, 2025 Assessment & Plan Chart Review Chart Review: Acceptable Risk for Surgery and Patient NOT seen in Pre Admission Testing Consults Requested none History Surgery Operation Date: 02/10/25 07:00 Proposed Procedures p Right Cemented Bipolar Hip Arthroplasty - Mateusz Castro MD Height/Weight Height: 5 ft 5 in Weight: 73.7 kg Allergies Allergy/AdvReac Type Severity Reaction Status Date / Time house dust Allergy Unknown SNEEZING, Verified 02/04/25 14:10 CONGESTION pollen extracts Allergy Unknown SNEEZING, Verified 02/04/25 14:10 CONGESTION red dye Allergy Unknown Hives Verified 02/04/25 14:10 Medications Home Medications Medication Instructions Recorded Confirmed Last Taken aspirin 81 mg tablet,delayed 81 mg PO QAM #90 tabs 11/07/20 02/09/25 02/09/25 release (Ecotrin Low Strength) albuterol sulfate 90 mcg/actuation 2 puff inhalation Q4H PRN 09/06/21 02/09/25 02/16/24 08:00 aerosol inhaler (Ventolin HFA) shortness of breath #8.5 grams cholecalciferol (vitamin D3) 25 25 mcg PO QAM 12/28/21 02/09/25 02/09/25 mcg (1,000 unit) capsule mecobalamin (vitamin B12) 500 mcg 500 mcg PO QAM 09/13/23 02/09/25 02/09/25 chewable tablet fluticasone 100 mcg-salmeterol 50 1 inh inhalation BID 10/08/23 02/09/25 02/09/25 mcg/dose blistr powdr for inhalation (Advair Diskus) empagliflozin 10 mg tablet 10 mg PO DAILY #30 tabs 08/06/24 02/09/25 02/09/25 (Jardiance) solifenacin 5 mg tablet (Vesicare) 5 mg PO QAM 08/20/24 02/09/25 02/09/25 tamsulosin 0.4 mg capsule 0.4 mg PO HS 08/20/24 02/09/25 1 Day Ago ~02/08/25 olmesartan 5 mg tablet (Benicar) 5 mg PO QAM 08/31/24 02/09/25 02/09/25 fluticasone propionate 50 2 spray intranasal UD PRN 09/03/24 02/09/25 Unknown mcg/actuation nasal Congestion #16 grams spray,suspension (Allergy Relief (fluticasone)) epoetin ebony 40,000 unit/mL 40,000 unit subcut .Qmonth 10/06/24 02/09/25 Unknown injection solution (Procrit) plprvx-[id number]-[id number] 1 cap PO AC #90 caps 10/21/24 02/09/25 02/09/25 36,000-114,000-180,000 unit capsule,delay rel (Creon) magnesium oxide 400 mg PO DAILY 10/23/24 02/09/25 02/09/25 atorvastatin 80 mg tablet 80 mg PO HS #90 tabs 11/13/24 02/09/25 Unknown allopurinol 100 mg tablet 100 mg PO QAM #90 tabs 11/17/24 02/09/25 02/09/25 montelukast 10 mg tablet 10 mg PO QAM #90 tabs 11/17/24 02/09/25 02/09/25 furosemide 20 mg tablet (Lasix) 20 mg PO QAM PRN edema/swelling 12/11/24 02/09/25 2 Days Ago #30 tabs ~02/07/25 Lift Chair #1 ea 12/23/24 02/09/25 Unknown pantoprazole 40 mg tablet,delayed 40 mg PO BID #60 tabs 01/05/25 02/09/25 02/09/25 release Active Medications Generic Name Dose Route Start Last Admin Trade Name Freq PRN Reason Stop Dose Admin Acetaminophen 650 mg 02/09/25 20:03 02/10/25 04:05 Acetaminophen 325 Mg Tab PO 03/11/25 20:02 650 mg Q6H PRN Administration Pain & Pre PT Allopurinol 100 mg 02/10/25 09:00 02/10/25 08:04 Allopurinol 100 Mg Tab PO 03/12/25 08:59 100 mg QAM FARIDA Administration Lipase/Protease/Amylase 1 cap 02/09/25 20:15 02/10/25 11:40 Pancreaze (Lipase 10,500u) Cap PO 03/11/25 20:14 1 cap AC FARIDA Administration Atorvastatin Calcium 80 mg 02/09/25 21:00 02/09/25 20:37 Atorvastatin 40 Mg Tab PO 03/11/25 20:59 80 mg HS FARIDA Administration Cyanocobalamin 500 mcg 02/10/25 09:00 02/10/25 08:03 Cyanocobalamin (B-12) 500 Mcg Tablet PO 03/12/25 08:59 500 mcg QAM FARIDA Administration Fluticasone/Vilanterol 1 puffs 02/10/25 09:00 02/10/25 08:06 Fluticasone/Vilanterol 100/25mcg 14 Puffs/Inhaler INH 03/12/25 08:59 1 puffs DAILY FARIDA Administration Protocol Lactated Ringer's 1,000 mls @ 125 mls/hr 02/10/25 06:00 02/10/25 06:05 Lr IV 02/10/25 13:59 125 mls/hr .Q8H FARIDA Administration Magnesium Oxide 400 mg 02/10/25 09:00 02/10/25 08:04 Magnesium Oxide 400 Mg Tab PO 03/12/25 08:59 400 mg DAILY FARIDA Administration Montelukast Sodium 10 mg 02/10/25 09:00 02/10/25 08:04 Montelukast Sodium 10 Mg Tablet PO 03/12/25 08:59 10 mg QAM FARIDA Administration Oxybutynin Chloride 5 mg 02/10/25 09:00 02/10/25 08:04 Oxybutynin Chloride Xl 5 Mg Tabcr PO 03/12/25 08:59 5 mg QAM FARIDA Administration Protocol Pantoprazole Sodium 40 mg 02/09/25 21:00 02/10/25 09:04 Pantoprazole 40 Mg Tab PO 03/11/25 20:59 40 mg BID FARIDA Administration Tamsulosin HCl 0.4 mg 02/09/25 21:00 02/09/25 20:36 Tamsulosin Hcl 0.4 Mg Cap PO 03/11/25 20:59 0.4 mg HS FARIDA Administration Vitamin D 25 mcg 02/10/25 09:00 02/10/25 08:04 Cholecalciferol 25 Mcg (1000 Units) Tab PO 03/12/25 08:59 25 mcg QAM FARIDA Administration NPO Date Last Intake of Fluids: 02/09/25 Time Last Intake of Fluids: 23:00 Date Last Intake of Solids: 02/09/25 Time Last Intake of Solids: 18:00 Past Medical History Medical History Acute kidney injury superimposed on stage 3b chronic kidney disease Prostate cancer (10/02/17) Gastric ulcer reason for upcoming egd. Macular degeneration injections for upcoming 12/12/23. Gastrointestinal complaint hx EGD blocked bile duct/stent Sep 2023. History of gout Fatigue easily fatigue, little energy for the last year -- currently anemic (per patient). History of COVID-19 06/2022: moderate cold symptoms. no current issues. Anemia Hyperlipidemia Pancreatic cancer dx 06/2022. whipple procedure in 08/[address] [facility]. no chemo/no radiation needed. Atrial fibrillation controlled with medication. no cardioversion in the past. Urinary incontinence History of prostate cancer (~09/2017) treated with radiation treatments. no surgery. no current issues. Carotid artery plaque Obstructive sleep apnea of adult cpap at night HTN (hypertension) Past Family History Family History Sister Breast cancer Father Coronary heart disease Congestive heart disease COPD (chronic obstructive pulmonary disease) Mother Pancreas cancer Brother Colorectal cancer Pancreas cancer Sister Coronary heart disease Stroke Sister Hypertension Other Diabetes Heart disease Lung disease No family history of adverse response to anesthesia Denies family history of Prostate cancer Past Surgical History Surgical History History of esophagogastroduodenoscopy (EGD) History of cardiac cath prior to open heart sx. History of cholecystectomy History of ERCP 05/2022 History of Whipple procedure (~08/2022) done at [facility] Hx of colonoscopy Hx of hand surgery repair of laceration on left hand due to saw accident Hx of rotator cuff surgery Right X 1, Left X2 [place]G [place] [facility] [facility] [place] [address] Rolle. History of nephrectomy Right 1963 - damage from kidney stones Social History Smoking Status: Former smoker tobacco type: cigarettes Do You Dip or Chew Tobacco: No Hx Alcohol Use: No Hx Substance Use: No substance use type: does not use Physical Exam Vital Signs Last Vital Signs Temp 36.7 C 02/10/25 13:14 Pulse 71 02/10/25 13:14 Resp 20 02/10/25 13:14 BP 153/85 H 02/10/25 13:14 Pulse Ox 96 02/10/25 13:14 O2 Del Method Room Air 02/10/25 13:14 Testing Laboratory Results 02/10/25 06:59 02/10/25 06:59 PT 10.2 Seconds (9.0-12.0) 02/09/25 15:44 INR 0.9 (0.9-1.1) 02/09/25 15:44 APTT 30 Seconds (21-31) 02/09/25 15:44 Blood Type O Positive 02/09/25 21:47 Antibody Screen NEGATIVE 02/09/25 21:47
[2025-02-10] MEDS ORDERED: ROCURONIUM BROMIDE 10 MG/ML 5 ML VIAL IV ONE (14:01)
[2025-02-10] MEDS ORDERED: fentaNYL citrate PF 100 MCG/2 ML VIAL ONE ×2 (14:01→15:19)
--- NOTE | 2025-02-10 14:33 | History & Physical Bridge Note ---
Date of Service February 10, 2025 History & Physical Bridge Note I have examined the patient, reviewed the History & Physical and in the interval since the performance of the History & Physical I have noted the following changes of clinical significance: no changes noted
[2025-02-10] MEDS: ceFAZolin 2,000 MG/15 ML IV PUSH IV ONE (14:46)
[2025-02-10] MEDS: ceFAZolin 2000MG 2,000 MG/15 ML SYR IV ONE (14:46)
[2025-02-10] MEDS: TRANEXAMIC ACID / 0.7% NACL 1000MG/100ML BAG IV ONE (14:57)
[2025-02-10] MEDS: TRANEXAMIC ACID / 0.7% NACL 1,000 MG/100 ML BAG IV ONE (14:57)
[2025-02-10] MEDS ORDERED: ONDANSETRON INJ 2 MG/ML 2 ML VIAL ONE (15:20)
[2025-02-10] MEDS ORDERED: DEXAMETHASONE SOD INJ 4 MG/ML VIAL ONE (15:20)
[2025-02-10] MEDS ORDERED: PHENYLEPHRINE HCL 10 MG/ML VIAL ONE (15:32)
[2025-02-10] MEDS ORDERED: ePHEDrine sulfate 50 MG/5 ML SYR ONE (15:32)
[2025-02-10] MEDS: BUPIVACAINE/EPINEPHRINE 0.5% MPF 1:200,000 30 ML VIAL ONE (15:59)
[2025-02-10] MEDS ORDERED: NEOSTIGMINE METHYLSULFATE 1 MG/ML 10ML VIAL ONE (16:01)
[2025-02-10] MEDS ORDERED: GLYCOPYRROLATE 0.2 MG/ML VIAL ONE (16:01)
--- NOTE | 2025-02-10 16:18 | Operative Report ---
PG Post Operative Report Pre & Post Diagnosis Operation Date: 02/10/25 07:00 Pre-Op Diagnosis: Displaced subacute fracture of femoral neck, right Post-Op Diagnosis: Displaced subacute fracture of femoral neck, right I identified the patient and participated in the time-out.: Yes Procedure Operation Date: 02/10/25 07:00 Actual Procedures p Right Cemented Bipolar Hip Arthroplasty(Right) - Mateusz Castro MD Surgeon Mateusz Castro MD Drywall Taper Helper Jake Brooks PA-C Estimated Blood Loss 100 Findings Consistent with Post-Op Diagnosis Specimens Right femoral head sent for pathology Anesthesia Type General Complications none Disposition Accompanied Patient To Recovery: No Indications The patient is an 84-year-old gentleman with multiple medical comorbidities who sustained several falls over the past 2 months. He has had persistent pain and discomfort since his initial fall about 2 months ago. That he had x-rays done which revealed fairly normal hip. Over time he developed increased pain discomfort and decreased ability to ambulate. Recent x-rays show displaced femoral neck fracture. The patient was medically optimized and indicated for surgical treatment. Description of Procedure Operative implants consists of: 1. [employer] size 9 echo high offset lateral of stem. 2. 9 mm centralizer. 3. 0/28 mm head with a 49 mm bipolar shell/liner. 4. Small cement restrictor. The patient was taken the operating, identified, and placed on the operating table in the supine position. All contact areas were appropriately padded. A general anesthetic was implemented by the anesthesia team. The patient was then placed in the left lateral cubitus position. An axillary roll was placed. A stool Birkett position was used for positioning. The right hip and leg were then scrubbed with Hibiclens, prepped with ChloraPrep and draped in usual sterile fashion. A posterolateral approach to the right hip was then performed to a curvilinear incision centered over the greater trochanter. Sharp dissection was got through subcutaneous tissue down to level of the IT band gluteal fascia. The IT band gluteal fascia incised longitudinally in line with skin incision. The underlying greater bursa was excised. The piriformis and external rotators along with the posterior joint capsule were then released from the posterior aspect of the hip as a single layer. I did make a T in the capsule to allow for later repair. The hip was internally rotated. A femoral neck osteotomy cut was made below the fracture line approximately 15 mm above the lesser trochanter. The remaining femoral neck and femoral head were removed. The acetabulum was sized to a size 49. Attention drawn the femur. The proximal femur was entered with cookie-cutter followed by canal finder and lateralizing reamer. I then broached beginning with size 7 progressing up to a 9. We trialed the hip and then +0 articular ball provided excellent stability and appropriate soft tissue tension equal leg lengths. We elect to place these implants. All trial implants were removed. A small cement restrictor was placed down the canal. The canal was irrigated and dried. A double batch [place] G cement was mixed. I then injected the canal with the cement and a size 9 echo high offset femoral stem was placed. All extraneous cement was removed. We held this still until the cement hardened. A +5/28 mm articular ball and a 49 mm bipolar shell and liner were placed. The hip was located and once again found to be stable. Attention drawn toward closing. The wound was irrigated coconuts of pulsatile lavage solution I did inject locally with 60 cc of half percent Marcaine with epinephrine. The posterior capsule was repaired with #2 Tycron suture. The IT band gluteal fascia was then closed #1 PDS suture running fashion. Subcutaneous tissues then closed in 2 layers with deep layer #1 Vicryl suture in the subcutaneous tissues with 2-0 Dexon suture in a buried interrupted fashion. Skin was closed with skin marissa. The leg was then cleaned and dried and sterile dressing with Xeroform, 4 x 4's, ABD pad and foam tape was applied. The patient then brought out of general esthesia and transferred to the recovery room in stable condition. Patient tolerated the procedure well and there were no complications. Jake Brooks, my physician medical laboratory assistant, was present for the entire procedure. His assistance was essential and required for appropriate patient positioning, prepping and draping, surgical exposure, performing the technical details of the operation, placement the implants, closure of the wound, and placement of the sterile bandage. I attest to the content of the Intraoperative Record and any orders documented therein. Any exceptions are noted below.
--- NOTE | 2025-02-10 17:40 | Anesthesiology Progress Note ---
Date of Service February 10, 2025 Anesthesia Post Procedure Vital Signs Vital Signs: Temp Pulse Pulse Pulse Resp BP BP 02/10/25 17:19 62 18 02/10/25 17:10 69 18 02/10/25 17:00 36.5 C 86 20 02/10/25 16:50 92 H 16 02/10/25 16:40 105 H 18 02/10/25 16:30 103 H 16 02/10/25 16:23 36.1 C L 108 H 16 02/10/25 13:14 36.7 C 71 20 02/10/25 07:27 36.6 C 66 18 161/67 H 02/09/25 20:00 36.5 C 73 18 02/09/25 19:41 63 18 124/52 L 02/09/25 18:48 67 21 BP Pulse Ox O2 Del Method O2 Flow Rate 02/10/25 17:19 109/50 L 97 Room Air 02/10/25 17:10 104/48 L 95 Room Air 02/10/25 17:00 112/49 L 95 Room Air 02/10/25 16:50 122/67 99 Oxymask 2 02/10/25 16:40 130/58 L 97 Oxymask 2 02/10/25 16:30 118/51 L 97 Oxymask 4 02/10/25 16:23 114/50 L 97 Oxymask 6 02/10/25 13:14 153/85 H 96 Room Air 02/10/25 07:27 97 Room Air 02/09/25 20:00 145/56 H 99 Room Air 02/09/25 19:41 95 Room Air 02/09/25 18:48 142/59 H 97 Room Air Pain Intensity Right Hip: Pain Intensity: 7 Transfer of Care Handoff Completed per policy Notes Mental Status: alert / awake / arousable and participated in evaluation Patient Amnestic to Procedure: Yes Nausea / Vomiting: adequately controlled Pain: adequately controlled Airway Patency, RR, SpO2: stable & adequate BP & HR: stable & adequate Hydration State: stable & adequate Anesthetic Complications: no major complications apparent
--- NOTE | 2025-02-10 18:01 | XRay Report ---
EXAM: XR hip RT min 2V CLINICAL HISTORY: Post-Operative implant position. TECHNIQUE: X-ray images of the right hip joints and pelvis were obtained in anteroposterior (AP) and cross-table lateral projection. COMPARISON: 12/29/2024. FINDINGS: Pelvic Bones: No evidence of fractures, dislocations, or significant osseous lesions. Acetabular structures appear normal and intact. No signs of acetabular fracture or dysplasia. Right-sided femoral metallic prosthesis Hip Joints: Hip joint shows a normal metallic prosthesis with normal articulation Soft Tissues: Visualized soft tissues show periarticular air lucency(post-op) and skin surgical clips Additional Findings: No other significant abnormalities noted. IMPRESSION: Right-sided metallic prosthesis with normal articulation. (Interval new) Please correlate clinically. Disclaimer: A subtle bone abnormality or fracture may not be readily apparent on X-rays, thus clinical correlation and further imaging including follow-up CT, MRI, or follow-up X-rays are advised as needed. Electronically signed by Earnest Foote 02-10-2025 6:00 PM
[2025-02-10] MEDS: ASPIRIN 81 MG ECTAB PO SCH (20:38)
[2025-02-10] MEDS: ACETAMINOPHEN 1,000 MG/100 ML VIAL IV PRN (22:02)
[2025-02-11] MEDS: ceFAZolin 1000MG 1,000 MG/7.5 ML SYR IV SCH (00:07)
[2025-02-11 08:09] LABS: Basophils # (auto) 0.02 K/uL (0.00-0.20); Basophils % (auto) 0.2 %; Eosinophils # (auto) 0.01 K/uL (0.00-0.50); Eosinophils % (auto) 0.1 %; Hematocrit (blood only) 30.9 % (42.0-52.0); Hemoglobin 10.1 g/dl (14.0-18.0); Immature Granulocytes % (auto) 0.9 %; Lymphocytes # (auto) 0.69 K/uL (1.20-3.40); Lymphocytes % (auto) 6.4 %; Mean Corpuscular Hgb Conc 32.7 g/dL (32.0-36.0); Mean Corpuscular Volume 91.7 fL (80.0-100.0); Mean Platelet Volume 9.8 fL (9.4-12.4); Monocytes # (auto) 0.75 K/uL (0.11-0.59); Neutrophils % (auto) 85.4 %; Platelet Count 313 K/uL (130-400); RDW Coefficient of Variation 14.4 % (11.5-14.5); Red Blood Count 3.37 M/uL (4.70-6.10); White Blood Count 10.77 K/ul (4.8-10.8)
[2025-02-11 08:25] LABS: BUN Creatinine Ratio 25.9 (10-20); Creatinine Clr Calc Pharmacy 34.6 ml/min; Potassium 4.7 mmol/L (3.5-5.1)
[2025-02-11] MEDS: LOSARTAN POTASSIUM 25 MG TAB PO SCH (08:31)
--- NOTE | 2025-02-11 08:37 | Orthopedic Progress Note ---
Date of Service February 11, 2025 Assessment & Plan (1) Closed right hip fracture: POD 1 from a right hip hemiarthroplasty by Dr. Castro -Markell, SCDs and anticoagulation as per hospitalist team for DVT prophylaxis -Posterior hip precautions -Please work with PT/OT for mobilization as well as consideration of posterior hip precautions. -Discharge as per hospitalist team. -Dressing change on postop day 2. Will prefer to keep the dressing on until he is discharged. -Follow-up as an outpatient with Dr. Castro in 2 to 3 weeks for initial postop visit and staple removal. Subjective Operation Date: 02/10/25 07:00 Actual Procedures p Right Cemented Bipolar Hip Arthroplasty(Right) - Mateusz Castro MD Postop day 1 from a right cemented bipolar hip arthroplasty due to a hip fracture by Dr. Castro. Patient is doing well. He is sitting on the edge of his hospital bed today. States that he already has been ambulating with PT/OT. States he is doing well. He has been doing the right lower extremity exercises given on the pamphlet. He is using his abduction pillow. States that his pain is under control. No other question or concerns today. States that he lives at home with his . Review of Systems All systems reviewed & are unremarkable except as noted in HPI & below. Physical Exam General: Alert and oriented. No acute distress. Right lower extremity: Dressing intact without saturation. It is dry. There is no rolling of the ends of the dressing. He is sitting comfortably around 90 degrees at the edge of his hospital bed. He has very good range of motion of the right knee, right foot and right ankle. Neurovascular intact. No significant edema of the right lower extremity. Results & Data Results & Data Laboratory Results . Diagnostic Findings . PG Care Time/CCT Total # of Minutes Spent Total Time Spent with Patient: Total time spent is greater than 50% in coordination of care (as documented) at patient's floor/unit and/or counseling patient: Coding Level of Care Code 06616 Post Operative Follow-Up Diagnoses Closed right hip fracture S72.001A Encounter type: initial encounter (1) Closed right hip fracture Encounter type: initial encounter Qualified Code(s): S72.001A - Fracture of unspecified part of neck of right femur, initial encounter for closed fracture
[2025-02-11] MEDS: traMADol HCL 50 MG TABLET PO PRN (09:47)
--- NOTE | 2025-02-11 09:55 | Hospitalist Progress Note ---
Date of Service February 11, 2025 Assessment & Plan (1) Fracture of femoral neck, right: (2) Right calf pain: (3) Aortic stenosis: (4) Coronary artery disease of bypass graft of [place] heart with stable angina pectoris: (5) Pancreatic insufficiency: Plan 84 year old male presents to the ER with right hip pain after outpatient CT hip showing fracture #Fracture of right femoral neck Found to have right femoral neck surgery he is now day 1 s/p Right cemented bipolar hip arthroplasty Appreciate orthopedics pain is under fair control Acetaminophen and tramadol for pain relief #Right calf pain Suspect from just disuse of muscles and not using his right leg, r/o DVT with US doppler #Coronary artery disease / moderate aortic stenosis / History of HFpEF (takes PRN Lasix) Hx bypass in 2019 Previously on atenolol, Recent cardiology note says he is on a BB although this was discontinued due to CKD. 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 #CKD stage 3 - At baseline, continue to monitor with AM labs #BPH - continue tamsulosin #GERD - continue pantoprazole 40mg PO BID #Asthma - no acute exacerbation, continue his maintenance inhalers or hospital formulary equivalent #Normocytic anemia - at baseline VTE Prophylaxis - per orthopedics post operatively, deferred pre-operatively Diet - regular, Disposition - awaiting PT eval Admission and Anticipated Discharge Date Admission Date: February 09, 2025 Subjective patient seen and examined, stable post surgery, complains of 6/10 pain Review of Systems Review of Systems: All systems reviewed are negative, apart from the ones contained in the history. Physical Exam Physical Exam: The patient is awake, alert and oriented 3, well developed and well nourished, normocephalic and atraumatic, lying in bed and in no acute distress. HEENT--PERRL, EOMI, mucous membranes and oropharynx mildly dry Neck--supple. No JVD. No bruits. Thyroid normal, trachea midline, no adenopathy. Heart--normal S1 and S2. No murmurs, rubs or gallops. Lungs--clear bilaterally, no respiratory distress, no accessory muscle use. Abdomen--normal bowel sounds and soft. Extremities--no cyanosis or clubbing. No edema. Dermatologic--normal skin turgor, normal color, no abnormal lymph nodes, no rash. Neurologic--cranial nerves II through XII grossly intact. Rheumatologic-- range of motion limited by pain Psychiatric--normal affect. Results & Data Results & Data Vital Signs (Past 12 Hours) Vital Signs Temp Pulse Resp BP Pulse Ox O2 Del Method 02/11/25 07:26 97.9 F 89 16 154/66 H 98 Room Air 02/11/25 03:05 97.5 F L 84 18 119/66 96 Room Air 02/10/25 22:00 97.3 F L 89 16 123/66 96 Room Air PG Care Time/CCT Total # of Minutes Spent Total Time Spent with Patient: Total time spent is greater than 50% in coordination of care (as documented) at patient's floor/unit and/or counseling patient: Coding Level of Care Code 27807 SUB INP/OBS CARE 2/35MIN Diagnoses Fracture of femoral neck, right S72.001A Right calf pain M79.661 Nonrheumatic aortic valve stenosis I35.0 Cardiac valve disease etiology: nonrheumatic Coronary artery disease of bypass graft of [place] heart with stable angina pectoris I25.708 Pancreatic insufficiency K86.89 Time Spent (min) 35 (3) Aortic stenosis Cardiac valve disease etiology: nonrheumatic Qualified Code(s): I35.0 - Nonrheumatic aortic (valve) stenosis
--- NOTE | 2025-02-12 07:42 | Orthopedic Progress Note ---
Date of Service February 12, 2025 Assessment & Plan (1) S/P total right hip arthroplasty: Plan: 84-year-old gentleman with multiple medical comorbidities now 2 days out from a right cemented bipolar hip arthroplasty for fracture. He is doing quite well. Pains controlled. Hips located. He is neurologically intact. Plan: 1. DVT prophylaxis including thigh-high teds, SCDs, aspirin twice a day. 2. PT/OT. Weight-bear as tolerated. Right total hip protocol. 3. Pain control. Doing well with current pain regiment. Pain is very manageable. 4. Medical management as per the medicine service. 5. Disposition. He is orthopedically okay for discharge anytime medically stable. I need to see him back in 2 to 3 weeks out from surgery date. 80 orthopedic questions can be directly [phone]. (2) Closed right hip fracture: Admission and Anticipated Discharge Date Admission Date: February 09, 2025 Subjective 84-year-old gentleman with multiple medical comorbidities now postop day 2 from right cemented bipolar hip arthroplasty for fracture. He is doing pretty well. Some pain but much improved. Is getting around pretty well. He is hoping to get placement. No chest pain or shortness of breath. Physical Exam Physical Exam: Physical nation was a pleasant elderly male. He sitting in his bedside chair this morning looks quite comfortable. Examination the right leg reveals the leg to be well aligned. Dressings clean dry and intact. Thigh is soft and supple. He is neurologically intact. Results & Data Laboratory Results Current labs are pending. (2) Closed right hip fracture Encounter type: initial encounter Qualified Code(s): S72.001A - Fracture of unspecified part of neck of right femur, initial encounter for closed fracture
[2025-02-12 08:03] LABS: Hematocrit (blood only) 31.5 % (42.0-52.0); Hemoglobin 10.4 g/dl (14.0-18.0); Mean Corpuscular Hemoglobin 30.3 pg (25.0-34.0); Mean Corpuscular Volume 91.8 fL (80.0-100.0); Mean Platelet Volume 9.9 fL (9.4-12.4); Platelet Count 301 K/uL (130-400); RDW Coefficient of Variation 14.5 % (11.5-14.5); RDW Standard Deviation 48.8 fL (36.4-46.3); Red Blood Count 3.43 M/uL (4.70-6.10); White Blood Count 8.01 K/ul (4.8-10.8)
[2025-02-12 08:18] LABS: Creatinine Clr Calc Pharmacy 34.2 ml/min; Potassium 4.7 mmol/L (3.5-5.1)
--- NOTE | 2025-02-12 11:16 | Hospitalist Progress Note ---
Date of Service February 12, 2025 Assessment & Plan (1) Fracture of femoral neck, right: (2) Right calf pain: (3) Aortic stenosis: (4) Coronary artery disease of bypass graft of [place] heart with stable angina pectoris: (5) Pancreatic insufficiency: Plan 84 year old male presents to the ER with right hip pain after outpatient CT hip showing fracture Right Arm pain: Some difficulty stretching out his right arm today Will obtain x ray to r/o dislocation or fracture of the shoulder #Fracture of right femoral neck Found to have right femoral neck surgery he is now day 2 s/p Right cemented bipolar hip arthroplasty Appreciate orthopedics pain is under fair control Acetaminophen and tramadol for pain relief #Right calf pain Suspect from just disuse of muscles and not using his right leg, r/o DVT with US doppler #Coronary artery disease / moderate aortic stenosis / History of HFpEF (takes PRN Lasix) Hx bypass in 2019 Previously on atenolol, Recent cardiology note says he is on a BB although this was discontinued due to CKD. 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 #CKD stage 3 - At baseline, continue to monitor with AM labs #BPH - continue tamsulosin #GERD - continue pantoprazole 40mg PO BID #Asthma - no acute exacerbation, continue his maintenance inhalers or hospital formulary equivalent #Normocytic anemia - at baseline VTE Prophylaxis - per orthopedics post operatively, deferred pre-operatively Diet - regular, Disposition - Needs rehab Admission and Anticipated Discharge Date Admission Date: February 09, 2025 Subjective patient seen and examined, stable post hip surgery, however, complained of difficulty stretching out his right arm Review of Systems Review of Systems: All systems reviewed are negative, apart from the ones contained in the history. Physical Exam Physical Exam: The patient is awake, alert and oriented 3, well developed and well nourished, normocephalic and atraumatic, lying in bed and in no acute distress. HEENT--PERRL, EOMI, mucous membranes and oropharynx mildly dry Neck--supple. No JVD. No bruits. Thyroid normal, trachea midline, no adenopathy. Heart--normal S1 and S2. No murmurs, rubs or gallops. Lungs--clear bilaterally, no respiratory distress, no accessory muscle use. Abdomen--normal bowel sounds and soft. Extremities--no cyanosis or clubbing. No edema. Dermatologic--normal skin turgor, normal color, no abnormal lymph nodes, no rash. Neurologic--cranial nerves II through XII grossly intact. Rheumatologic--normal range of motion. Psychiatric--normal affect. Results & Data Results & Data Vital Signs (Past 12 Hours) Vital Signs Temp Pulse Resp BP Pulse Ox O2 Del Method 02/12/25 08:02 98.1 F 80 16 144/65 H 97 Room Air PG Care Time/CCT Total # of Minutes Spent Total Time Spent with Patient: Total time spent is greater than 50% in coordination of care (as documented) at patient's floor/unit and/or counseling patient: Coding Level of Care Code 38744 SUB INP/OBS CARE 2/35MIN Diagnoses Fracture of femoral neck, right S72.001A Right calf pain M79.661 Nonrheumatic aortic valve stenosis I35.0 Cardiac valve disease etiology: nonrheumatic Coronary artery disease of bypass graft of [place] heart with stable angina pectoris I25.708 Pancreatic insufficiency K86.89 Time Spent (min) 35 (3) Aortic stenosis Cardiac valve disease etiology: nonrheumatic Qualified Code(s): I35.0 - Nonrheumatic aortic (valve) stenosis
--- NOTE | 2025-02-12 11:35 | XRay Report ---
XR shoulder RT min 2V routine CLINICAL HISTORY: pain COMPARISON: 10/13/2024 FINDINGS: There is anterior superior subluxation of the humeral head in relation to the glenoid. Thi s suggests chronic rotator cuff injury. No other acute fracture or dislocation seen. 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 IMPRESSION: Subluxation of the right shoulder suggesting chronic rotator cuff injury. ACT 112: Negative or not required by law. Electronically signed by: Phu Taylor M.D. 02/12/2025 11:33 AM
[2025-02-12] MEDS: POLYETHYLENE (MIRALAX) 17 GM PACK PO SCH (17:09)
[2025-02-13 07:32] LABS: Hematocrit (blood only) 27.9 % (42.0-52.0); Mean Corpuscular Hgb Conc 32.3 g/dL (32.0-36.0); Mean Platelet Volume 9.8 fL (9.4-12.4); Platelet Count 254 K/uL (130-400); RDW Coefficient of Variation 14.4 % (11.5-14.5); RDW Standard Deviation 48.6 fL (36.4-46.3)
[2025-02-13 07:43] LABS: Calcium 8.8 mg/dl (8.6-10.3); Potassium 4.8 mmol/L (3.5-5.1)
[2025-02-13 07:49] LABS: BUN Creatinine Ratio 29.7 (10-20); Creatinine Clr Calc Pharmacy 34.2 ml/min
[2025-02-13] MEDS: INFLUENZA VACC TS2024-25(65y+)/PF (IIV3) 0.5mL Syr IM ONE (11:11)
--- NOTE | 2025-02-13 11:14 | Hospitalist Progress Note ---
Date of Service February 13, 2025 Assessment & Plan (1) Fracture of femoral neck, right: (2) Right calf pain: (3) Aortic stenosis: (4) Coronary artery disease of bypass graft of [place] heart with stable angina pectoris: (5) Pancreatic insufficiency: Plan 84 year old male presents to the ER with right hip pain after outpatient CT hip showing fracture Right Arm pain: Some difficulty stretching out his right arm today X ray shoulder shows Subluxation of the right shoulder suggesting chronic rotator cuff injury. Ortho says follow up outpatient for shoulder injections However, I think he may benefit from relocation of the shoulder #Fracture of right femoral neck Found to have right femoral neck surgery he is now day 3 s/p Right cemented bipolar hip arthroplasty Appreciate orthopedics pain is under fair control Acetaminophen and tramadol for pain relief #Right calf pain Suspect from just disuse of muscles and not using his right leg, r/o DVT with US doppler #Coronary artery disease / moderate aortic stenosis / History of HFpEF (takes PRN Lasix) Hx bypass in 2019 Previously on atenolol, Recent cardiology note says he is on a BB although this was discontinued due to CKD. 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 #CKD stage 3 - At baseline, continue to monitor with AM labs #BPH - continue tamsulosin #GERD - continue pantoprazole 40mg PO BID #Asthma - no acute exacerbation, continue his maintenance inhalers or hospital formulary equivalent #Normocytic anemia - at baseline VTE Prophylaxis - per orthopedics post operatively, deferred pre-operatively Diet - regular, Disposition - Needs rehab Admission and Anticipated Discharge Date Admission Date: February 09, 2025 Subjective patient seen and examined, stable post hip surgery, Review of Systems Review of Systems: All systems reviewed are negative, apart from the ones contained in the history. Physical Exam Physical Exam: The patient is awake, alert and oriented 3, well developed and well nourished, normocephalic and atraumatic, lying in bed and in no acute distress. HEENT--PERRL, EOMI, mucous membranes and oropharynx mildly dry Neck--supple. No JVD. No bruits. Thyroid normal, trachea midline, no adenopathy. Heart--normal S1 and S2. No murmurs, rubs or gallops. Lungs--clear bilaterally, no respiratory distress, no accessory muscle use. Abdomen--normal bowel sounds and soft. Extremities--no cyanosis or clubbing. No edema. Dermatologic--normal skin turgor, normal color, no abnormal lymph nodes, no rash. Neurologic--cranial nerves II through XII grossly intact. Rheumatologic--normal range of motion. Psychiatric--normal affect. Results & Data Results & Data Vital Signs (Past 12 Hours) Vital Signs Temp Pulse Resp BP Pulse Ox O2 Del Method 02/13/25 08:29 97.9 F 96 H 16 144/69 H 95 Room Air 02/13/25 08:00 Room Air PG Care Time/CCT Total # of Minutes Spent Total Time Spent with Patient: Total time spent is greater than 50% in coordination of care (as documented) at patient's floor/unit and/or counseling patient: Coding Level of Care Code 94481 SUB INP/OBS CARE 2/35MIN Diagnoses Fracture of femoral neck, right S72.001A Right calf pain M79.661 Nonrheumatic aortic valve stenosis I35.0 Cardiac valve disease etiology: nonrheumatic Coronary artery disease of bypass graft of [place] heart with stable angina pectoris I25.708 Pancreatic insufficiency K86.89 Time Spent (min) 35 (3) Aortic stenosis Cardiac valve disease etiology: nonrheumatic Qualified Code(s): I35.0 - Nonrheumatic aortic (valve) stenosis
[2025-02-14 06:18] LABS: Hematocrit (blood only) 26.4 % (42.0-52.0); Hemoglobin 8.5 g/dl (14.0-18.0); Mean Corpuscular Hemoglobin 29.8 pg (25.0-34.0); Mean Corpuscular Hgb Conc 32.2 g/dL (32.0-36.0); Mean Corpuscular Volume 92.6 fL (80.0-100.0); Mean Platelet Volume 9.8 fL (9.4-12.4); Platelet Count 244 K/uL (130-400); RDW Coefficient of Variation 13.9 % (11.5-14.5); RDW Standard Deviation 47.2 fL (36.4-46.3); Red Blood Count 2.85 M/uL (4.70-6.10); White Blood Count 7.03 K/ul (4.8-10.8)
[2025-02-14 06:53] LABS: BUN Creatinine Ratio 31.9 (10-20); Calcium 8.8 mg/dl (8.6-10.3); Creatinine Clr Calc Pharmacy 34.4 ml/min; Potassium 5.3 mmol/L (3.5-5.1)
[2025-02-14] MEDS: SODIUM ZIRCONIUM CYCLOSILICATE 10 GM PACKET PO SCH (09:37)
--- NOTE | 2025-02-14 10:01 | Hospitalist Progress Note ---
Date of Service February 14, 2025 Assessment & Plan (1) Fracture of femoral neck, right: (2) Right calf pain: (3) Aortic stenosis: (4) Coronary artery disease of bypass graft of [place] heart with stable angina pectoris: (5) Pancreatic insufficiency: (6) Hyperkalemia: Plan 84 year old male presents to the ER with right hip pain after outpatient CT hip showing fracture Hyperkalemia K 5.3 today will give Lokelma recheck potassium Right Arm pain: Some difficulty stretching out his right arm today X ray shoulder shows Subluxation of the right shoulder suggesting chronic rotator cuff injury. Ortho says follow up outpatient for shoulder injections However, I think he may benefit from relocation of the shoulder #Fracture of right femoral neck Found to have right femoral neck surgery He is now day 4 s/p Right cemented bipolar hip arthroplasty Appreciate orthopedics pain is under fair control Acetaminophen and tramadol for pain relief #Right calf pain Suspect from just disuse of muscles and not using his right leg, r/o DVT with US doppler #Coronary artery disease / moderate aortic stenosis / History of HFpEF (takes PRN Lasix) Hx bypass in 2019 Previously on atenolol, Recent cardiology note says he is on a BB although this was discontinued due to CKD. 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 #CKD stage 3 - At baseline, continue to monitor with AM labs #BPH - continue tamsulosin #GERD - continue pantoprazole 40mg PO BID #Asthma - no acute exacerbation, continue his maintenance inhalers or hospital formulary equivalent #Normocytic anemia - at baseline VTE Prophylaxis - per orthopedics post operatively, deferred pre-operatively Diet - regular, Disposition - Discharge to rehab when accepted Admission and Anticipated Discharge Date Admission Date: February 09, 2025 Subjective patient seen and examined, stable post hip surgery, Review of Systems Review of Systems: All systems reviewed are negative, apart from the ones contained in the history. Physical Exam Physical Exam: The patient is awake, alert and oriented 3, well developed and well nourished, normocephalic and atraumatic, lying in bed and in no acute distress. HEENT--PERRL, EOMI, mucous membranes and oropharynx mildly dry Neck--supple. No JVD. No bruits. Thyroid normal, trachea midline, no adenopathy. Heart--normal S1 and S2. No murmurs, rubs or gallops. Lungs--clear bilaterally, no respiratory distress, no accessory muscle use. Abdomen--normal bowel sounds and soft. Extremities--no cyanosis or clubbing. No edema. Dermatologic--normal skin turgor, normal color, no abnormal lymph nodes, no rash. Neurologic--cranial nerves II through XII grossly intact. Rheumatologic--normal range of motion. Psychiatric--normal affect. Results & Data Results & Data Vital Signs (Past 12 Hours) Vital Signs Temp Pulse Resp BP Pulse Ox O2 Del Method 02/14/25 08:00 98.1 F 99 H 18 123/61 96 Room Air PG Care Time/CCT Total # of Minutes Spent Total Time Spent with Patient: Total time spent is greater than 50% in coordination of care (as documented) at patient's floor/unit and/or counseling patient: Coding Level of Care Code 70939 SUB INP/OBS CARE 2/35MIN Diagnoses Fracture of femoral neck, right S72.001A Right calf pain M79.661 Nonrheumatic aortic valve stenosis I35.0 Cardiac valve disease etiology: nonrheumatic Coronary artery disease of bypass graft of [place] heart with stable angina pectoris I25.708 Pancreatic insufficiency K86.89 Hyperkalemia E87.5 Time Spent (min) 35 (3) Aortic stenosis Cardiac valve disease etiology: nonrheumatic Qualified Code(s): I35.0 - Nonrheumatic aortic (valve) stenosis
[2025-02-14] MEDS: ALUMINUM/MAGNESIUM SUSP 30 ML UDC PO PRN (19:50)
--- NOTE | 2025-02-15 08:06 | Orthopedic Progress Note ---
Date of Service February 15, 2025 Assessment & Plan (1) S/P total right hip arthroplasty: POD 5 from a right hip hemiarthroplasty by Dr. Castro -[place], SCDs and anticoagulation as per hospitalist team for DVT prophylaxis -Posterior hip precautions -Please work with PT/OT for mobilization as well as consideration of posterior hip precautions. -Discharge as per hospitalist team. -per last CM note: "SNF rehab referral pending for [facility]. Insurance auth would be needed if they're able to accept." -Keep dressing dry and intact. change as needed. -Follow-up as an outpatient with Dr. Castro in 2 to 3 weeks for initial postop visit and staple removal. Subjective Operation Date: 02/10/25 07:00 Actual Procedures p Right Cemented Bipolar Hip Arthroplasty(Right) - Mateusz Castro MD Postop day 5 from a right cemented bipolar hip arthroplasty due to a hip fracture by Dr. Castro. Patient is doing well. He is waiting placement in a rehab center. Review of Systems All systems reviewed & are unremarkable except as noted in HPI & below. Physical Exam General: Alert and oriented. No acute distress. Right lower extremity: D ressing intact without saturation. It is dry. He has very good range of motion of the right knee, right foot and right ankle. Neurovascular intact. No significant edema of the right lower extremity. NV intact RLE. Results & Data Results & Data Laboratory Results . Diagnostic Findings . PG Care Time/CCT Total # of Minutes Spent Total Time Spent with Patient: Total time spent is greater than 50% in coordination of care (as documented) at patient's floor/unit and/or counseling patient: Coding Level of Care Code 14174 Post Operative Follow-Up Diagnoses S/P total right hip arthroplasty Z96.641
--- NOTE | 2025-02-15 10:28 | Hospitalist Progress Note ---
Date of Service February 15, 2025 Assessment & Plan (1) Fracture of femoral neck, right: (2) Right calf pain: (3) Aortic stenosis: (4) Coronary artery disease of bypass graft of [place] heart with stable angina pectoris: (5) Pancreatic insufficiency: (6) Hyperkalemia: Plan 84 year old male presents to the ER with right hip pain after outpatient CT hip showing fracture Hyperkalemia Resolved Right Arm pain: Some difficulty stretching out his right arm today X ray shoulder shows Subluxation of the right shoulder suggesting chronic rotator cuff injury. Ortho says follow up outpatient for shoulder injections However, I think he may benefit from relocation of the shoulder #Fracture of right femoral neck Found to have right femoral neck surgery He is now day 5 s/p Right cemented bipolar hip arthroplasty Appreciate orthopedics pain is under fair control Acetaminophen and tramadol for pain relief #Right calf pain Suspect from just disuse of muscles and not using his right leg, r/o DVT with US doppler #Coronary artery disease / moderate aortic stenosis / History of HFpEF (takes PRN Lasix) Hx bypass in 2019 Previously on atenolol, Recent cardiology note says he is on a BB although this was discontinued due to CKD. 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 #CKD stage 3 - At baseline, continue to monitor with AM labs #BPH - continue tamsulosin #GERD - continue pantoprazole 40mg PO BID #Asthma - no acute exacerbation, continue his maintenance inhalers or hospital formulary equivalent #Normocytic anemia - at baseline VTE Prophylaxis - per orthopedics post operatively, deferred pre-operatively Diet - regular, Disposition - Discharge to rehab when accepted Admission and Anticipated Discharge Date Admission Date: February 09, 2025 Subjective patient seen and examined, stable post hip surgery, Review of Systems Review of Systems: All systems reviewed are negative, apart from the ones contained in the history. Physical Exam Physical Exam: The patient is awake, alert and oriented 3, well developed and well nourished, normocephalic and atraumatic, lying in bed and in no acute distress. HEENT--PERRL, EOMI, mucous membranes and oropharynx mildly dry Neck--supple. No JVD. No bruits. Thyroid normal, trachea midline, no adenopathy. Heart--normal S1 and S2. No murmurs, rubs or gallops. Lungs--clear bilaterally, no respiratory distress, no accessory muscle use. Abdomen--normal bowel sounds and soft. Extremities--no cyanosis or clubbing. No edema. Dermatologic--normal skin turgor, normal color, no abnormal lymph nodes, no rash. Neurologic--cranial nerves II through XII grossly intact. Rheumatologic--normal range of motion. Psychiatric--normal affect. Results & Data Results & Data Vital Signs (Past 12 Hours) Vital Signs Temp Pulse Resp BP Pulse Ox O2 Del Method 02/15/25 07:36 98.1 F 67 18 108/62 97 Room Air PG Care Time/CCT Total # of Minutes Spent Total Time Spent with Patient: Total time spent is greater than 50% in coordination of care (as documented) at patient's floor/unit and/or counseling patient: Coding Level of Care Code 12305 SUB INP/OBS CARE 2/35MIN Diagnoses Fracture of femoral neck, right S72.001A Right calf pain M79.661 Nonrheumatic aortic valve stenosis I35.0 Cardiac valve disease etiology: nonrheumatic Coronary artery disease of bypass graft of [place] heart with stable angina pectoris I25.708 Pancreatic insufficiency K86.89 Hyperkalemia E87.5 Time Spent (min) 35 (3) Aortic stenosis Cardiac valve disease etiology: nonrheumatic Qualified Code(s): I35.0 - Nonrheumatic aortic (valve) stenosis
[2025-02-16] MEDS: ONDANSETRON INJ 2 MG/ML 2 ML VIAL IV PRN (08:59)
--- NOTE | 2025-02-16 09:52 | Hospitalist Progress Note ---
Date of Service February 16, 2025 Assessment & Plan (1) Fracture of femoral neck, right: (2) Right calf pain: (3) Aortic stenosis: (4) Coronary artery disease of bypass graft of [place] heart with stable angina pectoris: (5) Pancreatic insufficiency: (6) Hyperkalemia: Plan 84 year old male presents to the ER with right hip pain after outpatient CT hip showing fracture Hyperkalemia Resolved Right Arm pain: Some difficulty stretching out his right arm today X ray shoulder shows Subluxation of the right shoulder suggesting chronic rotator cuff injury. Ortho says follow up outpatient for shoulder injections However, I think he may benefit from relocation of the shoulder #Fracture of right femoral neck Found to have right femoral neck surgery He is now day 5 s/p Right cemented bipolar hip arthroplasty Appreciate orthopedics pain is under fair control Acetaminophen and tramadol for pain relief #Right calf pain Suspect from just disuse of muscles and not using his right leg, r/o DVT with US doppler #Coronary artery disease / moderate aortic stenosis / History of HFpEF (takes PRN Lasix) Hx bypass in 2019 Previously on atenolol, Recent cardiology note says he is on a BB although this was discontinued due to CKD. 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 #CKD stage 3 - At baseline, continue to monitor with AM labs #BPH - continue tamsulosin #GERD - continue pantoprazole 40mg PO BID #Asthma - no acute exacerbation, continue his maintenance inhalers or hospital formulary equivalent #Normocytic anemia - at baseline VTE Prophylaxis - per orthopedics post operatively, deferred pre-operatively Diet - regular, Disposition - Discharge to rehab when accepted Admission and Anticipated Discharge Date Admission Date: February 09, 2025 Subjective patient seen and examined, stable post hip surgery, Review of Systems Review of Systems: All systems reviewed are negative, apart from the ones contained in the history. Physical Exam Physical Exam: The patient is awake, alert and oriented 3, well developed and well nourished, normocephalic and atraumatic, lying in bed and in no acute distress. HEENT--PERRL, EOMI, mucous membranes and oropharynx mildly dry Neck--supple. No JVD. No bruits. Thyroid normal, trachea midline, no adenopathy. Heart--normal S1 and S2. No murmurs, rubs or gallops. Lungs--clear bilaterally, no respiratory distress, no accessory muscle use. Abdomen--normal bowel sounds and soft. Extremities--no cyanosis or clubbing. No edema. Dermatologic--normal skin turgor, normal color, no abnormal lymph nodes, no rash. Neurologic--cranial nerves II through XII grossly intact. Rheumatologic--normal range of motion. Psychiatric--normal affect. Results & Data Results & Data Vital Signs (Past 12 Hours) Vital Signs Temp Pulse Resp BP Pulse Ox O2 Del Method 02/16/25 08:53 83 16 123/51 L 92 Room Air 02/16/25 08:10 Room Air 02/16/25 07:32 36.9 C 88 16 102/58 L 95 Room Air PG Care Time/CCT Total # of Minutes Spent Total Time Spent with Patient: Total time spent is greater than 50% in coordination of care (as documented) at patient's floor/unit and/or counseling patient: Coding Level of Care Code 49114 SUB INP/OBS CARE 2/35MIN Diagnoses Fracture of femoral neck, right S72.001A Right calf pain M79.661 Nonrheumatic aortic valve stenosis I35.0 Cardiac valve disease etiology: nonrheumatic Coronary artery disease of bypass graft of [place] heart with stable angina pectoris I25.708 Pancreatic insufficiency K86.89 Hyperkalemia E87.5 Time Spent (min) 35 (3) Aortic stenosis Cardiac valve disease etiology: nonrheumatic Qualified Code(s): I35.0 - Nonrheumatic aortic (valve) stenosis
[2025-02-16 11:38] LABS: Adenovirus PCR Not Detected (NotDetected); Bordetella parapertussis PCR Not Detected (NotDetected); Bordetella pertussis PCR Not Detected (NotDetected); Chlamydia pneumoniae PCR Not Detected (NotDetected); Coronavirus 229E PCR Not Detected (NotDetected); Coronavirus CoV-2 (COVID19)PCR Not Detected (NotDetected); Coronavirus HKU1 PCR Not Detected (NotDetected); Coronavirus NL63 PCR Not Detected (NotDetected); Coronavirus OC43PCR Not Detected (NotDetected); Human Metapneumovirus PCR Not Detected (NotDetected); Influenza A PCR Not Detected (NotDetected); Influenza B PCR Not Detected (NotDetected); Mycoplasma pneumoniae PCR Not Detected (NotDetected); Parainfluenza Virus 1 PCR Not Detected (NotDetected); Parainfluenza Virus 2 PCR Not Detected (NotDetected); Parainfluenza Virus 3 PCR Not Detected (NotDetected); Parainfluenza Virus 4 PCR Not Detected (NotDetected); Respiratory Syncytial VirusPCR Not Detected (NotDetected); Rhinovirus/Enterovirus PCR Not Detected (NotDetected)
[2025-02-16 13:28] LABS: Hematocrit (blood only) 30.1 % (42.0-52.0); Hemoglobin 9.8 g/dl (14.0-18.0); Mean Corpuscular Hemoglobin 30.2 pg (25.0-34.0); Mean Corpuscular Hgb Conc 32.6 g/dL (32.0-36.0); Mean Corpuscular Volume 92.6 fL (80.0-100.0); Mean Platelet Volume 9.8 fL (9.4-12.4); Platelet Count 317 K/uL (130-400); RDW Coefficient of Variation 13.8 % (11.5-14.5); RDW Standard Deviation 46.8 fL (36.4-46.3); Red Blood Count 3.25 M/uL (4.70-6.10); White Blood Count 8.07 K/ul (4.8-10.8)
--- NOTE | 2025-02-17 07:11 | Orthopedic Progress Note ---
Date of Service February 17, 2025 Assessment & Plan (1) S/P total right hip arthroplasty: Pain well controlled. Awaiting d/c to rehab/snf. Should follow up with Dr Castro approximately 2-3 weeks after surgery. PT/OT, wbat, hip precautions. Okay to use a pillow between legs instead of the abduction pillow if that is more comfortable on his skin dvt prophylaxis: teds, scd's, aspirin Subjective .84 year old patient POD 7 from right bipolar hip hemiarthroplasty. Doing fairly well. Hip pain has been minimal. He has a bandage on the medial thigh due to some irritation from the abduction pillow. No other complaints Review of Systems All systems reviewed & are unremarkable except as noted in HPI & below. Physical Exam . alert and oriented. NAD Left leg: well aligned, dressing clean, dry, intact. able to dorsiflex and plantarflex. NVI Results & Data Results & Data Laboratory Results . Diagnostic Findings . PG Care Time/CCT Total # of Minutes Spent Total Time Spent with Patient: Total time spent is greater than 50% in coordination of care (as documented) at patient's floor/unit and/or counseling patient: Coding Level of Care Code 23398 Post Operative Follow-Up Diagnoses S/P total right hip arthroplasty Z96.641
[2025-02-17 07:35] LABS: Basophils # (auto) 0.03 K/uL (0.00-0.20); Basophils % (auto) 0.4 %; Eosinophils # (auto) 0.21 K/uL (0.00-0.50); Eosinophils % (auto) 2.8 %; Hematocrit (blood only) 26.9 % (42.0-52.0); Hemoglobin 8.9 g/dl (14.0-18.0); Immature Granulocytes # (auto) 0.14 K/uL (0.01-0.20); Immature Granulocytes % (auto) 1.9 %; Lymphocytes # (auto) 1.68 K/uL (1.20-3.40); Lymphocytes % (auto) 22.3 %; Mean Corpuscular Hemoglobin 30.6 pg (25.0-34.0); Mean Corpuscular Hgb Conc 33.1 g/dL (32.0-36.0); Mean Corpuscular Volume 92.4 fL (80.0-100.0); Mean Platelet Volume 9.8 fL (9.4-12.4); Monocytes # (auto) 0.92 K/uL (0.11-0.59); Monocytes % (auto) 12.2 %; Neutrophils # (auto) 4.54 K/uL (1.40-6.50); Neutrophils % (auto) 60.4 %; Platelet Count 315 K/uL (130-400); RDW Coefficient of Variation 13.7 % (11.5-14.5); RDW Standard Deviation 47.2 fL (36.4-46.3); Red Blood Count 2.91 M/uL (4.70-6.10); White Blood Count 7.52 K/ul (4.8-10.8)
[2025-02-17 07:52] LABS: Albumin Level 2.9 gm/dl (3.4-5.0); BUN Creatinine Ratio 32.8 (10-20); Bilirubin,Total 0.7 mg/dl (0.2-1.0); Calcium 8.6 mg/dl (8.6-10.3); Creatinine Clr Calc Pharmacy 37.8 ml/min; Globulin 2.9 gm/dl (2.5-4.0); Potassium 4.2 mmol/L (3.5-5.1); Total Protein 5.8 gm/dl (6.0-8.3)
--- NOTE | 2025-02-17 16:18 | Hospitalist Progress Note ---
Date of Service February 17, 2025 Assessment & Plan (1) Fracture of femoral neck, right: (2) Right calf pain: (3) Aortic stenosis: (4) Coronary artery disease of bypass graft of [place] heart with stable angina pectoris: (5) Pancreatic insufficiency: (6) Hyperkalemia: Plan 84 year old male presents to the ER with right hip pain after outpatient CT hip showing fracture ) S/P total right hip arthroplasty: Pain well controlled. Awaiting d/c to rehab/snf. Should follow up with Dr Castro approximately 2-3 weeks after surgery. PT/OT, wbat, hip precautions. Okay to use a pillow between legs instead of the abduction pillow if that is more comfortable on his skin dvt prophylaxis: teds, scd's, aspirin Hyperkalemia Resolved Right Arm pain: Some difficulty stretching out his right arm today X ray shoulder shows Subluxation of the right shoulder suggesting chronic rotator cuff injury. Ortho says follow up outpatient for shoulder injections However, I think he may benefit from relocation of the shoulder #Fracture of right femoral neck Found to have right femoral neck surgery He is now day 5 s/p Right cemented bipolar hip arthroplasty Appreciate orthopedics pain is under fair control Acetaminophen and tramadol for pain relief #Right calf pain Suspect from just disuse of muscles and not using his right leg, r/o DVT with US doppler #Coronary artery disease / moderate aortic stenosis / History of HFpEF (takes PRN Lasix) Hx bypass in 2019 Previously on atenolol, Recent cardiology note says he is on a BB although this was discontinued due to CKD. 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 #CKD stage 3 - At baseline, continue to monitor with AM labs #BPH - continue tamsulosin #GERD - continue pantoprazole 40mg PO BID #Asthma - no acute exacerbation, continue his maintenance inhalers or hospital formulary equivalent #Normocytic anemia - at baseline VTE Prophylaxis - per orthopedics post operatively, deferred pre-operatively Diet - regular, Disposition -I called life insurance specialist and discussed with her today's physical therapy note according to the life insurance specialist patient would not qualify for acute rehab discussed this with case management as well as patient's daughter Ms. [phone]. Admission and Anticipated Discharge Date Admission Date: February 09, 2025 Subjective patient seen and examined, stable post hip surgery, Physical Exam Physical Exam: he patient is awake, alert and oriented 3, well developed and well nourished, normocephalic and atraumatic, lying in bed and in no acute distress. HEENT--PERRL, EOMI, mucous membranes and oropharynx mildly dry Neck--supple. No JVD. No bruits. Thyroid normal, trachea midline, no adenopathy. Heart--normal S1 and S2. No murmurs, rubs or gallops. Lungs--clear bilaterally, no respiratory distress, no accessory muscle use. Abdomen--normal bowel sounds and soft. Extremities--no cyanosis or clubbing. No edema. Dermatologic--normal skin turgor, normal color, no abnormal lymph nodes, no rash. Neurologic--cranial nerves II through XII grossly intact. Rheumatologic--normal range of motion. Psychiatric--normal affect. Results & Data Results & Data Vital Signs (Past 12 Hours) Vital Signs Temp Pulse Resp BP Pulse Ox O2 Del Method 02/17/25 12:05 36.6 C 78 17 134/61 96 Room Air 02/17/25 08:00 Room Air 02/17/25 07:49 36.8 C 74 17 108/63 94 Room Air Laboratory Results Abnormal lab results 02/17/25 Range/Units 07:06 RBC 2.91 L (4.70-6.10) M/uL Hgb 8.9 L (14.0-18.0) g/dl Hct 26.9 L (42.0-52.0) % RDW Std Deviation 47.2 H (36.4-46.3) fL [place] # (Auto) 0.92 H (0.11-0.59) K/uL Sodium 132 L (136-145) mmol/L BUN 43 H (6-23) mg/dl BUN/Creatinine Ratio 32.8 H (10-20) Total Protein 5.8 L (6.0-8.3) gm/dl Albumin 2.9 L (3.4-5.0) gm/dl PG Care Time/CCT Total # of Minutes Spent Total Time Spent with Patient: Total time spent is greater than 50% in coordination of care (as documented) at patient's floor/unit and/or counseling patient: Coding Level of Care Code 16366 SUB INP/OBS CARE 3/50MIN Diagnoses Fracture of femoral neck, right S72.001A Right calf pain M79.661 Nonrheumatic aortic valve stenosis I35.0 Cardiac valve disease etiology: nonrheumatic Coronary artery disease of bypass graft of [place] heart with stable angina pectoris I25.708 Pancreatic insufficiency K86.89 Hyperkalemia E87.5 Time Spent (min) 50 (3) Aortic stenosis Cardiac valve disease etiology: nonrheumatic Qualified Code(s): I35.0 - Nonrheumatic aortic (valve) stenosis
[2025-02-18 07:19] VITALS: RESP 16; TEMP 98.4
--- NOTE | 2025-02-18 07:38 | XRay Report ---
EXAM: XR chest 1V portable CLINICAL HISTORY: cough TECHNIQUE: Radiograph of chest was acquired. COMPARISON: 02/09/2025 14:22:14 CHECKER PRODUCT DESIGN FINDINGS: The lungs are clear and well-expanded with no pulmonary infiltrate or pleural effusion. The cardiomediastinal silhouette is within normal limits. No acute osseous abnormality. Sternotomy sutures seen. Right gleno-humeral joint alignment appears disrupted. New finding. Suggested clinical correlation / dedicated shoulder radiographs. Persistent widened left acromio-clavicular distance, suggesting disruption. IMPRESSION: 1. No acute cardiopulmonary disease. 2. Right gleno-humeral joint alignment appears disrupted. New finding. Suggested clinical correlation / dedicated shoulder radiographs. 3. Persistent widened left acromio-clavicular distance, suggesting disruption. Electronically signed by Bharat Pond 02-18-2025 07:38 AM
[2025-02-18 08:42] LABS: Hematocrit (blood only) 24.1 % (42.0-52.0); Hemoglobin 7.9 g/dl (14.0-18.0); Mean Corpuscular Hemoglobin 30.2 pg (25.0-34.0); Mean Corpuscular Hgb Conc 32.8 g/dL (32.0-36.0); Mean Platelet Volume 9.8 fL (9.4-12.4); Platelet Count 287 K/uL (130-400); RDW Coefficient of Variation 13.5 % (11.5-14.5); RDW Standard Deviation 45.1 fL (36.4-46.3); Red Blood Count 2.62 M/uL (4.70-6.10); White Blood Count 6.94 K/ul (4.8-10.8)
[2025-02-18 08:58] LABS: Albumin Level 2.7 gm/dl (3.4-5.0); BUN Creatinine Ratio 32.5 (10-20); Bilirubin,Total 0.8 mg/dl (0.2-1.0); Calcium 8.3 mg/dl (8.6-10.3); Creatinine Clr Calc Pharmacy 39.3 ml/min; Globulin 2.7 gm/dl (2.5-4.0); Potassium 3.9 mmol/L (3.5-5.1); Total Protein 5.4 gm/dl (6.0-8.3)
[2025-02-18 09:09] VITALS: BP 106/57; PULSE 74; O2SAT 93
[2025-02-18] MEDS: SODIUM FERRIC GLUCONATE 125 MG in SODIUM CHLORIDE 0.9% 100 ML IV SCH (10:25)
--- NOTE | 2025-02-18 13:43 | Discharge Summary ---
Date of Service February 18, 2025 Admission HPI Per Admitting Provider Osmany Shaw is an 84 year old male who presents to the ER following an outpatient CT hip showing a fracture. His right hip has been hurting since a fall on [place] ice in December. No shortness of breath, chest pain or dizziness prior to falling. He initially felt it was just bruised and managed to get himself up and back into the house. After the pain and swelling continued for a few days he called his PCP to arrange an XR hip which did not show a fracture and he has continued to walk on it but with ongoing pain, using a cane and mainly putting all the weight on his other leg. He is unable to take NSAIDs due to his renal function for pain so has just been taking acetaminophen with limited relief. Due to persistent pain he underwent CT hip on February 05 which showed the fracture and he was called today to come to the ER. He took all his usual morning medications. He denies history of heart attack or stroke. On review of cardiology note he has had a three vessel bypass in 2018 with catheterization in 07/27/2024 which revealed patent grafts. He denies any current symptoms suggestive of angina. He also has known moderate aortic stenosis. Admission Exam (Per Admitting) Constitutional patient is awake, alert and oriented 3, well developed and well nourished, normocephalic and atraumatic, lying in bed and in no acute distress. HEENT--PERRL, EOMI, mucous membranes and oropharynx mildly dry Neck--supple. No JVD. No bruits. Thyroid normal, trachea midline, no adenopathy. Heart--normal S1 and S2. No murmurs, rubs or gallops. Lungs--clear bilaterally, no respiratory distress, no accessory muscle use. Abdomen--normal bowel sounds and soft. Extremities--no cyanosis or clubbing. No edema. Dermatologic--normal skin turgor, normal color, no abnormal lymph nodes, no rash. Neurologic--cranial nerves II through XII grossly intact. Rheumatologic--normal range of motion. Psychiatric--normal affect. Discharge Data Consultations 02/09/25 15:39 Consult Orthopedic Surgery Stat ED Decision to Admit Stat Procedures Performed Operation Date: 02/10/25 07:00 Actual Procedures p Right Cemented Bipolar Hip Arthroplasty(Right) - Mateusz Castro MD Hospital Course (1) Fracture of femoral neck, right: (2) Right calf pain: (3) Aortic stenosis: (4) Coronary artery disease of bypass graft of [place] heart with stable angina pectoris: (5) Pancreatic insufficiency: (6) Hyperkalemia: Plan 84 year old male presents to the ER with right hip pain after outpatient CT hip showing fracture ) S/P total right hip arthroplasty: Pain well controlled. Awaiting d/c to rehab/snf. Should follow up with Dr Castro approximately 2-3 weeks after surgery. PT/OT, wbat, hip precautions. Okay to use a pillow between legs instead of the abduction pillow if that is more comfortable on his skin dvt prophylaxis: teds, scd's, aspirin Hyperkalemia Resolved Right Arm pain: Some difficulty stretching out his right arm today X ray shoulder shows Subluxation of the right shoulder suggesting chronic rotator cuff injury. Ortho says follow up outpatient for shoulder injections However, I think he may benefit from relocation of the shoulder #Fracture of right femoral neck Found to have right femoral neck surgery He is now day 6 s/p Right cemented bipolar hip arthroplasty Appreciate orthopedics pain is under fair control Acetaminophen and tramadol for pain relief #Right calf pain Suspect from just disuse of muscles and not using his right leg, ruled out DVT with US doppler #Coronary artery disease / moderate aortic stenosis / History of HFpEF (takes PRN Lasix) Hx bypass in 2019 Previously on atenolol, Recent cardiology note says he is on a BB although this was discontinued due to CKD. 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 #CKD stage 3 - At baseline, continue to monitor with AM labs #BPH - continue tamsulosin #GERD - continue pantoprazole 40mg PO BID #Asthma - no acute exacerbation, continue his maintenance inhalers or hospital formulary equivalent #Normocytic anemia - at baseline Patient has received IV iron because of hemoglobin of 7.9 and patient had hard time with oral iron because it causes constipation this will allow him to recover faster from his hip surgery as well VTE Prophylaxis - per orthopedics post operatively, deferred pre-operatively Diet - regular, Disposition -I called insurance agents supervisor and discussed with her today's physical therapy note according to the insurance agents supervisor patient would not qualify for acute rehab discussed this with case management as well as patient's daughter Ms. [phone]. Coding Level of Care Code 46263 INP/OBS DISCH >30 MIN Diagnoses Fracture of femoral neck, right S72.001A Right calf pain M79.661 Nonrheumatic aortic valve stenosis I35.0 Cardiac valve disease etiology: nonrheumatic Coronary artery disease of bypass graft of [place] heart with stable angina pectoris I25.708 Pancreatic insufficiency K86.89 Hyperkalemia E87.5
== END 2025-02-18 15:34 | disposition home health service (06) | DRG 522 ==
LOC: ED 14:33 → EDINP 17:54 → SUATTDRO 17:54 → 3W 19:41 → 3N 02-10 22:53